=== PATIENT | female | born 1995 | race Caucasian/White ===

== ENCOUNTER 2016-08-15 10:51 | Emergency (ER) | payer MEDICARE, MEDICAID ==
[2016-08-15] MEDS ORDERED: cloNIDine TAB* 0.1 MG PO ONE (12:18)
[2016-08-15 12:49] VITALS: BP 164/100
--- NOTE | 2016-08-15 12:57 | UC ---
UC Dental HPI - HPI Summary HPI Summary: 20 yo female with CRF presents with left TMJ pain and inability or open mouth widely She has bruxism this week went to eat a salad and felt her left TMJ pop today it worsened - History of Current Complaint Chief Complaint: UCGeneralIllness Stated Complaint: JAW PAIN/LIMITED ROM Time Seen by Provider: 08/15/16 12:19 Hx Obtained From: Patient Hx Last Menstrual Period: 2014 - doesn't get d/t dialysis Onset/Duration: Gradual Onset Pain Intensity: 0 - severe if she open mouth Pain Scale Used: 0-10 Numeric Aggravating: Chewing Alleviating: Nothing - keeping mouth closed - Allergies/Home Medications Allergies/Adverse Reactions: Allergies Allergy/AdvReac Type Severity Reaction Status Date / Time Fentanyl Allergy Intermediate GI Upset Verified 08/15/16 11:36 Home Medications: Home Medications Atenolol TAB* [Tenormin TAB* 50 MG] 100 mg PO BID 08/15/16 [History Confirmed ] Ferric Citrate TAB(NF) 210 mg PO TID 08/15/16 [History Confirmed 08/15/16] Metoclopramide TAB* [Reglan TAB*] 10 mg PO TID 08/15/16 [History Confirmed 08/15] Pantoprazole Sodium [Protonix] 20 mg PO TID 08/15/16 [History Confirmed 08/15/16 ] Sodium Bicarbonate (ANTACID)* 650 mg PO QID 08/15/16 [History Confirmed 08/15/16 ] amLODIPine TAB* [Norvasc 5 mg TAB*] 5 mg PO BID 08/15/16 [History Confirmed ] cloNIDine TAB* [Catapres 0.1 MG TAB*] 0.3 mg PO TID 08/15/16 [History Confirmed 08/15/16] PMH/Surg Hx/FS Hx/Imm Hx Previously Healthy: Yes Cardiovascular History Of: Reports: Hypertension GI/ History Of: Reports: Renal Disease - Surgical History Surgical History: Yes Surgery Procedure, Year, and Place: kidney 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/2013, 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, kidney bx x4 - Family History Known Family History: Positive: Hypertension - Social History Alcohol Use: None Substance Use Type: None Smoking Status (MU): Never Smoked Tobacco Review of Systems Constitutional: Negative Skin: Negative Eyes: Negative ENT: Dental Pain - left tmj Respiratory: Negative Cardiovascular: Negative Gastrointestinal: Negative Genitourinary: Negative Motor: Negative Neurovascular: Negative Musculoskeletal: Negative Neurological: Negative Psychological: Negative All Other Systems Reviewed And Are Negative: Yes Physical Exam Triage Information Reviewed: Yes Appearance: Well-Appearing, No Pain Distress, Well-Nourished Vital Signs: Initial Vital Signs Temp 100.1 F 08/15/16 11:42 Pulse 87 08/15/16 11:42 Resp 16 08/15/16 11:42 BP 209/136 08/15/16 11:42 Pulse Ox 100 08/15/16 11:42 Vital Signs Reviewed: Yes Eyes: Positive: Conjunctiva Clear ENT: Positive: Hearing grossly normal. Negative: Nasal congestion, Nasal drainage, Muffled/hoarse voice Dental: Positive: Other: - left tmj tender/able to open up moujt 1cm Neck: Positive: Supple, Nontender, No Lymphadenopathy Respiratory: Positive: Lungs clear, Normal breath sounds, No respiratory distress Cardiovascular: Positive: RRR, No Murmur Abdomen Description: Positive: Nontender Bowel Sounds: Positive: Present Musculoskeletal: Positive: ROM Intact, No Edema Neurological: Positive: Alert Psychological Exam: Normal Skin Exam: Normal Dental Complaint Course/Dx - Differential Dx/Diagnosis Provider Diagnoses: left TMJ dysfunction. HTN. renal failure Discharge - Discharge Plan Condition: Stable Disposition: HOME Patient Education Materials: Temporomandibular Disorder (ED) Referrals: Joel Marie MD [Doctor of Dental Medicine] - As Soon As Possible Additional Instructions: ice soft/non chew diet tylenol I suspect this is due to your teeth grinding Due to your impingement I would like you to see a specialist If you have trouble making an appt let us know Call you renal specialist tomorrow as well as you are at risk for other problems that can cause jaw pain
== END 2016-08-15 13:00 | disposition home or self-care (01) ==
LOC: UCCORT 10:51
DX: M26.602 Left temporomandibular joint disorder, unspecified (principal); I10 Essential (primary) hypertension; N19 Unspecified kidney failure; Z94.0 Kidney transplant status
CPT/HCPCS: 99212; A9270-GY; G0463

== ENCOUNTER 2017-10-11 16:14 | Emergency (ER) | payer MEDICARE, MEDICAID ==
[2017-10-11 16:43] VITALS: BP 177/104
--- NOTE | 2017-10-11 16:57 | UC ---
Ear Complaint HPI - HPI Summary HPI Summary: 21 yo female with right otalgia and decreased hearing x 2 days recent URI symtpoms no f/c has hx CRF had dialysis today - History of Current Complaint Chief Complaint: UCEar Stated Complaint: RT EAR COMPLAINT Time Seen by Provider: 10/11/17 16:42 Hx Obtained From: Patient Hx Last Menstrual Period: 2014 - doesn't get d/t dialysis Onset/Duration: Gradual Onset Severity Initially: Moderate Severity Currently: Moderate Pain Intensity: 6 Pain Scale Used: 0-10 Numeric Associated Signs/Symptoms: Positive: Discharge, URI Symptoms - Allergies/Home Medications Allergies/Adverse Reactions: Allergies Allergy/AdvReac Type Severity Reaction Status Date / Time fentanyl Allergy GI Upset Verified 10/11/17 16:41 lisinopril Allergy Coughing Verified 10/11/17 16:41 nifedipine Allergy Rash Verified 10/11/17 16:41 Home Medications: Home Medications Carvedilol TAB* [Coreg TAB*] 25 mg PO BID 10/11/17 [History Confirmed 10/11/17] Valsartan TAB* [Diovan TAB*] 320 mg PO DAILY 10/11/17 [History Confirmed ] hydrALAZINE TAB* [Apresoline TAB*] 25 mg PO TID 10/11/17 [History Confirmed ] PMH/Surg Hx/FS Hx/Imm Hx Previously Healthy: No Cardiovascular History: Hypertension GI/ History: Renal Disease - Surgical History Surgical History: Yes Surgery Procedure, Year, and Place: kidney 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/2013, 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, kidney bx x4 - Family History Known Family History: Positive: Hypertension - Social History Alcohol Use: None Substance Use Type: None Smoking Status (MU): Never Smoked Tobacco Review of Systems Constitutional: Negative Skin: Negative Eyes: Negative ENT: Ear Ache, Sinus Congestion Respiratory: Negative Cardiovascular: Negative Gastrointestinal: Negative Genitourinary: Negative Motor: Negative Neurovascular: Negative Musculoskeletal: Negative Neurological: Negative Psychological: Negative All Other Systems Reviewed And Are Negative: Yes Physical Exam Triage Information Reviewed: Yes Appearance: Well-Appearing, No Pain Distress, Well-Nourished Vital Signs: Initial Vital Signs Temp 97.8 F 10/11/17 16:35 Pulse 92 10/11/17 16:35 Resp 16 10/11/17 16:35 BP 177/104 10/11/17 16:35 Pulse Ox 98 10/11/17 16:35 Vital Signs Reviewed: Yes Eyes: Positive: Conjunctiva Clear ENT: Positive: Nasal congestion, TM bulging - right. Negative: Hearing grossly normal - decreased hearing right ear, Nasal drainage, TMs normal, TM dull, TM red, Tonsillar swelling, Tonsillar exudate, Muffled voice, Hoarse voice, Sinus tenderness, Uvula midline Neck: Positive: Supple, Nontender, No Lymphadenopathy Respiratory: Positive: Lungs clear, Normal breath sounds, No respiratory distress Cardiovascular: Positive: RRR, No Murmur Neurological: Positive: Alert Psychological Exam: Normal Skin Exam: Normal Ear Complaint Course/Dx - Differential Dx/Diagnosis Provider Diagnoses: right serous otitis media Discharge - Sign-Out/Discharge Documenting (check all that apply): Discharge/Admit/Transfer - Discharge Plan Condition: Stable Disposition: HOME Prescriptions: Fluticasone NASAL SPRAY 50MCG* [Flonase NASAL SPRAY 50MCG*] 2 spray BOTH NARES BID #1 btl Patient Education Materials: Serous Otitis Media (ED) Referrals: Kp Kaur MD [Primary Care Provider] - Additional Instructions: recheck in 2-3 weeks if hearing not back to normal RECHECK SOONER FOR NEW OR WORSENING SYMPTOMS tylenol - Billing Disposition and Condition Condition: STABLE Disposition: Home
== END 2017-10-11 16:58 | disposition home or self-care (01) ==
LOC: UCCORT 16:14
DX: H65.91 Unspecified nonsuppurative otitis media, right ear (principal); Z88.5 Allergy status to narcotic agent; Z88.8 Allergy status to other drugs, medicaments and biological substances; I12.9 Hypertensive chronic kidney disease with stage 1 through stage 4 chronic kidney disease, or unspecified chronic kidney disease; N18.9 Chronic kidney disease, unspecified; Z99.2 Dependence on renal dialysis
CPT/HCPCS: 99212; G0463

== ENCOUNTER 2017-10-25 12:53 | Emergency (ER) | payer MEDICARE, MEDICAID ==
[2017-10-25 13:31] VITALS: BP 211/131
--- NOTE | 2017-10-25 13:32 | UC ---
Ear Complaint HPI - HPI Summary HPI Summary: Patient presents accompanied by her friend. She is complaining of severe headache. She describes it as an 8 out of 10 right-sided throbbing headache since noon yesterday. She attributes this to right ear pain for the past 3 weeks. She states that she was seen here 3 weeks ago for right ear discomfort, told it was not an infection and advised to be re-seen if the ear does not improve in 3 weeks. She states she is using Flonase without relief. She denies any runny nose, cough, sore throat and fever. We noted her blood pressure to be quite elevated at time of triage. She denies any change in her vision, speech, numbness or weakness to arms or legs. She is a dialysis patient and notes that this is her baseline blood pressure. Her last dialysis session was this morning. - History of Current Complaint Chief Complaint: UCEar Stated Complaint: EAR PAIN Time Seen by Provider: 10/25/17 13:20 Hx Obtained From: Patient Hx Last Menstrual Period: 2014 - doesn't get d/t dialysis Onset/Duration: Gradual Onset Aggravating Factors: Nothing Alleviating Factors: Nothing Associated Signs/Symptoms: Negative: Hearing Loss, Foreign Body Sensation, Trauma to Ear - Allergies/Home Medications Allergies/Adverse Reactions: Allergies Allergy/AdvReac Type Severity Reaction Status Date / Time fentanyl Allergy GI Upset Verified 10/25/17 13:16 lisinopril Allergy Coughing Verified 10/25/17 13:16 nifedipine Allergy Rash Verified 10/25/17 13:16 Home Medications: Home Medications Pantoprazole Sodium [Protonix] 20 mg QAM 10/25/17 [History Confirmed 10/25/17] PMH/Surg Hx/FS Hx/Imm Hx - Additional Past Medical History Additional PMH: ESRD, HTN, HSP - Surgical History Surgical History: Yes Surgery Procedure, Year, and Place: kidney 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/2013, 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, kidney bx x4 - Family History Known Family History: Positive: Hypertension - Social History Occupation: Unemployed Alcohol Use: None Substance Use Type: None Smoking Status (MU): Never Smoked Tobacco - Immunization History Vaccination Up to Date: Yes Review of Systems Constitutional: Negative Skin: Negative Eyes: Negative ENT: Ear Ache - R Respiratory: Negative Cardiovascular: Negative Gastrointestinal: Negative Genitourinary: Negative Motor: Negative Neurovascular: Negative Musculoskeletal: Negative Neurological: Headache Psychological: Negative Is Patient Immunocompromised?: Yes All Other Systems Reviewed And Are Negative: Yes Physical Exam Triage Information Reviewed: Yes Appearance: Well-Appearing, Other: - facial features celena in appearance Vital Signs Reviewed: Yes Eyes: Positive: Conjunctiva Clear, Other: - attempted to visualize fundus but unable to appreciate with light relfex ENT: Positive: Pharynx normal, TMs normal - L, R only slightly pink. Negative: Nasal congestion, Nasal drainage Neck: Positive: Supple, Nontender, No Lymphadenopathy, Other: - no bruits Respiratory: Positive: Lungs clear, Normal breath sounds, Other: - Port R upper chest Cardiovascular: Positive: RRR, No Murmur, Pulses Normal Abdomen Description: Positive: Nontender, No Organomegaly, Soft Bowel Sounds: Positive: Present Musculoskeletal: Positive: ROM Intact, No Edema - extremities Neurological: Positive: Other: - Alert and oriented to person place and time. Cranial nerves II through XII are grossly intact. 5 out of 5 strength and 2+ reflexes 4. Rapid alternating moves with ease. Normal steady gait. Psychological: Positive: Age Appropriate Behavior Skin Exam: Normal Ear Complaint Course/Dx - Course Course Of Treatment: triage bp= 211/131. repat manual LUE by myself on exam 212/ 120. bp 10/11/17 177/104. consult placed to Dr Babb, her insurance associate. I advised pt insists BP normal for her; however, given her [place] and current bp, I am concerned this may be a hypertensive emergency. I advise the BP and [place] are out of proportion to ear findings. he notes he has spoken to pt multiple times about her bp and it was higher after her dialysis this am. he suggest tx for pain, repeat BP and send to ER if not improved. Patient advised of her insurance associate recommendation; however, she is not willing to attempt a trial of treatment of her pain here. She states that she is going to go directly to [facility]'s emergency room. She is adamantly refusing EMS transfer despite risk of hypertensive emergency, worsening, disability, and delay of care. Given she is alert and oriented 3 here I must respect her wish to refuse. Her friend at the bedside is agreeable to taking her directly there. Her friend will be the regional truck driver. I Advised friend that if there are any complications, anything at all to pan puller and call 911. Friend degrees. [facility] emergency room called. Report given to Dr. Acosta and I share with her my concern for hypertensive emergency. I also shared by consult with Dr. Babb. - Differential Dx/Diagnosis Provider Diagnoses: hypertension uncontrolled, possible hypertensive emergency. headache. otalgia-R Discharge - Sign-Out/Discharge Documenting (check all that apply): Discharge/Admit/Transfer - Discharge Plan Condition: Stable Disposition: TRANS HIGHER LVL OF CARE FAC Referrals: No Primary Care Phys,NOPCP [Primary Care Provider] - Kp Kaur MD [Medical Doctor] - Additional Instructions: GO DIRECTLY TO THE [facility] UPON LEAVING HERE. YOUR FRIEND IS TO DRIVE. - Billing Disposition and Condition Condition: STABLE Disposition: Trans Higher Lvl of Care Fac
== END 2017-10-25 14:16 | disposition short-term general hospital (02) ==
LOC: UCCORT 12:53
DX: I12.0 Hypertensive chronic kidney disease with stage 5 chronic kidney disease or end stage renal disease (principal); N18.6 End stage renal disease; Z99.2 Dependence on renal dialysis; R51 Headache; H92.01 Otalgia, right ear; Z88.8 Allergy status to other drugs, medicaments and biological substances; Z88.4 Allergy status to anesthetic agent
CPT/HCPCS: 99212; G0463

== ENCOUNTER 2017-11-04 23:04 | Inpatient (IN) | payer MEDICARE, MEDICAID ==
--- NOTE | 2017-11-04 23:25 | ED ---
GI/ HPI - HPI Summary HPI Summary: This patient is a 21 year old F transferred via ambulance to [facility] from [place] with a chief complaint of vomiting that began yesterday night at 0130. The patient rates the pain 0/10. Symptoms aggravated by nothing. Symptoms alleviated by Zofran in [place]. Patient reports nasal drainage down throat, diarrhea (resolved), and fever. Pt reports she has HSP, and has been on dialysis since 2016. Pt states she is due for dialysis tomorrow. Pt denies sick contacts at home. - History of Current Complaint Time Seen by Provider: 11/04/17 23:15 Stated Complaint: TRANSFER/DIALYSIS Hx Obtained From: Patient Hx Last Menstrual Period: 2014 - doesn't get d/t dialysis Onset/Duration: Started Days Ago, Atraumatic, Still Present Timing: Constant Severity: Mild Current Severity: Mild Associated Signs and Symptoms: Positive: Diarrhea, Fever Aggravating Factor(s): Nothing - Allergy/Home Medications Allergies/Adverse Reactions: Allergies Allergy/AdvReac Type Severity Reaction Status Date / Time fentanyl Allergy GI Upset Verified 10/25/17 13:16 lisinopril Allergy Coughing Verified 10/25/17 13:16 nifedipine Allergy Rash Verified 10/25/17 13:16 PMH/Surg Hx/FS Hx/Imm Hx Previously Healthy: No Cardiovascular History: Reports: Hx Hypertension History: Reports: Hx Renal Disease - Surgical History Surgery Procedure, Year, and Place: kidney 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/2013, 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, kidney bx x4 Infectious Disease History: Yes Infectious Disease History: Reports: Hx Shingles - Family History Known Family History: Positive: Hypertension - Social History Occupation: Student Lives: With Family Alcohol Use: None Substance Use Type: Reports: None Smoking Status (MU): Never Smoked Tobacco Review of Systems Positive: Fever ENT: Other - Positive nasal drainage down throat Positive: Vomiting, Diarrhea All Other Systems Reviewed And Are Negative: Yes Physical Exam - Summary Physical Exam Summary: Appearance: Well-appearing, Well-nourished, lying in bed comfortably Skin: Warm, dry, no obvious rash Eyes: sclera anicteric, no conjunctival pallor ENT: mucous membranes moist, pharynx appears normal Neck: Supple, nontender Respiratory: slight bibasilar crackles, no signs of respiratory distress Cardiovascular: Normal S1, S2. No murmurs. Normal distal pulses in tibial and radial bilaterally. Permacath in R chest Abdomen: Soft, nontender, normal active bowel sounds present Musculoskeletal: cushingoid facies, Strength/ROM Intact Neurological: A&Ox3, awake and alert, mentation is normal, speech is fluent and appropriate Psychiatric: affect is normal, does not appear anxious or depressed Triage Information Reviewed: Yes Vital Signs Reviewed: Yes GIGU Course/Dx - Diagnoses Provider Diagnoses: Hypertension, ESRF (end stage renal failure), Nausea and vomiting - Physician Notifications Discussed Care Of Patient With: Spencer Andre Time Discussed With Above Provider: 23:30 Instructed by Provider To: Other - Consult with Dr. Andre (hospitalist) at 2330. He agrees to admit pt for further evaluation. Discharge - Sign-Out/Discharge Documenting (check all that apply): Patient Departure - Discharge Plan Condition: Guarded Disposition: ADMITTED TO [facility] - Billing Disposition and Condition Condition: GUARDED Disposition: Admitted to [facility]
[2017-11-04] MEDS ORDERED: cloNIDine TAB* 0.1 MG PO ONE (23:28)
[2017-11-05] MEDS ORDERED: GuaiFENesin DM sugar free* 5 ML UDC PO ONE (00:59)
[2017-11-05] MEDS ORDERED: Lidocaine 2% PF * 5 ML VIAL INH PRN (03:45)
[2017-11-05] MEDS ORDERED: Esmolol 10 MG/ML IVPREMIX* 2,500 MG/250 ML BAG IVPB SCH (05:00)
--- NOTE | 2017-11-05 05:16 | HP ---
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 The HSP returned causing the transplant to fail by age 18 prompting return to PD until 1 month ago when HD became necessary again. She reports cough starting yesterday producing white frothy sputum which has turned pinkish after arrival to [facility]. She reports palpitations, but no chest pain, SOB, light-headedness, headache, focal W/N/T, or other issues at this time. Mark Kaur has been apprised of the situation and is arranging for emergent dialysis in the ICU. PMedHx HSP ESRD-HD Tue/Shireen/Sat, last done 11/03 HTN GERD Ambulatory Orders Nursing to reconcile. Ferric Citrate TAB(NF) 210 mg PO TID 08/15/16 Metoclopramide TAB* [Reglan TAB*] 10 mg PO TID 08/15/16 Sodium Bicarbonate (ANTACID)* 650 mg PO QID PRN 08/15/16 cloNIDine TAB* [Catapres 0.1 MG TAB*] 0.3 mg PO TID 08/15/16 Carvedilol TAB* [Coreg TAB*] 25 mg PO BID 10/11/17 Fluticasone NASAL SPRAY 50MCG* [Flonase NASAL SPRAY 50MCG*] 2 spray BOTH NARES BID #1 btl 10/11/17 Valsartan TAB* [Diovan TAB*] 320 mg PO DAILY 10/11/17 hydrALAZINE TAB* [Apresoline TAB*] 50 mg PO TID 10/11/17 Pantoprazole Sodium [Protonix] 20 mg QAM 10/25/17 Allergies fentanyl Allergy (Verified 10/25/17 13:16) GI Upset lisinopril Allergy (Verified 10/25/17 13:16) Coughing nifedipine Allergy (Verified 10/25/17 13:16) Rash PSurgHx failed renal transplant R chest tunnelled dialysis catheter placement SocHx: denies tobacco, alcohol, & recreational drugs; single; lives with her mother; full code status FamHx: Mother: alive at 40 w/ IBS; Father: alive at 45, estranged ROS: as above, otherwise reviewed and all were negative vitals: Vital Signs Temp 36.4 C 11/04/17 23:05 Pulse 133 11/05/17 04:14 Resp 12 11/05/17 04:14 BP 210/150 11/05/17 04:13 Pulse Ox 100 11/05/17 04:14 Intake & Output 11/04/17 11/04/17 11/05/17 11:59 23:59 11:59 Weight 70.307 kg Constitutional: NAD, normally developed, well-nourished white female HEENM: atraumatic; sclera/conjunctiva: anicteric/clear; hearing: clinically intact; oropharynx: clear, mucosa moist Neck: soft tissue: ; thyroid: Pulmonary: clear to auscultation bilaterally, good aeration, no accessory muscle use CV: RR/RR, normal S1S2, no carotid bruit, no jugular venous distention, 2+ B DP/ PT, no edema Abdominal: soft, non-distended, non-tender, no rebound/guarding/rigidity, normoactive bowel sounds, no hepatosplenomegaly or masses, no costovertebral angle tenderness Musculoskeletal: general: grossly intact, non-tender Integumental: normal appearance and texture of exposed skin Psychiatric orientation: AA&O to PPS affect: calm mood: cooperative eye contact: fair content: reliable responses: timely insight: fair Testing: ([place]) reviewed ECG ([place]), personally reviewed: sinus tachycardia rate 122, no ischemia Primary Impression & Plan: 21F w/ ESRD-HD 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 Unfortunately she has lost her IV access which has not been able to be re-established preventing use of the planned esmolol GTT. Will place 1" nitropaste for venodilation to help with her pulmonary symptoms & HTN until dialysis can be initiated. Mark Kaur MD nephrology has been apprised and is arranging for emergent dialysis in the ICU. Secondary HSP : no acute issues ESRD-HD Tue/Shireen/Sat, last done 11/03 : Mark Kaur MD nephrology consulted : as above HTN : continue current regimen GERD : continue pantoprazole Admission Rational: inpatient for hypertensive emergency and volume overload in setting of ESRD-HD; without this intervention the probability of short-term adverse outcome is unacceptably high; inappropriate for outpatient setting DVTp: TISHA Code Status: full HCP: mother
[2017-11-05] MEDS ORDERED: Sodium Bicarbonate (ANTACID)* 650 MG TAB PO PRN (06:00)
[2017-11-05] MEDS ORDERED: Nitroglycerin 2% OINT* 1 GM PAK TOPICAL ONE (06:03)
[2017-11-05] MEDS: cloNIDine TAB* 0.1 MG PO SCH ×3 (08:14→20:42)
[2017-11-05] MEDS: Metoclopramide TAB* 10 MG PO SCH ×3 (08:15→20:42)
[2017-11-05] MEDS: Carvedilol TAB* 25 MG PO SCH ×2 (08:15→20:42)
[2017-11-05] MEDS: hydrALAZINE TAB* 25 MG PO SCH ×3 (08:15→20:41)
[2017-11-05] MEDS: Valsartan TAB* 160 MG PO SCH (08:15)
[2017-11-05] MEDS ORDERED: Pantoprazole TAB (NF) 20 MG TAB PO SCH (09:00)
[2017-11-05] MEDS ORDERED: FERRIC CITRATE 210 MG PO SCH (09:00)
[2017-11-05] MEDS ORDERED: Acetaminophen TAB* 325 MG PO PRN (10:09)
[2017-11-05] MEDS: Omeprazole CAP* 20 MG PO SCH (12:48)
[2017-11-05] MEDS ORDERED: ASA-APAP-CAFFEINE ES (NF) 1 TAB TAB PO PRN (13:15)
[2017-11-05] MEDS ORDERED: Butalb/Acetamin/Caff TAB* 1 TAB PO PRN (13:31)
[2017-11-05] MEDS ORDERED: amLODIPine TAB* 5 MG PO SCH (15:30)
[2017-11-05] MEDS ORDERED: Labetalol IV* 5 MG/ML 20 ML VIAL IV PUSH PRN (15:39)
[2017-11-05 15:44] LABS: ABS Basophils 0.2 10^3/ul (0-0.2); ABS Eosinophils 0.1 10^3/ul (0-0.6); ABS Lymphocytes 0.8 10^3/ul (1.0-4.8); ABS Monocytes 0.6 10^3/ul (0-0.8); ABS Neutrophils 7.4 10^3/ul (1.5-7.7); ABS Nucleated RBC 0 10^3/ul; Hematocrit 24 % (35-47); Hemoglobin 8.2 g/dl (12.0-16.0); Lymphocyte % 9.1 % (25-47); Mean Corpuscular HGB Conc 34 g/dl (31-36); Mean Corpuscular Hemoglobin 32 pg (27-31); Mean Corpuscular Volume 94 fL (80-97); Mean Platelet Volume 7.8 um3 (7.4-10.4); Nucleated Red Blood Cells % 0; Platelet Count 206 10^3/ul (150-450); Red Blood Count 2.59 10^6/ul (4.00-5.40); Red Cell Distribution Width 16 % (10.5-15)
--- NOTE | 2017-11-05 15:45 | PN ---
Hospitalist Progress Note Date of Service: 11/05/17 Pt seen and examined. 21 yo female ESRD on HD T/R/Sa present with hypertensive urgency. Current complaint of frontal headache 09/01. Resolved nausea/vomiting. Denies flush sensation. Does get occasional palpitations. States her baseline BPs at home are usually 150 systolically and often above 110 diastolically. BPs improved with HD this AM but still elevated. IV access has finally been obtained. Hypercalcemia 12.1 noted from [place]. PTH, CBC, CMP, Mg. Prn labetalol. Amolodipine 10mg added (she has tolerated it before). Continue coreg , valsartan, clonodine, hydralazine. Tylenol and then fiorcet for [place]. Transfer to floor.
[2017-11-05 16:06] LABS: EGFR Non-African American 18.6 (>60)
[2017-11-05] MEDS ORDERED: Nitro Patch/OINT Remove PATCH OFF ONE (21:00)
[2017-11-06] MEDS: cloNIDine TAB* 0.1 MG PO SCH (07:28)
[2017-11-06] MEDS: Omeprazole CAP* 20 MG PO SCH (07:28)
[2017-11-06] MEDS: Metoclopramide TAB* 10 MG PO SCH (07:28)
[2017-11-06] MEDS: hydrALAZINE TAB* 25 MG PO SCH (07:28)
[2017-11-06] MEDS: Carvedilol TAB* 25 MG PO SCH (07:29)
[2017-11-06] MEDS: Valsartan TAB* 160 MG PO SCH (07:29)
[2017-11-06] MEDS ORDERED: Ferrous Sulfate TAB* 325 MG PO SCH (09:00)
[2017-11-06] MEDS ORDERED: amLODIPine TAB* 5 MG PO SCH (09:00)
[2017-11-06 11:33] VITALS: BP 156/93
--- NOTE | 2017-11-07 01:59 | DS ---
DISCHARGE SUMMARY: DATE OF ADMISSION: 11/05/17 DATE OF DISCHARGE: 11/06/17 ADMITTING PROVIDER: Spencer Andre MD ATTENDING PHYSICIAN: Petros House MD PRIMARY PHOTO SPECIALIST: Dr. Kaur PRIMARY CARE PHYSICIAN: None currently, trying to establish with Dr. Wolf. PRINCIPAL DIAGNOSES: 1. Hypertensive emergency; volume overload. 2. End-stage renal disease. 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 She had developed cough with frothy sputum, palpitations. Please see H&P of Spencer Andre for full details. Dr. Kaur helped arrange for emergent dialysis in the ICU. Her max recorded blood pressure were in the 230s/160-170s diastolically while in the ICU. Initially she did not have peripheral IV access and was not able to obtain planned esmolol drip. Instead she got nitro paste 1 inch for venodilation and then emergent hemodialysis the morning of hospital day #1 with some improved pressures but still elevated often to 190s/110s or even greater diastolically. She gradually improved and reported that her home blood pressures were usually 150s/110s if not higher. We have added amlodipine 10 mg daily. Blood pressures on discharge were 150s/90s. She is due for dialysis Tuesday, , Tuesday. Her headaches improved with the control of her blood pressure. Of note, [facility] labs were initially concerning for elevated calcium above 12, but this was not confirmed on repeat here (10.0). Her PTH was checked in the interim and was found to be PTH intact of 6.3 within normal limits. She was anemic to 8.2, normocytic and was already on oral iron supplementation. She is being discharged with close followup with Dr. Kaur which she sees on dialysis days. She has already called Dr. Wolf's office to try to establish care as a new PCP. She was given contact information of the [facility]. If she is not able to arrange followup within the next [address] Wolf, she was encouraged to be seen on either 11/09/17 or 11/11/17, Tuesday or Tuesday respectively next week for blood pressure checks. DISCHARGE MEDICATIONS: Include: 1. Amlodipine 10 mg daily (new). 2. Carvedilol 37.5 mg p.o. b.i.d. 3. Clonidine 0.3 mg p.o. t.i.d. 4. Ferric citrate 210 mg p.o. t.i.d. 5. Flonase 2 sprays both nares b.i.d. 6. Hydralazine 50 mg p.o. t.i.d. 7. Reglan 10 mg p.o. t.i.d. 8. Protonix 20 mg q.a.m. 9. Sodium bicarbonate 650 mg p.o. q.i.d. 10. Valsartan 320 mg p.o. daily. Refills of her valsartan and Coreg were provided to the patient as she had less than a week respectively. Of note, she had previously been following up with surgery attendant, Dr. Mistry in up in [place] and then Geoffrey Silva when Dr. Mistry left, but she is now following with Dr. Kaur. She has undergone some vein mapping for future fistula creation. DISCHARGE DIET: Renal, unchanged. ACTIVITY LEVEL: No restrictions. FOLLOWUP: She has already called Dr. Wolf's office to try to establish care as a new PCP. She was given contact information of the [facility]. If she is able to arrange followup within the next [address] Wolf, she was encouraged to be seen on either 11/09/17 or 11/11/17, Tuesday or Tuesday respectively next week for blood pressure checks. TIME SPENT ON DISCHARGE: 35 minutes. Greater than 50% of the time spent face- to- face with the patient explaining discharge instructions, assessment and plan. [id number]/[facility] #: [id number] [facility] HOSPITALMadan
== END 2017-11-06 12:25 | disposition home or self-care (01) | DRG 304 ==
LOC: ED 23:04 → ICU 11-05 05:29 → MEDTELE 11-05 15:15
PROVIDERS: ADMIT Hospitalist; ATTEND Internal Medicine
PROC: 5A1D70Z Performance of Urinary Filtration, Intermittent, Less than 6 Hours Per Day (ICD-10-PCS; principal; 2017-11-05)
DX: I16.1 Hypertensive emergency (principal); N18.6 End stage renal disease; D69.0 Allergic purpura; T86.12 Kidney transplant failure; E83.52 Hypercalcemia; I12.0 Hypertensive chronic kidney disease with stage 5 chronic kidney disease or end stage renal disease; E87.70 Fluid overload, unspecified; K21.9 Gastro-esophageal reflux disease without esophagitis; Z83.79 Family history of other diseases of the digestive system; Z79.899 Other long term (current) drug therapy; Z88.8 Allergy status to other drugs, medicaments and biological substances; Z99.2 Dependence on renal dialysis
CPT/HCPCS: 36415; 80053; 82330; 83735; 83970; 84100; 85025; 87641; 90935; 99284; A9270-GY; G0257

== ENCOUNTER 2017-11-12 08:04 | Emergency (ER) | payer MEDICARE, MEDICAID ==
[2017-11-12] MEDS ORDERED: Labetalol IV* 5 MG/ML 20 ML VIAL IV PUSH ONE (08:55)
[2017-11-12] MEDS ORDERED: cloNIDine TAB* 0.1 MG PO ONE (09:20)
--- OUTSIDE RECORDS SUMMARY | 2017-11-12 09:29 | XMS REPORT ---
:1995 External Reference #:[id number] Author Organization [facility] Address [address] [place] [address] [place] [address] Phone [phone] Care Team Providers Name Role Phone Patient's Choice Primary Care Physician Unavailable Payers Type Date Identification Numbers Payment Provider Subscriber Medicare Primary Policy Number: [id number] Medicare Zayda Garcia PayID: [id number] [address] [place] [address] [facility] Policy Number: [id number] Medicaid Zayda Garcia Group Name: 1 1 [address] PayID: [id number] [place] [address] Problems Date Description Provider Status Onset: 11/09/2017 Anemia of chronic renal failure Petros House MD Active Onset: 11/09/2017 End-stage renal disease Petros House MD Active Onset: 11/09/2017 Essential hypertension Petros House MD Active Social History Type Date Description Comments Smoking Patient has never smoked Allergies, Adverse Reactions, Alerts Date Description Reaction Status Severity Comments 11/09/2017 Lisinopril active 11/09/2017 Nifedipine active 11/09/2017 Fentanyl sensitivity/overdose due to re active Medications Medication Date Status Form Strength Qnty SIG Indications Ordering Provider Losartan 11/08/ Active Tablets 100mg 30tabs Take 1 tab Petros Potassium 2018 daily. This MD Harsh replaces your valsartan 320mg daily which is currently on recall. Amlodipine / Active Tablets 10mg 1 by mouth Unknown Besylate 0000 every day Coreg 00/ Active Tablets 25mg 1 by mouth Unknown 0000 twice a day Catapres / Active Tablets 0.3mg one three Unknown 0000 times a day Fluticasone / Active Suspension 50mcg/Act 2 sprays Unknown Propionate 0000 each nostril qd. Hydralazine / Active Tablets 50mg take one Unknown HCL 0000 tablet by mouth three times a day Reglan / Active Tablets 10mg 1 tablet Unknown 0000 every 8 hours Protonix / Active Tablets DR 20mg 1 by mouth Unknown 0000 every day Sodium / Active Tablets 650mg one by Unknown Bicarbonate 0000 mouth four times a day Ferric / Active Capsules one by Unknown Citrate 0000 mouth three times a day Vital Signs Date Vital Result Comment 11/09/2017 Height 61 inches 5'1" Weight 139.12 lb Heart Rate 108 /min BP Systolic 238 mmHg rigt arm average adult cuff BP Diastolic 140 mmHg rigt arm average adult cuff BP Systolic Sitting 220 mmHg left arm average adult cuff BP Diastolic Sitting 140 mmHg left arm average adult cuff Body Temperature 99.1 F Pain Level 0 O2 % BldC Oximetry 100 % BMI (Body Mass Index) 26.3 kg/m2 Results Test Date Test Result H/L Range Note Laboratory test finding 11/09/2017 Ferritin <pending> Procedures Description No Information Plan of Care 11/09/2017 - Petros House [id number] Essential (primary) hypertensionComments:Continue coreg 25mg twice a day, hydralazine 50mg three times a day , clonidine 0.3mg three times a day, amlodipine 10mg once a day. Your valsartan 320mg is not currently available given wide spread recalls. You were given prescription for losartan 100mg a day. Please record your blood pressures twicea day in a log book. Please follow-up with Dr. Kaur, Dr. Wolf and your transplant doctors. Please limit fluid intake to more than 2L a dayFollow up:Please follow-up in 2 weeks if you have not gotten in to see Dr. Wolf by then.N18.6 End stage renal diseaseComments:Please follow-up with Dr. Kaur.D63.1 Anemia in chronic kidney diseaseComments:Please get a CBC and iron studies with ferritin done before your next visit in two weeks.
[2017-11-12 09:43] LABS: ABS Basophils 0.1 10^3/ul (0-0.2); ABS Eosinophils 0.4 10^3/ul (0-0.6); ABS Lymphocytes 1.3 10^3/ul (1.0-4.8); ABS Neutrophils 6.4 10^3/ul (1.5-7.7); ABS Nucleated RBC 0 10^3/ul; Eosinophil % 4.7 % (0-6); Hematocrit 27 % (35-47); Hemoglobin 9.3 g/dl (12.0-16.0); Lymphocyte % 14.5 % (25-47); Mean Corpuscular HGB Conc 34 g/dl (31-36); Mean Corpuscular Hemoglobin 32 pg (27-31); Mean Corpuscular Volume 92 fL (80-97); Mean Platelet Volume 7.2 um3 (7.4-10.4); Nucleated Red Blood Cells % 0; Platelet Count 336 10^3/ul (150-450); Red Blood Count 2.94 10^6/ul (4.00-5.40); Red Cell Distribution Width 15 % (10.5-15); White Blood Count 9.3 10^3/ul (3.5-10.8)
[2017-11-12 09:58] LABS: INR 0.91 (0.77-1.02)
[2017-11-12 10:00] LABS: EGFR Non-African American 13.3 (>60)
[2017-11-12] MEDS ORDERED: amLODIPine TAB* 5 MG PO ONE (10:55)
--- NOTE | 2017-11-12 13:10 | ED ---
Seizure - HPI Summary HPI Summary: Patient is a 21-year-old female who has had HSP since the age of 5 subsequently ESRD at age 16. She has been on HD until she was 17 when she was transitioned to PD. It was at this time she received a renal transplant, however this failed at age 18. She has been currently on HD for another 2 months. Today during HD she had a seizure, she states most likely resulting from an increased BP. She states normally her BP is over 300 systolic when she has a seizure. Last seizure was 4 months ago. She states she remains compliant with all of her medications. She is not on seizure medications regularly. She denies any recent illness or other complaints at this time. She is requesting discharge back to her dialysis. She states she completed 1.5 hours of dialysis this morning. Neurologist for her seizures are currently at [facility] and she does not have a neurologist locally. - History Of Current Complaint Chief Complaint: EDSeizure Time Seen by Provider: 11/12/17 08:13 Hx Obtained From: Patient Onset/Duration: Sudden Onset Severity Of Seizure: Self-Limited Aggravating Factor(s): Meds Non-compliant, Other - high BP Alleviating Factor(s): Spontaneous Resolution Associated Signs And Symptoms: Negative Related History: Medication Non-Compliant - Risk Factors SAH Risk Factors: Negative Meningitis Risk Factors: Negative SDH Risk Factor: Negative - Allergies/Home Medications Allergies/Adverse Reactions: Allergies Allergy/AdvReac Type Severity Reaction Status Date / Time bee venom protein (honey bee) Allergy Rash Verified 11/12/17 08:12 fentanyl Allergy GI Upset Verified 11/12/17 08:12 lisinopril Allergy Coughing Verified 11/12/17 08:12 nifedipine Allergy Rash Verified 11/12/17 08:12 Home Medications: Home Medications Famotidine TAB* [Pepcid 20 MG TAB*] 20 mg PO QPM 11/12/17 [History Confirmed ] Lacosamide TAB* [Vimpat TAB*] 100 mg PO BID 11/12/17 [History Confirmed 11/12/17 ] Losartan TAB* [Cozaar TAB*] 25 mg PO DAILY 11/12/17 [History Confirmed 11/12/17] PMH/Surg Hx/FS Hx/Imm Hx Previously Healthy: Yes Endocrine/Hematology History: Reports: Hx Blood Transfusions, Hx Anemia Cardiovascular History: Reports: Hx Hypertension Respiratory History: Reports: Hx Sleep Apnea - Undiagnosed sleep apnea History: Reports: Hx Chronic Renal Failure, Hx Dialysis - Hemodialysis, Hx Renal Disease, Other Problems/Disorders - Kidney transplant 2013, right kidney works at 10% Musculoskeletal History: Reports: Hx Arthritis - RA right knee, Hx Tendonitis - Right knee Sensory History: Reports: Hx Contacts or Glasses - Glasses Denies: Hx Hearing Aid Opthamlomology History: Reports: Hx Contacts or Glasses - Glasses Neurological History: Reports: Hx Headaches, Hx Migraine, Hx Seizures Psychiatric History: Reports: Hx Anxiety, Hx Depression - Surgical History Surgery Procedure, Year, and Place: kidney 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/2013, 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, kidney bx x4 Hx Anesthesia Reactions: No - Immunization History Hx Pertussis Vaccination: No Immunizations Up to Date: Unable to Obtain/Confirm Infectious Disease History: No Infectious Disease History: Reports: Hx Shingles Denies: Traveled Outside the [place] in Last 30 Days - Family History Known Family History: Positive: Hypertension - Social History Occupation: Unemployed Lives: With Family Alcohol Use: None Hx Substance Use: No Substance Use Type: Reports: None Hx Tobacco Use: No Smoking Status (MU): Never Smoked Tobacco Review of Systems Constitutional: Negative Negative: Fever, Chills, Fatigue, Skin Diaphoresis Negative: Epistaxis, Dental Pain Negative: Palpitations, Chest Pain Genitourinary: Negative Positive: no symptoms reported, see HPI Musculoskeletal: Negative Neurological: Negative Psychological: Normal All Other Systems Reviewed And Are Negative: Yes Physical Exam Triage Information Reviewed: Yes Vital Signs On Initial Exam: Initial Vitals Temp Pulse Resp BP Pulse Ox 99.1 F 127 20 211/146 100 11/12/17 08:09 11/12/17 08:09 11/12/17 08:09 11/12/17 08:09 11/12/17 08:09 Vital Signs Reviewed: Yes Appearance: Positive: Well-Appearing, Well-Nourished Skin: Positive: Skin Color Reflects Adequate Perfusion Head/Face: Positive: Normal Head/Face Inspection Neck: Positive: Supple, No Lymphadenopathy Respiratory/Lung Sounds: Positive: Clear to Auscultation Cardiovascular: Positive: RRR, Pulses are Symmetrical in both Upper and Lower Extremities Musculoskeletal: Positive: Strength/ROM Intact Neurological: Positive: Alert, Oriented to Person Place, Time, Speech Normal Psychiatric: Positive: Affect/Mood Appropriate Diagnostics - Vital Signs Vital Signs Temp Pulse Resp BP Pulse Ox 11/12/17 10:39 193/136 11/12/17 10:09 206/139 11/12/17 09:53 217/144 11/12/17 09:00 113 99 11/12/17 08:39 116 201/139 99 11/12/17 08:09 99.1 F 127 20 211/146 99 - Laboratory Lab Results: Lab Results 11/12/17 11/12/17 11/12/17 Range/Units 09:08 09:08 09:08 WBC 9.3 (3.5-10.8) 10^3/ul RBC 2.94 L (4.00-5.40) 10^6/ul Hgb 9.3 L (12.0-16.0) g/dl Hct 27 L (35-47) % MCV 92 (80-97) fL MCH 32 H (27-31) pg MCHC 34 (31-36) g/dl RDW 15 (10.5-15) % Plt Count 336 (150-450) 10^3/ul MPV 7.2 L (7.4-10.4) um3 Neut % (Auto) 68.9 (38-83) % Lymph % (Auto) 14.5 L (25-47) % [place] % (Auto) 10.4 H (0-7) % Eos % (Auto) 4.7 (0-6) % Baso % (Auto) 1.5 (0-2) % Absolute Neuts (auto) 6.4 (1.5-7.7) 10^3/ul Absolute Lymphs (auto) 1.3 (1.0-4.8) 10^3/ul Absolute Monos (auto) 1.0 H (0-0.8) 10^3/ul Absolute Eos (auto) 0.4 (0-0.6) 10^3/ul Absolute Basos (auto) 0.1 (0-0.2) 10^3/ul Absolute Nucleated RBC 0 10^3/ul Nucleated RBC % 0 INR (Anticoag Therapy) 0.91 (0.77-1.02) APTT 27.5 (26.0-36.3) seconds Sodium (135-145) mmol/L Potassium (3.5-5.0) mmol/L Chloride (101-111) mmol/L Carbon Dioxide (22-32) mmol/L Anion Gap (2-11) mmol/L BUN (6-24) mg/dL Creatinine (0.51-0.95) mg/dL Est GFR ( Amer) (>60) Est GFR (Non-Af Amer) (>60) BUN/Creatinine Ratio (8-20) Glucose (70-100) mg/dL Lactic Acid 0.7 (0.5-2.0) mmol/L Calcium (8.6-10.3) mg/dL Magnesium (1.9-2.7) mg/dL Total Bilirubin (0.2-1.0) mg/dL AST (13-39) U/L ALT (7-52) U/L Alkaline Phosphatase (34-104) U/L Total Creatine Kinase (10-223) U/L Troponin I (<0.04) ng/mL Total Protein (6.4-8.9) g/dL Albumin (3.2-5.2) g/dL Globulin (2-4) g/dL Albumin/Globulin Ratio (1-3) TSH (0.34-5.60) mcIU/mL 11/12/17 Range/Units 09:36 WBC (3.5-10.8) 10^3/ul RBC (4.00-5.40) 10^6/ul Hgb (12.0-16.0) g/dl Hct (35-47) % MCV (80-97) fL MCH (27-31) pg MCHC (31-36) g/dl RDW (10.5-15) % Plt Count (150-450) 10^3/ul MPV (7.4-10.4) um3 Neut % (Auto) (38-83) % Lymph % (Auto) (25-47) % [place] % (Auto) (0-7) % Eos % (Auto) (0-6) % Baso % (Auto) (0-2) % Absolute Neuts (auto) (1.5-7.7) 10^3/ul Absolute Lymphs (auto) (1.0-4.8) 10^3/ul Absolute Monos (auto) (0-0.8) 10^3/ul Absolute Eos (auto) (0-0.6) 10^3/ul Absolute Basos (auto) (0-0.2) 10^3/ul Absolute Nucleated RBC 10^3/ul Nucleated RBC % INR (Anticoag Therapy) (0.77-1.02) APTT (26.0-36.3) seconds Sodium 136 (135-145) mmol/L Potassium 3.5 (3.5-5.0) mmol/L Chloride 99 L (101-111) mmol/L Carbon Dioxide 28 (22-32) mmol/L Anion Gap 9 (2-11) mmol/L BUN 8 (6-24) mg/dL Creatinine 4.23 H (0.51-0.95) mg/dL Est GFR ( Amer) 16.0 (>60) Est GFR (Non-Af Amer) 13.3 (>60) BUN/Creatinine Ratio 1.9 L (8-20) Glucose 97 (70-100) mg/dL Lactic Acid (0.5-2.0) mmol/L Calcium 10.9 H (8.6-10.3) mg/dL Magnesium 2.0 (1.9-2.7) mg/dL Total Bilirubin 0.40 (0.2-1.0) mg/dL AST 13 (13-39) U/L ALT 7 (7-52) U/L Alkaline Phosphatase 60 (34-104) U/L Total Creatine Kinase 61 (10-223) U/L Troponin I 0.03 (<0.04) ng/mL Total Protein 6.5 (6.4-8.9) g/dL Albumin 3.8 (3.2-5.2) g/dL Globulin 2.7 (2-4) g/dL Albumin/Globulin Ratio 1.4 (1-3) TSH 0.20 L (0.34-5.60) mcIU/mL Result Diagrams: 11/12/17 09:08 11/12/17 09:36 Lab Statement: Any lab studies that have been ordered have been reviewed, and results considered in the medical decision making process. Course/Dx - Course Course Of Treatment: On evaluation of the patient, BP is noted to be elevated at 211/146. She states this is normal for her. She checks her blood pressure regularly and states on days she does not have dialysis her blood pressure is normal. However she is noted to be elevated during dialysis days. She attends HD every 2 days. Her coronary care unit nurse is Dr. Kaur. Attempted to place IV 3 times with no success. She has been given clonidine 0.2 mg orally. This reduced her blood pressure somewhat but only 201/139. She has been given amlodipine 10 mg. She states she has taken all of her medications this morning. Discussed case with Dr. Kaur. Discussed with dialysis Center who do not have any more availabilities today. Dr. Kaur states it is okay for her to defer her next HD until her scheduled Tuesday appointment. It is suspected that this patient may be medication noncompliant, however she denies this. She is requesting discharge as she is concerned for an admission leading to her name off the kidney donor list. Goal of treatment during her stay in the ED was to reduce her BP. Her labs remained stable within normal potassium and sodium count. MAP reduced 20%. However, she states she is normally this high and I do not want to bottom out her BP. She will resume all medications at home. - Diagnoses Provider Diagnoses: Seizure, Hypertensive urgency Discharge - Sign-Out/Discharge Documenting (check all that apply): Patient Departure - Discharge Plan Condition: Stable Disposition: HOME Referrals: Lucero Wolf MD [Primary Care Provider] - - Billing Disposition and Condition Condition: STABLE Disposition: Home
[2017-11-12 13:13] VITALS: BP 191/121
== END 2017-11-12 13:52 | disposition home or self-care (01) ==
LOC: ED 08:04
DX: R56.9 Unspecified convulsions (principal); I16.0 Hypertensive urgency; I12.0 Hypertensive chronic kidney disease with stage 5 chronic kidney disease or end stage renal disease; Z99.2 Dependence on renal dialysis; N18.6 End stage renal disease; Z94.0 Kidney transplant status; Z88.5 Allergy status to narcotic agent; Z88.8 Allergy status to other drugs, medicaments and biological substances; Z91.030 Bee allergy status; Z82.49 Family history of ischemic heart disease and other diseases of the circulatory system
CPT/HCPCS: 36415; 80053; 82550; 83605; 83735; 84443; 84484; 85025; 85610; 85730; 99283; A9270-GY

== ENCOUNTER 2017-11-13 03:04 | Inpatient (IN) | payer MEDICARE, MEDICAID ==
[2017-11-13] MEDS ORDERED: Metoclopramide IV* 5 MG/ML 2 ML VIAL IV SLOW PU ONE (03:36)
[2017-11-13] MEDS ORDERED: Morphine VIAL* 4 MG/ML VIAL (1 ml vial) IV ONE (03:37)
[2017-11-13] MEDS ORDERED: diPHENhydraMINE IV* 50 MG/ML 1 ml VIAL (BENADRYL) IV ONE (03:37)
[2017-11-13] MEDS ORDERED: Labetalol IV* 5 MG/ML 20 ML VIAL IV PUSH ONE ×3 (03:39→06:04)
[2017-11-13] MEDS ORDERED: Morphine VIAL* 10 MG/ML 1 ML VIAL ONE (04:46)
--- NOTE | 2017-11-13 04:55 | ED ---
Complex/Multi-Sys Presentation - HPI Summary HPI Summary: This is elizabeth Bhakta documenting for attending Dr. Kasey Brand MD. A 21 y/o female ARACELIS presents to ED c/o nausea and vomiting. According to the patient, the symptoms started yesterday evening. It was noted that the patient is currently in renal failure and had her last dialysis yesterday. She noted that this has happened before with the same symptoms and stated that she was admitted and given certain treatment. Pt denies any fever or diarrhea. PMHx of renal failure, currently on dialysis. - History Of Current Complaint Chief Complaint: EDNauseaVomitDiarrh Time Seen by Provider: 11/13/17 03:21 Hx Obtained From: Patient Onset/Duration: Sudden Onset, Lasting Days, Still Present Timing: Constant Severity Currently: None Aggravating Factor(s): NOTHING Alleviating Factor(s): NOTHING Associated Signs And Symptoms: Positive: Nausea, Vomiting. Negative: Diarrhea, Fever - Allergies/Home Medications Allergies/Adverse Reactions: Allergies Allergy/AdvReac Type Severity Reaction Status Date / Time bee venom protein (honey bee) Allergy Rash Verified 11/13/17 05:09 fentanyl Allergy GI Upset Verified 11/13/17 05:09 lisinopril Allergy Coughing Verified 11/13/17 05:09 nifedipine Allergy Rash Verified 11/13/17 05:09 PMH/Surg Hx/FS Hx/Imm Hx Endocrine/Hematology History: Reports: Hx Blood Transfusions, Hx Anemia Cardiovascular History: Reports: Hx Hypertension Respiratory History: Reports: Hx Sleep Apnea - Undiagnosed sleep apnea History: Reports: Hx Chronic Renal Failure, Hx Dialysis - Hemodialysis, Hx Renal Disease, Other Problems/Disorders - Kidney transplant 2013, right kidney works at 10% Musculoskeletal History: Reports: Hx Arthritis - RA right knee, Hx Tendonitis - Right knee Sensory History: Reports: Hx Contacts or Glasses - Glasses Denies: Hx Hearing Aid Opthamlomology History: Reports: Hx Contacts or Glasses - Glasses Neurological History: Reports: Hx Headaches, Hx Migraine, Hx Seizures Psychiatric History: Reports: Hx Anxiety, Hx Depression - Surgical History Surgery Procedure, Year, and Place: kidney 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/2013, 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, kidney bx x4 Hx Anesthesia Reactions: No Infectious Disease History: Unable to Obtain/Confirm Infectious Disease History: Reports: Hx Shingles Denies: Traveled Outside the [place] in Last 30 Days - Family History Known Family History: Positive: Hypertension - Social History Alcohol Use: None Hx Substance Use: No Substance Use Type: Reports: None Hx Tobacco Use: No Smoking Status (MU): Never Smoked Tobacco Review of Systems Negative: Fever Positive: Vomiting, Nausea. Negative: Diarrhea All Other Systems Reviewed And Are Negative: Yes Physical Exam - Summary Physical Exam Summary: VITAL SIGNS: Reviewed. GENERAL: Patient is a well-developed and nourished female who is lying comfortable in the stretcher. Patient is not in any acute respiratory distress. HEAD AND FACE: No signs of trauma. No ecchymosis, hematomas or skull depressions. No sinus tenderness. EYES: PERRLA, EOMI x 2, No injected conjunctiva, no nystagmus. EARS: Hearing grossly intact. Ear canals and tympanic membranes are within normal limits. MOUTH: Oropharynx within normal limits. NECK: Supple, trachea is midline, no adenopathy, no JVD, no carotid bruit, no c- spine tenderness, neck with full ROM. CHEST: Symmetric, no tenderness at palpation LUNGS: Clear to auscultation bilaterally. No wheezing or crackles. CVS: Regular rate and rhythm, S1 and S2 present, no murmurs or gallops appreciated. ABDOMEN: Soft. No signs of distention. No rebound no guarding, and no masses palpated. Bowel sounds are normal. Suprapubic fullness and tenderness. EXTREMITIES: FROM in all major joints, no edema, no cyanosis or clubbing. NEURO: Alert and oriented x 3. No acute neurological deficits. Speech is normal and follows commands. SKIN: Dry and warm Triage Information Reviewed: Yes Vital Signs On Initial Exam: Initial Vitals Temp Pulse Resp BP Pulse Ox 98.0 F 134 22 187/130 100 11/13/17 03:13 11/13/17 03:13 11/13/17 03:13 11/13/17 03:13 11/13/17 03:13 Vital Signs Reviewed: Yes Diagnostics - Vital Signs Vital Signs Temp Pulse Resp BP Pulse Ox 11/13/17 04:00 134 26 100 11/13/17 03:36 127 6 196/131 100 11/13/17 03:20 131 20 100 11/13/17 03:18 132 30 189/127 100 11/13/17 03:13 98.0 F 134 22 187/130 100 - Laboratory Result Diagrams: 11/13/17 04:35 11/13/17 04:35 Lab Statement: Any lab studies that have been ordered have been reviewed, and results considered in the medical decision making process. - CT CT A/P CT Interpretation Completed By: Radiologist - 1. Small right pleural effusion. 2. Cardiomegaly with moderate pericardial effusion. 3. Small hiatal hernia. 4. A 2 mm non-obstructing left renal stone. 4. Transplanted kidney in the right hemipelvis with mild hydronephrosis. 6. Mild to moderate ascites. ED physician reviewed this radiology report. Complex Multi-Symp Course/Dx Course Of Treatment: A 21 y/o female ARACELIS presents to ED c/o nausea and vomiting. According to the patient, the symptoms started yesterday evening. It was noted that the patient is currently in renal failure and had her last dialysis yesterday. She noted that this has happened before with the same symptoms and stated that she was admitted and given certain treatment. Pt denies any fever or diarrhea. A CT A/P revealed 1. Small right pleural effusion. 2. Cardiomegaly with moderate pericardial effusion. 3. Small hiatal hernia. 4. A 2 mm non-obstructing left renal stone. 4. Transplanted kidney in the right hemipelvis with mild hydronephrosis. 6. Mild to moderate ascites. In the ED course, the patient recieved Trandate, Morphine and Benadryl. Patient care was discussed with Dr. House who accepts patient for admission. Patient will be admitted with a diagnosis of HTN and nausea and vomiting. Pt is agreeable with this plan. - Diagnoses Provider Diagnoses: HTN (hypertension), Nausea & vomiting - Physician Notifications Discussed Care Of Patient With: Petros House Time Discussed With Above Provider: 06:21 Instructed by Provider To: Other - Accepts patient for admission. Discharge - Sign-Out/Discharge Documenting (check all that apply): Patient Departure - ADMIT - Discharge Plan Condition: Stable Disposition: ADMITTED TO [facility] Referrals: Lucero Wolf MD [Primary Care Provider] -
[2017-11-13 05:06] LABS: ABS Basophils 0.2 10^3/ul (0-0.2); ABS Eosinophils 0.1 10^3/ul (0-0.6); ABS Lymphocytes 0.9 10^3/ul (1.0-4.8); ABS Monocytes 0.8 10^3/ul (0-0.8); ABS Neutrophils 5.8 10^3/ul (1.5-7.7); ABS Nucleated RBC 0 10^3/ul; Eosinophil % 1.1 % (0-6); Hematocrit 26 % (35-47); Hemoglobin 8.8 g/dl (12.0-16.0); Mean Corpuscular HGB Conc 34 g/dl (31-36); Mean Corpuscular Hemoglobin 31 pg (27-31); Mean Corpuscular Volume 93 fL (80-97); Mean Platelet Volume 7.3 um3 (7.4-10.4); Nucleated Red Blood Cells % 0; Platelet Count 336 10^3/ul (150-450); Red Blood Count 2.79 10^6/ul (4.00-5.40); Red Cell Distribution Width 15 % (10.5-15); White Blood Count 7.9 10^3/ul (3.5-10.8)
[2017-11-13 05:22] LABS: EGFR Non-African American 8.5 (>60)
[2017-11-13] MEDS ORDERED: Sodium Bicarbonate (ANTACID)* 650 MG TAB PO PRN (07:08)
[2017-11-13] MEDS ORDERED: Ondansetron INJ* 2 MG/ML VIAL IV PRN (08:32)
[2017-11-13] MEDS ORDERED: Pantoprazole TAB (NF) 20 MG TAB PO SCH (09:00)
--- NOTE | 2017-11-13 09:04 | RAD ---
INDICATION: Nausea, vomiting, abdominal pain. On dialysis. Previous kidney transplant. COMPARISON: No relevant prior exams available on the [facility] PACS for comparison. TECHNIQUE: Multidetector CT images were obtained from the lung bases to the ischial tuberosities. Evaluation of the viscera is limited without IV contrast. Multiplanar reformation. REPORT: Tip of RIGHT side central venous catheter at level of the RIGHT atrium. Cardiomegaly. Moderately large pericardial effusion. Small dependent RIGHT pleural effusion. No CT abnormality of the liver, gallbladder, pancreas, spleen. Negative for CT abnormality of the upper GI or small bowel. While the appendix is not discretely visualized, there is no inflammatory change in the right lower quadrant or region of the tip of the cecum to suggest presence of an acute inflammatory process. Unremarkable colon. Small volume of nonloculated ascites. Negative for free air or hernias. Normal adrenal glands. Markedly atrophic creek kidneys. Negative for hydronephrosis of the creek kidneys. 2 mm nonobstructing LEFT renal stone noted. Mildly atrophic RIGHT iliac fossa renal transplant with mild hydronephrosis. No obstructing ureteral stone or lesion of the transplanted RIGHT kidney evident. Largely decompressed urinary bladder without gross abnormality. Unremarkable anteverted uterus and adnexal regions. Negative for lymphadenopathy. Unremarkable abdominal aorta and iliac arteries. Physiologic distention of the IVC. Negative for fracture or suspicious osseous lesions. Diffuse subcutaneous edema. IMPRESSION: #. Cardiomegaly and moderately large pericardial effusion. #. Small dependent RIGHT pleural effusion. #. Small volume of ascites. #. Diffuse subcutaneous edema. Consider anasarca. #. While the appendix is not discretely visualized, there is no inflammatory change in the right lower quadrant or region of the tip of the cecum to suggest presence of an acute inflammatory process. #. Mildly atrophic RIGHT iliac fossa renal transplant with mild hydronephrosis. No obstructing ureteral stone or lesion of the transplanted RIGHT kidney evident. #. Negative for lymphadenopathy.
[2017-11-13] MEDS: Losartan TAB* 25 MG PO SCH (10:01)
[2017-11-13] MEDS: hydrALAZINE TAB* 25 MG PO SCH ×3 (10:01→20:28)
[2017-11-13] MEDS: Carvedilol TAB* 25 MG PO SCH ×2 (10:29→20:28)
[2017-11-13] MEDS: Lacosamide TAB* 100 MG TAB PO SCH ×2 (10:29→20:31)
--- NOTE | 2017-11-13 13:16 | HP ---
HISTORY AND PHYSICAL: DATE OF ADMISSION: 11/13/17 ADMITTING PROVIDER: Petros House MD PRIMARY CARE PHYSICIAN: Imminently to establish with Dr. Wolf CHIEF COMPLAINT: Nausea, vomiting, dizziness, uncontrolled hypertension. 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 She is status post failed kidney transplant and previously had been on peritoneal dialysis. Over the last month, has been on hemodialysis. She has very poorly controlled hypertension despite maximal therapies on five different medications. There has been some question in the past about noncompliance. 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 She recently was admitted between 11/05/17 and 11/06/17 with hypertensive urgency, volume overload, and was discharged with new medication, amlodipine 10. She was followed by Dr. House in the [facility] after discharge on 11/09/17 where she was also noted to be quite hypertensive, but feeling relatively well and stating that she was compliant with her medications. She had to reschedule original plan with Dr. Wolf that was initially 11/10/17, she says it is now scheduled to 11/14/17. The patient was feeling well on and Tuesday, though she states she felt weak in the morning of Tuesday. She was noted to have twitching of her lower extremities and grunting during about 1-1/2 hours into her dialysis session (Tuesday, , Tuesday hemodialysis) and was transported to ED day prior to this admission given a concern for potential seizures. Her initial blood pressures in the emergency room yesterday were 211/146 and by discharge from the ED was 191/121. Of note, she was first recommended for admission by emergency room physician, Dr. Arrieta. The patient threatened to sign out AMA but other than doing that as she said she feared that admissions would hurt relatively for kidney transplants. She after discharge from the emergency room said she had some nausea, vomiting, and weakness at home. She was able she thinks to keep down her antihypertensive medications up until 9 p.m., however, do not feel like she could tolerate pills after 9 p.m., therefore applied her clonidine patch because she missed her p.m. hydralazine 50 mg t.i.d. and clonidine 0.3 mg t.i.d. dosing. Around 2 a.m., she felt like she should present to the emergency room given her continued nausea, vomiting. Since the admission to the ED, where her initial blood pressures were 187/130 and peaked at 210/149, she has been treated with multiple doses of labetalol after an EJ was placed in the emergency room, also with Reglan, and morphine and Benadryl. She had a CT of her abdomen and pelvis, noncontrast, which showed a small right pleural effusion, cardiomegaly with moderate pericardial effusion, small hiatal hernia, nonobstructing 2 mm left renal stone, mild hydronephrosis of the transplanted kidney in the right hemipelvis and [id number] ascites. She is currently drowsy from the morphine and Benadryl, though feeling better and thinks she can tolerate p.o. medications. She is being admitted for nausea, vomiting, and hypertension control. PAST MEDICAL HISTORY: End-stage renal disease, Henoch-Schonlein purpura at age 5 secondary to bee stings, hypertension resistant, GERD, seizure disorder on Vimpat. MEDICATIONS: Include: 1. Losartan 100 mg daily. 2. Carvedilol 37.5 mg p.o. b.i.d. 3. Amlodipine 10 mg p.o. daily. 4. Reglan 10 mg p.o. t.i.d. 5. Vimpat 100 mg p.o. b.i.d. 6. Ferric citrate 210 mg p.o. t.i.d. 7. Pepcid 20 mg p.o. q.p.m. 8. Hydralazine 50 mg p.o. t.i.d. 9. Clonidine 0.3 mg p.o. t.i.d., but currently with clonidine 0.2 mg patch. 10. Sodium bicarb 650 mg p.o. four times a day, p.r.n. 11. Protonix 20 mg p.o. q.a.m. 12. Flonase 2 sprays both nares b.i.d. She also thinks she was started on diuretic Lasix, does not know the dose, but now also saying that she thinks it starts with an S and is a little yellow pill. ALLERGIES: BEE STINGS, FENTANYL, LISINOPRIL (coughing), NIFEDIPINE (rash). FAMILY HISTORY: Mother alive with age 40 with IBS. Father alive at age 45, estranged. SOCIAL HISTORY: The patient denied alcohol or drug use. When she turned 21, experimented with alcohol and developed pancreatitis. She denies recent alcohol use. She lives with her mother. She is a full code. REVIEW OF SYSTEMS: A complete 14-point review of systems negative except as per HPI. PHYSICAL EXAMINATION GENERAL APPEARANCE: Tired, falling asleep intermittently. VITAL SIGNS: Blood pressure 187/127, satting 96% on room air, respiratory rate 21 to 26, pulse rate 111, temperature between 98.0. HEENT: Normocephalic, atraumatic. Pupils are equal, round, and reactive to light. Extraocular motions intact. No scleral icterus. NECK: Supple. Moist mucous membranes. PULMONARY: Clear to auscultation bilaterally with no wheezing, rales, or rhonchi. CARDIOVASCULAR: Tachycardic, regular. No murmurs, rubs, or gallops. ABDOMEN: Soft, nontender, nondistended. EXTREMITIES: Warm, well perfused. No peripheral edema. NEURO: Cranial nerves II through XII intact, sleepy and falling asleep easily during the interview. Moving all extremities. DIAGNOSTIC STUDIES/LAB DATA: White count 7.9, hemoglobin 8.8, hematocrit 26, platelets 336. Sodium 135, potassium 3.5, chloride 95, carbon dioxide 26, anion gap 14, creatinine 6.21, glucose 117, calcium 11.8, AST 11. CRP 10.5. BNP 2448. Lipase 10, beta hCG 1.02. TSH from yesterday noted to be 0.20. IMAGING: CT abdomen, pelvis without contrast demonstrated small right pleural effusion, cardiomegaly with moderate pericardial effusion, small hiatal hernia, 2- mm nonobstructive left renal stone, transplanted kidney in the right hemipelvis with mild hydronephrosis and [id number] ascites. ASSESSMENT AND PLAN: Zayda Garcia is a 21-year-old female with past medical history end-stage renal disease secondary to HSP and resistant hypertension on five maximal antihypertensive medications presenting with nausea , vomiting, recent episode of bilateral arm twitching. There was concern for pontifical seizure though she states she was aware of everything that was happening and was able to talk during the episode and is now presenting with elevated calcium levels and low TSH. She has a EJ, she has required IV labetalol, currently with IV Reglan and Joryan hope to reinitiate her p.o. medications including hydralazine 50 mg t.i.d., Coreg 37.5 mg b.i.d., losartan 100 mg daily, and amlodipine 10 mg daily. We will continue clonidine patch or if she is able to tolerate p.o. because her switching her back to clonidine 0.3 mg t.i.d. I am going to continue Vimpat (lacosamide level). Given her moderate pericardial effusion on CT, I will get a transthoracic echocardiogram. I am adding repeat TSH, free T4, and a T3. Some of her tachycardia may be related to hyperthyroid and is twitching episodes may also be related hypercalcemia. She will likely need hemodialysis on Tuesday, a day ahead of her schedule give her last dose was cut short by one-half hours. She makes no urine whatsoever, Dr. Kaur will be consulted with, we will give her IV medications through the EJ if not able to tolerate p.o. She is a full code. Medical surrogate is her mother, Lyn Garcia. [id number]/[facility] #: [id number] MTDMadan
[2017-11-13] MEDS: Omeprazole CAP* 20 MG PO SCH (14:57)
[2017-11-13] MEDS: Metoclopramide TAB* 10 MG PO SCH ×3 (14:57→20:32)
[2017-11-13] MEDS: Fluticasone NASAL SPRAY 50MCG* 16 gm SPRAY BTL BOTH NARES SCH ×2 (14:57→20:34)
[2017-11-13] MEDS: Famotidine TAB* 20 MG PO SCH (17:11)
[2017-11-13] MEDS: cloNIDine TAB* 0.1 MG PO SCH (20:37)
[2017-11-14] MEDS: Metoclopramide TAB* 10 MG PO SCH ×3 (07:39→20:46)
[2017-11-14] MEDS: hydrALAZINE TAB* 25 MG PO SCH ×3 (07:39→20:45)
[2017-11-14] MEDS: cloNIDine TAB* 0.1 MG PO SCH ×3 (07:39→20:44)
[2017-11-14] MEDS: amLODIPine TAB* 5 MG PO SCH (07:39)
[2017-11-14] MEDS: Losartan TAB* 25 MG PO SCH (07:39)
[2017-11-14] MEDS: Lacosamide TAB* 100 MG TAB PO SCH ×2 (07:40→20:46)
[2017-11-14] MEDS: Carvedilol TAB* 25 MG PO SCH ×2 (07:40→20:45)
[2017-11-14] MEDS: Fluticasone NASAL SPRAY 50MCG* 16 gm SPRAY BTL BOTH NARES SCH ×2 (07:44→20:47)
[2017-11-14] MEDS ORDERED: Heparin DIALYSIS ONLY(*) 1,000 UNITS/ML VIAL DIALYSIS ONE (11:30)
[2017-11-14] MEDS ORDERED: Epoetin Alfa* 10,000 UNITS/ML VIAL IV ONE (11:30)
[2017-11-14] MEDS: Omeprazole CAP* 20 MG PO SCH (13:35)
[2017-11-14 15:16] LABS: EGFR Non-African American 18.2 (>60)
[2017-11-14] MEDS: Famotidine TAB* 20 MG PO SCH (17:13)
--- NOTE | 2017-11-14 18:26 | PN ---
Subjective Date of Service: 11/14/17 Interval History: Greatly improved blood pressures. Resolved Nausea. No dizziness, [place], SOB, chest pain. HD today. ECHO in AM, results now confirm moderate to large pericardial effusion. Pt attests to increased hair loss over the last 2 months. No skin changes. Dr. Kaur consulted (states the other 6th agent she was taking is terazosin and not lasix, she was decreased on her vitamin D last month). Wanted renal duplex US of both [place] and transplant kidney. Touched base with Dr. Burgess for endocrinology consult - will see tomorrow. Thyroid US was ordered but they insisted that they would do it only as an inpatient. Objective Active Medications: Amlodipine Besylate (Norvasc Tab*) 10 mg PO DAILY [facility] Last Admin: 11/14/17 07:39 Dose: 10 mg Carvedilol (Coreg Tab*) 37.5 mg PO BID [facility] Last Admin: 11/14/17 07:40 Dose: 37.5 mg Clonidine HCl (Catapres Tab*) 0.3 mg PO TID [facility] Last Admin: 11/14/17 14:30 Dose: 0.3 mg Famotidine (Pepcid Tab*) 20 mg PO QPM [facility] Last Admin: 11/14/17 17:13 Dose: 20 mg Fluticasone Propionate (Flonase Nasal [place] 50mcg*) 2 spray BOTH NARES BID [facility] Last Admin: 11/14/17 07:44 Dose: Not Given Hydralazine HCl (Apresoline Tab*) 50 mg PO TID [facility] Last Admin: 11/14/17 14:30 Dose: 50 mg Lacosamide (Vimpat Tab*) 100 mg PO BID [facility] Last Admin: 11/14/17 07:40 Dose: 100 mg Losartan Potassium (Cozaar Tab*) 100 mg PO DAILY [facility] Last Admin: 11/14/17 07:39 Dose: 100 mg Metoclopramide HCl (Reglan Tab*) 5 mg PO TID [facility] Last Admin: 11/14/17 14:30 Dose: 5 mg Omeprazole (Prilosec Cap*) 20 mg PO 1100 [facility] Last Admin: 11/14/17 13:35 Dose: Not Given Ondansetron HCl (Zofran Inj*) 4 mg IV Q4H PRN PRN Reason: NAUSEA/VOMITING Sodium Bicarbonate (Sodium Bicarbonate (Antacid)*) 650 mg PO QID PRN PRN Reason: GERD Last Admin: 11/13/17 15:07 Dose: 650 mg Vital Signs - 8 hr 11/14/17 11/14/17 14:24 15:11 Temperature 98.2 F 98.0 F Pulse Rate 104 103 Respiratory 16 Rate Blood Pressure 153/88 149/80 (mmHg) O2 Sat by Pulse 100 100 Oximetry Oxygen Devices in Use Now: None Appearance: NAD, smiling in HD chair. Eyes: No Scleral Icterus, PERRLA Ears/Nose/Mouth/Throat: NL Teeth, Lips, Gums Neck: NL Appearance and Movements; NL JVP, Trachea Midline, No Thyroid Enlargement, Masses Respiratory: Symmetrical Chest Expansion and Respiratory Effort, Clear to Auscultation Cardiovascular: NL Sounds; No Murmurs; No JVD, - - tachycardic, regular. no m/r/ g Abdominal: NL Sounds; No Tenderness; No Distention, No Hepatosplenomegaly Extremities: No Edema Skin: No Rash or Ulcers Neurological: Alert and Oriented x 3, NL Sensation, NL Muscle Strength and Tone , - - no resting tremor. Nutrition: Taking PO's Result Diagrams: 11/13/17 04:35 11/14/17 14:50 Additional Lab and Data: Laboratory Results - last 24 hr 11/13/17 11/14/17 04:35 14:50 Sodium 135 137 Potassium 3.5 3.1 L Chloride 95 L 97 L Carbon Dioxide 26 31 Anion Gap 14 H 9 BUN 14 5 L Creatinine 6.21 H 3.21 H Est GFR ( Amer) 10.3 22.0 Est GFR (Non-Af Amer) 8.5 18.2 BUN/Creatinine Ratio 2.3 L 1.6 L Glucose 117 H 102 H Calcium 11.8 H 9.6 Magnesium 2.3 Total Bilirubin 0.60 AST 11 L ALT 7 Alkaline Phosphatase 50 C-Reactive Protein 10.50 H Total Protein 6.4 Albumin 3.9 Globulin 2.5 Albumin/Globulin Ratio 1.6 Amylase 33 Lipase 10 L 25-OH Vitamin D Total 14.0 L TSH 0.20 L Free T4 1.98 H Free T3 4.10 H Total T3 96 Beta HCG, Quant 1.02 Assess/Plan/Problems-Billing Assessment: - Patient Problems (1) Hyperthyroidism Current Visit: Yes Status: Acute Code(s): E05.90 - THYROTOXICOSIS, UNSP WITHOUT THYROTOXIC CRISIS OR STORM SNOMED Code(s): 58098902 Comment: TSH 0.20, FT4 elevated 1.98, FT3 elevated 4.10, TT3 wnl. Thyrotropin Receptor Ab drawn, pending. likely send out Dr Burgess of endocrinology consulted. Will see tomorrow. Hyperthyroidism may be playing a role in her hypercalcemia and tachycardia. new symptoms of hair loss over last 2 months. Consideration for thyroid radioisotope uptake scan and/or thyroid US. Called Nuclear Medicine and US and both say they are done rather as outpatient. (2) Hypercalcemia Current Visit: Yes Status: Acute Code(s): E83.52 - HYPERCALCEMIA SNOMED Code(s): 87623056 Comment: Ca 11.8 (was 12.0 at [facility] last week before normalized) iPTH was wnl last week. Vitamin D 25 OH is low at. Is on montly supplementation f/u PTHrP, vitamin D 1,25 OH. Also with moderate-large pericardial effusion. Very Low threshold for heme-onc consult but will await above studies. (3) Pericardial effusion Current Visit: Yes Status: Acute Code(s): I31.3 - PERICARDIAL EFFUSION ( NONINFLAMMATORY) SNOMED Code(s): 846851598 Comment: Moderate to Large circumferential effusion, no prior ECHOs here. no tamponade physiology . Given hypercalcima, stronger indication for pericardiocentesis to determine etiology. Cardiology consult placed in system for Dr. Salgado, please call in AM. Low threshold for heme-onc consult. (4) Nausea & vomiting Current Visit: Yes Status: Acute Code(s): R11.2 - NAUSEA WITH VOMITING, UNSPECIFIED SNOMED Code(s): 50319880 Comment: resolved (as with better BPs). ?pericardial effusion playing a role. reglan TID but would avoid chronic use if can aggrevating factors can be better controlled. (5) Seizure disorder Current Visit: Yes Status: Acute Code(s): G40.909 - EPILEPSY, UNSP, NOT INTRACTABLE, WITHOUT STATUS EPILEPTICUS SNOMED Code(s): 884002125 Comment: not clear that activity described on Sunday 11/12 was an actual seizure vs influence of hyperthyroidisma and hypercalcemia along with fluid shifts of HD. f/u vimpat level (likely send out) vimpat BID. (6) ESRD (end stage renal disease) on dialysis Current Visit: No Status: Acute Code(s): N18.6 - END STAGE RENAL DISEASE; Z99.2 - DEPENDENCE ON RENAL DIALYSIS SNOMED Code(s): 257350288 Comment: HD today. outpatient T,Th,Sat Dr. Kaur consulted. (7) Hypertension Current Visit: No Status: Acute Code(s): I10 - ESSENTIAL (PRIMARY) HYPERTENSION SNOMED Code(s): 37535662 Comment: Much improved. continue coreg 37.5mg BID, losartan 100mg daily, hydralazine 50mg TID, clonodine 0.3mg TID, amlodipine 5mg daily. Now seems had been started on terazosin also by Dr. Kaur as outpatient. ( before amlodipine was added). hold for now given already on clonodine. Duplex doppler of both Transplant and [facility] specifically requested by Dr. Kaur to determine if any renal artery stenosis. (8) Hypertensive urgency Current Visit: No Status: Acute Code(s): I16.0 - HYPERTENSIVE URGENCY SNOMED Code(s): 770319493 Comment: resolved. (9) Tachycardia Current Visit: No Status: Acute Code(s): R00.0 - TACHYCARDIA, UNSPECIFIED SNOMED Code(s): 2035315 Comment: hyperthyroid workup as above. BB Status and Disposition: medicine, change to inpatient for futher workup of hyperthyroidism, hypercalcemia and pericardial effusion.
--- NOTE | 2017-11-14 22:28 | ECHO ---
Patient: CRISTINA BAILEY [facility] Rec#: [id number] : 1995 Date: 11/14/2017 Age: 21y Height: 155 cm / 61.0 in Weight: 61 kg / 134.4 lbs Sex: F BSA: 1.6 Room#: 440 Admit Date#: 11/13/2017 Type: Inpatient Referring: Petros House Reading: Bhupinder Salgado MD [employer] Stitch Cleaner: Marie Chao,JONATHANCS,RDMS CC: Lucero Wolf MD Transthoracic Echocardiogram Indication: Pericardial Effusion BP: 181/117 HR: 102 Rhythm: NSR Findings History: RENAL TRANSPLANT, RENAL FAILURE, HTN Technical Comments: The study quality is good. Left Ventricle: The left ventricular chamber size is normal. Mild to moderate concentric left ventricular hypertrophy is observed. Global left ventricular wall motion and contractility are within normal limits. The estimated ejection fraction is 50-55%. The assessment of diastolic function is non-diagnostic. Left Atrium: The left atrium is mild to moderately dilated. Right Ventricle: The right ventricular chamber size and systolic function are within normal limits. Right Atrium: The right atrial cavity size is normal. A catheter is visualized in the right atrium. Aortic Valve: The aortic valve is trileaflet. Systolic excursion of the aortic valve is normal. There is a trace of aortic regurgitation. There is no evidence of aortic stenosis. Mitral Valve: The mitral valve leaflets appear normal. There is trace to mild mitral regurgitation. There is no evidence of mitral stenosis. Tricuspid Valve: The tricuspid valve leaflets are normal. There is trace tricuspid regurgitation. Unable to estimate the right ventricular systolic pressure. Pulmonic Valve: The pulmonic valve appears normal. There is a trace pulmonic regurgitation. Pericardium: There is a circumferential pericardial effusion.Moderate to large in size. More fluid is located posterior to the heart. No evidence of tamponde Aorta: The aortic root appears normal. There is no dilatation of the aortic arch. Pulmonary Artery: The main pulmonary artery appears normal. Venous: The inferior vena cava appears normal in size. There is an approximate 50% respiratory change in the inferior vena cava dimension. Summary: There was not any prior study for comparison. Conclusions Mild to moderate concentric left ventricular hypertrophy is observed. Global left ventricular wall motion and contractility are within normal limits. The estimated ejection fraction is 50-55%. The right ventricular chamber size and systolic function are within normal limits. A catheter is visualized in the right atrium. There is a trace of aortic regurgitation. There is trace to mild mitral regurgitation. There is trace tricuspid regurgitation. Unable to estimate the right ventricular systolic pressure. There is a circumferential pericardial effusion.Moderate to large in size. More fluid is located posterior to the heart. No evidence of tamponde Measurements Name Value Normal Range RVIDd (AP) 2D 2.7 cm (0.9 - 2.6) RVDdMajor (2D) 2.5 cm (2.2 - 4.4) RAd ISD 4CH 3.9 cm (3.4 - 4.9) RA (A4C)W 2.3 cm (2.9 - 4.6) IVSd (2D) 1.2 cm (0.6 - 1) LVPWd (2D) 1.2 cm (0.6 - 1) LVIDd (2D) 5.3 cm (3.6 - 5.4) LVIDs (2D) 3.5 cm - LV FS (2D) 34 % (25 - 45) Aortic Annulus 2 cm (1.4 - 2.6) Ao root diameter (2D) 3 cm (2.1 - 3.5) Ascending Ao 2.6 cm (2.1 - 3.4) Aortic arch 2.5 cm (1.8 - 3.4) LA dimension (AP) 2D 4.3 cm (2.3 - 3.8) LAd ISD 4CH 5.5 cm (2.9 - 5.3) LA ISD 4CH W 4.9 cm (2.5 - 4.5) Name Value Normal Range LA ESV BP (A/L) index 46 ml/m2 - Name Value Normal Range AV Vmax 1.5 m/sec - AV VTI 23 cm - AV peak gradient 9 mmHg - AV mean gradient 5 mmHg - LVOT Vmax 1.3 m/sec - LVOT VTI 21 cm - LVOT peak gradient 7 mmHg - LVOT mean gradient 5 mmHg - EMELIA Vmax 1 m/sec - Name Value Normal Range MV Vmax 1.3 m/sec - MV VTI 24 cm - MV peak gradient 7 mmHg - MV mean gradient 3 mmHg - Name Value Normal Range RAP 8 mmHg - IVC diameter 2 cm - Name Value Normal Range PV Vmax 1 m/sec - PV peak gradient 4 mmHg -
[2017-11-15] MEDS: Fluticasone NASAL SPRAY 50MCG* 16 gm SPRAY BTL BOTH NARES SCH (07:49)
--- NOTE | 2017-11-15 08:33 | PN ---
Subjective - Subjective Reason for Note: Consultation Note History: Endocrinology Consultation: I was asked to review this patient for 2 problems: Abnormal thyroid function tests with possible hyperthyroidism and hypercalcemia. I have reviewed her presentation in Dr. Petros House's detailed admitting H and P - I obtained the following history from the patient. 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 She presented this time with dehydration - she attributes this to her hemodialysis (HD) taking off too much water. She had a tachycardia at presentation and her TSH was suppressed. Her TFTs suggested possible hyperthyroidism: Laboratory Tests 11/13/17 04:35 TSH 0.20 L Free T4 1.98 H Free T3 4.10 H Total T3 96 He also had marked hypercalcemia at presentation alongside abnormalities associated with ESRD/HD: Laboratory Tests 11/13/17 04:35 Sodium 135 Potassium 3.5 Chloride 95 L Carbon Dioxide 26 Anion Gap 14 H BUN 14 Creatinine 6.21 H Glucose 117 H Calcium 11.8 H She has not had prior thyroid disease - upon direct questioning: Thyroid: She has lost some weight Temperature tolerance - always cold Sleep - good Energy - "moderate" Bowels - no problems No change in skin. Some hair loss She has no history of hypercalcemia - I note she was evaluated for renal osteodystrophy recently prior to admission and she had no evidence for this. Laboratory Tests 11/05/17 11/05/17 15:30 15:30 Phosphorus 3.2 PTH Intact 6.3 Calcium (PTH Intact) 10.0 Active Problems: Active Problems Hypercalcemia (Acute) E83.52 Ca 11.8 (was 12.0 at [facility] last week before normalized) iPTH was wnl last week. Vitamin D 25 OH is low at. Is on montly supplementation f/u PTHrP , vitamin D 1,25 OH. Also with moderate-large pericardial effusion. Very Low threshold for heme-onc consult but will await above studies. Hyperthyroidism (Acute) E05.90 TSH 0.20, FT4 elevated 1.98, FT3 elevated 4.10, TT3 wnl. Thyrotropin Receptor Ab drawn, pending. likely send out Dr Burgess of endocrinology consulted. Will see tomorrow. Hyperthyroidism may be playing a role in her hypercalcemia and tachycardia. new symptoms of hair loss over last 2 months. Consideration for thyroid radioisotope uptake scan and/or thyroid US. Called Nuclear Medicine and US and both say they are done rather as outpatient. Nausea & vomiting (Acute) R11.2 resolved (as with better BPs). ?pericardial effusion playing a role. reglan TID but would avoid chronic use if can aggrevating factors can be better controlled. Pericardial effusion (Acute) I31.3 Moderate to Large circumferential effusion, no prior ECHOs here. no tamponade physiology . Given hypercalcima, stronger indication for pericardiocentesis to determine etiology. Cardiology consult placed in system for Dr. Salgado, please call in AM. Low threshold for heme-onc consult. Seizure disorder (Acute) G40.909 not clear that activity described on Sunday 11/12 was an actual seizure vs influence of hyperthyroidisma and hypercalcemia along with fluid shifts of HD. f /u vimpat level (likely send out) vimpat BID. Current Medications: Current Medications Amlodipine Besylate (Norvasc Tab*) 10 mg PO DAILY [facility] Last Admin: 11/14/17 07:39 Dose: 10 mg Carvedilol (Coreg Tab*) 37.5 mg PO BID [facility] Last Admin: 11/14/17 20:45 Dose: 37.5 mg Clonidine HCl (Catapres Tab*) 0.3 mg PO TID [facility] Last Admin: 11/14/17 20:44 Dose: 0.3 mg Famotidine (Pepcid Tab*) 20 mg PO QPM [facility] Last Admin: 11/14/17 17:13 Dose: 20 mg Fluticasone Propionate (Flonase Nasal [place] 50mcg*) 2 spray BOTH NARES BID [facility] Last Admin: 11/15/17 07:49 Dose: Not Given Hydralazine HCl (Apresoline Tab*) 50 mg PO TID [facility] Last Admin: 11/14/17 20:45 Dose: 50 mg Lacosamide (Vimpat Tab*) 100 mg PO BID [facility] Last Admin: 11/14/17 20:46 Dose: 100 mg Losartan Potassium (Cozaar Tab*) 100 mg PO DAILY [facility] Last Admin: 11/14/17 07:39 Dose: 100 mg Metoclopramide HCl (Reglan Tab*) 5 mg PO TID [facility] Last Admin: 11/14/17 20:46 Dose: 5 mg Omeprazole (Prilosec Cap*) 20 mg PO 1100 [facility] Last Admin: 11/14/17 13:35 Dose: Not Given Ondansetron HCl (Zofran Inj*) 4 mg IV Q4H PRN PRN Reason: NAUSEA/VOMITING Sodium Bicarbonate (Sodium Bicarbonate (Antacid)*) 650 mg PO QID PRN PRN Reason: GERD Last Admin: 11/13/17 15:07 Dose: 650 mg Past Medical History: PMH: 5 years bee sting - attributes HSP to this trigger 16 years - bruises and epistaxis. Hgb 4 and Creatinine 22 She had ESRD and was started on HD 2013 - renal transplant 2014 - renal transplant rejected - initially HD and then PD 11/23/2016 - acute pancreatitis (attributes this to drinking too much alchohol on her birthday). Had recurrent episodes She restarted HD 2 months ago Hypertension GERD Seizure disorder Home Medications: Home Medications Medication Instructions Recorded Confirmed Type Ferric Citrate TAB(NF) 210 mg PO TID 08/15/16 11/13/17 History Metoclopramide TAB* [Reglan TAB*] 10 mg PO TID 08/15/16 11/13/17 History Sodium Bicarbonate (ANTACID)* 650 mg PO QID PRN 08/15/16 11/13/17 History cloNIDine TAB* [Catapres 0.1 MG 0.3 mg PO TID 08/15/16 11/13/17 History TAB*] Fluticasone NASAL SPRAY 50MCG* 2 spray BOTH NARES BID #1 btl 10/11/17 11/13/17 Rx [Flonase NASAL SPRAY 50MCG*] hydrALAZINE TAB* [Apresoline TAB*] 50 mg PO TID 10/11/17 11/13/17 History Pantoprazole Sodium [Protonix] 20 mg PO QAM 10/25/17 11/13/17 History Amlodipine Besylate [Norvasc] 10 mg PO DAILY #30 tablet 11/06/17 11/13/17 Rx Famotidine TAB* [Pepcid 20 MG TAB*] 20 mg PO QPM 11/12/17 11/13/17 History Lacosamide TAB* [Vimpat TAB*] 100 mg PO BID 11/12/17 11/13/17 History Losartan TAB* [Cozaar TAB*] 100 mg PO DAILY 11/12/17 11/13/17 History Carvedilol TAB* [Coreg TAB*] 37.5 mg PO BID 11/13/17 11/13/17 History Allergies: Allergies Allergy/AdvReac Type Severity Reaction Status Date / Time bee venom protein (honey bee) Allergy Rash Verified 11/13/17 05:09 fentanyl Allergy GI Upset Verified 11/13/17 05:09 lisinopril Allergy Coughing Verified 11/13/17 05:09 nifedipine Allergy Rash Verified 11/13/17 05:09 - Family History Family History: Maternal grandfather primary hypothyroidism Maternal grandmother pernicious anemia No other autoimmune disease or endocrinopathy Objective - Vital Signs Vital Signs: Vital Signs 11/14/17 11/14/17 11/14/17 14:24 15:11 19:23 Temperature 98.2 F 98.0 F Pulse Rate 104 103 Respiratory 16 16 Rate Blood Pressure 153/88 149/80 (mmHg) O2 Sat by Pulse 100 100 Oximetry 11/14/17 11/15/17 11/15/17 19:44 00:07 03:44 Temperature 98.3 F 98.8 F 98.8 F Pulse Rate 103 89 94 Respiratory 16 12 Rate Blood Pressure 151/93 141/84 161/102 (mmHg) O2 Sat by Pulse 99 98 100 Oximetry - Intake and Output Intake and Output: Intake & Output 11/12/17 11/13/17 11/14/17 11/15/17 11:59 11:59 11:59 11:59 Intake Total 0 0 Output Total 1600 Balance -1600 0 Weight 134 lb 12.8 oz 135 lb 6.4 oz 134 lb 9.6 oz Intake: Oral 0 0 Output: Urine 1600 Other: Estimated Void Large # Bowel Movements 0 # Voids 5 ADLs: Meal Record Start: 11/13/17 13: 38 Freq: DAILY@0900,1400,1800 Status: Active Protocol: Created 11/13/17 13:38 System (Rec: 11/13/17 13:38 System [id number]) Document 11/13/17 20:57 [id number] (Rec: 11/13/17 20:57 [id number] TELE-C03) Document 11/14/17 09:00 [id number] (Rec: 11/14/17 09:37 [id number] TELE-C08) Document 11/14/17 14:00 [id number] (Rec: 11/14/17 14:07 [id number] TELE-C08) Document 11/14/17 20:36 [id number] (Rec: 11/14/17 20:36 [id number] TELE-C13) Intake and Output Start: 11/13/17 03: 19 Freq: Status: Active Protocol: Created 11/13/17 03:19 System (Rec: 11/13/17 03:19 System [id number]) Intake and Output Start: 11/13/17 13: 38 Freq: DAILY@0600,1400,2200 Status: Active Protocol: Created 11/13/17 13:38 System (Rec: 11/13/17 13:38 System TELE-M02) Document 11/13/17 21:54 [id number] (Rec: 11/13/17 21:55 [id number] TELE-C03) Document 11/14/17 06:00 (Rec: 11/14/17 06:20 [id number]) Document 11/14/17 14:00 [id number] (Rec: 11/14/17 14:07 [id number] TELE-C08) Document 11/14/17 21:56 [id number] (Rec: 11/14/17 21:57 [id number] TELE-C13) Document 11/15/17 06:00 [id number] (Rec: 11/15/17 06:38 [id number]) Intake and Output Start: 11/14/17 01: 08 Freq: Status: Active Protocol: Created 11/14/17 01:08 [id number] (Rec: 11/14/17 01:08 [id number] TELE-C13) Document 11/14/17 01:09 [id number] (Rec: 11/14/17 01:10 [id number] TELE-C13) - Physical Exam General Physical Exam Comment: I evaluated her whilst she was having a renal ultrasound. General: No Cyanosis, Yes Anemia, No Jaundice, No Clubbing Skin: Normal: Rash Thyroid Function: Clinically Euthyroid -: No Tremor, No Goiter, No Thyroid Nodule, No Thyroid Bruit, No Thyroid Tenderness, No Cervical adenopathy, No Supraclav. adenopathy, No Proptosis, No Conjunctival Injection, No Lid Lag, No Dysconjugate Eye Movement Endocrine: No Central Obesity, No Hirsuitism, No Virilism, No Acromegaly, No Vitiligo, No Flushing, No Acanthosis nigricans, No Violaceious striae, No Cintia Syndrome, No Buccal pigmenatation, No Lorenzo Crease Pigmentation Results - Results Lab Results: Laboratory Results - last 24 hr 11/13/17 11/14/17 04:35 14:50 Sodium 135 137 Potassium 3.5 3.1 L Chloride 95 L 97 L Carbon Dioxide 26 31 Anion Gap 14 H 9 BUN 14 5 L Creatinine 6.21 H 3.21 H Est GFR ( Amer) 10.3 22.0 Est GFR (Non-Af Amer) 8.5 18.2 BUN/Creatinine Ratio 2.3 L 1.6 L Glucose 117 H 102 H Calcium 11.8 H 9.6 Magnesium 2.3 Total Bilirubin 0.60 AST 11 L ALT 7 Alkaline Phosphatase 50 C-Reactive Protein 10.50 H Total Protein 6.4 Albumin 3.9 Globulin 2.5 Albumin/Globulin Ratio 1.6 Amylase 33 Lipase 10 L 25-OH Vitamin D Total 14.0 L TSH 0.20 L Free T4 1.98 H Free T3 4.10 H Total T3 96 Beta HCG, Quant 1.02 Radiology Results: Patient Name: ZAYDA GARCIA Medical Record#: [id number] Ordering Physician: Kasey Brand MD Acct.#: [id number] : 1995 Age: 21 Sex: F Location: EMERGENCY DEPARTMENT Exam Date: 11/13/17 033 ADM Status: REG ER Order Information: CT ABD/PEL W/O Accession Number: [id number] CPT: 47836 INDICATION: Nausea, vomiting, abdominal pain. On dialysis. Previous kidney transplant. COMPARISON: No relevant prior exams available on the [facility] for comparison. TECHNIQUE: Multidetector CT images were obtained from the lung bases to the ischial tuberosities. Evaluation of the viscera is limited without IV contrast. Multiplanar reformation. REPORT: Tip of RIGHT side central venous catheter at level of the RIGHT atrium. Cardiomegaly. Moderately large pericardial effusion. Small dependent RIGHT pleural effusion. No CT abnormality of the liver, gallbladder, pancreas, spleen. Negative for CT abnormality of the upper GI or small bowel. While the appendix is not discretely visualized, there is no inflammatory change in the right lower quadrant or region of the tip of the cecum to suggest presence of an acute inflammatory process. Unremarkable colon. Small volume of nonloculated ascites. Negative for free air or hernias. Normal adrenal glands. Markedly atrophic [place] kidneys. Negative for hydronephrosis of the [place] kidneys. 2 mm nonobstructing LEFT renal stone noted. Mildly atrophic RIGHT iliac fossa renal transplant with mild hydronephrosis. No obstructing ureteral stone or lesion of the transplanted RIGHT kidney evident. Largely decompressed urinary bladder without gross abnormality. Unremarkable anteverted uterus and adnexal regions. Negative for lymphadenopathy. Unremarkable abdominal aorta and iliac arteries. Physiologic distention of the IVC. Negative for fracture or suspicious osseous lesions. Diffuse subcutaneous edema. IMPRESSION: #. Cardiomegaly and moderately large pericardial effusion. #. Small dependent RIGHT pleural effusion. #. Small volume of ascites. #. Diffuse subcutaneous edema. Consider anasarca. #. While the appendix is not discretely visualized, there is no inflammatory change in the right lower quadrant or region of the tip of the cecum to suggest presence of an acute inflammatory process. #. Mildly atrophic RIGHT iliac fossa renal transplant with mild hydronephrosis. No obstructing ureteral stone or lesion of the transplanted RIGHT kidney evident. #. Negative for lymphadenopathy. <Electronically signed by Krish Rodriguez MD in OV> 11/13/17 0900 Dictated By: Krish Rodriguez MD This report is only to be considered final once signed by the Provider(s) as displayed in the "<Electronically Signed by >" field (s). Absence of a signature indicates the report is in a draft status and still needs to be finalized. In the event this document was created by someone other than the signing Provider, the individual initiating the document will be listed in the "Entered by:" or "Dictated by:" okeefe. 1 of 2 Assessment - Problem List Assessment: Patient Problems Hypercalcemia (Acute) Hyperthyroidism (Acute) Nausea & vomiting (Acute) Pericardial effusion (Acute) Seizure disorder (Acute) ESRD (end stage renal disease) on dialysis (Acute) HSP (Henoch-Schonlein purpura) nephritis (Acute) Hypertension (Acute) Hypertensive urgency (Acute) Tachycardia (Acute) Plan: Hyperthyroidism (Acute) He has abnormal TFTs with a low TSH. The FT4 and FT3 are elevated, but the total T3 is normal. I think this is most likely euthyroid sick syndrome. Her tachycardia has resolved. I had a look at a bedside US thyroid (the microbiology quality control technician kindly allowed me to look at this whilst she was performing a renal US). The appearance is completely normal - she has no evidence of heterogeneous echotexture. She has a simple cyst on the right side. There are no other nodules. This makes Tony's disease unlikely. She may have Graves' disease - I will check both her thyroid stimulating immunoglobulins and thyroid peroxidase abs. Clinically she is euthyroid. I do not think she requires antithyroid medication. I will repeat her TFTs as an outpatient. Hypercalcemia (Acute) This has resolved. She has no evidence of secondary hyperparathyroidism. I think the hypercalcemia was likely the result of ESRD related electrolyte imbalance. This has corrected with HDE Nausea & vomiting (Acute) She is feeling improved Seizure disorder (Acute) No further epidoses ESRD (end stage renal disease) on dialysis (Acute) HSP (Henoch-Schonlein purpura) nephritis (Acute) Underlying pathology causing ESRD Hypertension (Acute) Hypertensive urgency (Acute) Her BP is improving Tachycardia (Acute) This has resolved. I spoke to Zayda Garcia and explained that I didn't think this was likely to represent true hyperthyroidism. I will follow up with her in 2 - 4 weeks as an outpatient.
[2017-11-15] MEDS: amLODIPine TAB* 5 MG PO SCH (09:22)
[2017-11-15] MEDS: Losartan TAB* 25 MG PO SCH (09:22)
[2017-11-15] MEDS: Metoclopramide TAB* 10 MG PO SCH (09:22)
[2017-11-15] MEDS: cloNIDine TAB* 0.1 MG PO SCH (09:22)
[2017-11-15] MEDS: Carvedilol TAB* 25 MG PO SCH (09:23)
[2017-11-15] MEDS: hydrALAZINE TAB* 25 MG PO SCH (09:23)
[2017-11-15] MEDS: Lacosamide TAB* 100 MG TAB PO SCH (09:23)
[2017-11-15 11:51] LABS: ABS Basophils 0.1 10^3/ul (0-0.2); ABS Eosinophils 0.5 10^3/ul (0-0.6); ABS Monocytes 0.6 10^3/ul (0-0.8); ABS Neutrophils 2.9 10^3/ul (1.5-7.7); ABS Nucleated RBC 0 10^3/ul; Eosinophil % 10.1 % (0-6); Hematocrit 24 % (35-47); Lymphocyte % 18.7 % (25-47); Mean Corpuscular HGB Conc 34 g/dl (31-36); Mean Corpuscular Hemoglobin 31 pg (27-31); Mean Corpuscular Volume 93 fL (80-97); Mean Platelet Volume 7.2 um3 (7.4-10.4); Nucleated Red Blood Cells % 0; Platelet Count 242 10^3/ul (150-450); Red Blood Count 2.57 10^6/ul (4.00-5.40); Red Cell Distribution Width 16 % (10.5-15); White Blood Count 5.1 10^3/ul (3.5-10.8)
[2017-11-15 12:16] VITALS: BP 132/76
--- NOTE | 2017-11-15 12:16 | CONS ---
CC: Dr. Kaur; Dr. Burgess * CARDIOLOGY CONSULTATION REPORT: DATE OF CONSULT: 11/15/17 ATTENDING PHYSICIAN: Bhupinder Salgado MD. INDICATION FOR CONSULTATION: Pericardial effusion, hemodialysis. HISTORY OF PRESENT ILLNESS: The patient is a 21-year-old with endstage renal disease after an episode of Henoch-Schonlein purpura as a child. Patient did have one kidney transplant that has since failed. She is currently on hemodialysis. The patient has been having worsening edema and less fluid clearance over the last couple of weeks, she was seen in the [facility] about three days ago. Ultimately, she was discharged from there, she was seen in the emergency room a day later and noted to be significantly fluid overloaded and her creatinine had gone up quite a bit. She was admitted for hemodialysis. In speaking with the patient today, she is actually feeling well. She has had a couple of rounds of hemodialysis which has significantly improved her overall fluid status. The patient had an echocardiogram yesterday which showed mild left ventricular hypertrophy, moderate to large sized circumferential pericardial effusion, no evidence of tamponade, valvular status was quite stable. In speaking with the patient today, she is actually feeling quite well. PAST MEDICAL HISTORY: 1. Significant for endstage renal disease. 2. Henoch-Schonlein purpura. 3. Hypertension. 4. Seizure disorder. 5. Gastroesophageal reflux disease. OUTPATIENT MEDICATIONS: 1. Losartan 100 mg a day. 2. Coreg 37.5 mg b.i.d. 3. Amlodipine 10 mg a day. 4. Vimpat 100 mg b.i.d. 5. Reglan 10 mg t.i.d. 6. Hydralazine 50 mg t.i.d. 7. Pepcid 20 mg a day. 8. Clonidine 0.3 mg three times a day. 9. Sodium bicarbonate. 10. Protonix 20 mg a day. 11. Flonase. ALLERGIES: BEE STING, FENTANYL, LISINOPRIL. FAMILY HISTORY: Mother is 40 and has irritable bowel syndrome. Father is alive at 45, no medical history. SOCIAL HISTORY: She denies tobacco or alcohol use. She lives with her mother. PHYSICAL EXAM: Vital Signs: Height 5 feet 1 inch, weight 134 pounds, temperature 98, heart rate 103, blood pressure 149/80, respiratory rate is 16, oxygen saturation 100% on room air. HEENT: Sclerae anicteric. Oropharynx is pink without erythema. Neck: Carotids are 2+ without bruits. JVD is normal. Thyroid is normal. Cardiac Exam: S1, S2 without any murmurs, rubs or gallops. PMI is normal. Lungs are clear to auscultation bilaterally. There is no dullness to percussion. Abdomen is soft, nontender, nondistended with normoactive bowel sounds. Extremities show no edema. She has 2+ pulses throughout. Neuro: The patient is awake, alert, and oriented. She moves all four extremities equally. DIAGNOSTIC STUDIES/LAB DATA: CBC: White count 7.1, hemoglobin 8.8, hematocrit 26 which is at her baseline, platelet count 336. Chemistry is within normal limits, BUN 5, creatinine 3.2, her initial creatinine level on admission was 6.1 , TSH 0.4, free T4 of 1.96. BNP 2448, AST and ALT are normal. IMPRESSION: This is a 21-year-old female with endstage renal disease, who was admitted to the hospital with worsening fluid management. She ultimately had to undergo a few treatments of hemodialysis because her peritoneal dialysis was not effective. An echocardiogram showed a moderate to large sized pericardial effusion. There is no evidence of tamponade. PLAN/RECOMMENDATIONS: At this point, I think the pericardial effusion is secondary to her renal insufficiency and poor fluid clearance. At this point, I do not think any medication changes are necessary. Again, patient has undergone a couple rounds of hemodialysis with good fluid clearance. Patient should get a repeat echocardiogram in two to three weeks. [id number] #: [id number] [facility]ITALMadan
[2017-11-15] MEDS: Omeprazole CAP* 20 MG PO SCH (13:47)
--- NOTE | 2017-11-16 01:02 | DS ---
CC: Dr. Wolf; Dr. Burgess; Dr. Kaur * DISCHARGE SUMMARY: DATE OF ADMISSION: 11/11/17 DATE OF DISCHARGE: 11/15/17 PRIMARY CARE PROVIDER: Dr. Wolf. DISCHARGE DIAGNOSES: 1. Uncontrolled hypertension. 2. Questionable seizure versus symptomatic hypercalcemia. 3. Hypercalcemia. 4. Abnormal thyroid function studies likely due to euthyroid sick syndrome. SECONDARY DIAGNOSES: 1. 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 2. Resistant hypertension. 3. Gastroesophageal reflux disease. 4. Seizure disorder, on Vimpat. MEDICATIONS AT DISCHARGE: Include, 1. Coreg 37.5 mg b.i.d. 2. Catapres 0.3 mg 3 times a day. 3. Pepcid 20 mg daily. 4. Ferric citrate 210 mg 3 times a day. 5. Hydralazine 50 mg 3 times a day. 6. Vimpat 100 mg b.i.d. 7. Cozaar 100 mg daily. 8. Reglan 10 mg 3 times a day. 9. Protonix 20 mg daily. 10. Sodium bicarbonate 650 mg 4 times a day. 11. Norvasc 10 mg daily. 12. Flonase nasal spray, 2 sprays both nostrils b.i.d. CONSULTATIONS DURING THE HOSPITAL STAY: Included Dr. Kaur and Dr. Burgess. Dr. Salgado was also consulted from Cardiology. LABORATORY DATA: Include: On 11/15/17, thyroid peroxidase antibody was 1.2. On 11/14/17, sodium of 137, potassium 3.1, chloride 97, carbon dioxide 31, BUN 5 , creatinine 3.21. The patient's ionized calcium was 5.92 on 11/15/17. The patient's calcium on 11/14/17, was 9.6. Hydroxy vitamin D level obtained on 11/14/17 was 14. Brain natriuretic peptide was 2448 that was obtained on 11/11/17. The patient's TSH was 0.2, free T4 was 1.98, free T3 4.1. Total T3 96, beta HCG 1.02. On 11/15/17, white blood cell count 5.1, hemoglobin 8.0, hematocrit 24, and platelets 242. STUDIES PENDING AT THE TIME OF DICTATION: Included renal ultrasound and renal artery Dopplers that were obtained, but they were not read by the radiologist yet. Studies pending included vitamin D1, 25 dihydroxy. As well, vitamin A serum as well as thyrotropin receptor antibody levels as well as reverse T3 and PTH related to peptide and lacosamide level. Abdomen and pelvis CT obtained on 11/11/17, impression "cardiomegaly and moderately enlarged cardiac effusion. Small dependent right pleural effusion. Small volume of left sided. Diffuse subcutaneous edema, consider anasarca. While the appendix is not discretely visualized, there is no inflammatory change in the right lower quadrant or region of the tip of the cecum to suggest presence of an acute or inflammatory process. Mild atrophic right iliac fossa, renal transplant with mild hydronephrosis. No obstructing ureteral stone or lesions of the transplanted right kidney evident. Negative for lymphadenopathy. " Transthoracic echocardiogram obtained on 11/11/17, showed "mild to moderately consistent LVH with EF of 50 to 55% with right ventricular chamber size and structure within normal limits. Catheter was visualized in right atrium. There was trace aortic regurgitation, mild mitral regurgitation, and trace tricuspid regurgitation. There was circumferential pericardial effusion, moderate to large in size, more fluid is located posteriorly to the heart, no evidence of tamponade." HOSPITALIZATION COURSE: Zayda Garcia is a 21-year-old female with history of end-stage renal disease, currently on hemodialysis, status post failed kidney transplant, who presented to the hospital with nausea and vomiting, hypercalcemia and episode of seizure-like activity and systolic pressures in the 200s. She was admitted to the hospital. She was placed back on her medications and eventually her blood pressure was controlled on oral medications without any additions. She was noted to have moderate pericardial effusion and Dr. Salgado saw the patient in consultation. He noted that she is not hemodynamically compromised and asymptomatic in regards to her pericardial effusion. Due to no tamponade physiology, there were no further recommendations for procedures or further treatments. The patient was recommended to continue hemodialysis. The patient's thyroid function studies were abnormal and Dr. Burgess saw patient in consultation and thought that likely it is related to euthyroid sick syndrome. Reverse T3 was obtained and is pending at the time of dictation. Dr. Kaur saw the patient in consultation and recommended renal ultrasound and renal arteries Dopplers, that is still pending at the time of dictation and Dr. Kaur will follow up with the patient as outpatient in regards to that. The patient underwent hemodialysis on 11/14/17 and by the time of discharge, the patient's pressures were in the 130 systolically. She is ready to go home and she is going to come back to our hospital for hemodialysis scheduled on . PHYSICAL EXAM AT THE TIME OF DISCHARGE: Blood pressure 132/76, heart rate of 85 and regular, respiratory rate 16, oxygen saturation 100% on room air, temperature 98.2. General: The patient is a very pleasant 21-year-old female who is in no acute distress, alert, awake and oriented x3. HEENT: Head atraumatic, normocephalic. Eyes: Pupils are equal, round, and reactive to light and accommodation. Oropharynx clear. Mucosa moist. Neck: Supple. No JVD. No bruits bilaterally. Cardiovascular: Regular rate and rhythm. No murmur. Respiratory: Clear to auscultation bilaterally. Abdomen: Soft, nontender. Bowel sounds present in all 4 quadrants. Extremities: There is no edema. Pulses +2 bilaterally. No clubbing or cyanosis. On evaluation of the skin, the patient has right subclavian region dialysis catheter in place with no evidence of skin infection and clear insertion site noted. At discharge, the patient is recommended to follow up with Dr. Wolf, her primary care provider in 4 to 7 days. She is going to follow up with Dr. Kaur with her next dialysis. The patient is also recommended to call Dr. Burgess's office for followup appointment in 1 to 2 weeks. Please note that this is a short summary of the patient's hospitalization. Please refer to further medical records for details. TIME SPENT: Approximately 35 minutes were spent on the patient's discharge. [id number]/CPS #: [id number] MTDD
--- NOTE | 2017-11-16 16:45 | RAD ---
INDICATION: Uncontrolled hypertension on multiple antihypertensive pharmaceuticals. RIGHT iliac fossa renal transplant. COMPARISON: November 13, [address] TECHNIQUE: Multiple longitudinal and transverse sonographic images of the kidneys and renal arteries were obtained including color Doppler and spectral analysis. REPORT: Peak systolic velocity in the aorta measures 126 cm/s. Right kidney measures 7.7 x 2.6 x 3.6 cm. Hyperechoic atrophic cortex consistent with end-stage medical renal disease. No stones, focal lesions, or hydronephrosis noted. No intraparenchymal arterial flow detected precluding assessment of the resistive indices. The peak systolic velocity within the right renal artery measures 90 cm/s at the ostium. The corresponding end diastolic velocity measures 18 cm/s. The renal to aortic ratio is 0.71. Left kidney measures 8.7 x 4.5 x 2.8 cm. Cortical echogenicity is normal. No stones, focal lesions, or hydronephrosis noted. No intraparenchymal arterial flow detected precluding assessment of the resistive indices. The peak systolic velocity within the left renal artery measures 57 cm/s at the ostium. The corresponding end diastolic velocity measures 18 cm/s. The renal to aortic ratio is 0.45. Peak systolic velocity at the RIGHT external iliac artery measures 154 cm/s. RIGHT iliac fossa transplant kidney measures 9.4 x 3.8 x 4.0 cm. Hyperechoic atrophic cortex consistent with end-stage medical renal disease. Negative for calyceal dilatation. Moderately dilated renal pelvis and mild uroepithelial thickening. No conspicuous stones or focal renal lesions. Resistive indices measure up to 0.72. The peak systolic velocity within the left renal artery measures 75 cm/s at the anastomosis with the RIGHT external iliac artery. The corresponding end diastolic velocity measures 8 cm/s. The renal to aortic ratio is 0.48. IMPRESSION: #. No evidence for hemodynamic significant renal artery stenosis at the RIGHT or LEFT atrophic [place] kidneys or RIGHT iliac fossa transplant kidney. #. Nonspecific moderately dilated pelvis of the RIGHT iliac fossa renal transplant with associated urothelial thickening. Negative for calyceal dilatation to indicate hydronephrosis. MTDD
== END 2017-11-15 14:15 | disposition home or self-care (01) | DRG 304 ==
LOC: ED 03:04 → MEDTELE 07:07 → OBSVTOIN 11-14 23:47
PROVIDERS: ADMIT Internal Medicine; ATTEND Internal Medicine
PROC: 5A1D70Z Performance of Urinary Filtration, Intermittent, Less than 6 Hours Per Day (ICD-10-PCS; principal; 2017-11-14)
DX: I16.0 Hypertensive urgency (principal); N18.6 End stage renal disease; D69.0 Allergic purpura; T86.12 Kidney transplant failure; I31.3 Pericardial effusion (noninflammatory); R18.8 Other ascites; N13.39 Other hydronephrosis; I12.0 Hypertensive chronic kidney disease with stage 5 chronic kidney disease or end stage renal disease; E83.52 Hypercalcemia; E05.90 Thyrotoxicosis, unspecified without thyrotoxic crisis or storm; E07.81 Sick-euthyroid syndrome; K21.9 Gastro-esophageal reflux disease without esophagitis; E86.0 Dehydration; K44.9 Diaphragmatic hernia without obstruction or gangrene; G40.909 Epilepsy, unspecified, not intractable, without status epilepticus; Z99.2 Dependence on renal dialysis; Z79.899 Other long term (current) drug therapy; Z88.8 Allergy status to other drugs, medicaments and biological substances; Z91.030 Bee allergy status; Z83.79 Family history of other diseases of the digestive system
CPT/HCPCS: 36415; 74176; 76776; 80048; 80053; 80299; 82150; 82306; 82330; 82397; 82550; 82652; 83520; 83605; 83690; 83735; 83880; 84439; 84443; 84445; 84479; 84481; 84482; 84484; 84590; 84702; 85025; 85610; 85730; 86140; 86376; 93306; 93975; 99285; A9270-GY; J0885; J1200; J1644; J2270; J2765

== ENCOUNTER 2017-11-19 15:35 | Inpatient (IN) | payer MEDICARE, MEDICAID ==
[2017-11-19] MEDS ORDERED: cloNIDine TAB* 0.1 MG ONE (17:36)
[2017-11-19] MEDS ORDERED: hydrALAZINE TAB* 25 MG ONE (17:36)
[2017-11-19] MEDS ORDERED: cloNIDine TAB* 0.1 MG PO ONE (17:37)
[2017-11-19] MEDS ORDERED: hydrALAZINE TAB* 25 MG PO ONE (17:37)
[2017-11-19] MEDS ORDERED: NS 0.9% 1000 ML* 1,000 ML IV ONE (17:46)
[2017-11-19] MEDS ORDERED: Ondansetron INJ* 2 MG/ML VIAL IV ONE (17:46)
[2017-11-19] MEDS ORDERED: Morphine VIAL* 4 MG/ML VIAL (1 ml vial) IV ONE (17:48)
--- NOTE | 2017-11-19 17:56 | ED ---
Abdominal Pain/Female - HPI Summary HPI Summary: This is elizabeth Mcelroy documenting for attending Dr. Lukas Lorenzo This patient is a 21 year old F presenting to [facility] accompanied by her mother with a chief complaint of abd pain, worse upon inspiration, since 1300. She describes the pain as bone deep pain in right sided and central abd, rib cage, and back. She endorses dyspnea, pain with coughing, bilateral pedal edema, a BM yesterday, and a hard lump in the umbilical region. Pt denies fever and emesis. Pt underwent full dialysis at 0600 today, and has a perma-cath on her right anterior chest. Pt denies SHx cholecystectomy. PMHx pancreatitis. - History of Current Complaint Chief Complaint: EDGeneral Stated Complaint: UPPER BODY PAIN Time Seen by Provider: 11/19/17 17:30 Hx Obtained From: Patient Hx Last Menstrual Period: 2014 - doesn't get d/t dialysis Onset/Duration: Sudden Onset, Lasting Hours, Still Present Timing: Constant Severity Initially: Moderate Severity Currently: Moderate Pain Intensity: 5 Pain Scale Used: 0-10 Numeric Location: Discrete At: RUQ, Epigastric, Umbilical Radiates to: Back, Chest Aggravating Factor(s): Other: - palpation Alleviating Factor(s): Nothing Associated Signs and Symptoms: Positive: Chest Pain, Back Pain, Other: - bilateral pedal edema. Negative: Fever, Constipation, Vomiting Allergies/Adverse Reactions: Allergies Allergy/AdvReac Type Severity Reaction Status Date / Time bee venom protein (honey bee) Allergy Rash Verified 11/19/17 17:26 fentanyl Allergy GI Upset Verified 11/19/17 17:26 lisinopril Allergy Coughing Verified 11/19/17 17:26 nifedipine Allergy Rash Verified 11/19/17 17:26 PMH/Surg Hx/FS Hx/Imm Hx Endocrine/Hematology History: Reports: Hx Blood Transfusions, Hx Anemia Cardiovascular History: Reports: Hx Hypertension, Other Cardiovascular Problems/ Disorders - Tachycardia Respiratory History: Reports: Hx Sleep Apnea - Undiagnosed sleep apnea GI History: Denies: Hx Jaundice History: Reports: Hx Chronic Renal Failure, Hx Dialysis - Hemodialysis, Hx Renal Disease, Other Problems/Disorders - Kidney transplant 2013, right kidney works at 10% Musculoskeletal History: Reports: Hx Arthritis - RA right knee, Hx Tendonitis - Right knee Sensory History: Denies: Hx Contacts or Glasses, Hx Hearing Aid Opthamlomology History: Denies: Hx Contacts or Glasses Neurological History: Reports: Hx Headaches, Hx Migraine, Hx Seizures Psychiatric History: Reports: Hx Anxiety, Hx Depression - Surgical History Surgery Procedure, Year, and Place: kidney 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/2013, 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, kidney bx x4 Hx Anesthesia Reactions: No Infectious Disease History: No Infectious Disease History: Reports: Hx Shingles Denies: Traveled Outside the [place] in Last 30 Days - Family History Known Family History: Positive: Hypertension - Social History Occupation: Student Lives: With Family Alcohol Use: None Hx Substance Use: No Substance Use Type: Reports: None Hx Tobacco Use: No Smoking Status (MU): Never Smoked Tobacco Review of Systems Negative: Fever Positive: Chest Pain Positive: Other - dyspnea Positive: Abdominal Pain. Negative: Vomiting Positive: Arthralgia, Myalgia - back, Edema All Other Systems Reviewed And Are Negative: Yes Physical Exam - Summary Physical Exam Summary: Appearance: Well appearing, no pain distress, permacath right chest Skin: warm, dry, reflects adequate perfusion Head/face: normal Eyes: EOMI, YESENIA ENT: normal Neck: supple, non-tender Respiratory: CTA, breath sounds present Cardiovascular: RRR, pulses symmetrical Abdomen: RUQ, epigastric tenderness, soft Bowel: present Musculoskeletal: normal, strength/ROM intact Neuro: normal, sensory motor intact, A&Ox3 Triage Information Reviewed: Yes Vital Signs On Initial Exam: Initial Vitals Temp Pulse Resp BP Pulse Ox 98.7 F 100 14 200/110 100 11/19/17 15:37 11/19/17 15:37 11/19/17 15:37 11/19/17 15:37 11/19/17 15:37 Vital Signs Reviewed: Yes Diagnostics - Vital Signs Vital Signs Temp Pulse Resp BP Pulse Ox 11/19/17 17:20 97 209/150 100 11/19/17 17:19 108 94 11/19/17 15:37 98.7 F 100 14 200/110 100 - Laboratory Result Diagrams: 11/20/17 06:59 11/20/17 06:59 Lab Statement: Any lab studies that have been ordered have been reviewed, and results considered in the medical decision making process. - CT A/P CT Interpretation: Positive (See Comments) CT Interpretation Completed By: Radiologist - 1. Cardiomegaly with large pericardial effusion, unchanged. 2. Slight interval increase in size in the right-sided pleural effusion with intervaldevelopment of small infiltrate in the right lung base. 3. Increased ascites 4. Anasarca. 5. Atrophic [place] kidneys. Right renal transplant unchanged in appearance. Dr. Gaytan has reviewed this report. - EKG 2928 Cardiac Rate: NL - 87 EKG Rhythm: Sinus Rhythm ST Segment: Non-Specific Ectopy: None EKG Interpretation: Non-specific T changes Abdominal Pain Fem Course/Dx - Course Course Of Treatment: A 21-year-old F presents to the ED with a CC of RUQ and periumbilical abd pain since this AM. (+) radiation to chest and back, bilateral pedal edema, dyspnea upon inspiration/coughing, and umbilical hernia. (-) fever, emesis. Full dialysis 0600 today, PMHx pancreatitis, no cholecystectomy. A CT A/P reveals 1. Cardiomegaly with large pericardial effusion, unchanged. 2. Slight interval increase in size in the right-sided pleural effusion with intervaldevelopment of small infiltrate in the right lung base. 3. Increased ascites 4. Anasarca. 5. Atrophic [place] kidneys. Right renal transplant unchanged in appearance. An US GB reveals . An EKG reveals nl sinus rythym at 87 BPM and non-specific T changes. In the ED course, pt was given morphine, zofran, catapres, apresoline, and nl saline. - Diagnoses Provider Diagnoses: End stage renal disease, Chest pain, Abdominal pain, Hypertensive urgency - Critical Care Time Critical Care Time: 30-74 min Discharge - Sign-Out/Discharge Documenting (check all that apply): Sign-Out Patient Signing out patient TO: Danny Raymundo - [place] - Discharge Plan Condition: Stable Disposition: ADMITTED TO [facility] - Billing Disposition and Condition Condition: STABLE Disposition: Admitted to [facility]
[2017-11-19 18:26] LABS: ABS Basophils 0.3 10^3/ul (0-0.2); ABS Eosinophils 0.4 10^3/ul (0-0.6); ABS Lymphocytes 1.3 10^3/ul (1.0-4.8); ABS Monocytes 0.7 10^3/ul (0-0.8); ABS Neutrophils 4.5 10^3/ul (1.5-7.7); ABS Nucleated RBC 0 10^3/ul; Eosinophil % 6.1 % (0-6); Hematocrit 25 % (35-47); Hemoglobin 8.5 g/dl (12.0-16.0); Lymphocyte % 17.6 % (25-47); Mean Corpuscular HGB Conc 34 g/dl (31-36); Mean Corpuscular Hemoglobin 31 pg (27-31); Mean Corpuscular Volume 91 fL (80-97); Mean Platelet Volume 7.2 um3 (7.4-10.4); Nucleated Red Blood Cells % 0; Platelet Count 206 10^3/ul (150-450); Red Blood Count 2.73 10^6/ul (4.00-5.40); Red Cell Distribution Width 16 % (10.5-15); White Blood Count 7.1 10^3/ul (3.5-10.8)
[2017-11-19] MEDS ORDERED: Morphine INJ* 2 MG/ML 1 ML SYRINGE (TWO MG - NEW SYRINGE VERSION) ONE (18:34)
[2017-11-19] MEDS ORDERED: Morphine INJ* 2 MG/ML 1 ML SYRINGE (TWO MG - NEW SYRINGE VERSION) IV ONE (18:36)
--- NOTE | 2017-11-19 18:40 | RAD ---
INDICATION: Pancreatitis. Epigastric pain. End-stage renal disease. Renal transplant. COMPARISON: November 11, 2017 TECHNIQUE: Noncontrast axial source images were acquired from the level hemidiaphragms to the symphysis pubis. There are inherent limitations as oral contrast was not administered and intravenous contrast was not given likely related to the renal transplant Lung bases: There is a right-sided pleural effusion which appears slightly larger. There is a new infiltrate in the right lung base. There is cardiomegaly. There is a large pericardial effusion, unchanged Liver: The liver is normal in size. Noncontrast imaging shows no evidence of a hepatic mass or ductal dilatation. Gallbladder: There are no calcified gallstones. There is no evidence of wall thickening or pericholecystic fluid.. Spleen: The spleen is normal in size. The noncontrast CT appearance is remarkable for several tiny granulomas. Pancreas: Mildly Limited evaluation without oral intravenous contrast. No focal abnormalities. Given the lack of contrast in the presence of ascites this examination is relatively insensitive in evaluation for acute pancreatitis. Adrenal glands: No masses are identified. Kidneys/Bladder: The [place] kidneys are atrophic. There are several tiny calcifications in the left kidney. There is a transplant kidney in the right renal fossa. The appearance is unchanged. There is mild hydronephrosis. Adenopathy: No gross adenopathy. Fluid collections: There is moderate ascites. This is increased. There is subcutaneous edema suggestive of anasarca Vessels: The aorta and iliac vessels are normal in caliber. There are no significant atherosclerotic changes. The IVC appears normal Pelvic organs: Limited evaluation of the uterus and adnexa are normal GI tract: Limited noncontrast imaging demonstrates no definitive abnormalities of the GI tract. The lower GI tract contains moderate stool. The appendix is not visualized. There is no acute inflammatory or localized inflammatory change in the right lower quadrant. Soft tissues: There is a tiny periumbilical hernia. Osseous structures: There are no acute osseous findings. IMPRESSION: 1. Cardiomegaly with large pericardial effusion, unchanged. 2. Slight interval increase in size in the right-sided pleural effusion with interval development of small infiltrate in the right lung base. 3. Increased ascites 4. Anasarca. 5. Atrophic [place] kidneys. Right renal transplant unchanged in appearance.
[2017-11-19 18:41] LABS: EGFR Non-African American 16.3 (>60)
[2017-11-19 18:43] LABS: INR 1.02 (0.77-1.02)
[2017-11-19] MEDS ORDERED: cefTRIAXone(*) 1 GM in NS 0.9% 50 ML* 50 ML IVPB ONE (18:54)
[2017-11-19] MEDS ORDERED: Azithromycin IV(*) 500 MG in NS 0.9% 250 ML* 250 ML IVPB ONE (18:54)
--- NOTE | 2017-11-19 19:19 | ED ---
Progress - Progress Note Progress Note: This is scribe Migdalia Rogers documenting for attending Dr. Danny Raymundo MD. This patient was signed out from Dr. Gaytan, pending disposition, awaiting US Gallbladder and CXR. US Gallbladder reveals atrophic right kidney and moderate ascistes. CXR reveals enlarged cardiac silhouette. The patients diagnosis is end stage renal disease, abd pain, CP, and hypertensive urgency. I consulted with Dr. Andre, hospitalist, at 19:50 concerning the patient's symptoms, lab, and imaging results. He accepts the pt for admittance to [facility]. Patient is agreeable with this plan. - Results/Orders Results/Orders: CXR: Enlarged cardiac silhouette. ED physician has reviewed this report. US Gallbladder: 1. Normal gallbladder. 2. Atrophic right kidney. 3. Moderate ascites. ED physician has reviewed this report. - EKG/XRAY/CT CT: Course/Dx - Course Course Of Treatment: A 21-year-old F presents to the ED with a CC of RUQ and periumbilical abd pain since this AM. (+) radiation to chest and back, bilateral pedal edema, dyspnea upon inspiration/coughing, and umbilical hernia. (-) fever, emesis. Full dialysis 0600 today, PMHx pancreatitis, no cholecystectomy. A CT A/P reveals 1. Cardiomegaly with large pericardial effusion, unchanged. 2. Slight interval increase in size in the right-sided pleural effusion with intervaldevelopment of small infiltrate in the right lung base. 3. Increased ascites 4. Anasarca. 5. Atrophic [place] kidneys. Right renal transplant unchanged in appearance. An US GB reveals . An EKG reveals nl sinus rythym at 87 BPM and non-specific T changes. In the ED course, pt was given morphine, zofran, catapres, apresoline, and nl saline. - Diagnoses Provider Diagnoses: End stage renal disease, Chest pain, Abdominal pain, Hypertensive urgency - Provider Notifications Discussed Care Of Patient With: Spencer Andre Time Discussed With Above Provider: 19:50 Discharge - Sign-Out/Discharge Documenting (check all that apply): Patient Departure - Pt will be admitted to [facility]., Receiving Sign-Out Receiving patient FROM: Robert Gaytan - Patient was a signout pending disposition, awaiting US Gallbladder and CXR. - Discharge Plan Condition: Stable Disposition: ADMITTED TO [facility] - Billing Disposition and Condition Condition: STABLE Disposition: Admitted to [facility]
--- NOTE | 2017-11-19 19:20 | RAD ---
INDICATION: Right upper quadrant pain COMPARISON: CT same date done patients TECHNIQUE: Longitudinal and transverse scans of the right upper quadrant were obtained. Doppler interrogation of the hepatic and portal venous system was performed. FINDINGS: Liver: The liver is normal in size and echogenicity. There are no focal masses. The liver measures 16.8 cm in cephalocaudal dimension. Vessels: There is normal hepatic and portal venous flow. Bile ducts: There is no evidence of intrahepatic or extrahepatic ductal dilatation. The common duct measures 0.4 cm. Gallbladder: The sonographic appearance of the gallbladder is normal. There is no evidence of cholelithiasis, thickening of the gallbladder wall, or pericholecystic fluid. Pancreas: The visualized pancreas appears normal Right kidney: The right kidney is echogenic and atrophic measuring 6.5 x 4.3 x 3.4 cm IVC and aorta: The aorta and superior vena cava appear normal. Fluid: There is moderate ascites. Other: None. IMPRESSION: 1. Normal gallbladder. 2. Atrophic right kidney. 3. Moderate ascites
--- NOTE | 2017-11-19 19:23 | RAD ---
INDICATION: Chest pain COMPARISON: November 04, 2017 TECHNIQUE: PA and lateral dual-energy views were obtained. FINDINGS: Bones/Soft Tissues: There are no acute bony findings. There is a dual lumen right subclavian catheter. Cardiomediastinal: The cardiac silhouette is enlarged. Earlier CT is shown a large pericardial effusion. Lungs: There are no infiltrates. Pleura: There is a right-sided effusion better appreciated on the CT. Other: None IMPRESSION: ENLARGED CARDIAC SILHOUETTE.
[2017-11-19] MEDS ORDERED: Ondansetron INJ* 2 MG/ML VIAL IV PRN (21:10)
[2017-11-19] MEDS ORDERED: Benzonatate CAP* 100 MG PO PRN (21:10)
[2017-11-19] MEDS: Carvedilol TAB* 25 MG PO SCH (22:56)
[2017-11-19] MEDS: cloNIDine TAB* 0.1 MG PO SCH (22:57)
[2017-11-19] MEDS: hydrALAZINE TAB* 25 MG PO SCH (22:58)
--- NOTE | 2017-11-20 02:02 | HP ---
CC: Dr. Wolf; Dr. Kaur * ADMISSION HISTORY AND PHYSICAL: DATE OF ADMISSION: 11/19/17 PRIMARY CARE PROVIDER: Dr. Wolf. OUTPATIENT SHIPPING ASSOCIATE: Kp Kaur MD MY ATTENDING WHILE IN THE HOSPITAL: Spencer Andre MD * (DICTATED BY JAS KRUEGER) CHIEF COMPLAINT: Aching all over for 5 hours with right-sided pleuritic chest pain. HISTORY OF PRESENT ILLNESS: Ms. Garcia is a 21-year-old female with past medical history significant for end-stage renal disease, on hemodialysis from Henoch-Schonlein purpura at the age of 5, hypertension, seizure disorder, recurrent pancreatitis with failed renal transplant, who has been admitted to this institution twice within the last 2 weeks for uncontrolled hypertension as well as nausea, vomiting and was found to have pericardial effusion as well as pleural effusion. The patient has had numerous admissions previously from [facility] for pancreatitis as well as peritonitis attributed to bacterial infection from the patient's dialysis catheter at that time. The patient follows with Dr. Kaur for Nephrology. The patient states that she went to dialysis as usual this morning and was in her normal state of health and then took a nap to woke up around 1 p.m. with aching all over which she describes as a bone pain which improved greatly, but coalesced into a pain in her right chest wall which was worse with breathing and coughing as well as pain in her bilateral upper quadrants of her abdomen. The patient came into the emergency department and was found to be very hypertensive with blood pressure at 200/110. The patient also had pulse rate of 100. The patient had laboratory data, which was consistent with baseline with a slight anemia, creatinine of 3.53, low total protein of 5.9. Negative lipase, abnormal LFTs. The patient had gallbladder ultrasound, which was unremarkable. CT of her abdomen and pelvis which showed cardiomegaly with the pericardial effusion which has not changed from previous admission and increase in the right side pleural effusion and a small infiltrate at the right lung base, ascites, anasarca and no changes in the size of her kidneys. The patient had a chest x- ray, which was unremarkable except for finding consistent as described. The patient was given her home medications of clonidine, hydralazine and her blood pressure decreased down to the 170s/100s. The patient states that she has not had a cough, had some subjective fevers, but no chills and no documented fevers. No elevated temperatures in the emergency department. The patient does not make urine. The patient has not had any diarrhea or CVA tenderness. The patient has not been having any cough. The patient has previously had pulmonary edema related to fluid overload causing a cough but this does not feel like that did. The patient also states it does not feel like pancreatitis or peritonitis. The patient has no white count. The patient was given azithromycin and ceftriaxone in the emergency department as well as morphine. The patient was significantly sedated when interviewed and had much of her interview was obtained from her mother. The patient denied nausea or vomiting. The patient states that she has been having new onset of red dots on her arms , but did not have any at the time of questioning. Denied any dots on her legs or any new rashes. The patient noticed that she had a small mass around her umbilicus which was able to be reduced with compression which assumed was a hernia. The patient on her abdomen and pelvis CT had a small infiltrate and was given azithromycin and ceftriaxone in the emergency department. Due to concern pneumonia, hypertensive urgency, and chest pain, we were asked to evaluate for admission. The patient's troponin was 0.01. PAST MEDICAL HISTORY: ESRD from [facility] at age of 5, failed kidney transplant; hypertension; seizure disorder; GERD; pericardial effusion; peritoneal infection ; recurrent pancreatitis; pleural effusion. PAST SURGICAL HISTORY: 1. Renal transplant, multiple kidney biopsies. 2. Peritoneal dialysis ports. 3. Right-sided tunneled dialysis catheters. MEDICATIONS: 1. Coreg 37.5 mg p.o. b.i.d. 2. Catapres 0.3 mg p.o. t.i.d. 3. Pepcid 20 mg daily. 4. Ferric citrate 220 mg p.o. t.i.d. 5. Vimpat 100 mg p.o. b.i.d. 6. Losartan 100 mg p.o. daily. 7. Reglan 10 mg p.o. t.i.d. with meals. 8. Protonix 20 mg p.o. q.a.m. 9. Pepcid 20 mg p.o. q.p.m. 10. Norvasc 10 mg p.o. daily. The patient was discharged on sodium bicarbonate which she is no longer taking as well as Flonase, which she is no longer taking. FAMILY HISTORY: The patient's mother is alive and well at 40 with IBS and GERD. The patient's father is 45 and estranged. The patient's maternal grandmother had pernicious anemia. The patient's maternal grandfather primary hypothyroidism, has had strokes and heart valve issues. No other known family history. SOCIAL HISTORY: The patient denies tobacco, alcohol, or drug abuse. The patient is disabled. The patient is not and has no children. The patient has never been sexually active. The patient's healthcare proxy is her mother, Pancho Garcia. In discussion with Dr. Kaur, it has been reported that the patient had previously abused alcohol, though she denied at this time. REVIEW OF SYSTEMS: A 14-point review of systems was reviewed and is negative except as above. PHYSICAL EXAMINATION GENERAL: The patient is a 21-year-old female, who appears her stated age and sitting comfortably in bed, in no acute distress. VITAL SIGNS: At the time of evaluation, temperature 98.7, pulse rate 82, respiratory rate 20, oxygen saturation 97% on room air, blood pressure 165/83. HEENT: Head normocephalic, atraumatic. Sclerae anicteric. No conjunctival injection. Nasal mucosa moist. Oral mucosa moist. No pharyngeal erythema, discharge, or exudate. NECK: Supple, tenderness to palpation over the right submandibular area with enlarged lymph node. No JVD. No carotid bruit auscultated. RESPIRATORY: Diminished breath sounds in the bilateral lower lobes. Positive egophony in the bilateral lower lobes and right side of the middle lobe. No other adventitious lung sounds. CARDIAC: Regular rate and rhythm. No clicks, murmurs, gallops, or rubs. Non- muffled heart sounds. Pulses 2+ in the bilateral dorsalis pedis, posterior tibialis, and radial areas. 1+ pitting edema in bilateral lower extremities. No bilateral calf tenderness. ABDOMEN: Soft, nondistended, tender to palpation of bilateral upper quadrants. No rebound or guarding. No hepatosplenomegaly. No abdominal bruits auscultated. No hepatojugular reflux. Small reducible umbilical hernia below the umbilicus. GENITOURINARY: No suprapubic or CVA tenderness. NEUROLOGIC: Cranial nerves II through XII intact. No focal deficits. Alert and oriented x3, drowsy. PSYCHIATRIC: Pleasant and cooperative. SKIN: Clear, dry, and intact. No rash. LABORATORY DATA: White blood cell count 7.1, hemoglobin 8.5, hematocrit 25, RDW is 16, platelet count 206. INR 1.02, APTT 31.4. Sodium 136, potassium 3.6 , chloride 99, carbon dioxide 29, anion gap of 8, BUN 5, creatinine 3.53, glucose 97, lactic acid 0.5, calcium 10.2. Bilirubin 0.5, AST 12, ALT 6, alkaline phosphatase 54. Troponin I 0.01. Total protein 5.9, albumin 3.5, globulin 2.4. Lipase 19. Beta hCG 0.91. STUDIES: Echocardiogram shows normal sinus rhythm. No T wave flattening in V5 and V6. QTc of 426, rate of 87. Normal axis. No blocks, hypertrophy or other abnormalities. No electrocardiogram to compare. Abdomen and pelvis CT read as cardiomegaly with large pericardial effusion unchanged slight interval increase in the size of right-sided pleural effusion with interval dullness. No infiltrate in the right lung base, increased size anasarca, atrophic grindstone kidneys. Right renal transplant with unchanged appearance. Gallbladder ultrasound from 11/19/17 read as normal gallbladder, atrophic right kidney and moderate ascites. Chest x-ray read as enlarged cardiac cellulite, right- sided pleural effusion that is appreciated on the CT. ASSESSMENT AND PLAN/IMPRESSION: Ms. Garcia is a 21-year-old female with past medical history significant for end-stage renal disease secondary to Henoch - Schonlein purpura, hypertension, seizure disorder, pericardial effusion, recurrent pancreatitis, and pleural effusion who presents with right-sided pleuritic chest pain as well as hypertension, who is found to have stable pericardial effusion, enlarged pleural effusion and new right-sided lung infiltrate. The patient will be admitted to the hospital for hypertensive urgency, fluid overload, and possible pneumonia. 1. Right-sided pleuritic chest pain, pleural effusion, infiltrate. The patient seems to be fluid overloaded with worsening pleural effusion, pericardial effusion, ascites and elevated blood pressure despite being dialyzed this morning. The patient's chest pain is likely due to pleural effusion which has been worsening and may also be due to pneumonia; however, the patient has no other signs of pneumonia including cough, sputum production, shortness of breath, fevers, white count. It is possible the patient's infiltrate is due to compression and atelectasis from her large pleural effusion. The patient will be monitored. The patient will be continued on hemodialysis. The patient received antibiotics while in the emergency department. Due to the patient's end-stage renal disease and and lack of propelling evidence for infection, the patient will not have continuing antibiotics at this time, but they should be restarted if the patient develops more overt signs of pneumonia such as white count, cough, sputum production, hypoxia or shortness of breath. The patient will have inflammatory markers including ESR or CRP and procalcitonin drawn to further clarify the picture of the patient's need for antibiotics. The sputum culture will be sent as well as urine antigen if the patient is able to make urine. The patient does not generally make urine. Considerations for drainage of the patient's pleural effusion for both diagnostic and therapeutic reasons should be made given this has been discussed with the patient's nanotechnology engineering technologist, Dr. Kaur. He does not believe that hydrostatic pressures within the chest will allow for dialysis to drain these pleural effusions even after they had been accumulated. 2. Hypertensive urgency. The patient's blood pressure was 200/100 when she initially presented. The patient was then restarted on her home medications and her blood pressure has been decreased and the patient will be continued and her home medications will be adjusted as needed. However, given it is unclear why the patient's lipase and blood pressure has been going up every time she comes into the emergency department, compliance with her medications is not clear. The patient's blood pressure will be initially monitored on her home medications. The patient has no signs of end-organ damage and does not need titratable antihypertensive medications. Fluids will be avoided and the patient may need additional dialysis. 3. End-stage renal disease and Henoch-Schonlein purpura. The patient is status post failed renal transplant. The patient is on hemodialysis, follow up with Dr. Kaur. This case has been discussed with Dr. Kaur. He will see her in the morning. There is no need for emergent dialysis. The patient is not in any respiratory distress from her pleural effusion. However, the patient does appear to be fluid overloaded and might benefit from additional dialysis with increased negative fluid balance. The patient will continue with dialysis, Tuesday, , Tuesday with increased frequency given fluid overload at the discretion of Dr. Kaur. Dr. Kaur believes that the patient' s pleural effusion and pericardial effusion as well as ascites may be due to prolonged uncontrolled hypertension and believes that long-term control of her hypertension would be the most appropriate intervention for decrease in the size of these effusions. 4. Pericardial effusion. See above. The patient shows no signs of tamponade physiology at this time. No indication for repeat echocardiogram unless she develops other signs of tamponade physiology. However, pericardiocentesis may be diagnostic if other etiology of pericardial effusion is suspected besides fluid overload. 5. Pleural effusion. Symptomatic relief as well as diagnostic surety of the etiology of the patient's pleural effusion may be obtained by thoracentesis; however, though, benefits and risk of this procedure need to be weighed carefully before it is undertaken. 6. Recurrent pancreatitis. The patient's lipase is normal. Repeat in the morning. The patient has no known cause for pancreatitis, although alcohol abuse may have contributed. This has not been corroborated. 7. Seizure disorder. Continue Vimpat. 8. Gastroesophageal reflux disease. Continue pantoprazole and famotidine. 9. FEN. The patient will not have fluids. The patient received 1 L of fluids in the emergency department. The patient will have renal diet. The patient be maintained on daily weights and strict I's and O's. 10. DVT prophylaxis. The patient is low risk. The patient will have SCDs. 11. Code status. The patient will be full code. The patient's surrogate decision maker is her mother, Pancho Garcia, as above. TIME SPENT: Approximately 75 minutes were spent on the admission, 45 of which was spent [id number] with the patient obtaining history and physical and discussing treatment plan. This plan has been discussed with my attending, Dr. Spencer Andre, and he is in agreement. JAS KRUEGER [id number]/CPS #: [id number]
[2017-11-20 07:26] LABS: ABS Basophils 0.2 10^3/ul (0-0.2); ABS Eosinophils 0.5 10^3/ul (0-0.6); ABS Lymphocytes 1.2 10^3/ul (1.0-4.8); ABS Monocytes 0.6 10^3/ul (0-0.8); ABS Nucleated RBC 0 10^3/ul; Eosinophil % 8.4 % (0-6); Hematocrit 24 % (35-47); Hemoglobin 8.1 g/dl (12.0-16.0); Lymphocyte % 22.7 % (25-47); Mean Corpuscular HGB Conc 34 g/dl (31-36); Mean Corpuscular Hemoglobin 31 pg (27-31); Mean Corpuscular Volume 91 fL (80-97); Mean Platelet Volume 7.1 um3 (7.4-10.4); Nucleated Red Blood Cells % 0.1; Platelet Count 185 10^3/ul (150-450); Red Blood Count 2.62 10^6/ul (4.00-5.40); Red Cell Distribution Width 16 % (10.5-15); White Blood Count 5.4 10^3/ul (3.5-10.8)
[2017-11-20 07:35] LABS: EGFR Non-African American 12.1 (>60)
[2017-11-20] MEDS: Carvedilol TAB* 25 MG PO SCH ×2 (07:50→20:52)
[2017-11-20] MEDS: Losartan TAB* 25 MG PO SCH (07:50)
[2017-11-20] MEDS: amLODIPine TAB* 5 MG PO SCH (07:50)
[2017-11-20] MEDS: cloNIDine TAB* 0.1 MG PO SCH ×3 (07:51→20:52)
[2017-11-20] MEDS: Metoclopramide TAB* 10 MG PO SCH ×3 (07:52→20:55)
[2017-11-20] MEDS: hydrALAZINE TAB* 25 MG PO SCH ×3 (07:52→20:51)
[2017-11-20] MEDS: Lacosamide TAB* 100 MG TAB PO SCH ×2 (07:52→20:51)
[2017-11-20] MEDS: Pantoprazole TAB (NF) 20 MG TAB PO SCH (07:53)
[2017-11-20] MEDS: Acetaminophen TAB* 325 MG PO PRN ×2 (07:56→17:41)
[2017-11-20] MEDS: FERRIC CITRATE 210 MG PO SCH ×3 (07:58→20:56)
--- NOTE | 2017-11-20 08:44 | RAD ---
INDICATION: Pleural effusions and infiltrate COMPARISON: November 11, 2017 TECHNIQUE: PA and lateral dual-energy views were obtained. FINDINGS: Bones/Soft Tissues: There are no acute bony findings. Cardiomediastinal: The cardiomediastinal silhouette is normal. Lungs: There are no infiltrates. Pleura: There are small bilateral infiltrates. There is minimal right basilar airspace disease. Other: None IMPRESSION: SMALL BILATERAL INFILTRATES WITH SLIGHTLY INCREASED PLEURAL FLUID ON THE RIGHT. MILD RIGHT BASILAR AIRSPACE DISEASE.
[2017-11-20] MEDS: Enoxaparin(*) 30 MG/0.3 ML SYR SUBCUT SCH (10:14)
--- NOTE | 2017-11-20 13:06 | PN ---
Subjective Date of Service: 11/20/17 Interval History: Pt seen and examined. Meds and labs reviewed ROS: Denied [place]/dizziness, F/C, N/V, CP, SOB, increased cough, sputum production , abd pain, diarrhea, constipation, dysuria, myalgias, arthralgias, throat pain , and new skin lesions. The rest of the 14 point ROS are unremarkable. PHYSICAL EXAM: GEN APPEARANCE: Awake, not in acute distress HEENT: NC/AT, PERRLA, moist oral mucosa, (-) throat erythema NECK: Soft, supple, (-) cervical LAD, (-)JVD HEART: S1S2 WNL, RRR, No MRG CHEST: CTA, BL, GAE, No W/R/R ABD: Soft, ND/NT, NABS 4x Q EXT: No C/C/E SKIN: Warm to touch PSYCH: No active psychosis, hallucinations, depression, SI/HI Objective Active Medications: Acetaminophen (Tylenol Tab*) 650 mg PO Q6H PRN PRN Reason: FEVER/PAIN Last Admin: 11/20/17 07:56 Dose: 650 mg Amlodipine Besylate (Norvasc Tab*) 10 mg PO DAILY [facility] Last Admin: 11/20/17 07:50 Dose: 10 mg Benzonatate (Tessalon Cap*) 100 mg PO BID PRN PRN Reason: COUGH Carvedilol (Coreg Tab*) 37.5 mg PO BID [facility] Last Admin: 11/20/17 07:50 Dose: 37.5 mg Clonidine HCl (Catapres Tab*) 0.3 mg PO TID [facility] Last Admin: 11/20/17 07:51 Dose: 0.3 mg Enoxaparin Sodium (Lovenox(*)) 30 mg SUBCUT Q24H [facility] Last Admin: 11/20/17 10:14 Dose: Not Given Famotidine (Pepcid Tab*) 20 mg PO QPM [facility] Ferric Citrate (Ferric Citrate Tab(Nf)) 210 mg PO TID [facility] Last Admin: 11/20/17 07:58 Dose: Not Given Hydralazine HCl (Apresoline Tab*) 50 mg PO TID [facility] Last Admin: 11/20/17 07:52 Dose: 50 mg Lacosamide (Vimpat Tab*) 100 mg PO BID [facility] Last Admin: 11/20/17 07:52 Dose: 100 mg Losartan Potassium (Cozaar Tab*) 100 mg PO DAILY [facility] Last Admin: 11/20/17 07:50 Dose: 100 mg Metoclopramide HCl (Reglan Tab*) 10 mg PO TID [facility] Last Admin: 11/20/17 07:52 Dose: 10 mg Ondansetron HCl (Zofran Inj*) 4 mg IV Q6H PRN PRN Reason: NAUSEA Pantoprazole Sodium (Protonix Tab (Nf)) 20 mg PO QAM [facility] Last Admin: 11/20/17 07:53 Dose: Not Given Vital Signs - 8 hr 11/20/17 11/20/17 07:13 11:04 Temperature 98.6 F 98.6 F Pulse Rate 87 80 Respiratory 15 16 Rate Blood Pressure 158/101 125/65 (mmHg) O2 Sat by Pulse 96 96 Oximetry Oxygen Devices in Use Now: None Result Diagrams: 11/20/17 06:59 11/20/17 06:59 Assess/Plan/Problems-Billing Assessment: - Patient Problems (1) Fluid overload Current Visit: Yes Status: Acute Code(s): E87.70 - FLUID OVERLOAD, UNSPECIFIED SNOMED Code(s): 57238236 Comment: -H&P along not convincing for PNA and agree with current plan given benign clinical picture, absence of leukocytosis, productive cough, and fevers with current regimen -Pts usual schedule for dialysis is TRS, however, will touch base with Dr. Kaur tomorrow if with any plans to diurese her tomorrow -Likely cause of right-sided pleuritic CP -Likely cause of pericardial effusion -Will order echo in AM given HTN urgency with mild anasarca (2) Hypertensive urgency Current Visit: No Status: Acute Code(s): I16.0 - HYPERTENSIVE URGENCY SNOMED Code(s): 732706238 Comment: -Continue Amlodipine, Carvedilol, Losartan, Clonidine, and Hydralazine -Will continue to follow mild hypertension (3) ESRD (end stage renal disease) on dialysis Current Visit: No Status: Acute Code(s): N18.6 - END STAGE RENAL DISEASE; Z99.2 - DEPENDENCE ON RENAL DIALYSIS SNOMED Code(s): 612933981 Comment: -T,,Sat schedule of dialysis as outpatient -Defer with Dr. Kaur for any further recommendations (4) DVT prophylaxis Current Visit: Yes Status: Acute Code(s): SBJ6881 - SNOMED Code(s): 034226313 Comment: -Will place on renally dosed SQ Lovenox Status and Disposition: -As above
[2017-11-20] MEDS ORDERED: Famotidine TAB* 20 MG PO SCH (18:00)
[2017-11-21 07:26] LABS: Hematocrit 26 % (35-47); Hemoglobin 8.9 g/dl (12.0-16.0); Mean Corpuscular HGB Conc 35 g/dl (31-36); Mean Corpuscular Hemoglobin 32 pg (27-31); Mean Corpuscular Volume 91 fL (80-97); Mean Platelet Volume 7.4 um3 (7.4-10.4); Platelet Count 209 10^3/ul (150-450); Red Blood Count 2.81 10^6/ul (4.00-5.40); Red Cell Distribution Width 16 % (10.5-15); White Blood Count 5.1 10^3/ul (3.5-10.8)
[2017-11-21 07:40] LABS: EGFR Non-African American 8.2 (>60)
[2017-11-21] MEDS: cloNIDine TAB* 0.1 MG PO SCH ×2 (07:58→14:36)
[2017-11-21] MEDS: amLODIPine TAB* 5 MG PO SCH (07:59)
[2017-11-21] MEDS: Losartan TAB* 25 MG PO SCH (07:59)
[2017-11-21] MEDS: hydrALAZINE TAB* 25 MG PO SCH ×2 (08:01→14:36)
[2017-11-21] MEDS: Carvedilol TAB* 25 MG PO SCH (08:01)
[2017-11-21] MEDS: Lacosamide TAB* 100 MG TAB PO SCH (08:02)
[2017-11-21] MEDS: FERRIC CITRATE 210 MG PO SCH ×2 (08:02→13:21)
[2017-11-21] MEDS: Metoclopramide TAB* 10 MG PO SCH ×2 (08:02→14:37)
[2017-11-21] MEDS: Enoxaparin(*) 30 MG/0.3 ML SYR SUBCUT SCH (08:02)
[2017-11-21] MEDS: Pantoprazole TAB (NF) 20 MG TAB PO SCH (08:03)
[2017-11-21] MEDS ORDERED: Carvedilol TAB* 25 MG PO SCH ×4 (09:00→21:00)
[2017-11-21] MEDS ORDERED: Doxazosin TAB* 2 MG PO SCH (10:00)
[2017-11-21] MEDS ORDERED: NS 0.9% 100 ML* 100 ML IVPB PRN (13:11)
[2017-11-21] MEDS ORDERED: Epoetin Alfa* 10,000 UNITS/ML VIAL IV ONE (14:00)
[2017-11-21] MEDS ORDERED: Heparin DIALYSIS ONLY(*) 1,000 UNITS/ML VIAL DIALYSIS ONE (14:00)
[2017-11-21 14:47] VITALS: BP 164/101
--- NOTE | 2017-11-22 01:32 | DS ---
CC: Dr. Andre; Dr. Danny Raymundo MD; Lucero Wolf MD * DISCHARGE SUMMARY: DATE OF ADMISSION: 11/20/17 DATE OF DISCHARGE: 11/21/17, against medical advice. DISCHARGE DIAGNOSES: As follows: 1. Anasarca/fluid overload. 2. Hypertensive urgency, resolved, however, still with possibly uncontrolled and/or labile BP. 3. End-stage renal disease status post acute dialysis today on 11/21/17. 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 Currently, no longer on any immunosuppressants. She was admitted on 11/19/17 given her chief complaint of myalgias for at least 5 hours and right-sided pleuritic chest pain. Her right-sided subsequent evaluation revealed that she has fluid overload/anasarca and the chest x-ray done on her presentation showed small bilateral infiltrates with slightly increased pleural fluid on the right with mild right basilar air space disease and given she does not have any complaints and/or documentations that she has any fevers or chills with normal white count, it was thought that this air space disease is likely due to atelectasis given her pleural effusions and anasarca and hence was not given any antibiotics. She has been in the hospital for 3 days with normal white count and has been afebrile since. She was dialyzed and ultrafiltrated with 2 L being removed during dialysis and her blood pressure remained uncontrolled despite the fact that her hypertensive urgency has been appropriately treated and is currently maximized on many of her antihypertensives. She was advised post dialysis to stay overnight so that we can further observe where her blood pressure lies when she is euvolemic. She had been advised that after an additional dialysis for many people, they become nauseated and/or drop their blood pressure and given she was still mildly hypertensive post dialysis, we will need to observe her overnight to see whether this remains consistent. I specifically clarified to the patient that she will need to follow up and call her primary care physician immediately after leaving the hospital to set up an immediate followup appointment due to her uncontrolled blood pressure. Before she left, her nurse informed me that her blood pressure was 164/101. She understood the above risks and benefits including risk of heart disease, stroke and/or if her blood pressure remains uncontrolled, especially for a long period of time, especially when she presented with hypertensive urgency. She further mentions that when she is euvolemic otherwise, her blood pressure is in the 130s and hence because she is a poor historian, I have informed her that I feel uncomfortable prescribing her another anti hypertensive if she claims that her blood pressure is well controlled when she is euvolemic. She understands above and mentions that she will follow up with her primary care physician immediately and signed an against medical advice form. She was reminded of the following to follow up with her PCP and/or call PCP immediately after leaving the hospital, will set up an appointment for immediate followup. She had been advised to stay another night given her shortness of breath and edema and had been dialyzed just a few minutes ago. It was mentioned to her that any rapid shifts in fluids and/or electrolyte levels can cause some patients to get dizzy and/or nauseated and thus precluding prescription of a new antihypertensive especially when she claims that she is well controlled when she is euvolemic. However, subsequent repeat vital signs immediately post hemodialysis, they did not suggest this to be the case. Given she is a poor historian, I have elected not to place her on any new antihypertensives other than her home medications and to follow up immediately with her PCP. She was advised to call [facility] if her PCP cannot see her any sooner, however, she must contact her PCP first to make sure that he or she agrees that seeing her as an outpatient is appropriate instead of going to the ER for a life threatening condition. She was advised to call my office regarding any questions, concerns, or further clarifications regarding her discharge plans and/or prescriptions and to follow up with Dr. Kaur for reevaluation in 3 to 7 days post DC if she does not see Dr. Kaur in her regular dialysis schedule. She was advised to take her medications as prescribed. 2 L of ultrafiltrates has been removed during dialysis the same day that she signed out against medical advice. DISCHARGE MEDICATIONS: Are as follows: 1. Tylenol 650 p.o. q. 6 p.r.n. 2. Amlodipine 10 mg p.o. daily. 3. Carvedilol 37.5 mg p.o. b.i.d. 4. Clonidine 0.3 mg p.o. t.i.d. 5. Famotidine 20 mg p.o. q. p.m. 6. Ferric citrate 210 mg p.o. t.i.d. 7. Hydralazine 50 mg p.o. t.i.d. 8. Lacosamide 100 mg p.o. b.i.d. 9. Losartan 100 mg p.o. daily. 10. Reglan 10 mg p.o. t.i.d. 11. Pantoprazole 20 mg p.o. q. a.m. PHYSICAL EXAMINATION: Shows the most recent vital signs of record with blood pressure of 164/101, respiratory rate of 18 per minute, 96 per minute heart rate , 98.2 degrees Fahrenheit. General appearance: The patient is awake, alert, and oriented x3, not in any acute distress. HEENT: Normocephalic, atraumatic. PERRLA. Extraocular muscles intact. Negative for icterus. Moist oral mucosa. Negative throat erythema. Neck is soft, supple with no cervical lymphadenopathy. No JVD. Heart: S1, S2 within normal limits. Regular rate and rhythm. No murmurs, rubs, or gallops. Chest: Clear to auscultation bilaterally. Good air entry. No wheezes, rales, or rhonchi. Abdomen is soft, nondistended, nontender. Normoactive bowel sounds x4 quadrants. Extremities: No cyanosis, clubbing, with 1+ bilateral lower extremity edema. Psychiatric: No active psychosis or depression. No suicidal or homicidal ideation. Skin is warm to touch. TIME SPENT: The total time spent evaluating the patient, reviewing the pertinent data, and appropriate documentation is greater than 30 minutes. [id number] #: [id number] MTDD
== END 2017-11-21 15:40 | disposition left against medical advice (07) | DRG 682 ==
LOC: ED 15:35 → MED 21:10 → OBSVTOIN 11-20 14:36
PROVIDERS: ADMIT Hospitalist; ATTEND Student in an Organized Health Care Education/Training Program
PROC: 5A1D70Z Performance of Urinary Filtration, Intermittent, Less than 6 Hours Per Day (ICD-10-PCS; principal; 2017-11-21)
DX: I12.0 Hypertensive chronic kidney disease with stage 5 chronic kidney disease or end stage renal disease (principal); N18.6 End stage renal disease; T86.12 Kidney transplant failure; I31.3 Pericardial effusion (noninflammatory); J90 Pleural effusion, not elsewhere classified; E87.70 Fluid overload, unspecified; I16.0 Hypertensive urgency; Z99.2 Dependence on renal dialysis; R60.1 Generalized edema; G40.909 Epilepsy, unspecified, not intractable, without status epilepticus; K21.9 Gastro-esophageal reflux disease without esophagitis; Z79.899 Other long term (current) drug therapy; Z83.79 Family history of other diseases of the digestive system; Z83.49 Family history of other endocrine, nutritional and metabolic diseases; Z82.3 Family history of stroke; Z82.49 Family history of ischemic heart disease and other diseases of the circulatory system
CPT/HCPCS: 36415; 71046; 74176; 76705; 80048; 80053; 83605; 83690; 83735; 84100; 84145; 84484; 84702; 85025; 85027; 85610; 85652; 85730; 86140; 87040; 93005; 99284; A9270-GY; J0456; J0696; J0885; J1644; J1650; J2270; J2405

== ENCOUNTER 2017-12-27 23:37 | Observation (INO) | payer MEDICARE, MEDICAID ==
[2017-12-27] MEDS ORDERED: Labetalol IV* 5 MG/ML 20 ML VIAL IV PUSH ONE (23:56)
[2017-12-27] MEDS ORDERED: diPHENhydraMINE IV* 50 MG/ML 1 ml VIAL (BENADRYL) IV ONE (23:56)
[2017-12-27] MEDS ORDERED: Morphine INJ* 2 MG/ML 1 ML SYRINGE (TWO MG - NEW SYRINGE VERSION) IV ONE (23:56)
[2017-12-27] MEDS ORDERED: Metoclopramide IV* 5 MG/ML 2 ML VIAL IV SLOW PU ONE (23:56)
--- NOTE | 2017-12-27 23:56 | ED ---
Hypertension - HPI Summary HPI Summary: This patient is a 22 year old F presenting to [facility] as a transfer from [facility] with a chief complaint of HTN since 12:00. She originally presented to [facility] with a complaint of N/V/D when the elevated blood pressure was discovered. She was started on a Labetalol drip there. The [facility] ED Physician spoke with Kp Kaur MD from Nephrology who agreed to accept the patient. At the [facility], the patient rates the pain 4/10 in severity. Patient reports mild headache, improved nausea, and mild diarrhea. She is a dialysis patient and has a PMHx of HTN. - History of Current Complaint Chief Complaint: EDHypertension Stated Complaint: GENERAL ILLNESS Time Seen by Provider: 12/27/17 23:44 Hx Obtained From: Patient Hx Last Menstrual Period: 2014 - doesn't get d/t dialysis Onset/Duration: Started Hours Ago - 12:00 today, Still Present Timing: Constant Associated Signs & Symptoms: Other: - N/V/D - Allergies/Home Medications Allergies/Adverse Reactions: Allergies Allergy/AdvReac Type Severity Reaction Status Date / Time bee venom protein (honey bee) Allergy Rash Verified 11/19/17 17:26 fentanyl Allergy GI Upset Verified 11/19/17 17:26 lisinopril Allergy Coughing Verified 11/19/17 17:26 nifedipine Allergy Rash Verified 11/19/17 17:26 PMH/Surg Hx/FS Hx/Imm Hx Endocrine/Hematology History: Reports: Hx Blood Transfusions, Hx Thyroid Disease - Hyperthyroid, Hx Anemia, Other Endocrine/Hematological Disorders - Henoch Schonlein Purpura (autoimmune) Cardiovascular History: Reports: Hx Cardiomegaly, Hx Hypertension, Other Cardiovascular Problems/Disorders - Tachycardia Respiratory History: Reports: Hx Pneumonia - 11/20/2017, Hx Sleep Apnea - Undiagnosed sleep apnea GI History: Reports: Other GI Disorders - Ascites, Pancreatitis Denies: Hx Jaundice History: Reports: Hx Acute Renal Failure, Hx Chronic Renal Failure, Hx Dialysis - Hemodialysis, Hx Renal Disease, Other Problems/Disorders - Kidney transplant 2013, right kidney works at 10% Musculoskeletal History: Reports: Hx Arthritis - RA right knee, Hx Tendonitis - Right knee Sensory History: Denies: Hx Contacts or Glasses, Hx Deafness, Hx Hearing Aid Opthamlomology History: Denies: Hx Contacts or Glasses Neurological History: Reports: Hx Headaches, Hx Migraine, Hx Seizures Psychiatric History: Reports: Hx Anxiety, Hx Depression - Surgical History Surgery Procedure, Year, and Place: kidney 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/2013, 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, kidney bx x4 Hx Anesthesia Reactions: No Infectious Disease History: No Infectious Disease History: Reports: Hx Shingles Denies: Traveled Outside the [place] in Last 30 Days - Family History Known Family History: Positive: Hypertension - Social History Occupation: Unemployed Lives: With Family Alcohol Use: None Hx Substance Use: No Substance Use Type: Reports: None Hx Tobacco Use: No Smoking Status (MU): Never Smoked Tobacco Review of Systems Positive: Other - HTN Positive: Diarrhea - mild, Nausea - improved All Other Systems Reviewed And Are Negative: Yes Physical Exam - Summary Physical Exam Summary: VITAL SIGNS: Reviewed. GENERAL: Patient is a well-developed and nourished FEMALE who is lying comfortable in the stretcher. Patient is not in any acute respiratory distress. HEAD AND FACE: No signs of trauma. No ecchymosis, hematomas or skull depressions. No sinus tenderness. EYES: PERRLA, EOMI x 2, No injected conjunctiva, no nystagmus. EARS: Hearing grossly intact. Ear canals and tympanic membranes are within normal limits. MOUTH: Oropharynx within normal limits. NECK: Supple, trachea is midline, no adenopathy, no JVD, no carotid bruit, no c- spine tenderness, neck with full ROM. CHEST: Symmetric, no tenderness at palpation. Has dialysis catheter R chest wall. Has external jugular IV access to left EJ. LUNGS: Clear to auscultation bilaterally. No wheezing or crackles. CVS: Regular rate and rhythm, S1 and S2 present, no murmurs or gallops appreciated. ABDOMEN: Soft, non-tender. No signs of distention. No rebound no guarding, and no masses palpated. Bowel sounds are normal. EXTREMITIES: FROM in all major joints, no edema, no cyanosis or clubbing. NEURO: Alert and oriented x 3. No acute neurological deficits. Speech is normal and follows commands. SKIN: Dry and warm Triage Information Reviewed: Yes Vital Signs On Initial Exam: Initial Vitals Temp Pulse Resp BP Pulse Ox 97.5 F 90 16 204/136 98 12/27/17 23:48 12/27/17 23:48 12/27/17 23:48 12/27/17 23:48 12/27/17 23:48 Vital Signs Reviewed: Yes Diagnostics - Vital Signs Vital Signs Temp Pulse Resp BP Pulse Ox 12/27/17 23:48 97.5 F 90 16 204/136 98 - Laboratory Lab Statement: Any lab studies that have been ordered have been reviewed, and results considered in the medical decision making process. Hypertension Course/Dx - Course Assessment/Plan: This patient is a 22 year old F presenting to [facility] as a transfer from [facility] with a chief complaint of HTN since 12:00. She originally presented to [facility] with a complaint of N/V/D when the elevated blood pressure was discovered. She was started on a Labetalol drip there. The [facility] ED Physician spoke with Kp Kaur MD from Nephrology who agreed to accept the patient. At the [facility], the patient rates the pain 4/10 in severity. Patient reports mild headache, improved nausea, and mild diarrhea. She is a dialysis patient and has a PMHx of HTN. [facility] Physician Dr. Brand spoke with Dr. Andre, hospitalist, who admits the patient. - Diagnoses Provider Diagnoses: Hypertension, End stage renal disease - Physician Notifications Discussed Care Of Patient With: Spencer Andre - Hospitalist Time Discussed With Above Provider: 00:19 Instructed by Provider To: Admit As Inpatient Discharge - Sign-Out/Discharge Documenting (check all that apply): Patient Departure - Discharge Plan Condition: Stable Disposition: ADMITTED TO [facility] Referrals: Lucero Wolf MD [Primary Care Provider] - - Attestation Statements Document Initiated by Scribe: Yes Documenting Scribe: Jose Manuel Dobbs Provider For Whom Scribe is Documenting (Include Credential): Kathleen Brand MD Scribe Attestation: Jose Manuel Cody scribed for Kathleen Brand MD on 12/28/17 at 0021.
--- NOTE | 2017-12-27 23:56 | ED ---
GI/ HPI - History of Current Complaint Time Seen by Provider: 12/27/17 23:44 Stated Complaint: GENERAL ILLNESS Hx Last Menstrual Period: 2014 - doesn't get d/t dialysis Pain Intensity: 4 - Additional Pertinent History Primary Care Physician: [id number] - Allergy/Home Medications Allergies/Adverse Reactions: Allergies Allergy/AdvReac Type Severity Reaction Status Date / Time bee venom protein (honey bee) Allergy Rash Verified 11/19/17 17:26 fentanyl Allergy GI Upset Verified 11/19/17 17:26 lisinopril Allergy Coughing Verified 11/19/17 17:26 nifedipine Allergy Rash Verified 11/19/17 17:26 PMH/Surg Hx/FS Hx/Imm Hx Endocrine/Hematology History: Reports: Hx Blood Transfusions, Hx Thyroid Disease - Hyperthyroid, Hx Anemia, Other Endocrine/Hematological Disorders - Henoch Schonlein Purpura (autoimmune) Cardiovascular History: Reports: Hx Cardiomegaly, Hx Hypertension, Other Cardiovascular Problems/Disorders - Tachycardia Respiratory History: Reports: Hx Pneumonia - 11/20/2017, Hx Sleep Apnea - Undiagnosed sleep apnea GI History: Reports: Other GI Disorders - Ascites, Pancreatitis Denies: Hx Jaundice History: Reports: Hx Acute Renal Failure, Hx Chronic Renal Failure, Hx Dialysis - Hemodialysis, Hx Renal Disease, Other Problems/Disorders - Kidney transplant 2013, right kidney works at 10% Musculoskeletal History: Reports: Hx Arthritis - RA right knee, Hx Tendonitis - Right knee Sensory History: Denies: Hx Contacts or Glasses, Hx Deafness, Hx Hearing Aid Opthamlomology History: Denies: Hx Contacts or Glasses Neurological History: Reports: Hx Headaches, Hx Migraine, Hx Seizures Psychiatric History: Reports: Hx Anxiety, Hx Depression - Surgical History Surgery Procedure, Year, and Place: kidney 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/2013, 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, kidney bx x4 Hx Anesthesia Reactions: No Infectious Disease History: No Infectious Disease History: Reports: Hx Shingles Denies: Traveled Outside the [place] in Last 30 Days - Family History Known Family History: Positive: Hypertension - Social History Alcohol Use: None Hx Substance Use: No Substance Use Type: Reports: None Hx Tobacco Use: No Smoking Status (MU): Never Smoked Tobacco Physical Exam Vital Signs On Initial Exam: Initial Vitals Temp Pulse Resp BP Pulse Ox 97.5 F 90 16 204/136 98 12/27/17 23:48 12/27/17 23:48 12/27/17 23:48 12/27/17 23:48 12/27/17 23:48 Diagnostics - Vital Signs Vital Signs Temp Pulse Resp BP Pulse Ox 12/27/17 23:48 97.5 F 90 16 204/136 98 - Laboratory Lab Statement: Any lab studies that have been ordered have been reviewed, and results considered in the medical decision making process. Discharge - Discharge Plan Referrals: Lucero Wolf MD [Primary Care Provider] - - Attestation Statements Document Initiated by Scribe: Yes
--- OUTSIDE RECORDS SUMMARY | 2017-12-28 00:09 | XMS REPORT | Continuity of Care Document ---
:1995 External Reference #:[id number] Author Name Lucero Wolf M.D. Address [address] [facility] [address] [place] [address] Care Team Providers Name Role Phone Lucero Wolf MD Primary Care Physician Unavailable Payers Type Date Identification Numbers Payment Provider Subscriber Policy Number: [id number] Medicare Zayda Garcia PayID: [id number] [address] [place] [address] Policy Number: [id number] Medicaid After Medicare Zayda Garcia Group Name: 2 1 40 [facility] PayID: [id number] [place] [address] Advance Directives Description No Information Available Problems Date Description Provider Status Onset: 12/08/2017 Essential hypertension Lucero Wolf M.D. Active Family History Date Family Member(s) Problem(s) Comments General Diabetes General Hypertension General Heart Disease General Thyroid Disease Father 43 Father No Current Problems Mother GI Issues Mother 40 Children None Siblings 2 First Brother 16 First Brother No Current Problems Second Brother 13 Second Brother No Current Problems Social History Type Date Description Comments Sex Unknown Lives With Mother Work Status Unemployed ETOH Use Denies alcohol use Tobacco Use Start: Unknown Patient has never smoked Recreational Drug Use Denies Drug Use Allergies, Adverse Reactions, Alerts Date Description Reaction Status Severity Comments 12/08/2017 Fentanyl Active 12/08/2017 Nifedipine Active 12/08/2017 Lisinopril Active Medications Medication Date Status Form Strength Qnty SIG Indications Ordering Provider Clonidine HCL Active Patches 0.3mg/24HR 1 every I10 Alex Wolf Weekly week Lucero Yoo M.D. Minoxidil 09/04/2 Active Tablets 2.5mg 60tabs 1 tab by I10 Luciano, 018 mouth Ahmad M., twice a M.D. day Amlodipine Active Tablets 10mg take 1 I10 Unknown Besylate 000 tablet by mouth daily Carvedilol Active Tablets 25mg 180tab 1 tab by I10 Unknown 000 s mouth twice a day Ondansetron Active Tablets 4mg dissolve 1 K31.84 Unknown 000 Dispers tablet On Tongue every 8 hours if needed for nausea R11.0 Hydralazine HCL Active Tablets 100mg tab by mouth I10 Unknown three times a day Famotidine Active Tablets 20mg 180tabs 1 tab by mouth K21.0 Unknown twice a day K30 Vimpat Active Tablets 100mg 1 tab by mouth G40.909 Unknown every day Calcium Antacid Active Chewtabs 500mg 1 tab by mouth K30 Unknown twice a day as needed K21.0 K31.84 Renvela Active Tablets 800mg 1 tab by mouth every N18.6 Unknown other day Senna-Lax Active Tablets 8.6mg 100tabs 1 tab by mouth every K31.84 Unknown evening K59.00 Vitamin D Active Capsules 42100Atct take 1 N18.6 Unknown (Ergocalciferol) capsule by mouth Every 7 Days Pantoprazole Sodium Active Tablets DR 40mg take 1 K21.0 Unknown tablet by mouth twice a day before meals K30 K31.84 Magnesium Oxide Active Tablets 400mg take 1 tablet by N18.6 Unknown mouth daily E83.42 Terazosin HCL Active Capsules 1mg 1 tab by I10 Unknown mouth every evening Clonidine HCL - Hx Tablets 0.2mg take 1 E78.2 Unknown 12/27/2017 tablet by mouth three times a day Labetalol HCL - Hx Tablets 300mg take 1 Unknown 12/25/2017 tablet by mouth every 8 hours Potassium Chloride - Hx Tablets ER 20Meq 90ta 2 tab by Unknown Yue ER 12/25/2017 bs mouth every morning Doxazosin Mesylate - Hx Tablets 8mg take 1 Unknown 12/25/2017 tablet by mouth once daily Bisacodyl Ec - Hx Tablets DR 5mg Unknown 12/25/2017 Folic Acid - Hx Tablets 1mg take 1 Unknown 12/25/2017 tablet by mouth once daily Metoclopramide HCL - Hx Tablets 5mg take 1 Unknown 12/25/2017 tablet by mouth three times a day before meals Please Take 20 Minutes Prior To Meals Immunizations CPT Code Status Date Vaccine Lot # U-HPV Given 08/18/2009 HPV,Unspecified U-HPV Given 04/21/2009 HPV,Unspecified U-Flu Given 04/21/2009 Influenza,Unspecified U-Menin Given 02/18/2009 Meningococcal,Unspecified U-HPV Given 02/18/2009 HPV,Unspecified U-Flu Given 02/18/2009 Influenza,Unspecified 15504 Given 02/15/2008 Td 7 Years And Older 41860 Given 05/20/2000 MMR U-DTaP Given 05/20/2000 DTaP,Unspecified U-Polio Given 05/20/2000 Polio,Unspecified 39752 Given 12/18/1996 MMR U-Polio Given 05/24/1996 Polio,Unspecified U-HepB Given 05/24/1996 Hepatitis B,Unspecified U-DTaP Given 05/24/1996 DTaP,Unspecified U-Polio Given 03/23/1996 Polio,Unspecified U-Polio Given 01/17/1996 Polio,Unspecified U-HepB Given 01/17/1996 Hepatitis B,Unspecified U-DTaP Given 01/17/1996 DTaP,Unspecified U-HepB Given 1995 Hepatitis B,Unspecified Vital Signs Date Vital Result Comment 12/27/2017 3:38pm BP Systolic 190 mmHg BP Diastolic 120 mmHg Height 61 inches 5'1" Weight 126.00 lb BMI (Body Mass Index) 23.8 kg/m2 Heart Rate 110 /min Respiratory Rate 16 /min 12/08/2017 10:58am BP Systolic 192 mmHg BP Diastolic 110 mmHg Height 61 inches 5'1" Weight 134.00 lb BMI (Body Mass Index) 25.3 kg/m2 Heart Rate 93 /min Respiratory Rate 16 /min Results Test Date Facility Test Result H/L Range Note Lactic Acid 12/25/2017 [facility] Lactic Acid 0.5 mmol/L 0.4-1.9 1 Lab Reflex >2.0 for Sepsis? Y CBS W/Automated Diff 12/25/2017 [facility] White Blood Count 7.5 K/uL 3.1- 10.7 Red Blood Count 2.65 M/uL Low 3.90-5.40 Hemoglobin 8.0 gm/dL Low 11.6-15.8 Hematocrit 24.4 % Low 36.0-46.1 Mean Cell Volume 92.1 fl 80.9-99.0 Mean Corpuscular HGB 30.2 pg 25.9-32.7 Mean Corpuscular HGB Conc 32.8 g/dL 30.8-34.3 Platelet Count 232 K/uL 155-360 Red Cell Distri Width SD 45.2 fl 3-47 Red Cell Distri Width %CV 14.8 % High 11.7-14.4 Mean Platelet Volume 10.4 fL 8.9-12.4 Neut% 69.2 % 40.4-72.8 Lymph % 15.4 % Low 20.0-42.0 Winn % 8.2 % 4.3-13.2 Eo% 4.8 % 0.0-6.6 Bas% 2.4 % High 0.0-1.1 Neut# 5.17 K/uL 1.8-7.0 Lymph # 1.15 K/uL 1.0-4.0 Winn # 0.61 K/uL 0.3-0.9 Eos # 0.36 K/uL 0.0-0.5 Baso # 0.18 K/uL High 0.0-0.1 Laboratory test 12/23/2017 [facility] TSH (Thyroid 1.03 mcIU/mL 0.34 -5.60 finding Stim Horm) Free T4 (Free Thyroxine) 1.13 ng/dL High 0.61-1.12 T3 Free 3.20 pg/mL 2.5-3.9 T3 Total 95 ng/dL 87-178 Thyroperoxidase AB 1.55 IU/mL <9 CBS W/Automated Diff 12/13/2017 [facility] White Blood Count 5.4 K/uL 3.1- 10.7 2 Red Blood Count 2.83 M/uL Low 3.90-5.40 Hemoglobin 8.4 gm/dL Low 11.6-15.8 Hematocrit 26.2 % Low 36.0-46.1 Mean Cell Volume 92.6 fl 80.9-99.0 Mean Corpuscular HGB 29.7 pg 25.9-32.7 Mean Corpuscular HGB Conc 32.1 g/dL 30.8-34.3 Platelet Count 222 K/uL 155-360 Red Cell Distri Width SD 47.6 fl High 3-47 Red Cell Distri Width %CV 14.7 % High 11.7-14.4 Mean Platelet Volume 10.0 fL 8.9-12.4 Neut% 63.5 % 40.4-72.8 Lymph % 14.9 % Low 20.0-42.0 Winn % 7.6 % 4.3-13.2 Eo% 12.1 % High 0.0-6.6 Bas% 1.9 % High 0.0-1.1 Neut# 3.41 K/uL 1.8-7.0 Lymph # 0.80 K/uL Low 1.0-4.0 Winn # 0.41 K/uL 0.3-0.9 Eos # 0.65 K/uL High 0.0-0.5 Baso # 0.10 K/uL 0.0-0.1 Comprehensive Metabolic Panel 12/13/2017 [facility] Glucose 83 mg/dL 74- 106 BUN 6 mg/dL Low 7-18 Creatinine 4.1 mg/dL High 0.6-1.3 Glom Filtration Rate, Estimate 14 mL/min >60 If 17 mL/min >60 3 BUN/Creat 1.4 ratio Sodium 136 mmol/L 136-145 Potassium 3.5 mmol/L 3.5-5.1 Chloride 101 mmol/L 98-107 Carbon Dioxide 24 mmol/L 21-32 Anion Gap 11 mEq/L 8-16 Calcium 10.9 mg/dL High 8.5-10.1 Total Protein 7.5 g/dL 6.4-8.2 Albumin 3.8 g/dL 3.4-5.0 Globulin 3.7 g/dL 1.9-4.3 Alb/Glob 1.0 ratio Bilirubin,Total 0.5 mg/dL 0.2-1.0 Sgot/Ast 26 U/L 15-37 SGPT/Alt 13 U/L 12-78 Alkaline Phosphatase 90 U/L 45-117 Laboratory test finding 12/13/2017 [facility] Lipase 4283 U/L High 56-289 4 HCG,Serum (Qualitative) NEGATIVE (Negative) 5 Comprehensive Metabolic Panel 12/11/2017 [facility] Glucose 96 mg/dL 74- 106 6 BUN 8 mg/dL 7-18 Creatinine 5.3 mg/dL High 0.6-1.3 Glom Filtration Rate, Estimate 11 mL/min >60 If 13 mL/min >60 7 BUN/Creat 1.5 ratio Sodium 142 mmol/L 136-145 Potassium 3.6 mmol/L 3.5-5.1 8 Chloride 107 mmol/L 98-107 Carbon Dioxide 22 mmol/L 21-32 Anion Gap 13 mEq/L 8-16 Calcium 11.3 mg/dL High 8.5-10.1 Total Protein 7.1 g/dL 6.4-8.2 Albumin 3.8 g/dL 3.4-5.0 Globulin 3.3 g/dL 1.9-4.3 Alb/Glob 1.2 ratio Bilirubin,Total 0.6 mg/dL 0.2-1.0 Sgot/Ast 30 U/L 15-37 SGPT/Alt 13 U/L 12-78 Alkaline Phosphatase 75 U/L 45-117 Laboratory test finding 12/11/2017 [facility] CK 155 U/L 26-192 Troponin-I 0.026 ng/mL 9 HCG,Serum (Qualitative) NEGATIVE (Negative) 10 CBS W/Automated Diff 12/11/2017 [facility] White Blood Count 8.5 K/uL 3.1- 10.7 Red Blood Count 2.91 M/uL Low 3.90-5.40 Hemoglobin 9.0 gm/dL Low 11.6-15.8 Hematocrit 26.8 % Low 36.0-46.1 Mean Cell Volume 92.1 fl 80.9-99.0 Mean Corpuscular HGB 30.9 pg 25.9-32.7 Mean Corpuscular HGB Conc 33.6 g/dL 30.8-34.3 Platelet Count 258 K/uL 155-360 Red Cell Distri Width SD 47.2 fl High 3-47 Red Cell Distri Width %CV 14.9 % High 11.7-14.4 Mean Platelet Volume 10.7 fL 8.9-12.4 Neut% 69.0 % 40.4-72.8 Lymph % 13.7 % Low 20.0-42.0 Winn % 9.3 % 4.3-13.2 Eo% 6.0 % 0.0-6.6 Bas% 2.0 % High 0.0-1.1 Neut# 5.83 K/uL 1.8-7.0 Lymph # 1.16 K/uL 1.0-4.0 Winn # 0.79 K/uL 0.3-0.9 Eos # 0.51 K/uL High 0.0-0.5 Baso # 0.17 K/uL High 0.0-0.1 Laboratory test 12/11/2017 [facility] Slide Review . 11 finding Laboratory test 12/08/2017 [facility] CK 118 U/L 26-192 12 finding Laboratory test 12/08/2017 [facility] Lacosamide None Detected 5.0-10.0 13 finding ug/mL Laboratory test 12/08/2017 [facility] Act Partial 29.9 seconds 23.4-35. 14 finding Thrombo Time 0 Protime 12/08/2017 [facility] Protime 14.0 seconds 12.0-14. 4 Inr 1.1 0.9-1.1 15 Comprehensive Metabolic Panel 12/08/2017 [facility] Glucose 99 mg/dL 74- 106 BUN 6 mg/dL Low 7-18 Creatinine 5.1 mg/dL High 0.6-1.3 Glom Filtration Rate, Estimate 11 mL/min >60 If 14 mL/min >60 16 BUN/Creat 1.1 ratio Sodium 140 mmol/L 136-145 Potassium 4.0 mmol/L 3.5-5.1 Chloride 102 mmol/L 98-107 Carbon Dioxide 26 mmol/L 21-32 Anion Gap 12 mEq/L 8-16 Calcium 12.2 mg/dL High 8.5-10.1 Total Protein 7.2 g/dL 6.4-8.2 Albumin 3.8 g/dL 3.4-5.0 Globulin 3.4 g/dL 1.9-4.3 Alb/Glob 1.1 ratio Bilirubin,Total 0.7 mg/dL 0.2-1.0 Sgot/Ast 24 U/L 15-37 SGPT/Alt 13 U/L 12-78 Alkaline Phosphatase 76 U/L 45-117 Laboratory test finding 12/08/2017 [facility] Magnesium 2.2 mg/dL 1.8-2.4 Troponin-I 0.030 ng/mL 17 Thyroid Stim Hormone 0.61 uIU/mL 0.30-4.20 HCG,Serum (Qualitative) NEGATIVE (Negative) 18 Free T4 2.02 ng/dL High 0.76-1.46 Differential-WBC Confirm 12/08/2017 [facility] Total Cells Counted 100 # CELLS Band% 2 % 0-8 Neutrophils% 64 % 33-73 Lymph% 16 % Low 20-42 Monocyte% 8 % 0-10 Eosinophil% 8 % High 0-5 Basophil% 2 % 0-2 Platelet Estimate NORMAL Polychromasia 0-1+ Hypochromia 1+ Anisocytosis 2+ Differential Comment lrg plts seen CBS W/Automated Diff 12/08/2017 [facility] White Blood Count 8.2 K/uL 3.1- 10.7 Red Blood Count 2.90 M/uL Low 3.90-5.40 Hemoglobin 8.9 gm/dL Low 11.6-15.8 Hematocrit 26.7 % Low 36.0-46.1 Mean Cell Volume 92.1 fl 80.9-99.0 Mean Corpuscular HGB 30.7 pg 25.9-32.7 Mean Corpuscular HGB Conc 33.3 g/dL 30.8-34.3 Platelet Count 389 K/uL High 155-360 Red Cell Distri Width SD 44.6 fl 3-47 Red Cell Distri Width %CV 14.5 % High 11.7-14.4 Mean Platelet Volume 9.4 fL 8.9-12.4 Neut% 68.2 % 40.4-72.8 Lymph % 14.1 % Low 20.0-42.0 Winn % 8.4 % 4.3-13.2 Eo% 6.1 % 0.0-6.6 Bas% 3.2 % High 0.0-1.1 Neut# 5.61 K/uL 1.8-7.0 Lymph # 1.16 K/uL 1.0-4.0 Winn # 0.69 K/uL 0.3-0.9 Eos # 0.50 K/uL 0.0-0.5 Baso # 0.26 K/uL High 0.0-0.1 Laboratory test finding 12/08/2017 [facility] Slide Review DIFF ORDERED 19 Laboratory test finding 11/25/2017 [facility] Lipase 156 U/L 56-289 20 HCG,Serum (Qualitative) NEGATIVE (Negative) Comprehensive Metabolic Panel 11/25/2017 [facility] Glucose 91 mg/dL 74- 106 BUN 5 mg/dL Low 7-18 Creatinine 4.5 mg/dL High 0.6-1.3 Glom Filtration Rate, Estimate 13 mL/min >60 If 16 mL/min >60 21 BUN/Creat 1.1 ratio Sodium 139 mmol/L 136-145 Potassium 3.8 mmol/L 3.5-5.1 Chloride 102 mmol/L 98-107 Carbon Dioxide 29 mmol/L 21-32 Anion Gap 8 mEq/L 8-16 Calcium 12.5 mg/dL High 8.5-10.1 Total Protein 7.2 g/dL 6.4-8.2 Albumin 3.6 g/dL 3.4-5.0 Globulin 3.6 g/dL 1.9-4.3 Alb/Glob 1.0 ratio Bilirubin,Total 0.4 mg/dL 0.2-1.0 Sgot/Ast 18 U/L 15-37 SGPT/Alt 16 U/L 12-78 Alkaline Phosphatase 76 U/L 45-117 CBS W/Automated Diff 11/25/2017 [facility] White Blood Count 6.2 K/uL 3.1- 10.7 Red Blood Count 3.37 M/uL Low 3.90-5.40 Hemoglobin 10.3 gm/dL Low 11.6-15.8 Hematocrit 31.8 % Low 36.0-46.1 Mean Cell Volume 94.4 fl 80.9-99.0 Mean Corpuscular HGB 30.6 pg 25.9-32.7 Mean Corpuscular HGB Conc 32.4 g/dL 30.8-34.3 Platelet Count 300 K/uL 155-360 Red Cell Distri Width SD 51.0 fl High 3-47 Red Cell Distri Width %CV 15.7 % High 11.7-14.4 Mean Platelet Volume 8.7 fL Low 8.9-12.4 Neut% 56.5 % 40.4-72.8 Lymph % 23.7 % 20.0-42.0 Winn % 9.5 % 4.3-13.2 Eo% 7.4 % High 0.0-6.6 Bas% 2.9 % High 0.0-1.1 Neut# 3.51 K/uL 1.8-7.0 Lymph # 1.47 K/uL 1.0-4.0 Winn # 0.59 K/uL 0.3-0.9 Eos # 0.46 K/uL 0.0-0.5 Baso # 0.18 K/uL High 0.0-0.1 Laboratory test 11/19/2017 [facility] Lactic Acid 0.5 mmol/L 0.5- 2.0 22 finding CBC Auto Diff 11/19/2017 [facility] White Blood 7.1 10^3/uL 3.5- 10.8 Count Red Blood Count 2.73 10^6/uL Low 4.00-5.40 Hemoglobin 8.5 g/dL Low 12.0-16.0 Hematocrit 25 % Low 35-47 Mean Corpuscular Volume 91 fL 80-97 Mean Corpuscular Hemoglobin 31 pg 27-31 Mean Corpuscular HGB Conc 34 g/dL 31-36 Red Cell Distribution Width 16 % High 10.5-15 Platelet Count 206 10^3/uL 150-450 Mean Platelet Volume 7.2 um3 Low 7.4-10.4 Abs Neutrophils 4.5 10^3/uL 1.5-7.7 Abs Lymphocytes 1.3 10^3/uL 1.0-4.8 Abs Monocytes 0.7 10^3/uL 0-0.8 Abs Eosinophils 0.4 10^3/uL 0-0.6 Abs Basophils 0.3 10^3/uL High 0-0.2 Abs Nucleated RBC 0 10^3/uL Granulocyte % 62.9 % 38-83 Lymphocyte % 17.6 % Low 25-47 Monocyte % 9.6 % High 0-7 Eosinophil % 6.1 % High 0-6 Basophil % 3.8 % High 0-2 Nucleated Red Blood Cells % 0 Inr/Protime 11/19/2017 [facility] Inr 1.02 0.77-1.02 Laboratory test 11/19/2017 [facility] Partial 31.4 seconds 26.0- 36.3 finding Thrombo Time PTT Comp Metabolic 11/19/2017 [facility] Sodium 136 mmol/L 135-145 Panel Potassium 3.6 mmol/L 3.5-5.0 Chloride 99 mmol/L Low 101-111 Co2 Carbon Dioxide 29 mmol/L 22-32 Anion Gap 8 mmol/L 2-11 Glucose 97 mg/dL 70-100 Blood Urea Nitrogen 5 mg/dL Low 6-24 Creatinine 3.53 mg/dL High 0.51-0.95 BUN/Creatinine Ratio 1.4 Low 8-20 Calcium 10.2 mg/dL 8.6-10.3 Total Protein 5.9 g/dL Low 6.4-8.9 Albumin 3.5 g/dL 3.2-5.2 Globulin 2.4 g/dL 2-4 Albumin/Globulin Ratio 1.5 1-3 Total Bilirubin 0.50 mg/dL 0.2-1.0 Alkaline Phosphatase 54 U/L 34-104 Alt 6 U/L Low 7-52 Ast 12 U/L Low 13-39 Egfr Non- 16.3 >60 Egfr 19.8 >60 23 Laboratory test finding 11/19/2017 [facility] Lipase 19 U/L 11.0- 82.0 Troponin-I (TnI) 0.01 ng/mL <0.04 HCG 0.91 mIU/mL 24 C Reactive Protein 7.99 mg/L <8.01 Procalcitonin 0.7 ng/mL High <0.6 25 Erythrocyte Sed Rate 20 mm/Hr High 0-14 Blood Culture SEE RESULT BELOW 26 Laboratory test finding 11/16/2017 [facility] Ethyl Alcohol < 3.0 mg/dL 27 Comprehensive Metabolic 11/16/2017 [facility] Glucose 101 mg/dL 74-106 Panel BUN 15 mg/dL 7-18 Creatinine 7.8 mg/dL High 0.6-1.3 Glom Filtration Rate, Estimate 7 mL/min >60 If 8 mL/min >60 28 BUN/Creat 1.9 ratio Sodium 140 mmol/L 136-145 Potassium 3.9 mmol/L 3.5-5.1 Chloride 101 mmol/L 98-107 Carbon Dioxide 29 mmol/L 21-32 Anion Gap 10 mEq/L 8-16 Calcium 11.6 mg/dL High 8.5-10.1 Total Protein 7.1 g/dL 6.4-8.2 Albumin 3.7 g/dL 3.4-5.0 Globulin 3.4 g/dL 1.9-4.3 Alb/Glob 1.1 ratio Bilirubin,Total 0.5 mg/dL 0.2-1.0 Sgot/Ast 24 U/L 15-37 SGPT/Alt 16 U/L 12-78 Alkaline Phosphatase 62 U/L 45-117 Laboratory test 11/16/2017 [facility] Lipase 557 U/L High 56-289 29 finding CBS W/Automated Diff 11/16/2017 [facility] White Blood Count 6.1 K/uL 3.1- 10.7 Red Blood Count 2.96 M/uL Low 3.90-5.40 Hemoglobin 9.2 gm/dL Low 11.6-15.8 Hematocrit 28.0 % Low 36.0-46.1 Mean Cell Volume 94.6 fl 80.9-99.0 Mean Corpuscular HGB 31.1 pg 25.9-32.7 Mean Corpuscular HGB Conc 32.9 g/dL 30.8-34.3 Platelet Count 258 K/uL 155-360 Red Cell Distri Width SD 46.9 fl 3-47 Red Cell Distri Width %CV 14.4 % 11.7-14.4 Mean Platelet Volume 9.2 fL 8.9-12.4 Neut% 55.7 % 40.4-72.8 Lymph % 20.9 % 20.0-42.0 Winn % 12.1 % 4.3-13.2 Eo% 9.3 % High 0.0-6.6 Bas% 2.0 % High 0.0-1.1 Neut# 3.40 K/uL 1.8-7.0 Lymph # 1.28 K/uL 1.0-4.0 Winn # 0.74 K/uL 0.3-0.9 Eos # 0.57 K/uL High 0.0-0.5 Baso # 0.12 K/uL High 0.0-0.1 Laboratory test 11/16/2017 [facility] Slide Review . 30 finding CBC Auto Diff 11/13/2017 [facility] White Blood 7.9 3.5-10.8 Count 10^3/uL Red Blood Count 2.79 10^6/uL Low 4.00-5.40 Hemoglobin 8.8 g/dL Low 12.0-16.0 Hematocrit 26 % Low 35-47 Mean Corpuscular Volume 93 fL 80-97 Mean Corpuscular Hemoglobin 31 pg 27-31 Mean Corpuscular HGB Conc 34 g/dL 31-36 Red Cell Distribution Width 15 % 10.5-15 Platelet Count 336 10^3/uL 150-450 Mean Platelet Volume 7.3 um3 Low 7.4-10.4 Abs Neutrophils 5.8 10^3/uL 1.5-7.7 Abs Lymphocytes 0.9 10^3/uL Low 1.0-4.8 Abs Monocytes 0.8 10^3/uL 0-0.8 Abs Eosinophils 0.1 10^3/uL 0-0.6 Abs Basophils 0.2 10^3/uL 0-0.2 Abs Nucleated RBC 0 10^3/uL Granulocyte % 74.3 % 38-83 Lymphocyte % 12.0 % Low 25-47 Monocyte % 9.7 % High 0-7 Eosinophil % 1.1 % 0-6 Basophil % 2.9 % High 0-2 Nucleated Red Blood Cells % 0 Comp Metabolic Panel 11/13/2017 [facility] Sodium 135 mmol/L 135- 145 Potassium 3.5 mmol/L 3.5-5.0 Chloride 95 mmol/L Low 101-111 Co2 Carbon Dioxide 26 mmol/L 22-32 Anion Gap 14 mmol/L High 2-11 Glucose 117 mg/dL High 70-100 Blood Urea Nitrogen 14 mg/dL 6-24 Creatinine 6.21 mg/dL High 0.51-0.95 BUN/Creatinine Ratio 2.3 Low 8-20 Calcium 11.8 mg/dL High 8.6-10.3 Total Protein 6.4 g/dL 6.4-8.9 Albumin 3.9 g/dL 3.2-5.2 Globulin 2.5 g/dL 2-4 Albumin/Globulin Ratio 1.6 1-3 Total Bilirubin 0.60 mg/dL 0.2-1.0 Alkaline Phosphatase 50 U/L 34-104 Alt 7 U/L 7-52 Ast 11 U/L Low 13-39 Egfr Non- 8.5 >60 Egfr 10.3 >60 31 Laboratory test finding 11/13/2017 [facility] Magnesium 2.3 mg/dL 1.9-2.7 Amylase 33 U/L 29-103 Lipase 10 U/L Low 11.0-82.0 C Reactive Protein 10.50 mg/L High <8.01 HCG 1.02 mIU/mL 32 B-Type Natriuretic Peptide BNP 2448 pg/mL High 33 TSH (Thyroid Stim Horm) 0.20 mcIU/mL Low 0.34-5.60 Free T4 (Free Thyroxine) 1.98 ng/dL High 0.61-1.12 T3 Total 96 ng/dL 87-178 T3 Free 4.10 pg/mL High 2.5-3.9 Lacosamide <0.5 g/mL 1.0 - 10.0 34 1 BODY HURTS ALL OVER 2 PANCREATITIS? 3 Note: Persistent reduction for 3 months or more in an eGFR <60 mL/min/1.73 m2 defines CKD. Patients with eGFR values >/=60 mL/min/1.73 m2 may also have CKD if evidence of persistent proteinuria is present. The original MDRD equation for estimated GFR is not valid for patients less than 18 years of age. Additional information may be found at www.[email or web address]. 4 CALLED LIP TO CRISTY N. AT 1056 12/13/17 by JUNIOR 5 Method: [employer] One-Step Immunoassay 6 MID BACK PAIN 7 Note: Persistent reduction for 3 months or more in an eGFR <60 mL/min/1.73 m2 defines CKD. Patients with eGFR values >/=60 mL/min/1.73 m2 may also have CKD if evidence of persistent proteinuria is present. The original MDRD equation for estimated GFR is not valid for patients less than 18 years of age. Additional information may be found at [email or web address]. 8 Specimen slightly Hemolyzed, interpret with caution 9 0.0 - 0.045 ng/mL: Normal 0.046 - 0.5 ng/mL: Suggestive 0.6 - 1.5 ng/mL: Consistent 10 Method: [employer]idel Quick[employer]ue One-Step Immunoassay 11 Instrument flagged sample for slide review. Less than 10% Bands seen, no other immature WBC's seen. RBC morphology essentially normal. Platelet [id number]=452 CHECKED,PLT EST. AGREES WITH INSTRUMENT VALUE. 12 SEIZURE 13 Limit of Detection 0.5 Mean plasma concentrations following maintenance dose 200 mg/day 4.99 +/- 2.51 ug/mL 400 mg/day 9.35 +/- 4.22 ug/mL 600 mg/day 12.46 +/- 5.60 ug/mL This test was developed and its performance characteristics determined by [employer]. It has not been cleared or approved by the Food and Drug Administration. Performed at: - [facility] [id number] [place] Analyst: Efrem Garcia MD, Phone: [phone] 14 Is patient on anticoagulants? Coumadin 15 THERAPEUTIC INR RANGE: 2.0 - 3.0 DVT, Pulmonary embolus, prophylaxis against venous thrombosis or systemic embolization in high risk patients. 2.5 - 3.5 Mechanical heart valves 16 Note: Persistent reduction for 3 months or more in an eGFR <60 mL/min/1.73 m2 defines CKD. Patients with eGFR values >/=60 mL/min/1.73 m2 may also have CKD if evidence of persistent proteinuria is present. The original MDRD equation for estimated GFR is not valid for patients less than 18 years of age. Additional information may be found at www.[email or web address]. 17 0.0 - 0.045 ng/mL: Normal 0.046 - 0.5 ng/mL: Suggestive 0.6 - 1.5 ng/mL: Consistent 18 Method: [employer] One-Step Immunoassay 19 Is patient on anticoagulants? Coumadin 20 ABD PAIN, VOMITING,DIARRHEA 21 Note: Persistent reduction for 3 months or more in an eGFR <60 mL/min/1.73 m2 defines CKD. Patients with eGFR values >/=60 mL/min/1.73 m2 may also have CKD if evidence of persistent proteinuria is present. The original MDRD equation for estimated GFR is not valid for patients less than 18 years of age. Additional information may be found at www.[email or web address]. 22 [facility] Severe Sepsis and Septic Shock Management Bundle Measure requires all lactic acids initially measuring >2.0 mmol/L be repeated. 23 Because ethnic data is not always readily available, this report includes an eGFR for both -Americans and non- Americans. The National Kidney Disease Education Program (NKDEP) does not endorse the use of the MDRD equation for patients that are not between the ages of 18 and 70, are , have extremes of body size, muscle mass, or nutritional status, or are non- or non-. According to the National Kidney Foundation, irrespective of diagnosis, the stage of the disease is based on the level of kidney function: Stage Description GFR(mL/min/1.73 m(2)) 1 Kidney damage with normal or decreased GFR 90 2 Kidney damage with mild decrease in GFR 60-89 3 Moderate decrease in GFR 30-59 4 Severe decrease in GFR 15-29 5 Kidney failure <15 (or dialysis) 24 <5.0 Negative 5.0 - 25.0 Indeterminate (Repeat testing recommended after 72 hours) >25.0 Positive Perimenopausal women can display HCG levels of up to 20 mIU/mL 25 Interpretive information available on [employer] Lab Test Catalog at [email or web address] 26 SEE RESULT BELOW Name: ZAYDA GARCIA : [address]: Deepak Lewis MD Acct: [id number] Unit: [id number] AGE: 22 Location: [place] [address] Re11/20/17 Dis: 11/21/17 SEX: F Status: DIS IN SPEC: [id number] VIOLA: 11/20/17 [facility] DR: Robert Gaytan MD REQ: [id number] RECD: 11/20/17 STATUS: DAIJA WATSON DR: Lucero Wolf MD _ SOURCE: BLOOD,VENO SPDESC: ORDERED: Blood Cult Procedure Result Reported Site Aerobic Culture Bottle Final 11/25/17- 35 ML No Growth Day 5 Anaerobic Culture Bottle Final 11/25/17- 35 ML No Growth Day 5 * ML - Main Lab . END OF REPORT DEPARTMENT OF PATHOLOGY, [address] [place] [address] Boris Yoon M.D. Director [facility] # [id number] 27 POSSIBLE PANCREATITIS, HAS PERMACATH 28 Note: Persistent reduction for 3 months or more in an eGFR <60 mL/min/1.73 m2 defines CKD. Patients with eGFR values >/=60 mL/min/1.73 m2 may also have CKD if evidence of persistent proteinuria is present. The original MDRD equation for estimated GFR is not valid for patients less than 18 years of age. Additional information may be found at [email or web address]. 29 CALLED CRE TO LIAM Victor AT 1046 11/16/17 by RICHARD 30 Instrument flagged sample for slide review. Less than 10% Bands seen, no other immature WBC's seen. RBC morphology essentially normal. Platelet estimate=NORMAL 31 Because ethnic data is not always readily available, this report includes an eGFR for both -Americans and non- Americans. The National Kidney Disease Education Program (NKDEP) does not endorse the use of the MDRD equation for patients that are not between the ages of 18 and 70, are , have extremes of body size, muscle mass, or nutritional status, or are non- or non-. According to the National Kid[employer] Foundation, irrespective of diagnosis, the stage of the disease is based on the level of kidney function: Stage Description GFR(mL/min/1.73 m(2)) 1 Kidney damage with normal or decreased GFR 90 2 Kidney damage with mild decrease in GFR 60-89 3 Moderate decrease in GFR 30-59 4 Severe decrease in GFR 15-29 5 Kidney failure <15 (or dialysis) 32 <5.0 Negative 5.0 - 25.0 Indeterminate (Repeat testing recommended after 72 hours) >25.0 Positive Perimenopausal women can display HCG levels of up to 20 mIU/mL 33 >100 to <200 pg/mL: likely compensated congestive heart failure (CHF) 200 to 400 pg/mL: likely moderate CHF >400 pg/mL: likely moderate to severe CHF 34 ADDITIONAL INFORMATION This test was developed and its performance characteristics determined by [facility] in a manner consistent with CLIA requirements. This test has not been cleared or approved by the U.S. Food and Drug Administration. Test Performed by: [facility] [address] [place] [address] Procedures Date Code Description Status 12/08/2017 40717 Visual Screening Test Completed 12/08/2017 49702 Audiometry, Bekesy, Screening Completed Encounters Type Date Location Provider Dx Diagnosis Office Visit 12/27/2017 [facility] Lucero Wolf, I10 Essential ( primary) 3:45p M.D. 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 G40.909 Epilepsy, unsp, not intractable, without status epilepticus G43.009 Migraine w/o aura, not intractable, w/o status migrainosus K21.0 Gastro-esophageal reflux disease with esophagitis K30 Functional dyspepsia K31.84 Gastroparesis K59.00 Constipation, unspecified K64.9 Unspecified hemorrhoids R34 Anuria and oliguria K86.1 Other chronic pancreatitis Z99.2 Dependence on renal dialysis N91.1 Secondary amenorrhea L20.9 Atopic dermatitis, unspecified J30.9 Allergic rhinitis, unspecified M79.643 Pain in unspecified hand M25.569 Pain in unspecified knee M79.606 Pain in leg, unspecified F41.9 Anxiety disorder, unspecified F33.9 Major depressive disorder, recurrent, unspecified H53.30 Unspecified disorder of binocular vision Office Visit 12/08/2017 11:00a [place] [facility] Lucero Wolf I10 Essential ( primary) Bj Yoo 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 site G40.909 Epilepsy, unsp, not intractable, without status epilepticus G43.009 Migraine w/o aura, not intractable, w/o status migrainosus K21.0 Gastro-esophageal reflux disease with esophagitis K30 Functional dyspepsia K31.84 Gastroparesis K59.00 Constipation, unspecified K64.9 Unspecified hemorrhoids R34 Anuria and oliguria K86.1 Other chronic pancreatitis Z99.2 Dependence on renal dialysis N91.1 Secondary amenorrhea L20.9 Atopic dermatitis, unspecified J30.9 Allergic rhinitis, unspecified M79.643 Pain in unspecified hand M25.569 Pain in unspecified knee M79.606 Pain in leg, unspecified F41.9 Anxiety disorder, unspecified F33.9 Major depressive disorder, recurrent, unspecified H53.30 Unspecified disorder of binocular vision Z00.01 Encounter for general adult medical exam w abnormal findings Z68.25 Body mass index (BMI) 25.0-25.9, adult Plan of Treatment Future Appointment(s):03/09/2018 1:00 pm - Lucero Wolf M.D. at [place] Iblcep3112/27/2017 - Lucero Wolf M.D.I10 Essential (primary) hypertensionNew Medication:Clonidine HCL 0.3 mg/24HR - 1 every weekMinoxidil 2.5 mg - 1 tab by mouth twice a dayComments:CHECK BP TIW ( PRN)DIET AND FLUID COUNSELING LOW SODIUM DIETWT LOSSF/U LABE78.2 Mixed hyperlipidemiaComments:DIET REVIEWED CONTINUE DIETWT LOSSF/U LAB FBWN18.6 End stage renal diseaseComments:F/U WITH NEPHROLOGYHEMODIALYSISF/U WITH TRANSPLANT TEAMR60.0 Localized edemaComments: ELEVATE LE PRNELASTIC STOCKING / EDUARDO WRAP PRNF/U LAB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pecifiedComments:EXERCISE/HEAT/MESSAGE F/U WITH REMATOLOGY COUNCELLING AND NNLZWELLBKLM69.909 Epilepsy, unspecified, not intractable, without status epileComments:F/U WITH NEUROLOGY PRNOBSERVE SAFETY YTMYMOG58.009 Migraine without aura, not intractable, without status migraComments:TYLENOL OR MOTRIN PRNRELAXATION/AVOID AGHKGCFNRG15.0 Gastro- esophageal reflux disease with esophagitisComments:AVOID CAFFEINE, ETOH AND SPICY FOODSTUMS OR MYLANTA PRN CALL WITH PROBLEMS OR [id number] Functional dyspepsiaComments:AVOID CAFFEINE, ETOH AND SPICY FOODSTUMS OR MYLANTA PRN CALL WITH PROBLEMS OR DPMUKZSVF22.84 GastroparesisComments:CONTINUE MEDICATIONS F/U WITH SBWKHKODXDSOSZZLEQH47.00 Constipation, unspecifiedComments:MOM OR MIRALAX PRNHIGH FIBER DIETINCREASE PO DPKJWB37.9 Unspecified hemorrhoidsComments:AVOID CONSTIPATOIN INCREASE FIBER IN DIETLAXATIVE PRNLUBRICATE ANAL AREA WITH LOTION PRN FOR [id number] Anuria and oliguriaComments:OBSERVEHEMODIALYSIS PER BEVNZIZNKGK44.1 Other chronic pancreatitisComments:AVOID ETOH ABUSE F/U WITH GI PRNZ99.2 Dependence on renal dialysisComments:F/U WITH QPIBPLHFMIR36.1 Secondary amenorrheaComments:OBSERVEF/U WITH OB/GYNL20.9 Atopic dermatitis, unspecifiedComments:SKIN CARE INSTRUCTIONS LOTION OR BABY OIL 2-3 APPLICATION PER DAYUSE MOISTURIZING SOAPAVOID PROLONGED WATER EXPOSUREAVOID USING HOT WATER IN ZBKXIJD08.9 Allergic rhinitis, unspecifiedComments:INCREASE PO FLUID USE ANTIHISTAMINE PRN SECOND HAND SMOKING NPLQVJMWYV38.643 Pain in unspecified handComments:EXERCISE/HEAT/MESSAGETYLENOL OR MOTRIN PRNAVOID HEAVY LIFTINGWT LOSS DUR HZXPGRWE33.569 Pain in unspecified kneeComments:EXERCISE/HEAT / MESSAGEAVOID HEAVY LIFTING WT LOSSTYLENOL OR MOTRIN PRN DUR GUHMXTXH16.606 Pain in leg, unspecifiedComments:TYLENOL OR MOTRIN PRN EXERCISE/HEAT/MESSAGE DUR FQNDHEXW46.9 Anxiety disorder, unspecifiedComments:COUNCELLING AND REASSURANCE RELAXATION TECHNIQUES DISCUSSEDCOUNSELED RE: STRESSORS IN LIFE AVOID ALLENERGY/ HIGH CAFFEINE ZDSAESG13.9 Major depressive disorder, recurrent, unspecifiedComments:COUNCELLING AND REASSURANCE RELAXATION TECHNIQUES DISCUSSED COUNSELED RE: STRESSORS IN LIFEH53.30 Unspecified disorder of binocular visionComments:USE GLASSES/CONTACTSF/U WITH OPHTHALMOLOGY
--- OUTSIDE RECORDS SUMMARY | 2017-12-28 00:10 | XMS REPORT ---
:1995 External Reference #:[id number] Author Organization [facility] Address [address] [place] [address]/[address] [place] [address] Phone [phone] Care Team Providers Name Role Phone Lucero Wolf MD Primary Care Physician Unavailable Payers Type Date Identification Numbers Payment Provider Subscriber Medicare Primary Policy Number: [id number] Medicare Zayda Garcia PayID: [id number] [address] [place] [address] Medigap Part B Policy Number: [id number] Medicaid After Medicare Zayda Garcia Group Name: 2 1 40 [facility] PayID: [id number] [place] [address] Problems Date Description Provider Status Onset: 12/08/2017 [...] Problems Social History Type Date Description Comments Lives With Mother Work Status Unemployed ETOH Use Denies alcohol use Smoking Patient has never smoked Recreational Drug Use Denies Drug Use Daily Caffeine Consumes on average 8oz of soda per day Allergies, Adverse Reactions, Alerts Date Description Reaction Status Severity Comments 12/08/2017 Fentanyl active 12/08/2017 Nifedipine active 12/08/2017 Lisinopril active Medications Medication Date Status Form Strength Qnty SIG Indications Ordering Provider Amlodipine 00// Active Tablets 10mg take 1 Unknown Besylate 0000 tablet by mouth daily Carvedilol / Active Tablets 25mg 180tab 1 tab by Unknown 0000 s mouth twice a day Clonidine HCL / Active Tablets 0.2mg take 1 Unknown 0000 tablet by mouth three times a day Labetalol HCL / Active Tablets 300mg take 1 Unknown 0000 tablet by mouth every 8 hours Ondansetron / Active Tablets 4mg dissolve Unknown 0000 Dispers 1 tablet On Tongue every 8 hours if needed for nausea Hydralazine HCL / Active Tablets 100mg tab by Unknown 0000 mouth three times a day Potassium / Active Tablets ER 20Meq 90tabs 2 tab by Unknown Chloride Yue ER 0000 mouth every morning Famotidine / Active Tablets 20mg 180tab 1 tab by Unknown 0000 s mouth twice a day Vimpat / Active Tablets 100mg 1 tab by G40.909 Unknown 0000 mouth every day Doxazosin / Active Tablets 8mg take 1 Unknown Mesylate 0000 tablet by mouth once daily Calcium Antacid / Active Chewtabs 500mg 1 tab by Unknown 0000 mouth twice a day as needed Bisacodyl Ec / Active Tablets DR 5mg Unknown 0000 Renvela / Active Tablets 800mg 1 tab by Unknown 0000 mouth every other day Senna-Lax / Active Tablets 8.6mg 100tab 1 tab by Unknown 0000 s mouth every evening Vitamin D / Active Capsules 31827Vxcn take 1 Unknown (Ergocalciferol) 0000 capsule by mouth Every 7 Days Pantoprazole / Active Tablets DR 40mg take 1 Unknown Sodium 0000 tablet by mouth twice a day before meals Magnesium Oxide / Active Tablets 400mg take 1 Unknown 0000 tablet by mouth daily Folic Acid / Active Tablets 1mg take 1 Unknown 0000 tablet by mouth once daily Metoclopramide / Active Tablets 5mg take 1 Unknown HCL 0000 tablet by mouth three times a day before meals Please Take 20 Minutes Prior To Meals Terazosin HCL / Active Capsules 1mg 1 tab by Unknown 0000 mouth every evening Immunizations CPT Code Status Date Vaccine Lot # U-HPV Given 08/18/2009 HPV,Unspecified U-HPV Given 04/21/2009 HPV,Unspecified U-Flu Given 04/21/2009 Influenza,Unspecified U-Menin Given 02/18/2009 Meningococcal,Unspecified U-HPV Given 02/18/2009 HPV,Unspecified U-Flu Given 02/18/2009 Influenza,Unspecified 20409 Given 02/15/2008 Td 7 Years And Older 68774 Given 05/20/2000 MMR U-DTaP Given 05/20/2000 DTaP,Unspecified U-Polio Given 05/20/2000 Polio,Unspecified 13135 Given 12/18/1996 MMR U-Polio Given 05/24/1996 Polio,Unspecified U-HepB Given 05/24/1996 Hepatitis B,Unspecified U-DTaP Given 05/24/1996 DTaP,Unspecified U-Polio Given 03/23/1996 Polio,Unspecified U-Polio Given 01/17/1996 Polio,Unspecified U-HepB Given 01/17/1996 Hepatitis B,Unspecified U-DTaP Given 01/17/1996 DTaP,Unspecified U-HepB Given 1995 Hepatitis B,Unspecified Vital Signs Date Vital Result Comment 12/08/2017 BP Systolic 192 mmHg BP Diastolic 110 mmHg Height 61 inches 5'1" Weight 134.00 lb BMI (Body Mass Index) 25.3 kg/m2 Heart Rate 93 /min Respiratory Rate 16 /min Results Test Date Test Result H/L Range Note Laboratory test finding 11/25/2017 Lipase 156 U/L 56-289 1 HCG,Serum (Qualitative) NEGATIVE (Negative) 1 Comprehensive Metabolic Panel 11/25/2017 Glucose 91 mg/dL 74-106 1 BUN 5 mg/dL Low 7-18 1 Creatinine 4.5 mg/dL High 0.6-1.3 1 Glom Filtration Rate, Estimate 13 mL/min >60 1 If 16 mL/min >60 1, 2 BUN/Creat 1.1 ratio 1 Sodium 139 mmol/L 136-145 1 Potassium 3.8 mmol/L 3.5-5.1 1 Chloride 102 mmol/L 98-107 1 Carbon Dioxide 29 mmol/L 21-32 1 Anion Gap 8 mEq/L 8-16 1 Calcium 12.5 mg/dL High 8.5-10.1 1 Total Protein 7.2 g/dL 6.4-8.2 1 Albumin 3.6 g/dL 3.4-5.0 1 Globulin 3.6 g/dL 1.9-4.3 1 Alb/Glob 1.0 ratio 1 Bilirubin,Total 0.4 mg/dL 0.2-1.0 1 Sgot/Ast 18 U/L 15-37 1 SGPT/Alt 16 U/L 12-78 1 Alkaline Phosphatase 76 U/L 45-117 1 CBS W/Automated Diff 11/25/2017 White Blood Count 6.2 K/uL 3.1-10.7 1 Red Blood Count 3.37 M/uL Low 3.90-5.40 1 Hemoglobin 10.3 gm/dL Low 11.6-15.8 1 Hematocrit 31.8 % Low 36.0-46.1 1 Mean Cell Volume 94.4 fl 80.9-99.0 1 Mean Corpuscular HGB 30.6 pg 25.9-32.7 1 Mean Corpuscular HGB Conc 32.4 g/dL 30.8-34.3 1 Platelet Count 300 K/uL 155-360 1 Red Cell Distri Width SD 51.0 fl High 3-47 1 Red Cell Distri Width %CV 15.7 % High 11.7-14.4 1 Mean Platelet Volume 8.7 fL Low 8.9-12.4 1 Neut% 56.5 % 40.4-72.8 1 Lymph % 23.7 % 20.0-42.0 1 Price % 9.5 % 4.3-13.2 1 Eo% 7.4 % High 0.0-6.6 1 Bas% 2.9 % High 0.0-1.1 1 Neut# 3.51 K/uL 1.8-7.0 1 Lymph # 1.47 K/uL 1.0-4.0 1 Price # 0.59 K/uL 0.3-0.9 1 Eos # 0.46 K/uL 0.0-0.5 1 Baso # 0.18 K/uL High 0.0-0.1 1 Laboratory test finding 11/19/2017 Lactic Acid 0.5 mmol/L 0.5-2.0 3 CBC Auto Diff 11/19/2017 White Blood Count 7.1 10^3/uL 3.5-10.8 Red Blood Count 2.73 10^6/uL Low 4.00-5.40 [...] Red Blood Cells % 0 Inr/Protime 11/19/2017 Inr 1.02 0.77-1.02 Laboratory test finding 11/19/2017 Partial Thrombo Time 31.4 seconds 26.0 -36.3 PTT Comp Metabolic Panel 11/19/2017 Sodium 136 mmol/L 135-145 Potassium 3.6 mmol/L 3.5-5.0 Chloride 99 mmol/L [...] Egfr Non- 16.3 >60 Egfr 19.8 >60 4 Laboratory test finding 11/19/2017 Lipase 19 U/L 11.0-82.0 Troponin-I (TnI) 0.01 ng/mL <0.04 HCG 0.91 mIU/mL 5 C Reactive Protein 7.99 mg/L <8.01 Procalcitonin 0.7 ng/mL High <0.6 6 Erythrocyte Sed Rate 20 mm/Hr High 0-14 Blood Culture SEE RESULT BELOW 7 Laboratory test finding 11/16/2017 Ethyl Alcohol < 3.0 mg/dL 8 Comprehensive Metabolic Panel 11/16/2017 Glucose 101 mg/dL 74-106 8 BUN 15 mg/dL 7-18 8 Creatinine 7.8 mg/dL High 0.6-1.3 8 Glom Filtration Rate, Estimate 7 mL/min >60 8 If 8 mL/min >60 8, 9 BUN/Creat 1.9 ratio 8 Sodium 140 mmol/L 136-145 8 Potassium 3.9 mmol/L 3.5-5.1 8 Chloride 101 mmol/L 98-107 8 Carbon Dioxide 29 mmol/L 21-32 8 Anion Gap 10 mEq/L 8-16 8 Calcium 11.6 mg/dL High 8.5-10.1 8 Total Protein 7.1 g/dL 6.4-8.2 8 Albumin 3.7 g/dL 3.4-5.0 8 Globulin 3.4 g/dL 1.9-4.3 8 Alb/Glob 1.1 ratio 8 Bilirubin,Total 0.5 mg/dL 0.2-1.0 8 Sgot/Ast 24 U/L 15-37 8 SGPT/Alt 16 U/L 12-78 8 Alkaline Phosphatase 62 U/L 45-117 8 Laboratory test finding 11/16/2017 Lipase 557 U/L High 56-289 8, 10 CBS W/Automated Diff 11/16/2017 White Blood Count 6.1 K/uL 3.1-10.7 8 Red Blood Count 2.96 M/uL Low 3.90-5.40 8 Hemoglobin 9.2 gm/dL Low 11.6-15.8 8 Hematocrit 28.0 % Low 36.0-46.1 8 Mean Cell Volume 94.6 fl 80.9-99.0 8 Mean Corpuscular HGB 31.1 pg 25.9-32.7 8 Mean Corpuscular HGB Conc 32.9 g/dL 30.8-34.3 8 Platelet Count 258 K/uL 155-360 8 Red Cell Distri Width SD 46.9 fl 3-47 8 Red Cell Distri Width %CV 14.4 % 11.7-14.4 8 Mean Platelet Volume 9.2 fL 8.9-12.4 8 Neut% 55.7 % 40.4-72.8 8 Lymph % 20.9 % 20.0-42.0 8 Price % 12.1 % 4.3-13.2 8 Eo% 9.3 % High 0.0-6.6 8 Bas% 2.0 % High 0.0-1.1 8 Neut# 3.40 K/uL 1.8-7.0 8 Lymph # 1.28 K/uL 1.0-4.0 8 Price # 0.74 K/uL 0.3-0.9 8 Eos # 0.57 K/uL High 0.0-0.5 8 Baso # 0.12 K/uL High 0.0-0.1 8 Laboratory test finding 11/16/2017 Slide Review . 8, 11 CBC Auto Diff 11/13/2017 White Blood Count 7.9 10^3/uL 3.5-10.8 Red Blood Count 2.79 10^6/uL Low 4.00-5.40 [...] Cells % 0 Comp Metabolic Panel 11/13/2017 Sodium 135 mmol/L 135-145 Potassium 3.5 mmol/L 3.5-5.0 Chloride 95 mmol/L [...] Egfr Non- 8.5 >60 Egfr 10.3 >60 12 Laboratory test finding 11/13/2017 Magnesium 2.3 mg/dL 1.9-2.7 Amylase 33 U/L 29-103 Lipase 10 U/L Low 11.0-82.0 C Reactive Protein 10.50 mg/L High <8.01 HCG 1.02 mIU/mL 13 B-Type Natriuretic Peptide BNP 2448 pg/mL High 14 TSH (Thyroid Stim Horm) 0.20 mcIU/mL Low 0.34-5.60 Free T4 (Free Thyroxine) 1.98 ng/dL High 0.61-1.12 T3 Total 96 ng/dL 87-178 T3 Free 4.10 pg/mL High 2.5-3.9 Lacosamide <0.5 g/mL 1.0 - 10.0 15 1 ABD PAIN, VOMITING,DIARRHEA 2 Note: Persistent reduction for 3 months or more in an eGFR <60 mL/min/1.73 m2 defines CKD. Patients with eGFR values >/=60 mL/min/1.73 m2 may also have CKD if evidence of persistent proteinuria is present. The original MDRD equation for estimated GFR is not valid for patients less than 18 years of age. Additional information may be found at www.kdoqi.org. 3 [facility] Severe Sepsis and Septic Shock Management Bundle Measure requires all lactic acids initially measuring >2.0 mmol/L be repeated. 4 Because ethnic data is not always readily [...] 15-29 5 Kidney failure <15 (or dialysis) 5 <5.0 Negative 5.0 - 25.0 Indeterminate (Repeat testing recommended after 72 hours) >25.0 Positive Perimenopausal women can display HCG levels of up to 20 mIU/mL 6 Interpretive information available on [facility] Test Catalog at [email or web address] 7 SEE RESULT BELOW Name: ZAYDA GARCIA : [address]: Deepak Lewis MD Acct: [id number] Unit: [id number] AGE: 22 Location: [place] [address] Re11/20/17 Dis: 11/21/17 SEX: F Status: DIS IN SPEC: [id number] VIOLA: 11/20/17 [facility] DR: Robert Gaytan MD REQ: [id number] RECD: 11/20/17 STATUS: COMP [facility] DR: Lucero Wolf MD _ SOURCE: BLOOD,[facility] ORDERED: Blood Cult Procedure Result Reported Site Aerobic Culture Bottle Final 11/25/17934 ML No Growth Day 5 Anaerobic Culture Bottle Final 11/25/17934 ML No Growth Day 5 * ML - Main Lab . END OF REPORT DEPARTMENT OF PATHOLOGY, [address] [place] [address] Boris Yoon M.D. Director [facility] # [id number] 8 POSSIBLE PANCREATITIS, HAS PERMACATH 9 Note: Persistent reduction for 3 months or more in an eGFR <60 mL/min/1.73 m2 defines CKD. Patients with eGFR values >/=60 mL/min/1.73 m2 may also have CKD if evidence of persistent proteinuria is present. The original MDRD equation for estimated GFR is not valid for patients less than 18 years of age. Additional information may be found at www.[email or web address]. 10 CALLED CRE TO LIAM Victor AT 1046 11/16/17 by [email or web address] 11 Instrument flagged sample for slide review. Less than 10% Bands seen, no other immature WBC's seen. RBC morphology essentially normal. Platelet estimate=NORMAL 12 Because ethnic data is not always readily [...] 15-29 5 Kidney failure <15 (or dialysis) 13 <5.0 Negative 5.0 - 25.0 Indeterminate (Repeat testing recommended after 72 hours) >25.0 Positive Perimenopausal women can display HCG levels of up to 20 mIU/mL 14 >100 to <200 pg/mL: likely compensated congestive heart failure (CHF) 200 to 400 pg/mL: likely moderate CHF >400 pg/mL: likely moderate to severe CHF 15 ADDITIONAL INFORMATION This test was developed and its performance characteristics determined by [facility] in a manner consistent with CLIA requirements. This test has not been cleared or approved by the U.S. Food and Drug Administration. Test Performed by: [facility] [address] [place] [address] Procedures Date CPT Code Description Status 12/08/2017 37840 Visual Screening Test Completed 12/08/2017 70683 Audiometry, Bekesy, Screening Completed Encounters Type Date Location Provider CPT E/M Office Visit 12/08/2017 11:00a [place] [facility] Lucero Wolf M.D. [id number]
--- NOTE | 2017-12-28 01:53 | HP ---
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 The HSP returned causing the transplant to fail by age 18 prompting return to PD until 3 month ago when HD became necessary again. She presented to [place] ED reporting onset of headache w/ N/V/D the afternoon of 12/27. There has been no black or bloody content to her emesis or diarrhea. She attended a family picnic 12/26, but reports no one else has become ill. She reports subjective fever without chills or sweats, but has not had a recorded fever. She has a cough producing clear phlegm, but no chest pain, abdominal pain, open wounds, rashes, or other issues. The headache is typical for her and not the worst of her life. She reports her dry weight is 57kg and her weight tonight is 57.5kg taken in our ED. She presented to [place] ED where her N/V/D was brought under control. She was also severely hypertensive in the 240/180s. Her case was reviewed with Mark Kaur MD nephrology who recommended transfer [place] [facility] [place]. She was started on a labetalol GTT and her pressure now off this is 143/100. PMedHx HSP ESRD-HD Tue/Tue/Tue, last 12/26 pancreatitis seizures HTN GERD Ambulatory Orders cloNIDine TAB* [Catapres 0.1 MG TAB*] 0.3 mg PO TID 08/15/16 hydrALAZINE TAB* [Apresoline TAB*] 50 mg PO TID 10/11/17 Amlodipine Besylate [Norvasc] 10 mg PO DAILY #30 tablet 11/06/17 Famotidine TAB* [Pepcid 20 MG TAB*] 20 mg PO QPM 11/12/17 Lacosamide TAB* [Vimpat TAB*] 100 mg PO BID 11/12/17 Losartan TAB* [Cozaar TAB*] 100 mg PO DAILY 11/12/17 Bisacodyl EC TAB* [Dulcolax EC TAB*] 5 mg PO DAILY PRN 12/28/17 Doxazosin TAB* [Cardura TAB*] 8 mg PO DAILY 12/28/17 Ergocalciferol (Vitamin D2) [Vitamin D2] 2,000 unit PO DAILY 12/28/17 Folic Acid TAB* [Folvite TAB*] 1 mg PO DAILY 12/28/17 Labetalol TAB* [Trandate TAB*] 400 mg PO TID 12/28/17 cloNIDine 0.2 MG PATCH* [Lbsskyou-Nue-3 0.2 mg Patch*] 0.2 mg TRANSDERM WEEKLY 12/28/17 Allergies bee venom protein (honey bee) Allergy (Verified 11/19/17 17:26) Rash fentanyl Allergy (Verified 11/19/17 17:26) GI Upset lisinopril Allergy (Verified 11/19/17 17:26) Coughing nifedipine Allergy (Verified 11/19/17 17:26) Rash PSurgHx failed renal transplant R chest tunnelled dialysis catheter placement B tympanostomy tubes SocHx: denies tobacco, alcohol, & recreational drugs; single; lives with her mother; full code status FamHx: Mother: alive at 40 w/ IBS; Father: alive at 45, estranged ROS: as above, otherwise reviewed and all were negative vitals: Vital Signs Temp 36.4 C 12/27/17 23:48 Pulse 82 12/28/17 01:00 Resp 13 12/28/17 01:00 BP 193/129 12/28/17 00:49 Pulse Ox 97 12/28/17 01:00 Constitutional: NAD, normally developed, well-nourished white female HEENM: atraumatic; face puffy, sclera/conjunctiva: anicteric/clear; hearing: clinically intact; oropharynx: clear, mucosa moist Neck: soft tissue: no nuchal rigidity, L EJ in place; thyroid: non-tender Pulmonary: clear to auscultation bilaterally, good aeration, no accessory muscle use CV: RR/RR, normal S1S2, no carotid bruit, no jugular venous distention, 2+ B DP/ PT, no edema Abdominal: soft, non-distended, non-tender, no rebound/guarding/rigidity, normoactive bowel sounds, no hepatosplenomegaly or masses, no costovertebral angle tenderness Musculoskeletal: general: grossly intact, non-tender Integumental: normal appearance and texture of exposed skin Psychiatric orientation: AA&O to PPS affect: calm mood: cooperative eye contact: fair content: reliable responses: timely insight: fair Testing: ([place]): WBC 7.1, H/H 8.3/25.8, platelet 217k; Na 143, K 3.7, Cl 104 , BUN/cre 7/5.0, glucose 86; Ca 10.6. 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 : labetalol IV 20mg Q2H PRN systolic >180 or diastolic >110 : Mark Kaur MD consulted, aware of patient : supportive care N/V/D uncertain etiology : anti-emetics PRN Secondary HSP : no acute issues ESRD-HD M/W/F, last W 12/26 : Mark Kaur MD nephrology consulted seizures : continue lacosamide HTN : continue losartan, amlodipine, clonidine, hydralazine, & doxazosin : hold PO labetalol for IV as above GERD : continue famotidine Admission Rational: observation for hypertensive emergency DVTp: TISHA Code Status: full HCP: mother
[2017-12-28] MEDS ORDERED: Melatonin 3 MG TAB PO PRN (02:14)
[2017-12-28] MEDS ORDERED: Acetaminophen TAB* 325 MG PO PRN (02:14)
[2017-12-28] MEDS ORDERED: Bisacodyl EC TAB* 5 MG PO PRN (02:15)
[2017-12-28] MEDS ORDERED: Labetalol IV* 5 MG/ML 20 ML VIAL IV PUSH PRN (02:19)
[2017-12-28] MEDS ORDERED: Ondansetron ODT TAB* 4 MG PO PRN (02:20)
[2017-12-28 05:48] LABS: Hematocrit 24 % (35-47); Mean Corpuscular HGB Conc 34 g/dl (31-36); Mean Corpuscular Hemoglobin 31 pg (27-31); Mean Corpuscular Volume 90 fL (80-97); Mean Platelet Volume 8.7 um3 (7.4-10.4); Platelet Count 187 10^3/ul (150-450); Red Cell Distribution Width 16 % (10.5-15); White Blood Count 4.5 10^3/ul (3.5-10.8)
[2017-12-28] MEDS ORDERED: cloNIDine TAB* 0.1 MG PO SCH (06:00)
[2017-12-28] MEDS ORDERED: Losartan TAB* 25 MG PO SCH (06:00)
[2017-12-28] MEDS ORDERED: hydrALAZINE TAB* 25 MG PO SCH (06:00)
[2017-12-28 06:05] LABS: EGFR Non-African American 9.6 (>60)
[2017-12-28] MEDS ORDERED: cloNIDine 0.2 MG PATCH* 0.2 MG/24 HR 7 DAY PATCH TRANSDERM SCH (09:00)
[2017-12-28] MEDS ORDERED: cloNIDine 0.3 MG PATCH* 0.3 MG/24 HR 7 DAY PATCH TRANSDERM SCH (10:00)
[2017-12-28] MEDS: Folic Acid TAB* 1 MG PO SCH (10:12)
[2017-12-28] MEDS: Lacosamide TAB* 100 MG TAB PO SCH ×2 (10:13→22:11)
[2017-12-28] MEDS: Valsartan TAB* 80 MG PO SCH (10:13)
[2017-12-28] MEDS: Docusate CAP* 100 MG PO SCH ×2 (10:15→22:13)
[2017-12-28] MEDS: MinoXIDil TAB* 2.5 MG TAB PO SCH (10:22)
[2017-12-28] MEDS ORDERED: amLODIPine TAB* 5 MG PO SCH ×2 (14:00→21:00)
[2017-12-28] MEDS: hydrALAZINE TAB* 25 MG PO SCH ×2 (14:07→22:10)
[2017-12-28] MEDS ORDERED: Epoetin Alfa* 10,000 UNITS/ML VIAL IV ONE (15:00)
[2017-12-28] MEDS ORDERED: Heparin DIALYSIS ONLY(*) 1,000 UNITS/ML VIAL DIALYSIS ONE (15:00)
--- NOTE | 2017-12-28 17:30 | PN ---
Subjective Date of Service: 12/28/17 Interval History: Patient seen and examined in dialysis, states she has a mild headache, denies n/ v, no chest pain, no SOB. Tolerating dialysis without issue. Objective Active Medications: Acetaminophen (Tylenol Tab*) 650 mg PO Q6H PRN PRN Reason: FEVER/PAIN Amlodipine Besylate (Norvasc Tab*) 10 mg PO BEDTIME [facility] Bisacodyl (Dulcolax Ec Tab*) 5 mg PO DAILY PRN PRN Reason: CONSTIPATION Clonidine HCl (Qjouyhuw-Duq-6 0.3 Mg Patch*) 0.3 mg TRANSDERM Q7D [facility] Last Admin: 12/28/17 10:23 Dose: 0.3 mg Docusate Sodium (Colace Cap*) 200 mg PO BID [facility] Last Admin: 12/28/17 10:15 Dose: Not Given Doxazosin Mesylate (Cardura Tab*) 8 mg PO DAILY@2200 [facility] Famotidine (Pepcid Tab*) 20 mg PO QPM [facility] Last Admin: 12/28/17 17:20 Dose: 20 mg Folic Acid (Folvite Tab*) 1 mg PO DAILY [facility] Last Admin: 12/28/17 10:12 Dose: 1 mg Hydralazine HCl (Apresoline Tab*) 100 mg PO TID@0600,1400,2200 [facility] Last Admin: 12/28/17 14:07 Dose: 100 mg Lacosamide (Vimpat Tab*) 100 mg PO BID [facility] Last Admin: 12/28/17 10:13 Dose: 100 mg Melatonin (Melatonin) 3 mg PO BEDTIME PRN; Protocol PRN Reason: Sleep Minoxidil (Loniten Tab*) 2.5 mg PO DAILY [facility] Last Admin: 12/28/17 10:22 Dose: 2.5 mg Ondansetron HCl (Zofran Odt Tab*) 4 mg PO Q6H PRN PRN Reason: n/v Valsartan (Diovan Tab*) 80 mg PO DAILY [facility]; Protocol Last Admin: 12/28/17 10:13 Dose: 80 mg Vital Signs - 8 hr 12/28/17 11:12 Temperature 98.6 F Pulse Rate 96 Respiratory 20 Rate Blood Pressure 169/107 (mmHg) O2 Sat by Pulse 97 Oximetry Oxygen Devices in Use Now: None Appearance: Alert, NAD Eyes: No Scleral Icterus, PERRLA Ears/Nose/Mouth/Throat: NL Teeth, Lips, Gums, Clear Oropharnyx, Mucous Membranes Moist Neck: NL Appearance and Movements; NL JVP, Trachea Midline Respiratory: Symmetrical Chest Expansion and Respiratory Effort, Clear to Auscultation Cardiovascular: NL Sounds; No Murmurs; No JVD, RRR Abdominal: NL Sounds; No Tenderness; No Distention Extremities: No Edema, No Clubbing, Cyanosis Skin: No Rash or Ulcers Neurological: Alert and Oriented x 3, NL Muscle Strength and Tone Nutrition: Taking PO's Result Diagrams: 12/28/17 05:11 12/28/17 05:11 Assess/Plan/Problems-Billing Assessment: This is a 22 year old female with hx of HSP, ESRD, pancreatitis, seizures and HTN that presented as a transfer from [facility]. - Patient Problems (1) ESRD (end stage renal disease) on dialysis Code(s): N18.6 - END STAGE RENAL DISEASE; Z99.2 - DEPENDENCE ON RENAL DIALYSIS SNOMED Code(s): 671546917 Comment: - In HD today - Tolerating well (MWF schedule) (2) HSP (Henoch-Schonlein purpura) nephritis Code(s): N05.8 - UNSP NEPHRITIC SYNDROME WITH OTHER MORPHOLOGIC CHANGES SNOMED Code(s): 389528480 Comment: - At baseline (3) Hypertensive urgency Code(s): I16.0 - HYPERTENSIVE URGENCY SNOMED Code(s): 414665572 Comment: - Medications adjusted per Dr Kaur today, please see med rec above - BP improving, recheck after HD today, still with diastolic HTN but improving. (4) Nausea & vomiting Code(s): R11.2 - NAUSEA WITH VOMITING, UNSPECIFIED SNOMED Code(s): 56877837 Comment: - Resolved with IVF and enti-emetics (5) Seizure disorder Code(s): G40.909 - EPILEPSY, UNSP, NOT INTRACTABLE, WITHOUT STATUS EPILEPTICUS SNOMED Code(s): 990656847 Comment: - Stable on vimpat Status and Disposition: dispo per Dr. Kaur.
[2017-12-28] MEDS ORDERED: Famotidine TAB* 20 MG PO SCH (18:00)
[2017-12-28] MEDS ORDERED: Doxazosin TAB* 2 MG PO SCH (22:00)
[2017-12-29] MEDS: hydrALAZINE TAB* 25 MG PO SCH ×2 (07:12→14:14)
[2017-12-29] MEDS: Lacosamide TAB* 100 MG TAB PO SCH (08:54)
[2017-12-29] MEDS: Folic Acid TAB* 1 MG PO SCH (08:54)
[2017-12-29] MEDS: Valsartan TAB* 80 MG PO SCH (08:54)
[2017-12-29] MEDS: Docusate CAP* 100 MG PO SCH (08:55)
[2017-12-29] MEDS: MinoXIDil TAB* 2.5 MG TAB PO SCH (08:55)
[2017-12-29 15:45] VITALS: BP 153/83
--- NOTE | 2017-12-30 02:03 | DS ---
CC: Dr. Kaur; Dr. Kasey Brand; Dr. Spencer Andre * DISCHARGE SUMMARY: DATE OF ADMISSION: DATE OF DISCHARGE: 12/29/17 DISCHARGE DIAGNOSES: 1. Hypertensive urgency/emergency, resolved. 2. Hypertension, improved. 3. End-stage renal disease, on hemodialysis on Tuesday, Tuesday, and Tuesday. 4. History of Henoch-Schonlein purpura nephritis. 5. Seizure disorder. DISCHARGE MEDICATIONS: As follows: 1. Amlodipine 10 mg p.o. daily. 2. Bisacodyl 5 mg p.o. daily. 3. Clonidine patch 0.3 mg patch q.7 days. 4. Colace 200 mg p.o. daily. 5. Doxazosin 8 mg p.o. daily. 6. Famotidine 100 mg p.o. q.p.m. 7. Folate 1 mg p.o. daily. 8. Hydralazine 50 mg p.o. t.i.d. 9. Lacosamide 100 mg p.o. b.i.d. 10. Melatonin 3 mg p.o. q.h.s. 11. Minoxidil 2.5 mg p.o. daily. 12. Ergocalciferol 2000 units p.o. daily. 13. Labetalol 400 mg p.o. t.i.d. 14. Losartan 100 mg p.o. daily. HISTORY OF PRESENT ILLNESS/HOSPITAL COURSE: The patient is a 22-year-old lady with history of ESRD, on hemodialysis on Tuesday, Tuesday, and Tuesday, HSP and hypertension, who presented to [place] [facility] reporting an onset of headache with nausea, vomiting, and diarrhea the afternoon of 12/27/17. There has been no melena, no hematochezia to her emesis or diarrhea. She mentioned that she attended the critical access hospital in 12/26/17, but reported that no one else has become ill. When she presented she was found in [place] ED to have 240s/180s. Her case was reviewed with Dr. Kaur, who recommended that she be transferred to [facility] for further evaluation where she was started on labetalol drip and her pressures has improved since. She was then transitioned to p.o. medications as discussed above with medication changes. She has done well and I have touch base with Dr. Kaur prior to her discharge who mentioned that she can be discharged home to follow her routine hemodialysis schedule and hence we will defer. The patient had been advised to follow up and/or call her PCP within 3 days post discharge and she was advised that if she is having any problems and/or if her symptoms worsen to call her PCP first to see if her concerns can be addressed in a timely manner and if she has been advised to go to the ER due to scheduling issues alone and it is not an emergent issue, I discussed with her PCP to call [facility] for followup. She was advised to call my office regarding any questions, concerns, or further clarifications regarding her discharge plans and/or prescriptions and to take her medications as prescribed. PHYSICAL EXAMINATION: Reveals the most recent vital signs of records with blood pressure of 153/83, 98.1 degrees Fahrenheit, 113 per minute heart rate from previous of 99 and 88, 100% saturation on room air, blood pressure of 153/ 83. General Appearance: The patient is awake, alert, and oriented x3, not in acute distress. HEENT: Normocephalic, atraumatic. PERRLA. Extraocular muscles intact. Negative for icterus. Moist oral mucosa. Negative throat erythema. Neck is soft, supple with no cervical lymphadenopathy. No JVD. Heart: S1, S2, within normal limits. Regular rate and rhythm. No murmurs, rubs, and gallops. Chest: Clear to auscultation bilaterally. Good air entry. No wheezes, rales, or rhonchi. Abdomen is soft, nondistended, nontender. Normoactive bowel sounds x4 quadrants. Extremities: No cyanosis, clubbing or edema. Psychiatric: No active psychosis, depression, suicidal or homicidal ideation. Skin is warm to touch. TIME SPENT: The total time spent evaluating the patient, reviewing pertinent data and appropriate documentation is 40 minutes. [id number]/[facility] #: [id number] MTDD
== END 2017-12-29 18:45 | disposition home or self-care (01) ==
LOC: ED 23:37 → MEDTELE 12-28 02:50
PROVIDERS: ADMIT Hospitalist; ATTEND Student in an Organized Health Care Education/Training Program
DX: I16.1 Hypertensive emergency (principal); I12.0 Hypertensive chronic kidney disease with stage 5 chronic kidney disease or end stage renal disease; N18.6 End stage renal disease; Z99.2 Dependence on renal dialysis; D69.0 Allergic purpura; G40.909 Epilepsy, unspecified, not intractable, without status epilepticus; Z79.899 Other long term (current) drug therapy; Z88.8 Allergy status to other drugs, medicaments and biological substances; K85.90 Acute pancreatitis without necrosis or infection, unspecified
CPT/HCPCS: 36415; 80048; 83735; 84100; 85027; 96374; 96375; 96376; 99284; A9270-GY; G0378; J0885; J1200; J1644; J2270; J2765

== ENCOUNTER 2018-03-06 11:08 | Emergency (ER) | payer MEDICARE, MEDICAID ==
[2018-03-06] MEDS ORDERED: NS 0.9% 250 ML* 250 ML IV ONE (11:36)
--- NOTE | 2018-03-06 11:45 | ED ---
HPI Chest Pain - HPI Summary HPI Summary: Pt is a 22 y/o female who presents to the ED c/o CP. She states the pain began 1 hour ago, immediately after finishing dialysis. 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 The pain is described as constant, cramping, 5/10 in severity, and in the middle of her chest. She denies any ripping/tearing sensation. Pt states this has happened before, and IV fluids made her feel better. She is currently hypertensive, but hasnt taken her medications this morning yet. Pt reports it hurts to breathe, she has a headache , occasional cough, and is getting hot flashes with diaphoresis. She denies any numbness/tingling of extremities, visual changes, N/V, fever, chills, or difficulty swallowing. Pt also notes LE edema that is not resolving. - History of Current Complaint Chief Complaint: EDChestPainROMI Time Seen by Provider: 03/06/18 11:33 Hx Obtained From: Patient Hx Last Menstrual Period: 2014 - doesn't get d/t dialysis Onset/Duration: Started Hours Ago - 1, Still Present Timing: Constant Current Severity: Moderate Pain Intensity: 5 Pain Scale Used: 0-10 Numeric Chest Pain Location: Diffuse Character: Other: - cramping Aggravating Factor(s): Other: - stopping dialysis Associated Signs and Symptoms: Positive: Chest Pain, Headaches, Diaphoresis, Cough, Calf Pain/Swelling. Negative: Vision Changes, Numbness, Tingling, Fever , Chills, Nausea, Vomiting Related History: Similar Episode/Dx as: - this happened once before, IV fluids helped - Additional Pertinent History Primary Care Physician: [id number] - Allergy/Home Medications Allergies/Adverse Reactions: Allergies Allergy/AdvReac Type Severity Reaction Status Date / Time bee venom protein (honey bee) Allergy Rash Verified 03/06/18 11:37 fentanyl Allergy GI Upset Verified 03/06/18 11:37 lisinopril Allergy Coughing Verified 03/06/18 11:37 nifedipine Allergy Rash Verified 03/06/18 11:37 povidone-iodine Allergy Hives Verified 03/06/18 11:37 [From Betadine] soap [From Betadine] Allergy Hives Verified 03/06/18 11:37 Home Medications: Home Medications Acetaminophen [Pain Reliever] 650 mg PO QID PRN 11/12/18 [History Confirmed 04/11] Benzonatate CAP* [Tessalon 100 MG CAP*] 100 mg PO TID PRN 03/06/18 [History Confirmed 03/06/18] Bisacodyl SUPP* [Dulcolax Supp*] 1 dose FL DAILY PRN 03/06/18 [History Confirmed 03/06/18] Carvedilol [Coreg] 25 mg PO BID 03/06/18 [History Confirmed 03/06/18] Cholecalciferol (Vitamin D3) [Vitamin D3] 1 tab PO WEEKLY 03/06/18 [History Confirmed 03/06/18] Cyclobenzaprine HCl 2.5 mg PO QPM PRN 03/06/18 [History Confirmed 03/06/18] Darbepoetin William* [Aranesp Albumin Free*] 0.4 ml INJ WEEKLY 03/06/18 [History Confirmed 03/06/18] Docusate CAP* [Colace Cap*] 100 mg PO BID 03/06/18 [History Confirmed 03/06/18] Pantoprazole TAB (NF) [Protonix TAB (NF)] 40 mg PO DAILY 03/06/18 [History Confirmed 03/06/18] cloNIDine 0.2 MG PATCH* [Gneylxrk-Dbp-3 0.2 mg Patch*] 1 dose TOPICAL WEEKLY [History Confirmed 03/06/18] PMH/Surg Hx/FS Hx/Imm Hx Endocrine/Hematology History: Reports: Hx Blood Transfusions, Hx Thyroid Disease - Hyperthyroid, Hx Anemia, Other Endocrine/Hematological Disorders - Henoch Schonlein Purpura (autoimmune) Cardiovascular History: Reports: Hx Cardiomegaly, Hx Hypertension, Other Cardiovascular Problems/Disorders - Tachycardia Respiratory History: Reports: Hx Pneumonia - 11/20/2017, Hx Sleep Apnea - Undiagnosed sleep apnea GI History: Reports: Other GI Disorders - Ascites, Pancreatitis Denies: Hx Jaundice History: Reports: Hx Acute Renal Failure, Hx Chronic Renal Failure, Hx Dialysis - Hemodialysis, Hx Renal Disease, Other Problems/Disorders - Kidney transplant 2013, right kidney works at 10% Musculoskeletal History: Reports: Hx Arthritis - RA right knee, Hx Tendonitis - Right knee Sensory History: Reports: Hx Contacts or Glasses Denies: Hx Deafness, Hx Hearing Aid Opthamlomology History: Reports: Hx Contacts or Glasses Neurological History: Reports: Hx Headaches, Hx Migraine, Hx Seizures Psychiatric History: Reports: Hx Anxiety, Hx Depression - Surgical History Surgery Procedure, Year, and Place: kidney 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/2013, 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 Negative: Fever, Chills Eyes: Negative Negative: Other - difficulty swallowing Positive: Chest Pain Positive: Cough, Other - pain with breathing Negative: Vomiting, Nausea Positive: Edema - LE Positive: Headache. Negative: Paresthesia, Numbness All Other Systems Reviewed And Are Negative: Yes Physical Exam - Summary Physical Exam Summary: Appearance: Well appearing, no pain distress, comfortable Skin: warm, dry, reflects adequate perfusion Head/face: normal Eyes: EOMI, YESENIA ENT: mucous membranes moist Neck: supple, non-tender Respiratory: CTA, breath sounds present Cardiovascular: RRR, pulses symmetrical, pitting edema in feet Abdomen: soft, reproduction of discomfort with palpation of chest, dialysis catheter in left chest Bowel Sounds: present Musculoskeletal: normal, strength/ROM intact Neuro: normal, sensory motor intact, A&Ox3 Triage Information Reviewed: Yes Vital Signs On Initial Exam: Initial Vitals Temp Pulse Resp BP Pulse Ox 98.6 F 92 20 202/130 98 03/06/18 11:26 03/06/18 11:26 03/06/18 11:26 03/06/18 11:26 03/06/18 11:26 Vital Signs Reviewed: Yes Diagnostics - Vital Signs Vital Signs Temp Pulse Resp BP Pulse Ox 03/06/18 11:26 98.6 F 92 20 202/130 98 - Laboratory Lab Statement: Any lab studies that have been ordered have been reviewed, and results considered in the medical decision making process. - Radiology CXR Radiology Interpretation Completed By: Radiologist - While assessment is limited due to suboptimal inspiration there is suggestion of mild pulmonary vascular congestion. ED physician reviewed radiology report. - EKG 11:52 Cardiac Rate: NL - 94 bpm EKG Rhythm: Sinus Rhythm ST Segment: Non-Specific Summary of EKG Findings: LVH criteria, nl axis Re-Evaluation - Re-Evaluation First Eval Re-Evaluation Time: 12:45 Change: Improved Comment: Pt's CP feels slightly better. She still has a [place], and thinks it's because she hasn't had her BP medications yet. Second Eval Re-Evaluation Time: 12:55 Change: Unchanged Comment: Bedside echocardiogram reveals trace pericardial fluid. Chest Pain Course/Dx - Course Course Of Treatment: Patient with end-stage renal disease on dialysis secondary to IgA nephropathy presents with headache and some chest discomfort. Her blood pressure is uncontrolled and she has not been compliant with her medications this morning. She was treated for blood pressure, her headache was treated and she had relief of both symptoms. A limited echocardiogram was performed at the bedside by me which showed no presence of pericardial fluid. 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 - Chest Pain Differential Diagnosis/HQI/PQRI: Chest Wall, GI Disease, Lower Respiratory Infection, Other: - Uncontrolled blood pressure - Diagnoses Provider Diagnoses: End stage renal disease on dialysis, Uncontrolled hypertension, Headache, Atypical chest pain Discharge - Sign-Out/Discharge Documenting (check all that apply): Patient Departure - Discharge - Discharge Plan Condition: Improved Disposition: HOME Prescriptions: Promethazine TAB* [Phenergan Tab*] 25 mg PO Q6H PRN #20 tab PRN Reason: headache/nausea Patient Education Materials: Dialysis Diet (DC), Acute Headache (ED) Referrals: Kp Kaur MD [Medical Doctor] - Additional Instructions: Make sure you take your blood pressure medications as ordered. Return with worsened or persistent headache, difficulty breathing, return of chest pain, worse, new symptoms or other concerns. Have your doctor recheck your blood pressure in the next 2 days. - Billing Disposition and Condition Condition: IMPROVED Disposition: Home - Attestation Statements Document Initiated by Scribe: Yes Documenting Scribe: Glenis Inman Provider For Whom Scribe is Documenting (Include Credential): Bijan Nichole MD Scribe Attestation: Glenis Cody, scribed for Bijan Nichole MD on 03/06/18 at 1537. Scribe Documentation Reviewed: Yes Provider Attestation: The documentation as recorded by the Glenis johnson accurately reflects the service I personally performed and the decisions made by me, Bijan Nichole MD
[2018-03-06] MEDS ORDERED: hydrALAZINE TAB* 25 MG PO ONE (11:49)
[2018-03-06] MEDS ORDERED: diPHENhydraMINE PO* 25 MG PO ONE (11:49)
[2018-03-06] MEDS ORDERED: HYDROcodone/ACETAMIN 5-325 MG* 1 TAB PO ONE (11:49)
[2018-03-06] MEDS ORDERED: Labetalol TAB* 200 MG PO ONE (11:49)
--- OUTSIDE RECORDS SUMMARY | 2018-03-06 12:09 | XMS REPORT | Continuity of Care Document ---
:1995 External Reference #:[id number] Author Name Lucero Wolf M.D. Address [address] [facility] [address] [place] [address] Care Team Providers Name Role Phone Lucero Wolf MD Primary Care Physician Unavailable Payers Type Date Identification Numbers Payment Provider Subscriber Policy Number: [id number] Medicare Zayda Garcia PayID: [id number] [address] [place] [address] Policy Number: [id number] Medicaid After Medicare Zayda Garcia Group Name: 2 1 [id number] [facility] PayID: [id number] [place] [address] Advance Directives Description No Information Available Problems [...] Form Strength Qnty SIG Indications Ordering Provider Vimpat Active Tablets 50mg 8tabs 1 04/26 tab Luciano 018 by mouth Lucero Yoo, every day Bj Clonidine HCL Active Patches 0.3mg/24HR 1 every I10 Luciano, 018 Weekly week Lucero Yoo M.D. Minoxidil Active Tablets 2.5mg 60tabs 2 tab by I10 Luciano, 018 mouth Lucero Yoo, twice a M.D. day-Nephro logy Amlodipine Active Tablets 10mg take 1 I10 [...] mouth K21.0 Unknown twice a day K30 Calcium Antacid Active Chewtabs 500mg 1 tab by mouth twice a K30 Unknown day as needed K21.0 K31.84 Renvela Active Tablets 800mg 1 tab by mouth every N18.6 Unknown other day Senna-Lax Active Tablets 8.6mg 100tabs 1 tab by mouth every K31.84 Unknown evening K59.00 Vitamin D Active Capsules 05502Uish take 1 N18.6 Unknown (Ergocalciferol) capsule by [...] Yue ER 12/25/2017 bs mouth every morning Vimpat - Hx Tablets 100mg 1 tab by G40.90 Unknown 02/23/2018 mouth every 9 day Doxazosin Mesylate - Hx Tablets 8mg take [...] Given 02/18/2009 HPV,Unspecified U-Flu Given 02/18/2009 Influenza,Unspecified 00451 Given 02/15/2008 Td 7 Years And Older 92262 Given 05/20/2000 MMR U-DTaP Given 05/20/2000 DTaP,Unspecified U-Polio Given 05/20/2000 Polio,Unspecified 90130 Given 12/18/1996 MMR U-Polio Given 05/24/1996 Polio,Unspecified U-HepB Given 05/24/1996 Hepatitis B,Unspecified U-DTaP Given 05/24/1996 DTaP,Unspecified U-Polio Given 03/23/1996 Polio,Unspecified U-Polio Given 01/17/1996 Polio,Unspecified U-HepB Given 01/17/1996 Hepatitis B,Unspecified U-DTaP Given 01/17/1996 DTaP,Unspecified U-HepB Given 1995 Hepatitis B,Unspecified Vital Signs Date Vital Result Comment 03/02/2018 2:03pm BP Systolic 180 mmHg BP Diastolic 110 mmHg Height 61 inches 5'1" Weight 133.00 lb BMI (Body Mass Index) 25.1 kg/m2 Heart Rate 106 /min Respiratory Rate 16 /min 01/03/2018 1:26pm BP Systolic 172 mmHg BP Diastolic 102 mmHg Height 61 inches 5'1" Weight 131.00 lb BMI (Body Mass Index) 24.7 kg/m2 Heart Rate 102 /min Respiratory Rate 16 /min 12/27/2017 3:38pm BP Systolic 190 mmHg BP [...] Date Facility Test Result H/L Range Note Arterial Blood Gas 01/11/2018 [facility] Arterial Blood Gas 7.40 7.35- 7.45 1 pH Arterial Blood Gas Pco2 36 mmHg 35-45 Arterial Blood Gas Po2 146 mmHg High 80-105 ABG Hco3 22 mEq/L 22-26 ABG Base Excess -2 mEq/L -2-2 ABG O2 Saturation 99 % 90-99 Allens Test Performed? YES Arterial Blood Gas Type VENT Arterial Blood Gas Fio2 40 % 20-101 Arterial Blood Gas Del. VENT ABG Vent Mode A/C ABG Patient Resp Rate 8 /MIN ABG Vent Resp Rate 15 /MIN ABG Tidal Volume 450 mL Arterial Blood Gas Peep 5 cmH2O Arterial Blood Gas Site R.RAD.ART. Laboratory test finding 01/11/2018 [facility] Acetaminophen < 2.0 ug/mL Low 10.0-30.0 2 Ethyl Alcohol < 3.0 mg/dL Laboratory test finding 01/11/2018 [facility] Salicylate < 1.7 mg/dL Low 2.8-20.0 3 Comprehensive Metabolic 01/11/2018 [facility] Glucose 120 mg/dL High 74- 106 Panel BUN 24 mg/dL High 7-18 Creatinine 7.8 mg/dL High 0.6-1.3 Glom Filtration Rate, Estimate 7 mL/min >60 If 8 mL/min >60 4 BUN/Creat 3.0 ratio Sodium 142 mmol/L 136-145 Potassium 6.0 mmol/L High 3.5-5.1 Chloride 104 mmol/L 98-107 Carbon Dioxide 24 mmol/L 21-32 Anion Gap 14 mEq/L 8-16 Calcium 10.0 mg/dL 8.5-10.1 Total Protein 6.8 g/dL 6.4-8.2 Albumin 3.2 g/dL Low 3.4-5.0 Globulin 3.6 g/dL 1.9-4.3 Alb/Glob 0.9 ratio Bilirubin,Total 0.8 mg/dL 0.2-1.0 Sgot/Ast 64 U/L High 15-37 SGPT/Alt 44 U/L 12-78 Alkaline Phosphatase 126 U/L High 45-117 Laboratory test finding 01/11/2018 [facility] Troponin-I 0.281 ng/mL 5 HCG,Serum (Qualitative) NEGATIVE (Negative) 6 CBS W/Automated Diff 01/11/2018 [facility] White Blood Count 23.4 K/uL High 3.1-10.7 Red Blood Count 3.48 M/uL Low 3.90-5.40 Hemoglobin 10.8 gm/dL Low 11.6-15.8 Hematocrit 33.1 % Low 36.0-46.1 Mean Cell Volume 95.1 fl 80.9-99.0 Mean Corpuscular HGB 31.0 pg 25.9-32.7 Mean Corpuscular HGB Conc 32.6 g/dL 30.8-34.3 Platelet Count 85 K/uL Low 155-360 Red Cell Distri Width SD 58.0 fl High 3-47 Red Cell Distri Width %CV 17.4 % High 11.7-14.4 Mean Platelet Volume 11.6 fL 8.9-12.4 Neut% 78.4 % High 40.4-72.8 Lymph % 9.7 % Low 20.0-42.0 [place] % 8.3 % 4.3-13.2 Eo% 1.8 % 0.0-6.6 Bas% 1.8 % High 0.0-1.1 Neut# 18.30 K/uL High 1.8-7.0 Lymph # 2.28 K/uL 1.0-4.0 [place] # 1.95 K/uL High 0.3-0.9 Eos # 0.43 K/uL 0.0-0.5 Baso # 0.43 K/uL High 0.0-0.1 Slide Review 01/11/2018 [facility] Slide Review DIFF ORDERED Differential-WBC Confirm 01/11/2018 [facility] Total Cells Counted 100 # CELLS Myelocyte% 2 % 0% Metamyelocyte% 1 % 0% Band% 4 % 0-8 Neutrophils% 70 % 33-73 Lymph% 14 % Low 20-42 Monocyte% 6 % 0-10 Eosinophil% 1 % 0-5 Basophil% 2 % 0-2 Nucleated Red Blood Cell 9 % High -0 Platelet Estimate MOD DECREASE Polychromasia 0-1+ Hypochromia 0-1+ Anisocytosis 0-1+ Protime 01/11/2018 [facility] Protime 17.6 seconds High 12.0-14.4 Inr 1.5 High 0.9-1.1 7 Laboratory test 01/11/2018 [facility] Path Review: INDICATED,SLIDE <SEE 8 finding NOTE> CBS W/Automated 12/27/2017 [facility] White Blood 7.1 K/uL 3.1-10. 9 Diff Count 7 Red Blood Count 2.74 M/uL Low 3.90-5.40 Hemoglobin 8.3 gm/dL Low 11.6-15.8 Hematocrit 25.8 % Low 36.0-46.1 Mean Cell Volume 94.2 fl 80.9-99.0 Mean Corpuscular HGB 30.3 pg 25.9-32.7 Mean Corpuscular HGB Conc 32.2 g/dL 30.8-34.3 Platelet Count 217 K/uL 155-360 Red Cell Distri Width SD 50.0 fl High 3-47 Red Cell Distri Width %CV 15.8 % High 11.7-14.4 Mean Platelet Volume 10.3 fL 8.9-12.4 Neut% 65.9 % 40.4-72.8 Lymph % 17.4 % Low 20.0-42.0 [place] % 9.6 % 4.3-13.2 Eo% 4.7 % 0.0-6.6 Bas% 2.4 % High 0.0-1.1 Neut# 4.64 K/uL 1.8-7.0 Lymph # 1.23 K/uL 1.0-4.0 [place] # 0.68 K/uL 0.3-0.9 Eos # 0.33 K/uL 0.0-0.5 Baso # 0.17 K/uL High 0.0-0.1 Lactic Acid 12/25/2017 [facility] Lactic Acid 0.5 mmol/L 0.4-1.9 10 Lab Reflex >2.0 for Sepsis? Y CBS W/Automated Diff 12/25/2017 [facility] White Blood Count 7.5 K/uL 3.1- 10.7 [...] 40.4-72.8 Lymph % 15.4 % Low 20.0-42.0 [place] % 8.2 % 4.3-13.2 Eo% 4.8 % 0.0-6.6 Bas% 2.4 % High 0.0-1.1 Neut# 5.17 K/uL 1.8-7.0 Lymph # 1.15 K/uL 1.0-4.0 [place] # 0.61 K/uL 0.3-0.9 Eos # 0.36 K/uL 0.0-0.5 Baso # 0.18 K/uL High 0.0-0.1 Laboratory test 12/23/2017 [facility] TSH (Thyroid 1.03 mcIU/mL 0.34 -5.60 finding Stim Horm) Free T4 (Free Thyroxine) 1.13 ng/dL High 0.61-1.12 T3 Free 3.20 pg/mL 2.5-3.9 T3 Total 95 ng/dL 87-178 Thyroperoxidase AB 1.55 IU/mL <9 Thyrotropin Receptor Antibody <1.00 IU/L 11 CBS W/Automated Diff 12/13/2017 [facility] White Blood Count 5.4 K/uL 3.1- 10.7 12 Red Blood Count 2.83 M/uL Low 3.90-5.40 [...] 40.4-72.8 Lymph % 14.9 % Low 20.0-42.0 [place] % 7.6 % 4.3-13.2 Eo% 12.1 % High 0.0-6.6 Bas% 1.9 % High 0.0-1.1 Neut# 3.41 K/uL 1.8-7.0 Lymph # 0.80 K/uL Low 1.0-4.0 [place] # 0.41 K/uL 0.3-0.9 Eos # 0.65 K/uL High 0.0-0.5 Baso # 0.10 K/uL 0.0-0.1 Comprehensive Metabolic Panel 12/13/2017 [facility] Glucose 83 mg/dL 74- 106 BUN 6 mg/dL Low 7-18 Creatinine 4.1 mg/dL High 0.6-1.3 Glom Filtration Rate, Estimate 14 mL/min >60 If 17 mL/min >60 13 BUN/Creat 1.4 ratio Sodium 136 mmol/L 136-145 [...] 90 U/L 45-117 Laboratory test finding 12/13/2017 [facility] Lipase 4283 U/L High 56-289 14 HCG,Serum (Qualitative) NEGATIVE (Negative) 15 Comprehensive Metabolic Panel 12/11/2017 [facility] Glucose 96 mg/dL 74- 106 16 BUN 8 mg/dL 7-18 Creatinine 5.3 mg/dL High 0.6-1.3 Glom Filtration Rate, Estimate 11 mL/min >60 If 13 mL/min >60 17 BUN/Creat 1.5 ratio Sodium 142 mmol/L 136-145 Potassium 3.6 mmol/L 3.5-5.1 18 Chloride 107 mmol/L 98-107 Carbon Dioxide 22 mmol/L 21-32 Anion Gap 13 mEq/L 8-16 Calcium 11.3 mg/dL High 8.5-10.1 Total Protein 7.1 g/dL 6.4-8.2 Albumin 3.8 g/dL 3.4-5.0 Globulin 3.3 g/dL 1.9-4.3 Alb/Glob 1.2 ratio Bilirubin,Total 0.6 mg/dL 0.2-1.0 Sgot/Ast 30 U/L 15-37 SGPT/Alt 13 U/L 12-78 Alkaline Phosphatase 75 U/L 45-117 Laboratory test finding 12/11/2017 [facility] CK 155 U/L 26-192 Troponin-I 0.026 ng/mL 19 HCG,Serum (Qualitative) NEGATIVE (Negative) 20 CBS W/Automated Diff 12/11/2017 [facility] White Blood Count 8.5 K/uL 3.1- 10.7 [...] 40.4-72.8 Lymph % 13.7 % Low 20.0-42.0 [place] % 9.3 % 4.3-13.2 Eo% 6.0 % 0.0-6.6 Bas% 2.0 % High 0.0-1.1 Neut# 5.83 K/uL 1.8-7.0 Lymph # 1.16 K/uL 1.0-4.0 [place] # 0.79 K/uL 0.3-0.9 Eos # 0.51 K/uL High 0.0-0.5 Baso # 0.17 K/uL High 0.0-0.1 Laboratory test 12/11/2017 [facility] Slide Review . 21 finding Laboratory test 12/08/2017 [facility] CK 118 U/L 26-192 22 finding Laboratory test 12/08/2017 [facility] Lacosamide None Detected 5.0-10.0 23 finding ug/mL Laboratory test 12/08/2017 [facility] Act Partial 29.9 seconds 23.4-35. 24 finding Thrombo Time 0 Protime 12/08/2017 [facility] Protime 14.0 seconds 12.0-14. 4 Inr 1.1 0.9-1.1 25 Comprehensive Metabolic Panel 12/08/2017 [facility] Glucose 99 mg/dL 74- 106 BUN 6 mg/dL Low 7-18 Creatinine 5.1 mg/dL High 0.6-1.3 Glom Filtration Rate, Estimate 11 mL/min >60 If 14 mL/min >60 26 BUN/Creat 1.1 ratio Sodium 140 mmol/L 136-145 [...] 76 U/L 45-117 Laboratory test finding 12/08/2017 [facility] Magnesium 2.2 mg/dL 1.8-2.4 Troponin-I 0.030 ng/mL 27 Thyroid Stim Hormone 0.61 uIU/mL 0.30-4.20 HCG,Serum (Qualitative) NEGATIVE (Negative) 28 Free T4 2.02 ng/dL High 0.76-1.46 Differential-WBC Confirm 12/08/2017 [facility] Total Cells Counted 100 # CELLS Band% 2 % 0-8 Neutrophils% 64 % 33-73 Lymph% 16 % Low 20-42 Monocyte% 8 % 0-10 Eosinophil% 8 % High 0-5 Basophil% 2 % 0-2 Platelet Estimate NORMAL Polychromasia 0-1+ Hypochromia 1+ Anisocytosis 2+ Differential Comment lrg plts seen CBS W/Automated Diff 12/08/2017 [facility] White Blood Count 8.2 K/uL 3.1- 10.7 [...] 40.4-72.8 Lymph % 14.1 % Low 20.0-42.0 [place] % 8.4 % 4.3-13.2 Eo% 6.1 % 0.0-6.6 Bas% 3.2 % High 0.0-1.1 Neut# 5.61 K/uL 1.8-7.0 Lymph # 1.16 K/uL 1.0-4.0 [place] # 0.69 K/uL 0.3-0.9 Eos # 0.50 K/uL 0.0-0.5 Baso # 0.26 K/uL High 0.0-0.1 Laboratory test finding 12/08/2017 [facility] Slide Review DIFF ORDERED 29 Laboratory test finding 11/25/2017 [facility] Lipase 156 U/L 56-289 30 HCG,Serum (Qualitative) NEGATIVE (Negative) Comprehensive Metabolic Panel 11/25/2017 [facility] Glucose 91 mg/dL 74- 106 BUN 5 mg/dL Low 7-18 Creatinine 4.5 mg/dL High 0.6-1.3 Glom Filtration Rate, Estimate 13 mL/min >60 If 16 mL/min >60 31 BUN/Creat 1.1 ratio Sodium 139 mmol/L 136-145 [...] 76 U/L 45-117 CBS W/Automated Diff 11/25/2017 [facility] White Blood Count 6.2 K/uL 3.1- 10.7 [...] % 40.4-72.8 Lymph % 23.7 % 20.0-42.0 [place] % 9.5 % 4.3-13.2 Eo% 7.4 % High 0.0-6.6 Bas% 2.9 % High 0.0-1.1 Neut# 3.51 K/uL 1.8-7.0 Lymph # 1.47 K/uL 1.0-4.0 [place] # 0.59 K/uL 0.3-0.9 Eos # 0.46 K/uL 0.0-0.5 Baso # 0.18 K/uL High 0.0-0.1 Laboratory test 11/19/2017 [facility] Lactic Acid 0.5 mmol/L 0.5- 2.0 32 finding CBC Auto Diff 11/19/2017 [facility] White Blood 7.1 10^3/uL 3.5- 10.8 Count [...] Red Blood Cells % 0 Inr/Protime 11/19/2017 [facility] Inr 1.02 0.77-1.02 Laboratory test 11/19/2017 [facility] Partial 31.4 seconds 26.0- 36.3 finding Thrombo Time PTT Comp Metabolic 11/19/2017 [facility] Sodium 136 mmol/L 135-145 Panel Potassium 3.6 [...] Egfr Non- 16.3 >60 Egfr 19.8 >60 33 Laboratory test finding 11/19/2017 [facility] Lipase 19 U/L 11.0- 82.0 Troponin-I (TnI) 0.01 ng/mL <0.04 HCG 0.91 mIU/mL 34 C Reactive Protein 7.99 mg/L <8.01 Procalcitonin 0.7 ng/mL High <0.6 35 Erythrocyte Sed Rate 20 mm/Hr High 0-14 Blood Culture SEE RESULT BELOW 36 Laboratory test finding 11/16/2017 [facility] Ethyl Alcohol < 3.0 mg/dL 37 Comprehensive Metabolic 11/16/2017 [facility] Glucose 101 mg/dL 74-106 Panel BUN 15 mg/dL 7-18 Creatinine 7.8 mg/dL High 0.6-1.3 Glom Filtration Rate, Estimate 7 mL/min >60 If 8 mL/min >60 38 BUN/Creat 1.9 ratio Sodium 140 mmol/L 136-145 [...] Phosphatase 62 U/L 45-117 Laboratory test 11/16/2017 [facility] Lipase 557 U/L High 56-289 39 finding CBS W/Automated Diff 11/16/2017 [facility] White Blood Count 6.1 K/uL 3.1- 10.7 [...] % 40.4-72.8 Lymph % 20.9 % 20.0-42.0 [place] % 12.1 % 4.3-13.2 Eo% 9.3 % High 0.0-6.6 Bas% 2.0 % High 0.0-1.1 Neut# 3.40 K/uL 1.8-7.0 Lymph # 1.28 K/uL 1.0-4.0 [place] # 0.74 K/uL 0.3-0.9 Eos # 0.57 K/uL High 0.0-0.5 Baso # 0.12 K/uL High 0.0-0.1 Laboratory test 11/16/2017 [facility] Slide Review . 40 finding CBC Auto Diff 11/13/2017 [facility] White Blood 7.9 3.5-10.8 Count 10^3/uL Red [...] Cells % 0 Comp Metabolic Panel 11/13/2017 [facility] Sodium 135 mmol/L 135- 145 Potassium 3.5 [...] Egfr Non- 8.5 >60 Egfr 10.3 >60 41 Laboratory test finding 11/13/2017 [facility] Magnesium 2.3 mg/dL 1.9-2.7 Amylase 33 U/L 29-103 Lipase 10 U/L Low 11.0-82.0 C Reactive Protein 10.50 mg/L High <8.01 HCG 1.02 mIU/mL 42 B-Type Natriuretic Peptide BNP 2448 pg/mL High 43 TSH (Thyroid Stim Horm) 0.20 mcIU/mL Low 0.34-5.60 Free T4 (Free Thyroxine) 1.98 ng/dL High 0.61-1.12 T3 Total 96 ng/dL 87-178 T3 Free 4.10 pg/mL High 2.5-3.9 Lacosamide <0.5 g/mL 1.0 - 10.0 44 1 SEIZURES 2 Acetaminophen concentration >150 ug/mL at four hours after ingestion and 50.0 ug/mL at twelve hours after ingestion are often associated with toxic reactions. 3 THERAPEUTIC RANGE: 15-30 mg/dL POTENTIAL TOXICITY VARIES WITH TIME FROM INGESTION. PLEASE CONSULT APPROPRIATE NOMOGRAM. 4 Note: Persistent reduction for 3 months or more in an eGFR <60 mL/min/1.73 m2 defines CKD. Patients with eGFR values >/=60 mL/min/1.73 m2 may also have CKD if evidence of persistent proteinuria is present. The original MDRD equation for estimated GFR is not valid for patients less than 18 years of age. Additional information may be found at www.kdoqi.org. 5 0.0 - 0.045 ng/mL: Normal 0.046 - 0.5 ng/mL: Suggestive 0.6 - 1.5 ng/mL: Consistent 6 Specimen slightly Hemolyzed, interpret with caution CALLED TOSHA Saha TO LIAM Valente AT 0750 01/11/18 by LAB.[facility] 7 THERAPEUTIC INR RANGE: 2.0 - 3.0 DVT, Pulmonary embolus, prophylaxis against venous thrombosis or systemic embolization in high risk patients. 2.5 - 3.5 Mechanical heart valves 8 INDICATED,SLIDE SENT Hematology Consultation Final Report Case# [id number] Final Diagnosis Peripheral blood smear: - Red blood cells show anisopoikilocytosis with a few nucleated red blood cells. - Platelets are decreased in numbers. - White blood cells show neutrophilia with a left shift of granulocytes with the presence of metamyelocytes and myelocytes. - No blasts are identified. - Workup for bone marrow disorder is suggested. Gross Description Peripheral blood smear [place] 01/12/18 Dejuan Schwartz M.D., Pathologist Reported: 01/12/18 6:08PM Report Signed Electronically Performed at [facility] Pathology Services [id number] [place] [address] 9 DEHYDRATED, EMESIS 10 BODY HURTS ALL OVER 11 REFERENCE VALUE 0.00 - 1.75 ADDITIONAL INFORMATION At a decision limit of 1.75 IU/L, this assay has 97% sensitivity and 99% specificity for detection of Graves' disease. In healthy individuals and in patients with thyroid disease without diagnosis of Graves' disease, the upper limit of anti-TSHR values are 1.22 IU/L and 1.58 IU/L, respectively (97.5th percentiles). Test Performed by: [facility] [address] [place] [address] 12 PANCREATITIS? 13 Note: Persistent reduction for 3 months or more in an eGFR <60 mL/min/1.73 m2 defines CKD. Patients with eGFR values >/=60 mL/min/1.73 m2 may also have CKD if evidence of persistent proteinuria is present. The original MDRD equation for estimated GFR is not valid for patients less than 18 years of age. Additional information may be found at [email or web address]. 14 CALLED LIP TO CRISTY Foster AT 1056 12/13/17 by JUNIOR 15 Method: Quidel QuickVue One-Step Immunoassay 16 MID BACK PAIN 17 Note: Persistent reduction for 3 months or more in an eGFR <60 mL/min/1.73 m2 defines CKD. Patients with eGFR values >/=60 mL/min/1.73 m2 may also have CKD if evidence of persistent proteinuria is present. The original MDRD equation for estimated GFR is not valid for patients less than 18 years of age. Additional information may be found at [email or web address]. 18 Specimen slightly Hemolyzed, interpret with caution 19 0.0 - 0.045 ng/mL: Normal 0.046 - 0.5 ng/mL: Suggestive 0.6 - 1.5 ng/mL: Consistent 20 Method: Quidel QuickVue One-Step Immunoassay 21 Instrument flagged sample for slide review. Less than 10% Bands seen, no other immature WBC's seen. RBC morphology essentially normal. Platelet [id number] CHECKED,PLT EST. AGREES WITH INSTRUMENT VALUE. 22 SEIZURE 23 Limit of Detection 0.5 Mean plasma concentrations following maintenance dose 200 mg/day 4.99 +/- 2.51 ug/mL 400 mg/day 9.35 +/- 4.22 ug/mL 600 mg/day 12.46 +/- 5.60 ug/mL This test was developed and its performance characteristics determined by [facility]. It has not been cleared or approved by the Food and Drug Administration. Performed at: [address] [id number] Mail Processing Clerk: Efrem Garcia MD, Phone: [phone] 24 Is patient on anticoagulants? Coumadin 25 THERAPEUTIC INR RANGE: 2.0 - 3.0 DVT, Pulmonary embolus, prophylaxis against venous thrombosis or systemic embolization in high risk patients. 2.5 - 3.5 Mechanical heart valves 26 Note: Persistent reduction for 3 months or more in an eGFR <60 mL/min/1.73 m2 defines CKD. Patients with eGFR values >/=60 mL/min/1.73 m2 may also have CKD if evidence of persistent proteinuria is present. The original MDRD equation for estimated GFR is not valid for patients less than 18 years of age. Additional information may be found at www.[email or web address]. 27 0.0 - 0.045 ng/mL: Normal 0.046 - 0.5 ng/mL: Suggestive 0.6 - 1.5 ng/mL: Consistent 28 Method: [employer]idel QuickVue One-Step Immunoassay 29 Is patient on anticoagulants? Coumadin 30 ABD PAIN, VOMITING,DIARRHEA 31 Note: Persistent reduction for 3 months or more in an eGFR <60 mL/min/1.73 m2 defines CKD. Patients with eGFR values >/=60 mL/min/1.73 m2 may also have CKD if evidence of persistent proteinuria is present. The original MDRD equation for estimated GFR is not valid for patients less than 18 years of age. Additional information may be found at www.[email or web address]. 32 [facility] Severe Sepsis and Septic Shock Management Bundle Measure requires all lactic acids initially measuring >2.0 mmol/L be repeated. 33 Because ethnic data is not always readily [...] 15-29 5 Kidney failure <15 (or dialysis) 34 <5.0 Negative 5.0 - 25.0 Indeterminate (Repeat testing recommended after 72 hours) >25.0 Positive Perimenopausal women can display HCG levels of up to 20 mIU/mL 35 Interpretive information available on [facility] Lab Test Catalog at [email or web address] 36 SEE RESULT BELOW Name: ZAYDA GARCIA : [address]: Deepak Lewis MD Acct: [id number] Unit: [id number] AGE: 22 Location: [place] [address] Re11/20/17 Dis: 11/21/17 SEX: F Status: DIS IN SPEC: [id number] VIOLA: 11/20/17-[address] [facility] [address]: Robert Gaytan MD REQ: [id number] RECD: 11/20/17 STATUS: DAIJA WATSON DR: Lucero Wolf MD _ SOURCE: BLOOD,[facility]: ORDERED: Blood Cult Procedure Result Reported Site Aerobic Culture Bottle Final 11/25/17934 ML No Growth Day 5 Anaerobic Culture Bottle Final 11/25/17934 ML No Growth Day 5 * ML - Main Lab . END OF REPORT DEPARTMENT OF PATHOLOGY, [address] [place] [address] Boris Yoon M.D. Director [facility] # [id number] 37 POSSIBLE PANCREATITIS, HAS PERMACATH 38 Note: Persistent reduction for 3 months or more in an eGFR <60 mL/min/1.73 m2 defines CKD. Patients with eGFR values >/=60 mL/min/1.73 m2 may also have CKD if evidence of persistent proteinuria is present. The original MDRD equation for estimated GFR is not valid for patients less than 18 years of age. Additional information may be found at [email or web address]. 39 CALLED CRE TO LIAM Victor AT 1046 11/16/17 by MARKIE.YURIY 40 Instrument flagged sample for slide review. Less than 10% Bands seen, no other immature WBC's seen. RBC morphology essentially normal. Platelet estimate=NORMAL 41 Because ethnic data is not always readily [...] 15-29 5 Kidney failure <15 (or dialysis) 42 <5.0 Negative 5.0 - 25.0 Indeterminate (Repeat testing recommended after 72 hours) >25.0 Positive Perimenopausal women can display HCG levels of up to 20 mIU/mL 43 >100 to <200 pg/mL: likely compensated congestive heart failure (CHF) 200 to 400 pg/mL: likely moderate CHF >400 pg/mL: likely moderate to severe CHF 44 ADDITIONAL INFORMATION This test was developed and its performance characteristics determined by [facility] in a manner consistent with CLIA requirements. This test has not been cleared or approved by the U.S. Food and Drug Administration. Test Performed by: [facility] [address] [place] [address] Procedures Date Code Description Status 12/08/2017 43978 Visual Screening Test Completed 12/08/2017 33892 Audiometry, Bekesy, Screening Completed Encounters Type Date Location Provider Dx Diagnosis Office Visit 01/03/2018 [facility] Bhumi Wolfmagbaino ValenteMarjan, I10 Essential ( primary) 1:30p M.D. 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 at [place] [id number]/02/2018 - Lucero Wolf M.D.I10 Essential (primary) hypertensionComments:CHECK BP TIW ( PRN)DIET AND FLUID COUNSELING LOW SODIUM DIETWT LOSSF/U LABE78.2 Mixed hyperlipidemiaComments:DIET REVIEWED CONTINUE DIETWT LOSSF/U LAB FBWN18.6 End stage renal diseaseComments:F/U WITH NEPHROLOGYHEMODIALYSISF/U WITH TRANSPLANT TEAMR60.0 Localized edemaComments: ELEVATE LE PRNELASTIC STOCKING / EDUARDO WRAP PRNF/U LAB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pecifiedComments:EXERCISE/HEAT/MESSAGE F/U WITH REUHMATOLOGY COUNCELLING AND CVGJXTZLTAGQ18.909 Epilepsy, unspecified, not intractable, without status epileComments:F/U WITH NEUROLOGY PRNOBSERVE SAFETY NWKOBJR70.009 Migraine without aura, not intractable, without status migraComments:TYLENOL OR MOTRIN PRNRELAXATION/AVOID RWFRAQAIGE39.0 Gastro- esophageal reflux disease with esophagitisComments:AVOID CAFFEINE, ETOH AND SPICY FOODSTUMS OR MYLANTA PRN CALL WITH PROBLEMS OR [id number] Functional dyspepsiaComments:AVOID CAFFEINE, ETOH AND SPICY FOODSTUMS OR MYLANTA PRN CALL WITH PROBLEMS OR [id number] GastroparesisComments:CONTINUE MEDICATIONS F/U WITH UEUYPSYMOJISVHWEETQ94.00 Constipation, unspecifiedComments:MOM OR MIRALAX PRNHIGH FIBER DIETINCREASE PO VUSORG21.9 Unspecified hemorrhoidsComments:AVOID CONSTIPATOIN INCREASE FIBER IN DIETLAXATIVE PRNLUBRICATE ANAL AREA WITH LOTION PRN FOR [id number] Anuria and oliguriaComments:OBSERVEHEMODIALYSIS PER ATANUARVKXJ14.1 Other chronic pancreatitisComments:AVOID ETOH ABUSE F/U WITH GI PRNZ99.2 Dependence on renal dialysisComments:F/U WITH VFVHJXVZTRQ89.1 Secondary amenorrheaComments:OBSERVEF/U WITH OB/GYNL20.9 Atopic dermatitis, unspecifiedComments:SKIN CARE INSTRUCTIONS LOTION OR BABY OIL 2-3 APPLICATION PER DAYUSE MOISTURIZING SOAPAVOID PROLONGED WATER EXPOSUREAVOID USING HOT WATER IN KAIGFYH39.9 Allergic rhinitis, unspecifiedComments:INCREASE PO FLUID USE ANTIHISTAMINE PRN SECOND HAND SMOKING WSTMYKDBGI57.643 Pain in unspecified handComments:EXERCISE/HEAT/MESSAGETYLENOL OR MOTRIN PRNAVOID HEAVY LIFTINGWT LOSS DUR VHLBTXQZ28.569 Pain in unspecified kneeComments:EXERCISE/HEAT / MESSAGEAVOID HEAVY LIFTING WT LOSSTYLENOL OR MOTRIN PRN DUR TXMSJBWH35.606 Pain in leg, unspecifiedComments:TYLENOL OR MOTRIN PRN EXERCISE/HEAT/MESSAGE DUR EJELVJPI44.9 Anxiety disorder, unspecifiedComments:COUNCELLING AND REASSURANCE RELAXATION TECHNIQUES DISCUSSEDCOUNSELED RE: STRESSORS IN LIFE AVOID ALLENERGY/ HIGH CAFFEINE OYEJJUR40.9 Major depressive disorder, recurrent, unspecifiedComments:COUNCELLING AND REASSURANCE RELAXATION TECHNIQUES DISCUSSED COUNSELED RE: STRESSORS IN LIFEH53.30 Unspecified disorder of binocular visionComments:USE GLASSES/CONTACTSF/U WITH EXMFFWOTOOSICD33.3 Pericardial effusion (noninflammatory)Comments:OBSERVE F/U WITH CARDIOLOGY
[2018-03-06 13:20] VITALS: BP 189/119
== END 2018-03-06 13:49 | disposition home or self-care (01) ==
LOC: ED 11:08
DX: R07.89 Other chest pain (principal); I12.0 Hypertensive chronic kidney disease with stage 5 chronic kidney disease or end stage renal disease; N18.6 End stage renal disease; Z99.2 Dependence on renal dialysis; Z91.030 Bee allergy status; Z88.5 Allergy status to narcotic agent; Z88.8 Allergy status to other drugs, medicaments and biological substances; Z91.048 Other nonmedicinal substance allergy status
CPT/HCPCS: 71046; 93005; 99283; A9270-GY

== ENCOUNTER 2018-03-26 10:53 | Inpatient (IN) | payer MEDICARE, MEDICAID ==
--- OUTSIDE RECORDS SUMMARY | 2018-03-26 11:09 | XMS REPORT | Continuity of Care Document ---
:1995 External Reference #:[id number] Author Name Efrem Villarreal N.P. Address [address] [place] [address] [address] [place] [address] Care Team Providers Name Role Phone Lucero Wolf MD Primary Care Physician Unavailable Payers Type Date Identification Numbers Payment Provider Subscriber Policy Number: [id number] Medicare Zayda Garcia PayID: [id number] [address] [place] [address] Policy Number: [id number] Medicaid After Medicare Zayda Garcia Group Name: [id number] 1 [id number] PayID: [id number] [place] [address] Advance Directives Description No Information Available Problems [...] smoked Recreational Drug Use Denies Drug Use Smoking Status Reviewed: 03/13/18 Patient has never smoked Allergies, Adverse Reactions, Alerts Date Description Reaction Status Severity Comments 12/08/2017 Fentanyl Active 12/08/2017 Nifedipine Active 12/08/2017 Lisinopril Active Medications Medication Date Status Form Strength Qnty SIG Indications Ordering Provider Azithromycin Tablets 250mg 6tabs z anselmo uad R05 Ruperto Wolf - Lucero Yoo, 03/18/ M.D. 2018 Tessalon 11/19/ Active Capsules 100mg 42caps 1 tab by R0Hubre Mijares 2018 mouth four Lucero Yoo, times a M.D. day as needed Guaifenex LA 03/13/ Active Tablets ER 600mg 14tabs 1 tab by R05 Luciano, 2018 12HR mouth Lucero Yoo, twice a M.D. day as directed Claritin 03/13/ Active Tablets 10mg 30tabs 1 by mouth J32.4 Luciano, 2018 every day Lucero Yoo M.D. Vimpat 02/24/ Active Tablets 50mg 8tabs 1 1/2 tab Luciano, 2017 by mouth Lucero Yoo, every day M.DMarjan Clonidine HCL 12/27/ Active Patches 0.3mg/24HR 1 every I10 Luciano, 2018 Weekly week Lucero Yoo M.D. Minoxidil 12/27/ Active Tablets 2.5mg 60tabs 2 tab by I10 Luciano, 2018 mouth Lucero Yoo, twice a M.D. day-Nephro logy Amlodipine / Active Tablets 10mg take 1 I10 Unknown Besylate 0000 tablet by mouth daily Carvedilol / Active Tablets 25mg 180tab 1 tab by I10 Unknown 0000 s mouth twice a day Ondansetron / Active Tablets 4mg dissolve 1 K31.84 Unknown 0000 Dispers tablet On Tongue every 8 hours [...] Unknown evening K59.00 Vitamin D Active Capsules 02373Gnif take 1 N18.6 Unknown (Ergocalciferol) capsule by [...] Given 02/18/2009 HPV,Unspecified U-Flu Given 02/18/2009 Influenza,Unspecified 80133 Given 02/15/2008 Td 7 Years And Older 36006 Given 05/20/2000 MMR U-DTaP Given 05/20/2000 DTaP,Unspecified U-Polio Given 05/20/2000 Polio,Unspecified 29705 Given 12/18/1996 MMR U-Polio Given 05/24/1996 Polio,Unspecified U-HepB Given 05/24/1996 Hepatitis B,Unspecified U-DTaP Given 05/24/1996 DTaP,Unspecified U-Polio Given 03/23/1996 Polio,Unspecified U-Polio Given 01/17/1996 Polio,Unspecified U-HepB Given 01/17/1996 Hepatitis B,Unspecified U-DTaP Given 01/17/1996 DTaP,Unspecified U-HepB Given 1995 Hepatitis B,Unspecified Vital Signs Date Vital Result Comment 03/13/2018 2:14pm BP Systolic 220 mmHg BP Diastolic 130 mmHg Height 61 inches 5'1" Weight 138.00 lb BMI (Body Mass Index) 26.1 kg/m2 Heart Rate 144 /min Body Temperature 101.3 F Respiratory Rate 16 /min 03/02/2018 2:03pm BP Systolic 180 mmHg BP [...] H/L Range Note Arterial Blood Gas 01/11/2018 [facility] Arterial Blood Gas 7.40 7.35- 7.45 1 [...] Gas Site R.RAD.ART. Laboratory test finding 01/11/2018 [facility] Acetaminophen < 2.0 ug/mL Low 10.0-30.0 2 Ethyl Alcohol < 3.0 mg/dL Laboratory test finding 01/11/2018 [facility] Salicylate < 1.7 mg/dL Low 2.8-20.0 3 Comprehensive Metabolic 01/11/2018 [facility] Glucose 120 mg/dL High 74- 106 Panel [...] U/L High 45-117 Laboratory test finding 01/11/2018 [facility] Troponin-I 0.281 ng/mL 5 HCG,Serum (Qualitative) NEGATIVE (Negative) 6 CBS W/Automated Diff 01/11/2018 [facility] White Blood Count 23.4 K/uL High 3.1-10.7 [...] 40.4-72.8 Lymph % 9.7 % Low 20.0-42.0 Glascock % 8.3 % 4.3-13.2 Eo% 1.8 % 0.0-6.6 Bas% 1.8 % High 0.0-1.1 Neut# 18.30 K/uL High 1.8-7.0 Lymph # 2.28 K/uL 1.0-4.0 Glascock # 1.95 K/uL High 0.3-0.9 Eos # 0.43 K/uL 0.0-0.5 Baso # 0.43 K/uL High 0.0-0.1 Slide Review 01/11/2018 [facility] Slide Review DIFF ORDERED Differential-WBC Confirm 01/11/2018 [facility] Total Cells Counted 100 # CELLS Myelocyte% 2 % 0% Metamyelocyte% 1 % 0% Band% 4 % 0-8 Neutrophils% 70 % 33-73 Lymph% 14 % Low 20-42 Monocyte% 6 % 0-10 Eosinophil% 1 % 0-5 Basophil% 2 % 0-2 Nucleated Red Blood Cell 9 % High -0 Platelet Estimate MOD DECREASE Polychromasia 0-1+ Hypochromia 0-1+ Anisocytosis 0-1+ Protime 01/11/2018 [facility] Protime 17.6 seconds High 12.0-14.4 Inr 1.5 High 0.9-1.1 7 Laboratory test 01/11/2018 [facility] Path Review: INDICATED,SLIDE <SEE 8 finding NOTE> CBS W/Automated 12/27/2017 [facility] White Blood 7.1 K/uL 3.1-10. 9 Diff [...] 40.4-72.8 Lymph % 17.4 % Low 20.0-42.0 Glascock % 9.6 % 4.3-13.2 Eo% 4.7 % 0.0-6.6 Bas% 2.4 % High 0.0-1.1 Neut# 4.64 K/uL 1.8-7.0 Lymph # 1.23 K/uL 1.0-4.0 Glascock # 0.68 K/uL 0.3-0.9 Eos # 0.33 K/uL 0.0-0.5 Baso # 0.17 K/uL High 0.0-0.1 Lactic Acid 12/25/2017 [facility] Lactic Acid 0.5 mmol/L 0.4-1.9 10 Lab Reflex >2.0 for Sepsis? Y CBS W/Automated Diff 12/25/2017 [facility] White Blood Count 7.5 K/uL 3.1- 10.7 [...] 40.4-72.8 Lymph % 15.4 % Low 20.0-42.0 Glascock % 8.2 % 4.3-13.2 Eo% 4.8 % 0.0-6.6 Bas% 2.4 % High 0.0-1.1 Neut# 5.17 K/uL 1.8-7.0 Lymph # 1.15 K/uL 1.0-4.0 Glascock # 0.61 K/uL 0.3-0.9 Eos # 0.36 K/uL 0.0-0.5 Baso # 0.18 K/uL High 0.0-0.1 Laboratory test 12/23/2017 [facility] TSH (Thyroid 1.03 mcIU/mL 0.34 -5.60 finding Stim Horm) Free T4 (Free Thyroxine) 1.13 ng/dL High 0.61-1.12 T3 Free 3.20 pg/mL 2.5-3.9 T3 Total 95 ng/dL 87-178 Thyroperoxidase AB 1.55 IU/mL <9 Thyrotropin Receptor Antibody <1.00 IU/L 11 CBS W/Automated Diff 12/13/2017 [facility] White Blood Count 5.4 K/uL 3.1- 10.7 [...] 40.4-72.8 Lymph % 14.9 % Low 20.0-42.0 Glascock % 7.6 % 4.3-13.2 Eo% 12.1 % High 0.0-6.6 Bas% 1.9 % High 0.0-1.1 Neut# 3.41 K/uL 1.8-7.0 Lymph # 0.80 K/uL Low 1.0-4.0 Glascock # 0.41 K/uL 0.3-0.9 Eos # 0.65 K/uL High 0.0-0.5 Baso # 0.10 K/uL 0.0-0.1 Comprehensive Metabolic Panel 12/13/2017 [facility] Glucose 83 mg/dL 74- 106 BUN 6 [...] 90 U/L 45-117 Laboratory test finding 12/13/2017 [facility] Lipase 4283 U/L High 56-289 14 HCG,Serum (Qualitative) NEGATIVE (Negative) 15 Comprehensive Metabolic Panel 12/11/2017 [facility] Glucose 96 mg/dL 74- 106 16 BUN [...] 75 U/L 45-117 Laboratory test finding 12/11/2017 [facility] CK 155 U/L 26-192 Troponin-I 0.026 ng/mL 19 HCG,Serum (Qualitative) NEGATIVE (Negative) 20 CBS W/Automated Diff 12/11/2017 [facility] White Blood Count 8.5 K/uL 3.1- 10.7 [...] 40.4-72.8 Lymph % 13.7 % Low 20.0-42.0 Glascock % 9.3 % 4.3-13.2 Eo% 6.0 % 0.0-6.6 Bas% 2.0 % High 0.0-1.1 Neut# 5.83 K/uL 1.8-7.0 Lymph # 1.16 K/uL 1.0-4.0 Glascock # 0.79 K/uL 0.3-0.9 Eos # 0.51 K/uL High 0.0-0.5 Baso # 0.17 K/uL High 0.0-0.1 Laboratory test 12/11/2017 [facility] Slide Review . 21 finding Laboratory test 12/08/2017 [facility] CK 118 U/L 26-192 22 finding Laboratory test 12/08/2017 [facility] Lacosamide None Detected 5.0-10.0 23 finding ug/mL Laboratory test 12/08/2017 [facility] Act Partial 29.9 seconds 23.4-35. 24 finding Thrombo Time 0 Protime 12/08/2017 [facility] Protime 14.0 seconds 12.0-14. 4 Inr 1.1 0.9-1.1 25 Comprehensive Metabolic Panel 12/08/2017 [facility] Glucose 99 mg/dL 74- 106 BUN 6 [...] 76 U/L 45-117 Laboratory test finding 12/08/2017 [facility] Magnesium 2.2 mg/dL 1.8-2.4 Troponin-I 0.030 ng/mL 27 Thyroid Stim Hormone 0.61 uIU/mL 0.30-4.20 HCG,Serum (Qualitative) NEGATIVE (Negative) 28 Free T4 2.02 ng/dL High 0.76-1.46 Differential-WBC Confirm 12/08/2017 [facility] Total Cells Counted 100 # CELLS Band% 2 % 0-8 Neutrophils% 64 % 33-73 Lymph% 16 % Low 20-42 Monocyte% 8 % 0-10 Eosinophil% 8 % High 0-5 Basophil% 2 % 0-2 Platelet Estimate NORMAL Polychromasia 0-1+ Hypochromia 1+ Anisocytosis 2+ Differential Comment lrg plts seen CBS W/Automated Diff 12/08/2017 [facility] White Blood Count 8.2 K/uL 3.1- 10.7 [...] 40.4-72.8 Lymph % 14.1 % Low 20.0-42.0 Glascock % 8.4 % 4.3-13.2 Eo% 6.1 % 0.0-6.6 Bas% 3.2 % High 0.0-1.1 Neut# 5.61 K/uL 1.8-7.0 Lymph # 1.16 K/uL 1.0-4.0 Glascock # 0.69 K/uL 0.3-0.9 Eos # 0.50 K/uL 0.0-0.5 Baso # 0.26 K/uL High 0.0-0.1 Laboratory test finding 12/08/2017 [facility] Slide Review DIFF ORDERED 29 Laboratory test finding 11/25/2017 [facility] Lipase 156 U/L 56-289 30 HCG,Serum (Qualitative) NEGATIVE (Negative) Comprehensive Metabolic Panel 11/25/2017 [facility] Glucose 91 mg/dL 74- 106 BUN 5 [...] 76 U/L 45-117 CBS W/Automated Diff 11/25/2017 [facility] White Blood Count 6.2 K/uL 3.1- 10.7 [...] % 40.4-72.8 Lymph % 23.7 % 20.0-42.0 Glascock % 9.5 % 4.3-13.2 Eo% 7.4 % High 0.0-6.6 Bas% 2.9 % High 0.0-1.1 Neut# 3.51 K/uL 1.8-7.0 Lymph # 1.47 K/uL 1.0-4.0 Glascock # 0.59 K/uL 0.3-0.9 Eos # 0.46 K/uL 0.0-0.5 Baso # 0.18 K/uL High 0.0-0.1 Laboratory test 11/19/2017 [facility] Lactic Acid 0.5 mmol/L 0.5- 2.0 32 finding CBC Auto Diff 11/19/2017 [facility] White Blood 7.1 10^3/uL 3.5- 10.8 [...] Red Blood Cells % 0 Inr/Protime 11/19/2017 [facility] Inr 1.02 0.77-1.02 Laboratory test 11/19/2017 [facility] Partial 31.4 seconds 26.0- 36.3 finding Thrombo Time PTT Comp Metabolic 11/19/2017 [facility] Sodium 136 mmol/L 135-145 Panel Potassium [...] 19.8 >60 33 Laboratory test finding 11/19/2017 [facility] Lipase 19 U/L 11.0- 82.0 Troponin-I (TnI) 0.01 ng/mL <0.04 HCG 0.91 mIU/mL 34 C Reactive Protein 7.99 mg/L <8.01 Procalcitonin 0.7 ng/mL High <0.6 35 Erythrocyte Sed Rate 20 mm/Hr High 0-14 Blood Culture SEE RESULT BELOW 36 Laboratory test finding 11/16/2017 [facility] Ethyl Alcohol < 3.0 mg/dL 37 Comprehensive Metabolic 11/16/2017 [facility] Glucose 101 mg/dL 74-106 Panel BUN 15 [...] Phosphatase 62 U/L 45-117 Laboratory test 11/16/2017 [facility] Lipase 557 U/L High 56-289 39 finding CBS W/Automated Diff 11/16/2017 [facility] White Blood Count 6.1 K/uL 3.1- 10.7 [...] % 40.4-72.8 Lymph % 20.9 % 20.0-42.0 Glascock % 12.1 % 4.3-13.2 Eo% 9.3 % High 0.0-6.6 Bas% 2.0 % High 0.0-1.1 Neut# 3.40 K/uL 1.8-7.0 Lymph # 1.28 K/uL 1.0-4.0 Glascock # 0.74 K/uL 0.3-0.9 Eos # 0.57 K/uL High 0.0-0.5 Baso # 0.12 K/uL High 0.0-0.1 Laboratory test 11/16/2017 [facility] Slide Review . 40 finding CBC Auto Diff 11/13/2017 [facility] White Blood 7.9 3.5-10.8 Count 10^3/uL [...] Cells % 0 Comp Metabolic Panel 11/13/2017 [facility] Sodium 135 mmol/L 135- 145 Potassium [...] 10.3 >60 41 Laboratory test finding 11/13/2017 [facility] Magnesium 2.3 mg/dL 1.9-2.7 Amylase 33 [...] slightly Hemolyzed, interpret with caution CALLED TOSHA Victor AT 0750 01/11/18 by LAB.YURIY 7 THERAPEUTIC INR RANGE: 2.0 - 3.0 [...] 01/12/18 6:08PM Report Signed Electronically Performed at [facility] Pathology Services [id number] [place] [address] 9 DEHYDRATED, EMESIS 10 BODY HURTS ALL [...] IU/L, respectively (97.5th percentiles). Test Performed by: [facility] - [address] [address] 12 PANCREATITIS? 13 Note: Persistent reduction for [...] at [email or web address]. 14 CALLED LIP TO CRISTY N. AT 1056 12/13/17 by LAB.ELR 15 Method: Quidel QuickVue One-Step Immunoassay 16 [...] WBC's seen. RBC morphology essentially normal. Platelet [id number]=566 CHECKED,PLT EST. AGREES WITH INSTRUMENT VALUE. 22 SEIZURE 23 Limit of Detection 0.5 Mean plasma concentrations following maintenance dose 200 mg/day 4.99 +/- 2.51 ug/mL 400 mg/day 9.35 +/- 4.22 ug/mL 600 mg/day 12.46 +/- 5.60 ug/mL This test was developed and its performance characteristics determined by [employer]. It has not been cleared or approved by the Food and Drug Administration. Performed at: [address] [id number] Gunnery/Ordnance Officer: Efrem Garcia MD, Phone: [phone] Is patient on anticoagulants? Coumadin 25 [...] information may be found at [email or web address]. 32 [facility] Severe Sepsis and Septic Shock [...] 20 mIU/mL 35 Interpretive information available on [employer] Lab Test Catalog at [email or web address] 36 SEE RESULT BELOW Name: ZAYDA GARCIA Valente : [address]: Deepak Lewis MD Acct: [id number] Unit: [id number] AGE: 22 Location: [place] [address] Re11/20/17 Dis: 11/21/17 SEX: F Status: DIS IN SPEC: [id number] VIOLA: 11/20/[address] [facility] [address]: Robert Gaytan MD REQ: [id number] RECD: 11/20/17 STATUS: DAIJA WATSON DR: Lucero Wolf MD _ SOURCE: BLOOD,VENO SPDESC: ORDERED: Blood Cult Procedure Result Reported Site Aerobic Culture Bottle Final 11/25/17- 934 ML No Growth Day 5 Anaerobic Culture Bottle Final 11/25/17934 ML No Growth Day 5 * ML - Main Lab . END OF REPORT DEPARTMENT OF PATHOLOGY, [address] [place] [address] Boris Yoon M.D. Director [facility] # [id number] 37 POSSIBLE PANCREATITIS, HAS PERMACATH 38 Note: [...] developed and its performance characteristics determined by [facility] in a manner consistent with CLIA requirements. This test has not been cleared or approved by the U.S. Food and Drug Administration. Test Performed by: [facility] [address] [place] [address] Procedures Date Code Description Status 03/13/2018 61314 Spirometry Completed 03/13/2018 00815 Tympanometry Completed 12/08/2017 82536 Visual Screening Test Completed 12/08/2017 36261 Audiometry, Bekesy, Screening Completed Encounters Type Date Location Provider Dx Diagnosis Office Visit 03/13/2018 [facility] Efrem Villarreal, I10 Essential ( primary) 2:45p N.P. 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 I31.3 Pericardial effusion (noninflammatory) J21.9 Acute bronchiolitis, unspecified J32.4 Chronic pansinusitis R06.02 Shortness of breath R05 Cough Office Visit 03/02/2018 2:00p [facility] Lucero Wolf I10 Essential ( primary) Bj Yoo 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 I10 Essential ( primary) Armando Yoo. 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 at [facility]03/13/2018 - Cristian EvansP.I10 Essential (primary) hypertensionComments:CHECK BP TIW ( PRN)DIET AND FLUID COUNSELING LOW SODIUM DIETWT LOSSF/U LABE78.2 Mixed hyperlipidemiaComments:DIET REVIEWED CONTINUE DIETWT LOSSF/U LAB FBWN18.6 End stage renal diseaseComments:F/U WITH NEPHROLOGYHEMODIALYSISF/U WITH TRANSPLANT TEAMR60.0 Localized edemaComments: ELEVATE LE PRNELASTIC STOCKING / EDUARDO WRAP PRNF/U LAB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pecifiedComments:EXERCISE/HEAT/MESSAGE F/U WITH REMATOLOGY COUNCELLING AND TDHJEYGWTOIA98.909 Epilepsy, unspecified, not intractable, without status epileComments:F/U WITH NEUROLOGY PRNOBSERVE SAFETY SMPCWHK08.009 Migraine without aura, not intractable, without status migraComments:TYLENOL OR MOTRIN PRNRELAXATION/AVOID WZULFNKLHH40.0 Gastro- esophageal reflux disease with esophagitisComments:AVOID CAFFEINE, ETOH AND SPICY FOODSTUMS OR MYLANTA PRN CALL WITH PROBLEMS OR BNKNEYLMU17 Functional dyspepsiaComments:AVOID CAFFEINE, ETOH AND SPICY FOODSTUMS OR MYLANTA PRN CALL WITH PROBLEMS OR HAFCGRXTQ53.84 GastroparesisComments:CONTINUE MEDICATIONS F/U WITH JWRATTBCLMVEJBJRUXR72.00 Constipation, unspecifiedComments:MOM OR MIRALAX PRNHIGH FIBER DIETINCREASE PO PPSWYY19.9 Unspecified hemorrhoidsComments:AVOID CONSTIPATOIN INCREASE FIBER IN DIETLAXATIVE PRNLUBRICATE ANAL AREA WITH LOTION PRN FOR HNCJQUMT51 Anuria and oliguriaComments:OBSERVEHEMODIALYSIS PER HQVLIKRKGUR50.1 Other chronic pancreatitisComments:AVOID ETOH ABUSE F/U WITH GI PRNZ99.2 Dependence on renal dialysisComments:F/U WITH NOGYKCPXBAC56.1 Secondary amenorrheaComments:OBSERVEF/U WITH OB/GYNL20.9 Atopic dermatitis, unspecifiedComments:SKIN CARE INSTRUCTIONS LOTION OR BABY OIL 2-3 APPLICATION PER DAYUSE MOISTURIZING SOAPAVOID PROLONGED WATER EXPOSUREAVOID USING HOT WATER IN BLWUFXF18.9 Allergic rhinitis, unspecifiedComments:INCREASE PO FLUID USE ANTIHISTAMINE PRN SECOND HAND SMOKING DNTIOSJKMD32.643 Pain in unspecified handComments:EXERCISE/HEAT/MESSAGETYLENOL OR MOTRIN PRNAVOID HEAVY LIFTINGWT LOSS DUR AWWXBKRC90.606 Pain in leg, unspecifiedComments:TYLENOL OR MOTRIN PRN EXERCISE/HEAT/MESSAGE DUR VORLHUOK04.9 Anxiety disorder, unspecifiedComments: COUNCELLING AND REASSURANCE RELAXATION TECHNIQUES DISCUSSEDCOUNSELED RE: STRESSORS IN LIFE AVOID ALLENERGY/HIGH CAFFEINE PUXKQXW07.9 Major depressive disorder, recurrent, unspecifiedComments:COUNCELLING AND REASSURANCE RELAXATION TECHNIQUES DISCUSSED COUNSELED RE: STRESSORS IN LIFEH53.30 Unspecified disorder of binocular visionComments:USE GLASSES/CONTACTSF/U WITH JZMCWPEWTUKAFO52.3 Pericardial effusion (noninflammatory)Comments:OBSERVE F/U WITH CARDIOLOGY OBSERVE F/U WITH BMVOVYLEMPH18.9 Acute bronchiolitis, aoclabeehkjM80.4 Chronic pansinusitisNew Medication:Claritin 10 mg - 1 by mouth every dayR06.02 Shortness of breathComments:INCREASE PO DMJPAHONRP74 CoughNew Medication: Azithromycin 250 mg - z anselmo uadTessalon Perles 100 mg - 1 tab by mouth four times a day as neededGuaifenex LA 600 mg - 1 tab by mouth twice a day as directed
--- NOTE | 2018-03-26 11:52 | ED ---
Shortness of Breath - HPI Summary HPI Summary: A 22 y/o female presents to [facility] with a chief complaint of SOB since the night of 03/25/18. She rates her pain as a constant 6/10. Her pain worsens with movement. The patient was previously diagnosed with PNA on 03/15/18 at [facility]. The patient has been on abx but finished taking them on 03/25/18. She also c/o CP which worsens when inhaling and coughing. She is tachycardic in the ED but claims that this is her baseline. She denies any fevers. - History of Current Complaint Chief Complaint: EDUpperRespComplaint Time Seen by Provider: 03/26/18 11:14 Hx Obtained From: Patient Onset/Duration: Sudden Onset, Lasting Hours, Still Present Current Severity: Moderate Associated Signs & Symptoms: Chest Pain w/Cough - Allergy/Home Medications Allergies/Adverse Reactions: Allergies Allergy/AdvReac Type Severity Reaction Status Date / Time bee venom protein (honey bee) Allergy Rash Verified 03/26/18 11:00 fentanyl Allergy GI Upset Verified 03/26/18 11:00 lisinopril Allergy Coughing Verified 03/26/18 11:00 nifedipine Allergy Rash Verified 03/26/18 11:00 povidone-iodine Allergy Hives Verified 03/26/18 11:00 [From Betadine] soap [From Betadine] Allergy Hives Verified 03/26/18 11:00 PMH/Surg Hx/FS Hx/Imm Hx Endocrine/Hematology History: Reports: Hx Blood Transfusions, Hx Thyroid Disease - Hyperthyroid, Hx Anemia, Other Endocrine/Hematological Disorders - Henoch Schonlein Purpura (autoimmune) Cardiovascular History: Reports: Hx Cardiomegaly, Hx Hypertension, Other Cardiovascular Problems/Disorders - Tachycardia Respiratory History: Reports: Hx Pneumonia - 11/20/2017, Hx Sleep Apnea - Undiagnosed sleep apnea, Other Respiratory Problems/Disorders - PNEUMONIA 2017 GI History: Reports: Other GI Disorders - Ascites, Pancreatitis Denies: Hx Jaundice History: Reports: Hx Acute Renal Failure, Hx Chronic Renal Failure, Hx Dialysis - Hemodialysis, Hx Renal Disease, Other Problems/Disorders - Kidney transplant 2013, right kidney works at 10% Musculoskeletal History: Reports: Hx Arthritis - RA right knee, Hx Tendonitis - Right knee Sensory History: Reports: Hx Contacts or Glasses Denies: Hx Deafness, Hx Hearing Aid Opthamlomology History: Reports: Hx Contacts or Glasses Neurological History: Reports: Hx Headaches, Hx Migraine, Hx Seizures Psychiatric History: Reports: Hx Anxiety, Hx Depression - Surgical History Surgery Procedure, Year, and Place: kidney 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/2013, 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, kidney bx x4 Hx Anesthesia Reactions: No Infectious Disease History: No Infectious Disease History: Reports: Hx Shingles Denies: Traveled Outside the [place] in Last 30 Days - Family History Known Family History: Positive: Hypertension Negative: Renal Disease - Social History Alcohol Use: None Hx Substance Use: No Substance Use Type: Reports: None Hx Tobacco Use: No Smoking Status (MU): Never Smoked Tobacco Review of Systems Negative: Fever Positive: Chest Pain, Other - positive: tachycardic Positive: Shortness Of Breath, Cough All Other Systems Reviewed And Are Negative: Yes Physical Exam - Summary Physical Exam Summary: Appearance: The patient is well-nourished in no acute distress and in no acute pain. Skin: The skin is warm and dry and skin color reflects adequate perfusion. HEENT: The head is normocephalic and atraumatic. The pupils are equal and reactive. The conjunctivae are clear and without drainage. Nares are patent and without drainage. Mouth reveals moist mucous membranes and the throat is without erythema and exudate. The external ears are intact. The ear canals are patent and without drainage. The tympanic membranes are intact. Neck: The neck is supple with full range of motion and non-tender. There are no carotid bruits. There is no neck vein distension. Respiratory: Chest is non-tender. Lungs are clear to auscultation and breath sounds are symmetrical and equal. Cardiovascular: Tachycardic. There is no murmur or rub auscultated. There is no peripheral edema and pulses are symmetrical and equal. Abdomen: The abdomen is soft and non-tender. There are normal bowel sounds heard in all four quadrants and there is no organomegaly palpated. Musculoskeletal: There is no back tenderness noted. Extremities are non-tender with full range of motion. There is good capillary refill. There is no peripheral edema or calf tenderness elicited. Neurological: Patient is alert and oriented to person, place and time. The patient has symmetrical motor strength in all four extremities. Cranial nerves are grossly intact. Deep tendon reflexes are symmetrical and equal in all four extremities. Psychiatric: The patient has an appropriate affect and does not exhibit any anxiety or depression. Triage Information Reviewed: Yes Vital Signs On Initial Exam: Initial Vitals Temp Pulse Resp BP Pulse Ox 99.1 F 118 18 121/92 92 03/26/18 11:00 03/26/18 11:00 03/26/18 11:00 03/26/18 11:00 03/26/18 11:00 Vital Signs Reviewed: Yes Diagnostics - Vital Signs Vital Signs Temp Pulse Resp BP Pulse Ox 03/26/18 11:00 99.1 F 118 18 121/92 92 - Laboratory Result Diagrams: 03/26/18 12:31 03/26/18 12:31 Lab Statement: Any lab studies that have been ordered have been reviewed, and results considered in the medical decision making process. - Radiology CXR Radiology Interpretation Completed By: Radiologist Summary of Radiographic Findings: FINDINGS SUGGESTIVE OF PULMONARY EDEMA WITH POSSIBLE SUPERIMPOSED PNEUMONIA. AT THE RIGHT LUNG BASE. ED physician has reviewed this imaging report. Course/Dx - Course Course Of Treatment: Ms. Garcia presented to the emergency department stating that she had been diagnosed with pneumonia at [place] emergency department previously. Her antibiotics have just finished and she is still feeling short of breath perhaps even more so. She was nontoxic in appearance on arrival and her vital signs were reasonably stable although her pulse ox was low on room air at rest. She states that her symptoms get much worse with activity. Chest x-ray revealed a right lower lobe infiltrate and also pulmonary edema. She did not have a leukocytosis. I think the infiltrate on her chest x-ray is likely residual and her current problem is pulmonary edema and asked the hospitalist to evaluate her for admission. - Diagnoses Provider Diagnoses: PNA (pneumonia), Pulmonary edema, Respiratory insufficiency - Physician Notifications Discussed Care of Patient With: Bonnie Craig Time Discussed With Above Provider: 13:50 Instructed by Provider To: Admit As Inpatient - Critical Care Time Critical Care Time: 30-74 min Discharge - Sign-Out/Discharge Documenting (check all that apply): Patient Departure - Admit - Discharge Plan Condition: Fair Disposition: ADMITTED TO [facility] - Billing Disposition and Condition Condition: FAIR Disposition: Admitted to [facility] - Attestation Statements Document Initiated by Scribe: Yes Documenting Scribe: Guilherme Baum Provider For Whom Scribe is Documenting (Include Credential): MD Marlon Pandya Attestation: I, Guilherme Baum, scribed for Danny Winslow MD on 03/26/18 at 2127. Scribe Documentation Reviewed: Yes Provider Attestation: The documentation as recorded by the scribe, Guilherme Baum accurately reflects the service I personally performed and the decisions made by me, Danny Winslow MD Status of Scribe Document: Viewed
[2018-03-26 13:08] LABS: ABS Basophils 0.2 10^3/ul (0-0.2); ABS Eosinophils 0.4 10^3/ul (0-0.6); ABS Monocytes 0.5 10^3/ul (0-0.8); ABS Neutrophils 10.9 10^3/ul (1.5-7.7); ABS Nucleated RBC 0 10^3/ul; Eosinophil % 3.3 %; Hematocrit 23 % (35-47); Hemoglobin 7.6 g/dl (12.0-16.0); Mean Corpuscular HGB Conc 33 g/dl (31-36); Mean Corpuscular Hemoglobin 29 pg (27-31); Mean Corpuscular Volume 89 fL (80-97); Mean Platelet Volume 7.9 fL (7.4-10.4); Nucleated Red Blood Cells % 0; Platelet Count 524 10^3/ul (150-450); Red Blood Count 2.61 10^6/ul (4.00-5.40); Red Cell Distribution Width 16 % (10.5-15); White Blood Count 13.1 10^3/ul (3.5-10.8)
[2018-03-26 13:28] LABS: EGFR Non-African American 9.3 (>60)
[2018-03-26] MEDS ORDERED: Albuterol 2.5 MG/3 ML NEB.SOL* (0.083%) INH PRN (14:05)
[2018-03-26] MEDS ORDERED: Promethazine TAB* 25 MG PO PRN (14:26)
[2018-03-26] MEDS ORDERED: Bisacodyl SUPP* 10 MG SUPP PR PRN (14:26)
[2018-03-26] MEDS ORDERED: Benzonatate CAP* 100 MG PO PRN (14:26)
[2018-03-26] MEDS ORDERED: Cyclobenzaprine TAB* 10 MG PO PRN (14:26)
[2018-03-26] MEDS ORDERED: Labetalol IV* 5 MG/ML 20 ML VIAL IV PUSH ONE ×2 (14:37→17:15)
[2018-03-26] MEDS ORDERED: MinoXIDil TAB* 10 MG TAB PO ONE (14:41)
[2018-03-26] MEDS ORDERED: cloNIDine 0.2 MG PATCH* 0.2 MG/24 HR 7 DAY PATCH TRANSDERM SCH (15:00)
[2018-03-26] MEDS: Acetaminophen TAB* 325 MG PO PRN (15:50)
[2018-03-26] MEDS: cefTRIAXone(*) 1 GM in NS 0.9% 50 ML* 50 ML IVPB SCH (16:18)
[2018-03-26] MEDS: Famotidine TAB* 20 MG PO SCH (18:17)
[2018-03-26] MEDS: Carvedilol TAB* 25 MG PO SCH (19:40)
--- NOTE | 2018-03-26 20:54 | HP ---
CC: Dr. Kaur.* HISTORY AND PHYSICAL: DATE OF ADMISSION: 03/26/18 TIME OF ADMISSION: 2:30 p.m. CHIEF COMPLAINT: Shortness of breath. HISTORY OF PRESENT ILLNESS: This is a 22-year-old female with history of end- stage renal disease related to Henoch-Schonlein purpura who presents to the ED with 1 day of worsening shortness of breath. She was treated for a pneumonia in [place] ED on 03/15/18. She states she took 2 antibiotics, but does not know which ones they were. One of them was a 5-day course and one was a 9-day course. She finished both antibiotics and was feeling better. Then, last night at about 9 p.m., she got short of breath and had to sleep upright and this morning, the shortness of breath worsened, so she came to the emergency department. She states her blood pressure has been elevated in its usual ranges , but not higher than usual. She does not think she ate any particularly salty meals that could have caused this. She has not missed any dialysis sessions. She does have a cough, but states she is not producing any sputum and she has not had any fevers at home. She has had no chest pain. As a background of her end-stage renal disease, she was diagnosed with HSP at age 5 and required dialysis beginning at age 16 and then received a renal transplant at age 17. Unfortunately, HSP returned and the transplant failed by age 18 when she returned to dialysis. She has been on PD several times; however , she has been HD since last summer. Of note, she had a recent admission to [facility] for hypertensive emergency where she had intraparenchymal hemorrhage and pericardial effusion and a pericardial window was placed, this is all per her and her family's report. I also discussed the case with Dr. Kaur, who provided some more history. He states that her dry weight is 60.5 kg and on Tuesday when she came off of dialysis she was 59.5 kg. PAST MEDICAL HISTORY: 1. HSP, complicated by end-stage renal disease. 2. History of pancreatitis. 3. Intraparenchymal hemorrhages related to hypertensive emergency. 4. Seizures relating to hypertensive emergency. 5. Hypertension. 6. GERD. 7. Pericardial effusion requiring a pericardial window. PAST SURGICAL HISTORY: She has had a PermCath, a failed renal transplant. HOME MEDICATIONS: 1. Coreg 25 mg b.i.d. 2. Clonidine 0.2 transdermally weekly. 3. Losartan 100 mg daily. 4. Amlodipine 10 mg daily. 5. Minoxidil 5 mg b.i.d. SOCIAL HISTORY: She does not smoke. She does not use alcohol. She does not use any illicit drugs. She lives with her mom, who is also her emergency contact. Her name is Pancho. REVIEW OF SYSTEMS: She denies fevers, chills, nausea, vomiting, constipation, diarrhea, chest pain. Review of systems is positive for orthopnea, dyspnea on exertion, and a nonproductive cough. PHYSICAL EXAMINATION GENERAL: Alert, well-appearing, young female, in no distress. She is nontoxic appearing. VITAL SIGNS: Temperature 99.1, heart rate 118, respiratory rate 18, pulse ox 92 % on room air, her presenting blood pressure was 121/92, her current blood pressure is 219/155. HEENT: Pupils are equal, round, and reactive to light. Her oral mucosa is moist. She has no pharyngeal exudates and no mucosal lesions. NECK: JVP to approximately 8 cm; however, she is sitting upright. No adenopathy. LUNGS: Her lungs have crackles at both bases. CHEST: She is tachycardic with no murmurs. ABDOMEN: Soft, nontender, nondistended. She has multiple healed incisions. A PermCath is present over her right chest wall. EXTREMITIES: She has 1+ lower extremity edema bilaterally. NEUROLOGIC: She is oriented x3. Her strength is 5/5 in all extremities. LABORATORY DATA/DIAGNOSTIC STUDIES: White blood cells 13.1, hemoglobin 7.6, platelets 524. Sodium 139, potassium 4.2, chloride 100, BUN 30, creatinine 5.72 , glucose 93. BNP 4989. Chest x-ray, findings suggestive of pulmonary edema with possible superimposed pneumonia at the right lung base. EKG shows sinus tach at 120 with a normal axis, normal intervals, she does have a Q in lead 3, she has no ST or T wave changes, and no chamber hypertrophy. ASSESSMENT AND PLAN: This is a 22-year-old female with history of end-stage renal disease related to Henoch-Schonlein purpura who presents to the emergency department with shortness of breath and was found to have pulmonary edema and pneumonia 2 weeks after being treated for community-acquired pneumonia. 1. Community-acquired pneumonia. She does not meet systemic inflammatory response syndrome criteria. I am giving her ceftriaxone for a typical pneumonia. I do not think atypical coverage is indicated. I am checking a sputum culture if she is able to produce one. I am not giving her fluids because I think she is quite volume overloaded. 2. Hypertensive urgency. She has a longstanding history of poorly controlled hypertension and multiple admissions for hypertensive urgency and emergency. She has no evidence of end-organ dysfunction at this time; however, she has very risk with this elevated blood pressure. I am giving her labetalol 10 mg IV now and I have also discussed the case with Dr. Kaur, who recommends minoxidil 10 mg p.o. now and to increase her minoxidil to 5 mg p.o. t.i.d. I am admitting her to the ICU in case she needs a labetalol drip, as she has in the past. She denies missing any medications or missing any dialysis sessions or any eating any salty meals. 3. Volume overload. She again has not missed any dialysis sessions. Unfortunately, she makes no urine. So, I cannot attempt to diurese her. She will need dialysis first thing in the morning. I do not see a need for emergent VP ANALYSIS, as she is saturating well on 2 L and has no increased work of breathing. Her electrolytes are acceptable. 4. History of pericardial effusion with a pericardial window. We will get an echo tomorrow to be sure that the effusion has not recurred and that the window is functioning properly. 5. Seizure disorder. This is only in the setting of hypertension and she is not on any antiepileptics. We need to get her blood pressure under better control. 6. DVT prophylaxis. Heparin subcutaneously. 7. She is a full code. I am admitting her to the ICU for hypertensive urgency with a nephrology consult. [id number]/[facility] #: [id number] MANAN
[2018-03-26] MEDS: Lacosamide TAB* 100 MG TAB PO SCH (22:32)
[2018-03-26] MEDS: Heparin VIAL(*) 5000 UNITS/ML VIAL (FIVE THOUSAND) SUBCUT SCH (22:33)
[2018-03-26] MEDS: MinoXIDil TAB* 2.5 MG TAB PO SCH (22:36)
[2018-03-26] MEDS: Docusate CAP* 100 MG PO SCH (22:37)
[2018-03-27] MEDS ORDERED: Labetalol IV* 5 MG/ML 20 ML VIAL IV PUSH ONE (00:50)
[2018-03-27] MEDS: Heparin VIAL(*) 5000 UNITS/ML VIAL (FIVE THOUSAND) SUBCUT SCH ×3 (05:25→21:17)
[2018-03-27] MEDS ORDERED: traMADol TAB* 50 MG PO ONE (05:31)
[2018-03-27 06:39] LABS: ABS Basophils 0 10^3/ul (0-0.2); ABS Eosinophils 0.5 10^3/ul (0-0.6); ABS Monocytes 0.4 10^3/ul (0-0.8); ABS Neutrophils 8.4 10^3/ul (1.5-7.7); ABS Nucleated RBC 0 10^3/ul; Eosinophil % 4.3 %; Hematocrit 22 % (35-47); Hemoglobin 7.3 g/dl (12.0-16.0); Mean Corpuscular HGB Conc 34 g/dl (31-36); Mean Corpuscular Hemoglobin 30 pg (27-31); Mean Corpuscular Volume 89 fL (80-97); Mean Platelet Volume 7.8 fL (7.4-10.4); Nucleated Red Blood Cells % 0; Platelet Count 449 10^3/ul (150-450); Red Blood Count 2.44 10^6/ul (4.00-5.40); Red Cell Distribution Width 16 % (10.5-15); White Blood Count 10.4 10^3/ul (3.5-10.8)
[2018-03-27 06:46] LABS: EGFR Non-African American 7.4 (>60)
[2018-03-27] MEDS: Folic Acid TAB* 1 MG PO SCH (09:03)
[2018-03-27] MEDS: amLODIPine TAB* 5 MG PO SCH (09:03)
[2018-03-27] MEDS: Docusate CAP* 100 MG PO SCH ×2 (09:03→21:15)
[2018-03-27] MEDS: Carvedilol TAB* 25 MG PO SCH ×2 (09:03→21:16)
[2018-03-27] MEDS: Lacosamide TAB* 100 MG TAB PO SCH ×2 (09:03→21:16)
[2018-03-27] MEDS: Losartan TAB* 25 MG PO SCH (09:03)
[2018-03-27] MEDS: Omeprazole CAP* 20 MG PO SCH (09:04)
[2018-03-27] MEDS: MinoXIDil TAB* 2.5 MG TAB PO SCH ×3 (09:53→21:16)
[2018-03-27] MEDS ORDERED: Epoetin Alfa* 10,000 UNITS/ML VIAL IV ONE (11:00)
[2018-03-27] MEDS ORDERED: Heparin DIALYSIS ONLY(*) 1,000 UNITS/ML VIAL DIALYSIS ONE (11:00)
[2018-03-27] MEDS: Acetaminophen TAB* 325 MG PO PRN (13:15)
[2018-03-27] MEDS: cefTRIAXone(*) 1 GM in NS 0.9% 50 ML* 50 ML IVPB SCH (14:44)
--- NOTE | 2018-03-27 17:33 | PN ---
Subjective Date of Service: 03/27/18 Interval History: Pt is still coughing, but overall feels much better. concerned about possibility to go home today, due to continuation of cough Objective Active Medications: Acetaminophen (Tylenol Tab*) 650 mg PO Q4H PRN PRN Reason: FEVER/PAIN Last Admin: 03/27/18 13:15 Dose: 650 mg Albuterol (Ventolin 2.5 Mg/3 Ml Neb.Constanza*) 2.5 mg INH [id number] AWAKE PRN PRN Reason: sob/wheezing Last Admin: 03/26/18 23:52 Dose: 2.5 mg Amlodipine Besylate (Norvasc Tab*) 10 mg PO DAILY [facility] Last Admin: 03/27/18 09:03 Dose: 10 mg Benzonatate (Tessalon Cap*) 100 mg PO TID PRN PRN Reason: COUGH Bisacodyl (Dulcolax Supp*) 10 mg TX DAILY PRN PRN Reason: CONSTIPATION Carvedilol (Coreg Tab*) 25 mg PO BID [facility] Last Admin: 03/27/18 09:03 Dose: 25 mg Clonidine HCl (Xxpinswx-Zbe-6 0.2 Mg Patch*) 0.2 mg TRANSDERM Q168H [facility] Last Admin: 03/26/18 15:52 Dose: Not Given Cyclobenzaprine HCl (Flexeril Tab*) 2.5 mg PO QPM PRN PRN Reason: SPASMS - MUSCLE Darbepoetin William (Aranesp Albumin Free*) 40 mcg SUBCUT WEEKLY [facility] Docusate Sodium (Colace Cap*) 100 mg PO BID [facility] Last Admin: 03/27/18 09:03 Dose: Not Given Famotidine (Pepcid Tab*) 20 mg PO QPM [facility] Last Admin: 03/26/18 18:17 Dose: 20 mg Folic Acid (Folvite Tab*) 1 mg PO DAILY [facility] Last Admin: 03/27/18 09:03 Dose: 1 mg Heparin Sodium (Porcine) (Heparin Vial(*)) 5,000 units SUBCUT Q8HR [facility] Last Admin: 03/27/18 14:28 Dose: 5,000 units Ceftriaxone Sodium 1 gm/ (Sodium Chloride) 50 mls @ 200 mls/hr IVPB Q24H [facility] Last Admin: 03/27/18 14:44 Dose: 200 mls/hr Lacosamide (Vimpat Tab*) 100 mg PO BID [facility] Last Admin: 03/27/18 09:03 Dose: 100 mg Losartan Potassium (Cozaar Tab*) 100 mg PO DAILY [facility] Last Admin: 03/27/18 09:03 Dose: 100 mg Minoxidil (Loniten Tab*) 5 mg PO TID [facility] Last Admin: 03/27/18 14:28 Dose: 5 mg Omeprazole (Prilosec Cap*) 20 mg PO DAILY [facility] Last Admin: 03/27/18 09:04 Dose: 20 mg Promethazine HCl (Phenergan Tab*) 25 mg PO Q6H PRN PRN Reason: headache/nausea Vital Signs - 8 hr 03/27/18 03/27/18 14:33 15:30 Temperature 98 F 98.4 F Pulse Rate 99 105 Respiratory 16 16 Rate Blood Pressure 163/101 141/82 (mmHg) O2 Sat by Pulse 99 97 Oximetry Oxygen Devices in Use Now: Nasal Cannula Appearance: 22 yo F in nAD, AAOx3, when taken off 02 during visit, 02 sats were 91 % on RA, when lying in bed Eyes: No Scleral Icterus, PERRLA Ears/Nose/Mouth/Throat: NL Teeth, Lips, Gums, Mucous Membranes Moist Neck: NL Appearance and Movements; NL JVP, Trachea Midline Respiratory: Symmetrical Chest Expansion and Respiratory Effort, - - left LL crackles noted Cardiovascular: NL Sounds; No Murmurs; No JVD Abdominal: NL Sounds; No Tenderness; No Distention, No Hepatosplenomegaly Lymphatic: No Cervical Adenopathy Extremities: No Edema, No Clubbing, Cyanosis Skin: No Rash or Ulcers, No Nodules or Sclerosis, - - r subclavian dialyis cath in place , no skin infection noted at insertion site Neurological: Alert and Oriented x 3, NL Muscle Strength and Tone Result Diagrams: 03/27/18 06:21 03/27/18 06:21 Microbiology and Other Data: Microbiology 03/26/18 12:31 Blood Culture - Preliminary Blood Venous No Growth Day 1 Assess/Plan/Problems-Billing Assessment: This is a 22 year old female with hx of HSP, ESRD, pancreatitis, seizures and HTN that presentedwith SOB and cough. Recent d/c from [facility] for pneumonia 7 days prior. - Patient Problems (1) Pneumonia Comment: CRP 59, procalcitonin indeterminate will cont Ceftriaxone. Pt was placed on Doxy and Cefuroxime cont to monitor for one more day (2) Fluid overload Comment: s/p HD today, repeat CXR still shows fluid overload. cont to monitor (3) Hypertensive urgency Comment: Medications adjusted as per Dr Kaur's recommendations to include minoxidil. current SBP 140. cont to monitor on Norvasc, minoxidil, losartan, Coreg, clonidine patch (4) Anemia Comment: due to ESRD-pt was tx with Epogen today (5) Seizure disorder Comment: - Stable on vimpat (6) DVT prophylaxis Comment: low risk, ambulation Status and Disposition: inpatient
[2018-03-27] MEDS: Famotidine TAB* 20 MG PO SCH (17:36)
--- NOTE | 2018-03-27 17:50 | ECHO ---
Patient: CRISTINA BAILEY [facility] Rec#: [id number] : 1995 Date: 03/27/2018 Age: 22y Height: 155 cm / 61.0 in Weight: 59 kg / 130.0 lbs Sex: F BSA: 1.57 Room#: 453 Admit Date#: 03/26/2018 Type: Inpatient Referring: Bonnie Craig MD Reading: Bhupinder Salgado MD Restoration Technician: Marie Chao,JONATHANCS,RDMS CC: Lucero Wolf MD Transthoracic Echocardiogram Indication: SOB BP: 179/122 HR: 103 Rhythm: Tachycardia Findings History: Pericardial effusion, pericardial window, ESRD, renal transplant, HTN Technical Comments: The study quality is good. Left Ventricle: The left ventricular chamber size is normal. Moderate concentric left ventricular hypertrophy is observed. Global left ventricular wall motion and contractility are within normal limits. There is normal left ventricular systolic function. The estimated ejection fraction is 55-60%. There is septal flattening of the interventricular septum consistent with right ventricular volume or pressure overload. The assessment of diastolic function is non-diagnostic. Left Atrium: The left atrium is mild to moderately dilated. Right Ventricle: The right ventricular chamber size and systolic function are within normal limits. The right ventricle wall thickness is mildly increased. Right Atrium: The right atrium is mild to moderately dilated. Aortic Valve: The aortic valve is trileaflet. Systolic excursion of the aortic valve is normal. There is mild aortic regurgitation. There is no evidence of aortic stenosis. Mitral Valve: The mitral valve leaflets appear normal. There is trace to mild mitral regurgitation. There is no evidence of mitral stenosis. Tricuspid Valve: The tricuspid valve leaflets are normal. There is mild to moderate tricuspid regurgitation. There is evidence of borderline pulmonary hypertension. Pulmonic Valve: The pulmonic valve appears normal. There is a trace pulmonic regurgitation. Pericardium: There is a small pericardial effusion. Aorta: The aortic root appears normal. There is no dilatation of the aortic arch. Pulmonary Artery: The main pulmonary artery appears normal. Venous: The inferior vena cava appears normal in size. There is a greater than 50% respiratory change in the inferior vena cava dimension. Conclusions Moderate concentric left ventricular hypertrophy is observed. Global left ventricular wall motion and contractility are within normal limits. There is normal left ventricular systolic function. The estimated ejection fraction is 55-60%. There is septal flattening of the interventricular septum consistent with right ventricular volume or pressure overload. There is mild aortic regurgitation. There is trace to mild mitral regurgitation. There is mild to moderate tricuspid regurgitation. There is a small pericardial effusion. Compared to study of 11/14/17, the LV function and valve structures are the same. The pericardial effusion is much smaller. (s/p pericardial window since last study) Measurements Name Value Normal Range RVIDd (AP) 2D 3.1 cm (0.9 - 2.6) RVDdMajor (2D) 2.4 cm (2.2 - 4.4) RAd ISD 4CH 6.8 cm (3.4 - 4.9) RA (A4C)W 3.2 cm (2.9 - 4.6) IVSd (2D) 1.2 cm (0.6 - 1) LVPWd (2D) 1.6 cm (0.6 - 1) LVIDd (2D) 4.6 cm (3.6 - 5.4) LVIDs (2D) 3.4 cm - LV FS (2D) 26 % (25 - 45) Aortic Annulus 2 cm (1.4 - 2.6) Ao root diameter (2D) 3.3 cm (2.1 - 3.5) Ascending Ao 2.6 cm (2.1 - 3.4) Aortic arch 2.7 cm (1.8 - 3.4) LA dimension (AP) 2D 4 cm (2.3 - 3.8) LAd ISD 4CH 6.5 cm (2.9 - 5.3) LA ISD 4CH W 5.5 cm (2.5 - 4.5) Name Value Normal Range LA ESV BP (A/L) index 41 ml/m2 - Name Value Normal Range LV lateral e' Vmax 0.04 m/sec - LV average e' Vmax 0.05 m/sec - Name Value Normal Range AV Vmax 1.7 m/sec - AV VTI 24 cm - AV peak gradient 12 mmHg - AV mean gradient 7 mmHg - LVOT Vmax 1.5 m/sec - LVOT VTI 25 cm - LVOT peak gradient 9 mmHg - LVOT mean gradient 6 mmHg - EMELIA Vmax 1 m/sec - Name Value Normal Range MV Vmax 1.3 m/sec - MV VTI 22 cm - MV peak gradient 7 mmHg - MV mean gradient 3 mmHg - Name Value Normal Range TR Vmax 2.5 m/sec - TR peak gradient 25 mmHg - RAP 8 mmHg - RVSP 33 mmHg - IVC diameter 1.3 cm - Name Value Normal Range PV Vmax 1.2 m/sec - PV peak gradient 6 mmHg -
[2018-03-28] MEDS: Heparin VIAL(*) 5000 UNITS/ML VIAL (FIVE THOUSAND) SUBCUT SCH ×2 (05:20→14:14)
[2018-03-28 07:16] LABS: Hematocrit 22 % (35-47); Hemoglobin 7.6 g/dl (12.0-16.0); Mean Corpuscular HGB Conc 34 g/dl (31-36); Mean Corpuscular Hemoglobin 30 pg (27-31); Mean Corpuscular Volume 89 fL (80-97); Mean Platelet Volume 7.7 fL (7.4-10.4); Platelet Count 424 10^3/ul (150-450); Red Cell Distribution Width 16 % (10.5-15); White Blood Count 7.1 10^3/ul (3.5-10.8)
[2018-03-28 07:27] LABS: EGFR Non-African American 11.4 (>60)
[2018-03-28] MEDS: Docusate CAP* 100 MG PO SCH (07:43)
[2018-03-28] MEDS: MinoXIDil TAB* 2.5 MG TAB PO SCH ×2 (08:13→14:14)
[2018-03-28] MEDS: amLODIPine TAB* 5 MG PO SCH (08:13)
[2018-03-28] MEDS: Folic Acid TAB* 1 MG PO SCH (08:13)
[2018-03-28] MEDS: Carvedilol TAB* 25 MG PO SCH (08:14)
[2018-03-28] MEDS: Omeprazole CAP* 20 MG PO SCH (08:14)
[2018-03-28] MEDS: Losartan TAB* 25 MG PO SCH (08:14)
[2018-03-28] MEDS: Lacosamide TAB* 100 MG TAB PO SCH (08:14)
[2018-03-28] MEDS ORDERED: Carvedilol TAB* 6.25 MG PO SCH (10:00)
[2018-03-28 11:29] VITALS: BP 139/87
--- NOTE | 2018-03-29 08:56 | DS ---
CC: Dr. Lucero Wolf; Dr. Kaur; Dr. Burgess * DISCHARGE SUMMARY: DATE OF ADMISSION: 03/26/18 DATE OF DISCHARGE: 03/28/18 PRIMARY CARE PROVIDER: Dr. Lucero Wolf. DISCHARGE DIAGNOSES: 1. Pneumonia. 2. Fluid overload in a patient on hemodialysis. SECONDARY DIAGNOSES: 1. The patient has end-stage renal disease, currently on hemodialysis on Mondays, Wednesdays, and Fridays. 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 2. History of pancreatitis, recurrent when the patient was on peritoneal dialysis. 3. History of intraparenchymal hemorrhage as related to hypertensive emergency. 4. History of seizure secondary to hypertensive emergency. 5. Hypertension. 6. Gastroesophageal reflux disease. 7. History of pericardial effusion requiring pericardial window in the past. 8. Status post PermCath placed in the right subclavian area. 9. 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 MEDICATIONS AT DISCHARGE: Include: 1. Acetaminophen on a p.r.n. basis. 2. Tessalon Perles on a p.r.n. basis. 3. Dulcolax 10 mg suppository on a p.r.n. basis. 4. Coreg was increased to a total of 37.5 mg b.i.d. 5. Vitamin D3 of 5000 units weekly. 6. Clonidine patch 0.2 mg weekly. 7. Flexeril 2.5 mg q.p.m. 8. Aranesp on an as needed basis as per the patient's sample patternmaker, recommendation with dialysis. 9. Colace 100 mg b.i.d. 10. Pepcid 20 mg q.p.m. 11. Folic acid 1 mg daily. 12. Vimpat 100 mg b.i.d. 13. Losartan 100 mg daily. 14. Protonix 40 mg daily. 15. Norvasc 10 mg daily. 16. Levofloxacin 250 mg every 4 to 8 hours for a total of 3 days, then stop. 17. Minoxidil 5 mg 3 times a day. 18. Phenergan 25 mg every 6 hours p.r.n. LABORATORY DATA AND STUDIES PERFORMED DURING THE HOSPITAL STAY: Included: On 03/28/18: Sodium of 141, potassium 4.8, chloride 103, carbon dioxide 27, BUN 21 , creatinine 4.78. The patient's procalcitonin level was 0.3, beta-HCG 1.5. Brain natriuretic peptide was above 4989 obtained on 03/26/18. C-reactive protein was 58.8 on 03/27/18. CBC on 03/28/18: White blood cell count of 7.1, hemoglobin of 7.6, hematocrit of 22, and platelets 424,000. Blood cultures were negative growth and sputum cultures are pending at the time of dictation. Most recent portable chest x-ray obtained on 03/27/18 showed persistent right lower lobe pneumonia. Transthoracic echocardiogram obtained on 03/26/18 showed EF of 55% to 60% with septal flattening of the interventricular septum consistent with right ventricular volume or pressure overload. There was normal left ventricular systolic function. Mild to moderate tricuspid regurgitation and mild mitral regurgitation and a small pericardial effusion. HOSPITALIZATION COURSE: Zayda Garcia is a 22-year-old female with history of end-stage renal disease on hemodialysis who was at [facility] [place] 2 weeks ago, discharged a week prior to current presentation. She stated that she was on antibiotics posthospitalization at [facility] for pneumonia and that was cefuroxime and doxycycline. She finished the antibiotics on Tuesday and she came into the hospital on Tuesday with shortness of breath and cough. Her chest x-ray showed persistent right lower lobe infiltrate. She had leukocytosis at admission. She was readmitted for community acquired pneumonia. She was treated with ceftriaxone and azithromycin and her leukocytosis resolved and her symptoms resolved. She also had fluid overload which improved greatly after her dialysis on 03/27/18. She continued to be mildly tachycardic and she stayed overnight until her echocardiogram result on 03/28/18 showed no significant pericardial effusion which was a consideration as the patient was fluid overloaded at admission. Due to that she was treated with doxycycline and cefuroxime as outpatient, the patient is going to be placed on Levaquin at discharge. Please also note that Dr. Kaur, our sample patternmaker was consulted on the patient at admission and recommended treating the patient with minoxidil. The patient used to be on minoxidil for her uncontrolled hypertension until January 2018 when it was stopped after she was hospitalized at [facility] at that point also. Please also note that the patient had uncontrolled hypertension during the hospital stay which was much improved after minoxidil treatment and increasing the patient's Coreg by the time of discharge. At discharge, the patient is going to be on minoxidil 5 mg 3 times a day and Coreg is going to be increased from 25 mg b.i.d. to 37.5 mg b.i.d. Apart from Levaquin for the next 3 does, other medications are unchanged. The patient is recommended to follow up with Dr. Wolf, the patient's primary care provider as well as the patient's sample patternmaker. I believe the patient is switching between Dr. Kaur and a sample patternmaker in [place]. PHYSICAL EXAMINATION: At the time of discharge, blood pressure of 139/87, heart rate 106 and regular, respiratory rate 18, oxygen saturation is 86% on room air, temperature of 99.3. General: The patient is a very pleasant 22-year -old female who is in no acute distress. Alert, awake, and oriented x3. HEENT : Head atraumatic and normocephalic. Eyes: Pupils are equal and reactive to light and accommodation. Oropharynx clear. Mucosa moist. Neck: Supple. No JVD. No bruits bilaterally. Cardiovascular: Regular rate and rhythm. No murmur. Respiratory: Crackles at the right lower base, otherwise clear. Abdomen: Soft and nontender. Bowel sounds present in all 4 quadrants. Extremities: There is no edema. Pulses are +2 bilaterally. No clubbing or cyanosis. On evaluation of the skin, the patient has PermCath in the right subclavian area with no evidence of skin infection. Neurological Evaluation: Cranial nerves II through XII grossly intact. Motor strength is 5/5 bilaterally. Please note that this is a short summary of the patient's hospital stay. Please refer to further medical records for details. TIME SPENT: Approximately 40 minutes were spent on the patient's discharge. [id number]/[facility] #: [id number] [facility]
[2018-03-31] MEDS ORDERED: DARBEPOETIN ALFA SUBCUT SCH (15:00)
== END 2018-03-28 14:38 | disposition home or self-care (01) | DRG 193 ==
LOC: ED 10:53 → MEDTELE 14:05
PROVIDERS: ADMIT Internal Medicine; ATTEND Internal Medicine
PROC: 5A1D70Z Performance of Urinary Filtration, Intermittent, Less than 6 Hours Per Day (ICD-10-PCS; principal; 2018-03-27)
DX: J18.9 Pneumonia, unspecified organism (principal); N18.6 End stage renal disease; I13.11 Hypertensive heart and chronic kidney disease without heart failure, with stage 5 chronic kidney disease, or end stage renal disease; T86.12 Kidney transplant failure; J90 Pleural effusion, not elsewhere classified; D69.0 Allergic purpura; I12.0 Hypertensive chronic kidney disease with stage 5 chronic kidney disease or end stage renal disease; E87.70 Fluid overload, unspecified; Z99.2 Dependence on renal dialysis; K21.9 Gastro-esophageal reflux disease without esophagitis; I08.1 Rheumatic disorders of both mitral and tricuspid valves; Z79.899 Other long term (current) drug therapy; I16.0 Hypertensive urgency; D63.1 Anemia in chronic kidney disease; G40.909 Epilepsy, unspecified, not intractable, without status epilepticus
CPT/HCPCS: 36415; 71045; 71046; 80048; 80053; 83605; 83880; 84145; 84702; 85025; 85027; 86140; 87040; 87070; 87205; 93005; 93306; 94640; 99284; A9270-GY; J0696; J0885; J1644

== ENCOUNTER 2018-04-02 13:39 | Observation (INO) | payer MEDICARE, MEDICAID ==
--- OUTSIDE RECORDS SUMMARY | 2018-04-02 14:04 | XMS REPORT | Continuity of Care Document ---
:1995 External Reference #:[id number] Author Name Efrem Villarreal N.P. Address [address] [place] [address] [address] [place] [address] Care Team Providers Name Role Phone Lucero Wolf MD Primary Care Physician Unavailable Payers Type Date Identification Numbers Payment Provider Subscriber Policy Number: [id number] Medicare Zayda Garcia PayID: [id number] [address] [place] [address] Policy Number: [id number] Medicaid After Medicare Zayda Garcia Group Name: 2 1 40 [facility] PayID: [id number] [place] [address] Advance Directives Description No Information Available Problems Date Description Provider Status Onset: 12/08/2017 Essential hypertension Lucero Wlof M.D. Active Family History Date Family Member(s) [...] Form Strength Qnty SIG Indications Ordering Provider Claritin 03/13/ Active Tablets 10mg 30tabs 1 by mouth J32.4 Ruperto Wolf every day Lucero Yoo M.D. Ampicillin 03/13/ Active Capsules 500mg 4caps 4 Caps By [id number] Luciano2017 Mouth Prior Lucero Yoo, To Dental M.Dariana Procedure Vimpat 02/24/ Active Tablets 50mg 8tabs 1 1/2 tab Luciano2017 by mouth Lucero Yoo, every day M.DMarjan Clonidine HCL 12/27/ Active Patches 0.3mg/24HR 1 every I10 [facility]2017 Weekly week Lucero Yoo M.D. Minoxidil 12/27/ Active Tablets 2.5mg 60tabs 2 tab by I10 Luciano2017 mouth twice Lucero Yoo a Bj day-Nephrol ogy Amlodipine / Active Tablets 10mg take 1 I10 Unknown Besylate 0000 tablet by mouth daily Carvedilol / Active Tablets 25mg 180tab 1 tab by I10 Unknown 0000 s mouth twice a day Ondansetron / Active Tablets 4mg dissolve 1 K31.84 Unknown 0000 Dispers tablet On Tongue every 8 hours if needed for nausea R11.0 Famotidine Active Tablets 20mg 180tabs 1 tab by mouth twice K21.0 Unknown a day K30 Calcium Antacid Active Chewtabs 500mg 1 tab by mouth twice a K30 Unknown day as needed K21.0 K31.84 Renvela Active Tablets 800mg 1 tab by N18.6 Unknown mouth every other day Vitamin D Active Capsules [id number] take 1 N18.6 Unknown (Ergocalciferol) capsule by mouth Every [address] 40mg take 1 K21.0 Unknown Sodium tablet by mouth twice a day before meals K30 K31.84 Levofloxacin Active Tablets 250mg take 1 Unknown tablet by mouth Every 48 Hours Clonidine Active Patches Weekly 0.2mg/24 Unknown HR Losartan Active Tablets 100mg Unknown Potassium Promethazine HCL Active Tablets 25mg take 1 Unknown tablet by mouth every 6 hours if needed for headache or nausea Laxative Active Suppository 10mg Unknown Mapap Active Tablets 325mg take 2 Unknown tablets by mouth every 6 hours if needed for Up To 10 days Losartan Active Tablets 50mg take 2 Unknown Potassium tablets by mouth daily Valsartan Active Tablets 320mg Unknown Doxazosin Active Tablets 8mg take 1 Unknown Mesylate tablet by mouth once daily Omeprazole-Sodium Active Capsules 40-1100m take 1 Unknown Bicarbonate g capsule by mouth twice a day Bisacodyl Ec Active Tablets DR 5mg Unknown Senna-Lax Active Tablets 8.6mg Unknown Vitamin D3 Active Tablets 1000Unit Unknown Magnesium Oxide Active Tablets 400mg take 1 Unknown tablet by mouth daily Folic Acid Active Tablets 1mg take 1 Unknown tablet by mouth once daily Neomycin/Polymyxi Active Suspension 3.5-1000 instill 1 Unknown n/Dexamethasone 0-0.1 drop into right eye three times a day Prednisone Active Tablets 20mg take 1 Unknown tablet by mouth once daily Metoprolol Active Tablets 50mg take 1 Unknown Tartrate tablet by mouth twice a day Metoclopramide Active Tablets 5mg take 1 Unknown HCL tablet by mouth three times a day before meals Please Take 20 Minutes Prior To Meals Azithromycin 03/13/2018 - Hx Tablets 250mg 6ta z anselmo uad [facility] Luciano, 03/18/2018 bs Lucero Yoo M.D. Tessalon Perles 03/13/2018 - Hx Capsules 100mg 42c 1 tab by [facility] Luciano, 03/30/2018 aps mouth four Ahmad M., times a day M.D. as needed Guaifenex LA 03/13/2018 - Hx Tablets ER 600mg 14t 1 tab by Allie Wolf, 03/30/2018 12HR abs mouth twice Ahmad M., a day as M.D. directed Clonidine HCL - Hx Tablets 0.2mg take 1 E78 Unknown 12/27/2017 tablet by .2 mouth three times a day Labetalol HCL - Hx Tablets 300mg take 1 Unknown 12/25/2017 tablet by mouth every 8 hours Hydralazine HCL - Hx Tablets 100mg tab by I10 Unknown 03/30/2018 mouth three times a day Potassium - Hx Tablets ER 20Meq 90t 2 tab by Unknown Chloride Yue ER 12/25/2017 abs mouth every morning Vimpat - Hx Tablets 100mg 1 tab by G40 Unknown 02/23/2018 mouth every .90 day 9 Doxazosin - Hx Tablets 8mg take 1 Unknown Mesylate 12/25/2017 tablet by mouth once daily Bisacodyl Ec - Hx Tablets DR 5mg Unknown 12/25/2017 Senna-Lax - Hx Tablets 8.6mg 100 1 tab by K31 Unknown 03/30/2018 tab mouth every .84 s evening K59.00 Magnesium Oxide - Hx Tablets 400mg take 1 tablet by N18.6 Unknown 03/30/2018 mouth daily E83.42 Folic Acid - Hx Tablets 1mg take 1 Unknown 12/25/2017 tablet by mouth once daily Metoclopramide HCL - Hx Tablets 5mg take 1 Unknown 12/25/2017 tablet by mouth three times a day before meals Please Take 20 Minutes Prior To Meals Terazosin HCL - Hx Capsules 1mg 1 tab by I10 Unknown 03/30/2018 mouth every evening Hydralazine HCL - Hx Tablets 100mg Unknown 03/30/2018 Doxycycline Hyclate - Hx Tablets 100mg take 1 Unknown 03/30/2018 tablet by mouth twice a day for 9 Doses Cefuroxime Axetil - Hx Tablets 250mg take 1 Unknown 03/30/2018 tablet by mouth daily for 5 days Azithromycin - Hx Tablets 250mg take 2 Unknown 03/30/2018 tablets by mouth today then take 1 tablet Daily For 4 Days Benzonatate - Hx Capsules 100mg take 1 Unknown 03/30/2018 capsule by mouth four times a day if needed Dok - Hx Capsules 100mg take 1 Unknown 03/30/2018 capsule by mouth twice a day for 10 days Cyclobenzaprine HCL - Hx Tablets 5mg take 1/2 Unknown 03/30/2018 tablet by mouth Nightly if needed for Muscle Spasms For Up To 10 days Labetalol HCL - Hx Tablets 300mg Take 1 And Unknown 03/30/2018 1/2 Tablets Every 8 Hours Fluticasone - Hx Suspension 50mcg/Ac spray 2 Unknown Propionate 03/30/2018 t sprays into each nostril twice a day . May Use For Up To 3 Weeks Potassium Chloride - Hx Tablets ER 20Meq take 2 Unknown Yue ER 03/30/2018 tablets For One Dose Immunizations CPT Code Status Date Vaccine Lot # U-HPV Given 08/18/2009 HPV,Unspecified U-HPV Given 04/21/2009 HPV,Unspecified U-Flu Given 04/21/2009 Influenza,Unspecified U-Menin Given 02/18/2009 Meningococcal,Unspecified U-HPV Given 02/18/2009 HPV,Unspecified U-Flu Given 02/18/2009 Influenza,Unspecified [id number] Given 02/15/2008 Td 7 Years And Older 28049 Given 05/20/2000 MMR U-DTaP Given 05/20/2000 DTaP,Unspecified U-Polio Given 05/20/2000 Polio,Unspecified 24593 Given 12/18/1996 MMR U-Polio Given 05/24/1996 Polio,Unspecified U-HepB Given 05/24/1996 Hepatitis B,Unspecified U-DTaP Given 05/24/1996 DTaP,Unspecified U-Polio Given 03/23/1996 Polio,Unspecified U-Polio Given 01/17/1996 Polio,Unspecified U-HepB Given 01/17/1996 Hepatitis B,Unspecified U-DTaP Given 01/17/1996 DTaP,Unspecified U-HepB Given 1995 Hepatitis B,Unspecified Vital Signs Date Vital Result Comment 03/31/2018 3:17pm BP Systolic 180 mmHg BP Diastolic 110 mmHg Height 61 inches 5'1" Weight 133.00 lb BMI (Body Mass Index) 25.1 kg/m2 Heart Rate 103 /min Respiratory Rate 16 /min 03/13/2018 2:14pm BP Systolic 220 mmHg BP [...] Date Facility Test Result H/L Range Note CBC Auto Diff 03/26/2018 [facility] White Blood 13.1 10^3/uL High 3.5 -10.8 Count Red Blood Count 2.61 10^6/uL Low 4.00-5.40 Hemoglobin 7.6 g/dL Low 12.0-16.0 Hematocrit 23 % Low 35-47 Mean Corpuscular Volume 89 fL N 80-97 Mean Corpuscular Hemoglobin 29 pg N 27-31 Mean Corpuscular HGB Conc 33 g/dL N 31-36 Red Cell Distribution Width 16 % High 10.5-15 Platelet Count 524 10^3/uL High 150-450 Mean Platelet Volume 7.9 fL N 7.4-10.4 Abs Neutrophils 10.9 10^3/uL High 1.5-7.7 Abs Lymphocytes 1.0 10^3/uL N 1.0-4.8 Abs Monocytes 0.5 10^3/uL N 0-0.8 Abs Eosinophils 0.4 10^3/uL N 0-0.6 Abs Basophils 0.2 10^3/uL N 0-0.2 Abs Nucleated RBC 0 10^3/uL Granulocyte % 83.2 % Lymphocyte % 8.0 % Monocyte % 4.0 % Eosinophil % 3.3 % Basophil % 1.5 % Nucleated Red Blood Cells % 0 Comp Metabolic Panel 03/26/2018 [facility] Sodium 139 mmol/L N 135- 145 Potassium 4.2 mmol/L N 3.5-5.0 Chloride 100 mmol/L Low 101-111 Co2 Carbon Dioxide 28 mmol/L N 22-32 Anion Gap 11 mmol/L N 2-11 Glucose 93 mg/dL N 70-100 Blood Urea Nitrogen 30 mg/dL High 6-24 Creatinine 5.72 mg/dL High 0.51-0.95 BUN/Creatinine Ratio 5.2 Low 8-20 Calcium 9.8 mg/dL N 8.6-10.3 Total Protein 6.3 g/dL Low 6.4-8.9 Albumin 3.3 g/dL N 3.2-5.2 Globulin 3.0 g/dL N 2-4 Albumin/Globulin Ratio 1.1 N 1-3 Total Bilirubin 0.40 mg/dL N 0.2-1.0 Alkaline Phosphatase 89 U/L N 34-104 Alt 6 U/L Low 7-52 Ast 12 U/L Low 13-39 Egfr Non- 9.3 >60 Egfr 11.2 >60 1 Laboratory test 03/26/2018 [facility] C Reactive 21.97 mg/L High < 8.01 finding Protein Laboratory test 03/26/2018 [facility] Lactic Acid 0.8 mmol/L N 0.5- 2.0 2 finding B-Type Natriuretic Peptide BNP > 4989 pg/mL High <=100 Pediatric Blood Culture SEE RESULT BELOW 3 Blood Culture 03/15/2018 [place] Blood Culture Aerobic NO GROWTH: FINAL < SEE 4, 5 NOTE> Blood Culture Anaerobic NO GROWTH: FINAL <SEE NOTE> 6 Respiratory Culture W/Gram 03/15/2018 [place] Gram Stain >10 SQUAMOUS EPI <SEE 7 St NOTE> Gram Stain >25 WBC/LPF Gram Stain MANY GRAM POSITI <SEE NOTE> 8 Gram Stain MODERATE GRAM PO <SEE NOTE> 9 Gram Stain FEW GRAM NEGATIV <SEE NOTE> 10 Gram Stain FEW YEAST LIKE O <SEE NOTE> 11 Gram Stain INDICITIVE OF OR <SEE NOTE> 12 Respiratory Culture RESPIRATORY JEFF <SEE NOTE> 13 Laboratory test 03/15/2018 [place] D-Dimer, Quantitative 5.40 ug/mL High 14 finding Differential-WBC 03/15/2018 [place] Total Cells Counted 100 #CELLS Confirm Band% 16 % High 0-8 Neutrophils% 72 % N 33-73 Lymph% 7 % Low 20-42 Monocyte% 3 % N 0-10 Eosinophil% 1 % N 0-5 Basophil% 1 % N 0-2 Platelet Estimate NORMAL Polychromasia 1+ Anisocytosis 0-1+ Target Cells 1+ Tear Drop Cells 1+ Ovalocytes 1+ Toxic Granulation 1+ Slide Review 03/15/2018 [place] Slide Review DIFF ORDERED CBS W/Automated 03/15/2018 [place] White Blood Count 15.4 K/uL High 3.1- 10.7 Diff Red Blood Count 2.58 M/uL Low 3.90-5.40 Hemoglobin 7.6 gm/dL Low 11.6-15.8 Hematocrit 24.1 % Low 36.0-46.1 Mean Cell Volume 93.4 fl N 80.9-99.0 Mean Corpuscular HGB 29.5 pg N 25.9-32.7 Mean Corpuscular HGB Conc 31.5 g/dL N 30.8-34.3 Platelet Count 441 K/uL High 155-360 Red Cell Distri Width SD 50.5 fl High 3-47 Red Cell Distri Width %CV 15.4 % High 11.7-14.4 Mean Platelet Volume 9.1 fL N 8.9-12.4 Neut% 86.9 % High 40.4-72.8 Lymph % 6.2 % Low 20.0-42.0 [place] % 4.2 % Low 4.3-13.2 Eo% 1.7 % N 0.0-6.6 Bas% 1.0 % N 0.0-1.1 Neut# 13.42 K/uL High 1.8-7.0 Lymph # 0.95 K/uL Low 1.0-4.0 [place] # 0.64 K/uL N 0.3-0.9 Eos # 0.26 K/uL N 0.0-0.5 Baso # 0.15 K/uL High 0.0-0.1 Laboratory test finding 03/15/2018 [place] Lipase 65 U/L N 56-289 Troponin-I 0.124 ng/mL 15 HCG,Serum (Qualitative) NEGATIVE (Negative) 16 Comprehensive Metabolic Panel 03/15/2018 [place] Glucose 89 mg/dL N 74- 106 BUN 28 mg/dL High 7-18 Creatinine 5.9 mg/dL High 0.6-1.3 Glom Filtration Rate, Estimate 10 mL/min >60 If 11 mL/min >60 17 BUN/Creat 4.7 ratio Sodium 136 mmol/L N 136-145 Potassium 3.5 mmol/L N 3.5-5.1 Chloride 95 mmol/L Low 98-107 Carbon Dioxide 25 mmol/L N 21-32 Anion Gap 16 mEq/L N 8-16 Calcium 9.2 mg/dL N 8.5-10.1 Total Protein 7.5 g/dL N 6.4-8.2 Albumin 2.8 g/dL Low 3.4-5.0 Globulin 4.7 g/dL High 1.9-4.3 Alb/Glob 0.6 ratio Bilirubin,Total 0.7 mg/dL N 0.2-1.0 Sgot/Ast 13 U/L Low 15-37 18 SGPT/Alt 10 U/L Low 12-78 19 Alkaline Phosphatase 106 U/L N 45-117 Lactic Acid 03/15/2018 [place] Lactic Acid 1.3 mmol/L N 0.4-1.9 Lab Reflex >2.0 for Sepsis? Y Laboratory test 01/11/2018 [place] Path Review: INDICATED,SLIDE 20, 21 finding <SEE NOTE> Protime 01/11/2018 [place] Protime 17.6 seconds High 12.0- 14.4 Inr 1.5 High 0.9-1.1 22 Differential-WBC Confirm 01/11/2018 [place] Total Cells Counted 100 # CELLS Myelocyte% 2 % 0% Metamyelocyte% 1 % 0% Band% 4 % N 0-8 Neutrophils% 70 % N 33-73 Lymph% 14 % Low 20-42 Monocyte% 6 % N 0-10 Eosinophil% 1 % N 0-5 Basophil% 2 % N 0-2 Nucleated Red Blood Cell 9 % High -0 Platelet Estimate MOD DECREASE Polychromasia 0-1+ Hypochromia 0-1+ Anisocytosis 0-1+ Slide Review 01/11/2018 [place] Slide Review DIFF ORDERED CBS W/Automated 01/11/2018 [place] White Blood Count 23.4 K/uL High 3.1- 10.7 Diff Red Blood Count 3.48 M/uL Low 3.90-5.40 Hemoglobin 10.8 gm/dL Low 11.6-15.8 Hematocrit 33.1 % Low 36.0-46.1 Mean Cell Volume 95.1 fl N 80.9-99.0 Mean Corpuscular HGB 31.0 pg N 25.9-32.7 Mean Corpuscular HGB Conc 32.6 g/dL N 30.8-34.3 Platelet Count 85 K/uL Low 155-360 Red Cell Distri Width SD 58.0 fl High 3-47 Red Cell Distri Width %CV 17.4 % High 11.7-14.4 Mean Platelet Volume 11.6 fL N 8.9-12.4 Neut% 78.4 % High 40.4-72.8 Lymph % 9.7 % Low 20.0-42.0 [place] % 8.3 % N 4.3-13.2 Eo% 1.8 % N 0.0-6.6 Bas% 1.8 % High 0.0-1.1 Neut# 18.30 K/uL High 1.8-7.0 Lymph # 2.28 K/uL N 1.0-4.0 [place] # 1.95 K/uL High 0.3-0.9 Eos # 0.43 K/uL N 0.0-0.5 Baso # 0.43 K/uL High 0.0-0.1 Laboratory test finding 01/11/2018 [place] Troponin-I 0.281 ng/mL 23 HCG,Serum (Qualitative) NEGATIVE (Negative) 24 Comprehensive Metabolic Panel 01/11/2018 [place] Glucose 120 mg/dL High 74-106 BUN 24 mg/dL High 7-18 Creatinine 7.8 mg/dL High 0.6-1.3 Glom Filtration Rate, Estimate 7 mL/min >60 If 8 mL/min >60 25 BUN/Creat 3.0 ratio Sodium 142 mmol/L N 136-145 Potassium 6.0 mmol/L High 3.5-5.1 Chloride 104 mmol/L N 98-107 Carbon Dioxide 24 mmol/L N 21-32 Anion Gap 14 mEq/L N 8-16 Calcium 10.0 mg/dL N 8.5-10.1 Total Protein 6.8 g/dL N 6.4-8.2 Albumin 3.2 g/dL Low 3.4-5.0 Globulin 3.6 g/dL N 1.9-4.3 Alb/Glob 0.9 ratio Bilirubin,Total 0.8 mg/dL N 0.2-1.0 Sgot/Ast 64 U/L High 15-37 SGPT/Alt 44 U/L N 12-78 Alkaline Phosphatase 126 U/L High 45-117 Laboratory test 01/11/2018 [place] Salicylate < 1.7 mg/dL Low 2.8-20.0 26 finding Laboratory test 01/11/2018 [place] Acetaminophen < 2.0 ug/mL Low 10.0- 30.0 27 finding Ethyl Alcohol < 3.0 mg/dL Arterial Blood Gas 01/11/2018 [place] Arterial Blood Gas pH 7.40 N 7.35- 7.45 Arterial Blood Gas Pco2 36 mmHg N 35-45 Arterial Blood Gas Po2 146 mmHg High 80-105 ABG Hco3 22 mEq/L N 22-26 ABG Base Excess -2 mEq/L N -2-2 ABG O2 Saturation 99 % N 90-99 Allens Test Performed? YES Arterial Blood Gas Type VENT Arterial Blood Gas Fio2 40 % N 20-101 Arterial Blood Gas Del. VENT ABG Vent Mode A/C ABG Patient Resp Rate 8 /MIN ABG Vent Resp Rate 15 /MIN ABG Tidal Volume 450 mL Arterial Blood Gas Peep 5 cmH2O Arterial Blood Gas Site R.RAD.ART. CBS W/Automated Diff 12/27/2017 [place] White Blood Count 7.1 K/uL N 3.1 -10.7 28 Red Blood Count 2.74 M/uL Low 3.90-5.40 Hemoglobin 8.3 gm/dL Low 11.6-15.8 Hematocrit 25.8 % Low 36.0-46.1 Mean Cell Volume 94.2 fl N 80.9-99.0 Mean Corpuscular HGB 30.3 pg N 25.9-32.7 Mean Corpuscular HGB Conc 32.2 g/dL N 30.8-34.3 Platelet Count 217 K/uL N 155-360 Red Cell Distri Width SD 50.0 fl High 3-47 Red Cell Distri Width %CV 15.8 % High 11.7-14.4 Mean Platelet Volume 10.3 fL N 8.9-12.4 Neut% 65.9 % N 40.4-72.8 Lymph % 17.4 % Low 20.0-42.0 [place] % 9.6 % N 4.3-13.2 Eo% 4.7 % N 0.0-6.6 Bas% 2.4 % High 0.0-1.1 Neut# 4.64 K/uL N 1.8-7.0 Lymph # 1.23 K/uL N 1.0-4.0 [place] # 0.68 K/uL N 0.3-0.9 Eos # 0.33 K/uL N 0.0-0.5 Baso # 0.17 K/uL High 0.0-0.1 Lactic Acid 12/25/2017 [place] Lactic Acid 0.5 mmol/L N 0.4-1.9 29 Lab Reflex >2.0 for Sepsis? Y CBS W/Automated Diff 12/25/2017 [place] White Blood Count 7.5 K/uL N 3.1 -10.7 Red Blood Count 2.65 M/uL Low 3.90-5.40 Hemoglobin 8.0 gm/dL Low 11.6-15.8 Hematocrit 24.4 % Low 36.0-46.1 Mean Cell Volume 92.1 fl N 80.9-99.0 Mean Corpuscular HGB 30.2 pg N 25.9-32.7 Mean Corpuscular HGB Conc 32.8 g/dL N 30.8-34.3 Platelet Count 232 K/uL N 155-360 Red Cell Distri Width SD 45.2 fl N 3-47 Red Cell Distri Width %CV 14.8 % High 11.7-14.4 Mean Platelet Volume 10.4 fL N 8.9-12.4 Neut% 69.2 % N 40.4-72.8 Lymph % 15.4 % Low 20.0-42.0 [place] % 8.2 % N 4.3-13.2 Eo% 4.8 % N 0.0-6.6 Bas% 2.4 % High 0.0-1.1 Neut# 5.17 K/uL N 1.8-7.0 Lymph # 1.15 K/uL N 1.0-4.0 [place] # 0.61 K/uL N 0.3-0.9 Eos # 0.36 K/uL N 0.0-0.5 Baso # 0.18 K/uL High 0.0-0.1 Laboratory test 12/23/2017 [facility] TSH (Thyroid 1.03 mcIU/mL N 0.34-5.60 finding Stim Horm) Free T4 (Free Thyroxine) 1.13 ng/dL High 0.61-1.12 T3 Free 3.20 pg/mL N 2.5-3.9 T3 Total 95 ng/dL N 87-178 Thyroperoxidase AB 1.55 IU/mL N <9 Thyrotropin Receptor Antibody <1.00 IU/L 30 CBS W/Automated Diff 12/13/2017 [place] White Blood Count 5.4 K/uL N 3.1 -10.7 31 Red Blood Count 2.83 M/uL Low 3.90-5.40 Hemoglobin 8.4 gm/dL Low 11.6-15.8 Hematocrit 26.2 % Low 36.0-46.1 Mean Cell Volume 92.6 fl N 80.9-99.0 Mean Corpuscular HGB 29.7 pg N 25.9-32.7 Mean Corpuscular HGB Conc 32.1 g/dL N 30.8-34.3 Platelet Count 222 K/uL N 155-360 Red Cell Distri Width SD 47.6 fl High 3-47 Red Cell Distri Width %CV 14.7 % High 11.7-14.4 Mean Platelet Volume 10.0 fL N 8.9-12.4 Neut% 63.5 % N 40.4-72.8 Lymph % 14.9 % Low 20.0-42.0 [place] % 7.6 % N 4.3-13.2 Eo% 12.1 % High 0.0-6.6 Bas% 1.9 % High 0.0-1.1 Neut# 3.41 K/uL N 1.8-7.0 Lymph # 0.80 K/uL Low 1.0-4.0 [place] # 0.41 K/uL N 0.3-0.9 Eos # 0.65 K/uL High 0.0-0.5 Baso # 0.10 K/uL N 0.0-0.1 Comprehensive Metabolic Panel 12/13/2017 [place] Glucose 83 mg/dL N 74- 106 BUN 6 mg/dL Low 7-18 Creatinine 4.1 mg/dL High 0.6-1.3 Glom Filtration Rate, Estimate 14 mL/min >60 If 17 mL/min >60 32 BUN/Creat 1.4 ratio Sodium 136 mmol/L N 136-145 Potassium 3.5 mmol/L N 3.5-5.1 Chloride 101 mmol/L N 98-107 Carbon Dioxide 24 mmol/L N 21-32 Anion Gap 11 mEq/L N 8-16 Calcium 10.9 mg/dL High 8.5-10.1 Total Protein 7.5 g/dL N 6.4-8.2 Albumin 3.8 g/dL N 3.4-5.0 Globulin 3.7 g/dL N 1.9-4.3 Alb/Glob 1.0 ratio Bilirubin,Total 0.5 mg/dL N 0.2-1.0 Sgot/Ast 26 U/L N 15-37 SGPT/Alt 13 U/L N 12-78 Alkaline Phosphatase 90 U/L N 45-117 Laboratory test finding 12/13/2017 [place] Lipase 4283 U/L High 56-289 33 HCG,Serum (Qualitative) NEGATIVE (Negative) 34 Laboratory test 12/11/2017 [place] Slide Review . 35, 36 finding CBS W/Automated Diff 12/11/2017 [place] White Blood Count 8.5 K/uL N 3.1 -10.7 Red Blood Count 2.91 M/uL Low 3.90-5.40 Hemoglobin 9.0 gm/dL Low 11.6-15.8 Hematocrit 26.8 % Low 36.0-46.1 Mean Cell Volume 92.1 fl N 80.9-99.0 Mean Corpuscular HGB 30.9 pg N 25.9-32.7 Mean Corpuscular HGB Conc 33.6 g/dL N 30.8-34.3 Platelet Count 258 K/uL N 155-360 Red Cell Distri Width SD 47.2 fl High 3-47 Red Cell Distri Width %CV 14.9 % High 11.7-14.4 Mean Platelet Volume 10.7 fL N 8.9-12.4 Neut% 69.0 % N 40.4-72.8 Lymph % 13.7 % Low 20.0-42.0 [place] % 9.3 % N 4.3-13.2 Eo% 6.0 % N 0.0-6.6 Bas% 2.0 % High 0.0-1.1 Neut# 5.83 K/uL N 1.8-7.0 Lymph # 1.16 K/uL N 1.0-4.0 [place] # 0.79 K/uL N 0.3-0.9 Eos # 0.51 K/uL High 0.0-0.5 Baso # 0.17 K/uL High 0.0-0.1 Laboratory test finding 12/11/2017 [place] CK 155 U/L N 26-192 Troponin-I 0.026 ng/mL 37 HCG,Serum (Qualitative) NEGATIVE (Negative) 38 Comprehensive Metabolic Panel 12/11/2017 [place] Glucose 96 mg/dL N 74- 106 BUN 8 mg/dL N 7-18 Creatinine 5.3 mg/dL High 0.6-1.3 Glom Filtration Rate, Estimate 11 mL/min >60 If 13 mL/min >60 39 BUN/Creat 1.5 ratio Sodium 142 mmol/L N 136-145 Potassium 3.6 mmol/L N 3.5-5.1 40 Chloride 107 mmol/L N 98-107 Carbon Dioxide 22 mmol/L N 21-32 Anion Gap 13 mEq/L N 8-16 Calcium 11.3 mg/dL High 8.5-10.1 Total Protein 7.1 g/dL N 6.4-8.2 Albumin 3.8 g/dL N 3.4-5.0 Globulin 3.3 g/dL N 1.9-4.3 Alb/Glob 1.2 ratio Bilirubin,Total 0.6 mg/dL N 0.2-1.0 Sgot/Ast 30 U/L N 15-37 SGPT/Alt 13 U/L N 12-78 Alkaline Phosphatase 75 U/L N 45-117 Laboratory test 12/08/2017 [place] CK 118 U/L N 26-192 41 finding Laboratory test 12/08/2017 [place] Lacosamide None Detected 5.0-10.0 42 finding ug/mL Laboratory test 12/08/2017 [place] Act Partial 29.9 seconds N 23.4-35.0 43 finding Thrombo Time Protime 12/08/2017 [place] Protime 14.0 seconds N 12.0-14.4 Inr 1.1 N 0.9-1.1 44 Comprehensive Metabolic Panel 12/08/2017 [place] Glucose 99 mg/dL N 74- 106 BUN 6 mg/dL Low 7-18 Creatinine 5.1 mg/dL High 0.6-1.3 Glom Filtration Rate, Estimate 11 mL/min >60 If 14 mL/min >60 45 BUN/Creat 1.1 ratio Sodium 140 mmol/L N 136-145 Potassium 4.0 mmol/L N 3.5-5.1 Chloride 102 mmol/L N 98-107 Carbon Dioxide 26 mmol/L N 21-32 Anion Gap 12 mEq/L N 8-16 Calcium 12.2 mg/dL High 8.5-10.1 Total Protein 7.2 g/dL N 6.4-8.2 Albumin 3.8 g/dL N 3.4-5.0 Globulin 3.4 g/dL N 1.9-4.3 Alb/Glob 1.1 ratio Bilirubin,Total 0.7 mg/dL N 0.2-1.0 Sgot/Ast 24 U/L N 15-37 SGPT/Alt 13 U/L N 12-78 Alkaline Phosphatase 76 U/L N 45-117 Laboratory test finding 12/08/2017 [place] Magnesium 2.2 mg/dL N 1.8- 2.4 Troponin-I 0.030 ng/mL 46 Thyroid Stim Hormone 0.61 uIU/mL N 0.30-4.20 HCG,Serum (Qualitative) NEGATIVE (Negative) 47 Free T4 2.02 ng/dL High 0.76-1.46 Differential-WBC Confirm 12/08/2017 [place] Total Cells Counted 100 # CELLS Band% 2 % N 0-8 Neutrophils% 64 % N 33-73 Lymph% 16 % Low 20-42 Monocyte% 8 % N 0-10 Eosinophil% 8 % High 0-5 Basophil% 2 % N 0-2 Platelet Estimate NORMAL Polychromasia 0-1+ Hypochromia 1+ Anisocytosis 2+ Differential Comment lrg plts seen CBS W/Automated Diff 12/08/2017 [place] White Blood Count 8.2 K/uL N 3.1 -10.7 Red Blood Count 2.90 M/uL Low 3.90-5.40 Hemoglobin 8.9 gm/dL Low 11.6-15.8 Hematocrit 26.7 % Low 36.0-46.1 Mean Cell Volume 92.1 fl N 80.9-99.0 Mean Corpuscular HGB 30.7 pg N 25.9-32.7 Mean Corpuscular HGB Conc 33.3 g/dL N 30.8-34.3 Platelet Count 389 K/uL High 155-360 Red Cell Distri Width SD 44.6 fl N 3-47 Red Cell Distri Width %CV 14.5 % High 11.7-14.4 Mean Platelet Volume 9.4 fL N 8.9-12.4 Neut% 68.2 % N 40.4-72.8 Lymph % 14.1 % Low 20.0-42.0 [place] % 8.4 % N 4.3-13.2 Eo% 6.1 % N 0.0-6.6 Bas% 3.2 % High 0.0-1.1 Neut# 5.61 K/uL N 1.8-7.0 Lymph # 1.16 K/uL N 1.0-4.0 [place] # 0.69 K/uL N 0.3-0.9 Eos # 0.50 K/uL N 0.0-0.5 Baso # 0.26 K/uL High 0.0-0.1 Laboratory test finding 12/08/2017 [place] [facility] DIFF ORDERED 48 Laboratory test finding 11/25/2017 [place] Lipase 156 U/L N 56-289 49 HCG,Serum (Qualitative) NEGATIVE (Negative) Comprehensive Metabolic Panel 11/25/2017 [place] Glucose 91 mg/dL N 74- 106 BUN 5 mg/dL Low 7-18 Creatinine 4.5 mg/dL High 0.6-1.3 Glom Filtration Rate, Estimate 13 mL/min >60 If 16 mL/min >60 50 BUN/Creat 1.1 ratio Sodium 139 mmol/L N 136-145 Potassium 3.8 mmol/L N 3.5-5.1 Chloride 102 mmol/L N 98-107 Carbon Dioxide 29 mmol/L N 21-32 Anion Gap 8 mEq/L N 8-16 Calcium 12.5 mg/dL High 8.5-10.1 Total Protein 7.2 g/dL N 6.4-8.2 Albumin 3.6 g/dL N 3.4-5.0 Globulin 3.6 g/dL N 1.9-4.3 Alb/Glob 1.0 ratio Bilirubin,Total 0.4 mg/dL N 0.2-1.0 Sgot/Ast 18 U/L N 15-37 SGPT/Alt 16 U/L N 12-78 Alkaline Phosphatase 76 U/L N 45-117 CBS W/Automated Diff 11/25/2017 [place] White Blood Count 6.2 K/uL N 3.1 -10.7 Red Blood Count 3.37 M/uL Low 3.90-5.40 Hemoglobin 10.3 gm/dL Low 11.6-15.8 Hematocrit 31.8 % Low 36.0-46.1 Mean Cell Volume 94.4 fl N 80.9-99.0 Mean Corpuscular HGB 30.6 pg N 25.9-32.7 Mean Corpuscular HGB Conc 32.4 g/dL N 30.8-34.3 Platelet Count 300 K/uL N 155-360 Red Cell Distri Width SD 51.0 fl High 3-47 Red Cell Distri Width %CV 15.7 % High 11.7-14.4 Mean Platelet Volume 8.7 fL Low 8.9-12.4 Neut% 56.5 % N 40.4-72.8 Lymph % 23.7 % N 20.0-42.0 [place] % 9.5 % N 4.3-13.2 Eo% 7.4 % High 0.0-6.6 Bas% 2.9 % High 0.0-1.1 Neut# 3.51 K/uL N 1.8-7.0 Lymph # 1.47 K/uL N 1.0-4.0 [place] # 0.59 K/uL N 0.3-0.9 Eos # 0.46 K/uL N 0.0-0.5 Baso # 0.18 K/uL High 0.0-0.1 Laboratory test 11/19/2017 [facility] Lactic Acid 0.5 mmol/L N 0.5- 2.0 51 finding CBC Auto Diff 11/19/2017 [facility] White Blood 7.1 10^3/uL N 3.5- 10.8 Count Red Blood Count 2.73 10^6/uL Low 4.00-5.40 Hemoglobin 8.5 g/dL Low 12.0-16.0 Hematocrit 25 % Low 35-47 Mean Corpuscular Volume 91 fL N 80-97 Mean Corpuscular Hemoglobin 31 pg N 27-31 Mean Corpuscular HGB Conc 34 g/dL N 31-36 Red Cell Distribution Width 16 % High 10.5-15 Platelet Count 206 10^3/uL N 150-450 Mean Platelet Volume 7.2 um3 Low 7.4-10.4 Abs Neutrophils 4.5 10^3/uL N 1.5-7.7 Abs Lymphocytes 1.3 10^3/uL N 1.0-4.8 Abs Monocytes 0.7 10^3/uL N 0-0.8 Abs Eosinophils 0.4 10^3/uL N 0-0.6 Abs Basophils 0.3 10^3/uL High 0-0.2 Abs Nucleated RBC 0 10^3/uL Granulocyte % 62.9 % N 38-83 Lymphocyte % 17.6 % Low 25-47 Monocyte % 9.6 % High 0-7 Eosinophil % 6.1 % High 0-6 Basophil % 3.8 % High 0-2 Nucleated Red Blood Cells % 0 Inr/Protime 11/19/2017 [facility] Inr 1.02 N 0.77-1.02 Laboratory test 11/19/2017 [facility] Partial 31.4 seconds N 26.0- 36.3 finding Thrombo Time PTT Comp Metabolic 11/19/2017 [facility] Sodium 136 mmol/L N 135-145 Panel Potassium 3.6 mmol/L N 3.5-5.0 Chloride 99 mmol/L Low 101-111 Co2 Carbon Dioxide 29 mmol/L N 22-32 Anion Gap 8 mmol/L N 2-11 Glucose 97 mg/dL N 70-100 Blood Urea Nitrogen 5 mg/dL Low 6-24 Creatinine 3.53 mg/dL High 0.51-0.95 BUN/Creatinine Ratio 1.4 Low 8-20 Calcium 10.2 mg/dL N 8.6-10.3 Total Protein 5.9 g/dL Low 6.4-8.9 Albumin 3.5 g/dL N 3.2-5.2 Globulin 2.4 g/dL N 2-4 Albumin/Globulin Ratio 1.5 N 1-3 Total Bilirubin 0.50 mg/dL N 0.2-1.0 Alkaline Phosphatase 54 U/L N 34-104 Alt 6 U/L Low 7-52 Ast 12 U/L Low 13-39 Egfr Non- 16.3 >60 Egfr 19.8 >60 52 Laboratory test finding 11/19/2017 [facility] Lipase 19 U/L N 11.0- 82.0 Troponin-I (TnI) 0.01 ng/mL <0.04 HCG 0.91 mIU/mL 53 C Reactive Protein 7.99 mg/L N <8.01 Procalcitonin 0.7 ng/mL High <0.6 54 Erythrocyte Sed Rate 20 mm/Hr High 0-14 Blood Culture SEE RESULT BELOW 55 Laboratory test finding 11/16/2017 [place] Ethyl Alcohol < 3.0 mg/dL 56 Comprehensive Metabolic 11/16/2017 [place] Glucose 101 mg/dL N 74-106 Panel BUN 15 mg/dL N 7-18 Creatinine 7.8 mg/dL High 0.6-1.3 Glom Filtration Rate, Estimate 7 mL/min >60 If 8 mL/min >60 57 BUN/Creat 1.9 ratio Sodium 140 mmol/L N 136-145 Potassium 3.9 mmol/L N 3.5-5.1 Chloride 101 mmol/L N 98-107 Carbon Dioxide 29 mmol/L N 21-32 Anion Gap 10 mEq/L N 8-16 Calcium 11.6 mg/dL High 8.5-10.1 Total Protein 7.1 g/dL N 6.4-8.2 Albumin 3.7 g/dL N 3.4-5.0 Globulin 3.4 g/dL N 1.9-4.3 Alb/Glob 1.1 ratio Bilirubin,Total 0.5 mg/dL N 0.2-1.0 Sgot/Ast 24 U/L N 15-37 SGPT/Alt 16 U/L N 12-78 Alkaline Phosphatase 62 U/L N 45-117 Laboratory test 11/16/2017 [place] Lipase 557 U/L High 56-289 58 finding CBS W/Automated Diff 11/16/2017 [place] White Blood Count 6.1 K/uL N 3.1 -10.7 Red Blood Count 2.96 M/uL Low 3.90-5.40 Hemoglobin 9.2 gm/dL Low 11.6-15.8 Hematocrit 28.0 % Low 36.0-46.1 Mean Cell Volume 94.6 fl N 80.9-99.0 Mean Corpuscular HGB 31.1 pg N 25.9-32.7 Mean Corpuscular HGB Conc 32.9 g/dL N 30.8-34.3 Platelet Count 258 K/uL N 155-360 Red Cell Distri Width SD 46.9 fl N 3-47 Red Cell Distri Width %CV 14.4 % N 11.7-14.4 Mean Platelet Volume 9.2 fL N 8.9-12.4 Neut% 55.7 % N 40.4-72.8 Lymph % 20.9 % N 20.0-42.0 [place] % 12.1 % N 4.3-13.2 Eo% 9.3 % High 0.0-6.6 Bas% 2.0 % High 0.0-1.1 Neut# 3.40 K/uL N 1.8-7.0 Lymph # 1.28 K/uL N 1.0-4.0 [place] # 0.74 K/uL N 0.3-0.9 Eos # 0.57 K/uL High 0.0-0.5 Baso # 0.12 K/uL High 0.0-0.1 Laboratory test 11/16/2017 [place] Slide Review . 59 finding CBC Auto Diff 11/13/2017 [facility] White Blood 7.9 N 3.5-10.8 Count 10^3/uL Red Blood Count 2.79 10^6/uL Low 4.00-5.40 Hemoglobin 8.8 g/dL Low 12.0-16.0 Hematocrit 26 % Low 35-47 Mean Corpuscular Volume 93 fL N 80-97 Mean Corpuscular Hemoglobin 31 pg N 27-31 Mean Corpuscular HGB Conc 34 g/dL N 31-36 Red Cell Distribution Width 15 % N 10.5-15 Platelet Count 336 10^3/uL N 150-450 Mean Platelet Volume 7.3 um3 Low 7.4-10.4 Abs Neutrophils 5.8 10^3/uL N 1.5-7.7 Abs Lymphocytes 0.9 10^3/uL Low 1.0-4.8 Abs Monocytes 0.8 10^3/uL N 0-0.8 Abs Eosinophils 0.1 10^3/uL N 0-0.6 Abs Basophils 0.2 10^3/uL N 0-0.2 Abs Nucleated RBC 0 10^3/uL Granulocyte % 74.3 % N 38-83 Lymphocyte % 12.0 % Low 25-47 Monocyte % 9.7 % High 0-7 Eosinophil % 1.1 % N 0-6 Basophil % 2.9 % High 0-2 Nucleated Red Blood Cells % 0 Comp Metabolic Panel 11/13/2017 [facility] Sodium 135 mmol/L N 135- 145 Potassium 3.5 mmol/L N 3.5-5.0 Chloride 95 mmol/L Low 101-111 Co2 Carbon Dioxide 26 mmol/L N 22-32 Anion Gap 14 mmol/L High 2-11 Glucose 117 mg/dL High 70-100 Blood Urea Nitrogen 14 mg/dL N 6-24 Creatinine 6.21 mg/dL High 0.51-0.95 BUN/Creatinine Ratio 2.3 Low 8-20 Calcium 11.8 mg/dL High 8.6-10.3 Total Protein 6.4 g/dL N 6.4-8.9 Albumin 3.9 g/dL N 3.2-5.2 Globulin 2.5 g/dL N 2-4 Albumin/Globulin Ratio 1.6 N 1-3 Total Bilirubin 0.60 mg/dL N 0.2-1.0 Alkaline Phosphatase 50 U/L N 34-104 Alt 7 U/L N 7-52 Ast 11 U/L Low 13-39 Egfr Non- 8.5 >60 Egfr 10.3 >60 60 Laboratory test finding 11/13/2017 [facility] Magnesium 2.3 mg/dL N 1.9-2.7 Amylase 33 U/L N 29-103 Lipase 10 U/L Low 11.0-82.0 C Reactive Protein 10.50 mg/L High <8.01 HCG 1.02 mIU/mL 61 B-Type Natriuretic Peptide BNP 2448 pg/mL High 62 TSH (Thyroid Stim Horm) 0.20 mcIU/mL Low 0.34-5.60 Free T4 (Free Thyroxine) 1.98 ng/dL High 0.61-1.12 T3 Total 96 ng/dL N 87-178 T3 Free 4.10 pg/mL High 2.5-3.9 Lacosamide <0.5 g/mL Abnormal 1.0 - 10.0 63 1 Because ethnic data is not always readily [...] 15-29 5 Kidney failure <15 (or dialysis) 2 [place] Severe Sepsis and Septic Shock Management Bundle Measure requires all lactic acids initially measuring >2.0 mmol/L be repeated. 3 SEE RESULT BELOW Name: ZAYDA GARCIA : [address]: Bonnie Foster MD Acct: [id number] Unit: [id number] AGE: 22 Location: [place] [address] Re03/26/18 Dis: 03/28/18 SEX: F Status: DIS IN SPEC: [id number] VIOLA: 03/26/18-[address] [facility] [address]: Danny Winslow MD REQ: [id number] RECD: 03/26/18-1300 STATUS: DAIJA WATSON DR: Lucero Wolf MD _ SOURCE: BLOOD,VENO SPDESC: ORDERED: Blood Cult, Pediatric Bottl Procedure Result Reported Site Pediatric Blood Culture Final 03/31/18- 1301 ML No Growth Day 5 * ML - Main Lab . END OF REPORT DEPARTMENT OF PATHOLOGY, [address] [place] [address] Boris Yoon M.D. Director [facility] # [id number] 4 SOB 5 NO GROWTH: FINAL REPORT 6 NO GROWTH: FINAL REPORT 7 >10 SQUAMOUS EPITHELIAL CELLS/LPF 8 MANY GRAM POSITIVE COCCI 9 MODERATE GRAM POS BACILLI SUGGESTIVE OF CORYNEBACTERIA 10 FEW GRAM NEGATIVE BACILLI 11 FEW YEAST LIKE ORGANISMS 12 INDICITIVE OF ORAL CONTAMINATION, SUGGEST REPEAT 13 RESPIRATORY SCOOBY 14 <=0.49 ug/mL - Low likelihood of DIC, DVT or Pulmonary Embolism >0.49 ug/mL - Additional testing should be done to rule out DIC, DVT, or Pulmonary embolism as clinically indicated. ([facility] has established a 97.89% negative predictive value for thrombotic disease when a cutoff value of 0.5 ug/mL is used.) 15 0.0 - 0.045 ng/mL: Normal 0.046 - 0.5 ng/mL: Suggestive 0.6 - 1.5 ng/mL: Consistent 16 Method: Quidel QuickVue One-Step Immunoassay 17 Note: Persistent reduction for 3 months or more in an eGFR <60 mL/min/1.73 m2 defines CKD. Patients with eGFR values >/=60 mL/min/1.73 m2 may also have CKD if evidence of persistent proteinuria is present. The original MDRD equation for estimated GFR is not valid for patients less than 18 years of age. Additional information may be found at www.[email or web address]. 18 Values below the stated reference ranges of AST and ALT can be seen in normal populations. Clinical correlation is suggested. 19 Values below the stated reference ranges of AST and ALT can be seen in normal populations. Clinical correlation is suggested. 20 SEIZURES 21 INDICATED,SLIDE SENT Hematology Consultation Final Report Case# [...] 01/12/18 6:08PM Report Signed Electronically Performed at [facility] Pathology Services [id number] [place] [address] 22 THERAPEUTIC INR RANGE: 2.0 - 3.0 DVT, Pulmonary embolus, prophylaxis against venous thrombosis or systemic embolization in high risk patients. 2.5 - 3.5 Mechanical heart valves 23 0.0 - 0.045 ng/mL: Normal 0.046 - 0.5 ng/mL: Suggestive 0.6 - 1.5 ng/mL: Consistent 24 Specimen slightly Hemolyzed, interpret with caution CALLED TOSHA Victor AT 0750 01/11/18 by LAB.[facility] 25 Note: Persistent reduction for 3 months or more in an eGFR <60 mL/min/1.73 m2 defines CKD. Patients with eGFR values >/=60 mL/min/1.73 m2 may also have CKD if evidence of persistent proteinuria is present. The original MDRD equation for estimated GFR is not valid for patients less than 18 years of age. Additional information may be found at www.[email or web address]. 26 THERAPEUTIC RANGE: 15-30 mg/dL POTENTIAL TOXICITY VARIES WITH TIME FROM INGESTION. PLEASE CONSULT APPROPRIATE NOMOGRAM. 27 Acetaminophen concentration >150 ug/mL at four hours after ingestion and 50.0 ug/mL at twelve hours after ingestion are often associated with toxic reactions. 28 DEHYDRATED, EMESIS 29 BODY HURTS ALL OVER 30 REFERENCE VALUE 0.00 - 1.75 ADDITIONAL INFORMATION At a decision limit of 1.75 IU/L, this assay has 97% sensitivity and 99% specificity for detection of Graves' disease. In healthy individuals and in patients with thyroid disease without diagnosis of Graves' disease, the upper limit of anti-TSHR values are 1.22 IU/L and 1.58 IU/L, respectively (97.5th percentiles). Test Performed by: [facility] [address] [id number] 31 PANCREATITIS? 32 Note: Persistent reduction for 3 months or more in an eGFR <60 mL/min/1.73 m2 defines CKD. Patients with eGFR values >/=60 mL/min/1.73 m2 may also have CKD if evidence of persistent proteinuria is present. The original MDRD equation for estimated GFR is not valid for patients less than 18 years of age. Additional information may be found at [email or web address]. 33 CALLED LIP TO CRISTY Foster AT 1056 12/13/17 by LAB.[facility] 34 Method: Quidel QuickVue One-Step Immunoassay 35 MID BACK PAIN 36 Instrument flagged sample for slide review. Less than 10% Bands seen, no other immature WBC's seen. RBC morphology essentially normal. Platelet [id number]=[id number] CHECKED,PLT EST. AGREES WITH INSTRUMENT VALUE. 37 0.0 - 0.045 ng/mL: Normal 0.046 - 0.5 ng/mL: Suggestive 0.6 - 1.5 ng/mL: Consistent 38 Method: Quidel QuickVue One-Step Immunoassay 39 Note: Persistent reduction for 3 months or more in an eGFR <60 mL/min/1.73 m2 defines CKD. Patients with eGFR values >/=60 mL/min/1.73 m2 may also have CKD if evidence of persistent proteinuria is present. The original MDRD equation for estimated GFR is not valid for patients less than 18 years of age. Additional information may be found at [email or web address]. 40 Specimen slightly Hemolyzed, interpret with caution 41 SEIZURE 42 Limit of Detection 0.5 Mean plasma concentrations following maintenance dose 200 mg/day 4.99 +/- 2.51 ug/mL 400 mg/day 9.35 +/- 4.22 ug/mL 600 mg/day 12.46 +/- 5.60 ug/mL This test was developed and its performance characteristics determined by [employer]. It has not been cleared or approved by the Food and Drug Administration. Performed at: [facility] [id number] Electronic Equipment Set Up Operator: Efrem Garcia MD, Phone: [phone] 43 Is patient on anticoagulants? Coumadin 44 THERAPEUTIC INR RANGE: 2.0 - 3.0 DVT, Pulmonary embolus, prophylaxis against venous thrombosis or systemic embolization in high risk patients. 2.5 - 3.5 Mechanical heart valves 45 Note: Persistent reduction for 3 months or more in an eGFR <60 mL/min/1.73 m2 defines CKD. Patients with eGFR values >/=60 mL/min/1.73 m2 may also have CKD if evidence of persistent proteinuria is present. The original MDRD equation for estimated GFR is not valid for patients less than 18 years of age. Additional information may be found at www.kdoqi.org. 46 0.0 - 0.045 ng/mL: Normal 0.046 - 0.5 ng/mL: Suggestive 0.6 - 1.5 ng/mL: Consistent 47 Method: [employer]ad [employer] One-Step Immunoassay 48 Is patient on anticoagulants? Coumadin 49 ABD PAIN, VOMITING,DIARRHEA 50 Note: Persistent reduction for 3 months or more in an eGFR <60 mL/min/1.73 m2 defines CKD. Patients with eGFR values >/=60 mL/min/1.73 m2 may also have CKD if evidence of persistent proteinuria is present. The original MDRD equation for estimated GFR is not valid for patients less than 18 years of age. Additional information may be found at www.[email or web address]. 51 [facility] Severe Sepsis and Septic Shock Management Bundle Measure requires all lactic acids initially measuring >2.0 mmol/L be repeated. 52 Because ethnic data is not always readily [...] 15-29 5 Kidney failure <15 (or dialysis) 53 <5.0 Negative 5.0 - 25.0 Indeterminate (Repeat testing recommended after 72 hours) >25.0 Positive Perimenopausal women can display HCG levels of up to 20 mIU/mL 54 Interpretive information available on [employer] [facility] Test Catalog at [email or web address] 55 SEE RESULT BELOW Name: ZYADA GARCIA : [address]: Deepak Lewis MD Acct: [id number] Unit: [id number] AGE: 22 Location: [place] [address] Re11/20/17 Dis: 11/21/17 SEX: F Status: DIS IN SPEC: [id number] VIOLA: 11/20/[address] [facility] [address]: Robert Gaytan MD REQ: [id number] RECD: 11/20/17 STATUS: DAIJA WATSON DR: Lucero Wolf MD _ SOURCE: BLOOD,VENO [facility]: ORDERED: Blood Cult Procedure Result Reported Site Aerobic Culture Bottle Final 11/25/17934 ML No Growth Day 5 Anaerobic Culture Bottle Final 11/25/17934 ML No Growth Day 5 * ML - Main Lab . END OF REPORT DEPARTMENT OF PATHOLOGY, [address] [place] [address] Boris Yoon M.D. Director [facility] # [id number] 56 POSSIBLE PANCREATITIS, HAS PERMACATH 57 Note: Persistent reduction for 3 months or more in an eGFR <60 mL/min/1.73 m2 defines CKD. Patients with eGFR values >/=60 mL/min/1.73 m2 may also have CKD if evidence of persistent proteinuria is present. The original MDRD equation for estimated GFR is not valid for patients less than 18 years of age. Additional information may be found at [email or web address]. 58 CALLED CRE TO LIAM Victor AT 1046 11/16/17 by RICHARD 59 Instrument flagged sample for slide review. Less than 10% Bands seen, no other immature WBC's seen. RBC morphology essentially normal. Platelet estimate=NORMAL 60 Because ethnic data is not always readily [...] 15-29 5 Kidney failure <15 (or dialysis) 61 <5.0 Negative 5.0 - 25.0 Indeterminate (Repeat testing recommended after 72 hours) >25.0 Positive Perimenopausal women can display HCG levels of up to 20 mIU/mL 62 >100 to <200 pg/mL: likely compensated congestive heart failure (CHF) 200 to 400 pg/mL: likely moderate CHF >400 pg/mL: likely moderate to severe CHF 63 ADDITIONAL INFORMATION This test was developed and its performance characteristics determined by [facility] in a manner consistent with CLIA requirements. This test has not been cleared or approved by the U.S. Food and Drug Administration. Test Performed by: [facility] [address] [facility], [place] [address] Procedures Date Code Description Status 03/13/2018 01598 Spirometry Completed 03/13/2018 49709 Tympanometry Completed 12/08/2017 74183 Visual Screening Test Completed 12/08/2017 10486 Audiometry, Bekesy, Screening Completed Encounters Type Date Location Provider Dx Diagnosis Office Visit 03/31/2018 [facility] Efrem Villarreal, I10 Essential ( primary) 3:30p N.P. 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 G40.909 Epilepsy, unsp, not intractable, without [...] pansinusitis R06.02 Shortness of breath R05 Cough Z98.818 Other dental procedure status Office Visit 03/02/2018 2:00p [facility] LucianoLucero blanchard I10 Jessica ( primary) Bj Yoo 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 G40.909 Epilepsy, unsp, not intractable, without [...] Pericardial effusion (noninflammatory) Office Visit 01/03/2018 1:30p [facility] Lucero Wolf I10 Essential ( primary) Bj Yoo 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 G40.909 Epilepsy, unsp, not intractable, without [...] of binocular vision Office Visit 12/27/2017 3:45p [facility] Lucero Wolf Essential ( primary) Bj Yoo 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 G40.909 Epilepsy, unsp, not intractable, without [...] of binocular vision Office Visit 12/08/2017 11:00a [facility] Lucero Wolf I10 Essential ( primary) Bj Yoo 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 G40.909 Epilepsy, unsp, not intractable, without [...] (BMI) 25.0-25.9, adult Plan of Treatment Future Appointment(s):04/07/2018 4:00 pm - Efrem Villarreal, N.P. at [facility]03/31/2018 - Efrem Villarreal N.P.I10 Essential (primary) hypertensionComments:CHECK BP TIW ( PRN)DIET AND FLUID COUNSELING LOW SODIUM DIETWT LOSSF/U LABE78.2 Mixed hyperlipidemiaComments:DIET REVIEWED CONTINUE DIETWT LOSSF/U LAB FBWN18.6 End stage renal diseaseComments:F/U WITH NEPHROLOGYHEMODIALYSISF/U WITH TRANSPLANT TEAMR60.0 Localized edemaComments: ELEVATE LE PRNELASTIC STOCKING / EDUARDO WRAP PRNF/U LABR09.81 Nasal congestionComments:INCREASE PO FLUIDTYLENOL OR MOTRIN PRNREST USE ANTIHISTAMINE PRN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pecifiedComments: EXERCISE/HEAT/MESSAGE F/U WITH REMATOLOGY COUNCELLING AND PJULLSXGPZXA64.909 Epilepsy, unspecified, not intractable, without status epileComments:F/U WITH NEUROLOGY PRNOBSERVE SAFETY BBLHHHU34.009 Migraine without aura, not intractable , without status migraComments:TYLENOL OR MOTRIN PRNRELAXATION/AVOID PMAITBIFYO26.0 Gastro-esophageal reflux disease with esophagitisComments:AVOID CAFFEINE, ETOH AND SPICY FOODSTUMS OR MYLANTA PRN CALL WITH PROBLEMS OR [id number] Functional dyspepsiaComments:AVOID CAFFEINE, ETOH AND SPICY FOODSTUMS OR MYLANTA PRN CALL WITH PROBLEMS OR UAPIKVESJ63.84 GastroparesisComments:CONTINUE MEDICATIONS F/U WITH MXRSRXAYUYZUJUPYNCY95.00 Constipation, unspecifiedComments:MOM OR MIRALAX PRNHIGH FIBER DIETINCREASE PO RDXHET25.9 Unspecified hemorrhoidsComments:AVOID CONSTIPATOIN INCREASE FIBER IN DIETLAXATIVE PRNLUBRICATE ANAL AREA WITH LOTION PRN FOR [id number] Anuria and oliguriaComments:OBSERVEHEMODIALYSIS PER YUSWKUPIFKJ63.1 Other chronic pancreatitisComments:AVOID ETOH ABUSE F/U WITH GI PRNZ99.2 Dependence on renal dialysisComments:F/U WITH VMJFLBLTBTJ20.1 Secondary amenorrheaComments:OBSERVEF/ U WITH OB/GYNL20.9 Atopic dermatitis, unspecifiedComments:SKIN CARE INSTRUCTIONS LOTION OR BABY OIL 2-3 APPLICATION PER DAYUSE MOISTURIZING SOAPAVOID PROLONGED WATER EXPOSUREAVOID USING HOT WATER IN ZPQHAZV38.9 Allergic rhinitis, unspecifiedComments:INCREASE PO FLUID USE ANTIHISTAMINE PRN SECOND HAND SMOKING KHOUZHOUBW25.643 Pain in unspecified handComments:EXERCISE/HEAT/ MESSAGETYLENOL OR MOTRIN PRNAVOID HEAVY LIFTINGWT LOSS DUR IDBUDNWI74.606 Pain in leg, unspecifiedComments:TYLENOL OR MOTRIN PRN EXERCISE/HEAT/MESSAGE DUR ILCNSCNJ27.9 Anxiety disorder, unspecifiedComments:COUNCELLING AND REASSURANCE RELAXATION TECHNIQUES DISCUSSEDCOUNSELED RE: STRESSORS IN LIFE AVOID ALLENERGY/ HIGH CAFFEINE KNDAJHO30.9 Major depressive disorder, recurrent, unspecifiedComments:COUNCELLING AND REASSURANCE RELAXATION TECHNIQUES DISCUSSED COUNSELED RE: STRESSORS IN LIFEH53.30 Unspecified disorder of binocular visionComments:USE GLASSES/CONTACTSF/U WITH HSHFLZMNXWSXAJ82.3 Pericardial effusion (noninflammatory)Comments:OBSERVE F/U WITH CARDIOLOGY OBSERVE F/U WITH EOGHNFQWCFN64.9 Acute bronchiolitis, unspecifiedComments:RRBBMHYXJ43.4 Chronic xjgpnpmthczlW10.02 Shortness of breathComments:INCREASE PO [id number] CoughComments:INCREASE CLEAR LIQUIDSSTEAMGARGLE WARM SALT H2O TID ROBITUSSIN DM PRNZ98.818 Other dental procedure status
--- OUTSIDE RECORDS SUMMARY | 2018-04-02 14:05 | XMS REPORT | Continuity of Care Document ---
:1995 External Reference #:[id number] Author Name Efrem Villarreal N.P. Address [address] [place] [address] [address] [place] [address] Care Team Providers Name Role Phone Lucero Wolf MD Primary Care Physician Unavailable Payers Type Date Identification Numbers Payment Provider Subscriber Policy Number: [id number] Medicare Zayda Garcia PayID: [id number] [address] [place] [address] Policy Number: [id number] Medicaid After Medicare Zayda Garcia Group Name: 2 1 [id number] [facility] PayID: [id number] [place] [address] Advance Directives Description No Information Available Problems [...] 12/27/ Active Patches 0.3mg/24HR 1 every I10 [facility]2017 Weekly week Lucero Yoo M.D. Minoxidil 12/27/ [...] every other day Vitamin D Active Capsules [id number] take 1 N18.6 Unknown (Ergocalciferol) capsule by [...] Hx Tablets 250mg 6ta z anselmo uad Rust Luciano, 03/18/2018 bs Lucero Yoo M.D. Tessalon Perles 03/13/2018 - Hx Capsules 100mg 42c 1 tab by Rust Luciano, 03/30/2018 aps mouth four Ahmad M., [...] Given 02/18/2009 HPV,Unspecified U-Flu Given 02/18/2009 Influenza,Unspecified 10863 Given 02/15/2008 Td 7 Years And Older 64366 Given 05/20/2000 MMR U-DTaP Given 05/20/2000 DTaP,Unspecified U-Polio Given 05/20/2000 Polio,Unspecified 75954 Given 12/18/1996 MMR U-Polio Given 05/24/1996 Polio,Unspecified [...] H/L Range Note CBC Auto Diff 03/26/2018 [facility] White Blood 13.1 10^3/uL High 3.5 -10.8 [...] Cells % 0 Comp Metabolic Panel 03/26/2018 [facility] Sodium 139 mmol/L N 135- 145 Potassium [...] Egfr 11.2 >60 1 Laboratory test 03/26/2018 [facility] C Reactive 21.97 mg/L High < 8.01 finding Protein Laboratory test 03/26/2018 [facility] Lactic Acid 0.8 mmol/L N 0.5- 2.0 2 finding B-Type Natriuretic Peptide BNP > 4989 pg/mL High <=100 Pediatric Blood Culture SEE RESULT BELOW 3 Blood Culture 03/15/2018 [place] Blood Culture Aerobic NO GROWTH: FINAL < SEE 4, 5 NOTE> Blood Culture Anaerobic NO GROWTH: FINAL <SEE NOTE> 6 Respiratory Culture W/Gram 03/15/2018 [place] Gram Stain >10 SQUAMOUS EPI <SEE 7 [...] JEFF <SEE NOTE> 13 Laboratory test 03/15/2018 [place] D-Dimer, Quantitative 5.40 ug/mL High 14 finding Differential-WBC 03/15/2018 [place] Total Cells Counted 100 #CELLS Confirm Band% 16 % High 0-8 Neutrophils% 72 % N 33-73 Lymph% 7 % Low 20-42 Monocyte% 3 % N 0-10 Eosinophil% 1 % N 0-5 Basophil% 1 % N 0-2 Platelet Estimate NORMAL Polychromasia 1+ Anisocytosis 0-1+ Target Cells 1+ Tear Drop Cells 1+ Ovalocytes 1+ Toxic Granulation 1+ Slide Review 03/15/2018 [place] Slide Review DIFF ORDERED CBS W/Automated 03/15/2018 [place] White Blood Count 15.4 K/uL High 3.1- [...] 40.4-72.8 Lymph % 6.2 % Low 20.0-42.0 [place] % 4.2 % Low 4.3-13.2 Eo% 1.7 % N 0.0-6.6 Bas% 1.0 % N 0.0-1.1 Neut# 13.42 K/uL High 1.8-7.0 Lymph # 0.95 K/uL Low 1.0-4.0 [place] # 0.64 K/uL N 0.3-0.9 Eos # 0.26 K/uL N 0.0-0.5 Baso # 0.15 K/uL High 0.0-0.1 Laboratory test finding 03/15/2018 [place] Lipase 65 U/L N 56-289 Troponin-I 0.124 ng/mL 15 HCG,Serum (Qualitative) NEGATIVE (Negative) 16 Comprehensive Metabolic Panel 03/15/2018 [place] Glucose 89 mg/dL N 74- 106 BUN [...] 106 U/L N 45-117 Lactic Acid 03/15/2018 [place] Lactic Acid 1.3 mmol/L N 0.4-1.9 Lab Reflex >2.0 for Sepsis? Y Laboratory test 01/11/2018 [place] Path Review: INDICATED,SLIDE 20, 21 finding <SEE NOTE> Protime 01/11/2018 [place] Protime 17.6 seconds High 12.0- 14.4 Inr 1.5 High 0.9-1.1 22 Differential-WBC Confirm 01/11/2018 [place] Total Cells Counted 100 # CELLS Myelocyte% [...] Hypochromia 0-1+ Anisocytosis 0-1+ Slide Review 01/11/2018 [place] Slide Review DIFF ORDERED CBS W/Automated 01/11/2018 [place] White Blood Count 23.4 K/uL High 3.1- [...] 40.4-72.8 Lymph % 9.7 % Low 20.0-42.0 [place] % 8.3 % N 4.3-13.2 Eo% 1.8 % N 0.0-6.6 Bas% 1.8 % High 0.0-1.1 Neut# 18.30 K/uL High 1.8-7.0 Lymph # 2.28 K/uL N 1.0-4.0 [place] # 1.95 K/uL High 0.3-0.9 Eos # 0.43 K/uL N 0.0-0.5 Baso # 0.43 K/uL High 0.0-0.1 Laboratory test finding 01/11/2018 [place] Troponin-I 0.281 ng/mL 23 HCG,Serum (Qualitative) NEGATIVE (Negative) 24 Comprehensive Metabolic Panel 01/11/2018 [place] Glucose 120 mg/dL High 74-106 BUN 24 [...] 126 U/L High 45-117 Laboratory test 01/11/2018 [place] Salicylate < 1.7 mg/dL Low 2.8-20.0 26 finding Laboratory test 01/11/2018 [place] Acetaminophen < 2.0 ug/mL Low 10.0- 30.0 27 finding Ethyl Alcohol < 3.0 mg/dL Arterial Blood Gas 01/11/2018 [place] Arterial Blood Gas pH 7.40 N 7.35- [...] Gas Site R.RAD.ART. CBS W/Automated Diff 12/27/2017 [place] White Blood Count 7.1 K/uL N 3.1 [...] 40.4-72.8 Lymph % 17.4 % Low 20.0-42.0 [place] % 9.6 % N 4.3-13.2 Eo% 4.7 % N 0.0-6.6 Bas% 2.4 % High 0.0-1.1 Neut# 4.64 K/uL N 1.8-7.0 Lymph # 1.23 K/uL N 1.0-4.0 [place] # 0.68 K/uL N 0.3-0.9 Eos # 0.33 K/uL N 0.0-0.5 Baso # 0.17 K/uL High 0.0-0.1 Lactic Acid 12/25/2017 [place] Lactic Acid 0.5 mmol/L N 0.4-1.9 29 Lab Reflex >2.0 for Sepsis? Y CBS W/Automated Diff 12/25/2017 [place] White Blood Count 7.5 K/uL N 3.1 [...] 40.4-72.8 Lymph % 15.4 % Low 20.0-42.0 [place] % 8.2 % N 4.3-13.2 Eo% 4.8 % N 0.0-6.6 Bas% 2.4 % High 0.0-1.1 Neut# 5.17 K/uL N 1.8-7.0 Lymph # 1.15 K/uL N 1.0-4.0 [place] # 0.61 K/uL N 0.3-0.9 Eos # 0.36 K/uL N 0.0-0.5 Baso # 0.18 K/uL High 0.0-0.1 Laboratory test 12/23/2017 [facility] TSH (Thyroid 1.03 mcIU/mL N 0.34-5.60 finding Stim Horm) Free T4 (Free Thyroxine) 1.13 ng/dL High 0.61-1.12 T3 Free 3.20 pg/mL N 2.5-3.9 T3 Total 95 ng/dL N 87-178 Thyroperoxidase AB 1.55 IU/mL N <9 Thyrotropin Receptor Antibody <1.00 IU/L 30 CBS W/Automated Diff 12/13/2017 [place] White Blood Count 5.4 K/uL N 3.1 [...] 40.4-72.8 Lymph % 14.9 % Low 20.0-42.0 [place] % 7.6 % N 4.3-13.2 Eo% 12.1 % High 0.0-6.6 Bas% 1.9 % High 0.0-1.1 Neut# 3.41 K/uL N 1.8-7.0 Lymph # 0.80 K/uL Low 1.0-4.0 [place] # 0.41 K/uL N 0.3-0.9 Eos # 0.65 K/uL High 0.0-0.5 Baso # 0.10 K/uL N 0.0-0.1 Comprehensive Metabolic Panel 12/13/2017 [place] Glucose 83 mg/dL N 74- 106 BUN [...] U/L N 45-117 Laboratory test finding 12/13/2017 [place] Lipase 4283 U/L High 56-289 33 HCG,Serum (Qualitative) NEGATIVE (Negative) 34 Laboratory test 12/11/2017 [place] Slide Review . 35, 36 finding CBS W/Automated Diff 12/11/2017 [place] White Blood Count 8.5 K/uL N 3.1 [...] 40.4-72.8 Lymph % 13.7 % Low 20.0-42.0 [place] % 9.3 % N 4.3-13.2 Eo% 6.0 % N 0.0-6.6 Bas% 2.0 % High 0.0-1.1 Neut# 5.83 K/uL N 1.8-7.0 Lymph # 1.16 K/uL N 1.0-4.0 [place] # 0.79 K/uL N 0.3-0.9 Eos # 0.51 K/uL High 0.0-0.5 Baso # 0.17 K/uL High 0.0-0.1 Laboratory test finding 12/11/2017 [place] CK 155 U/L N 26-192 Troponin-I 0.026 ng/mL 37 HCG,Serum (Qualitative) NEGATIVE (Negative) 38 Comprehensive Metabolic Panel 12/11/2017 [place] Glucose 96 mg/dL N 74- 106 BUN [...] 75 U/L N 45-117 Laboratory test 12/08/2017 [place] CK 118 U/L N 26-192 41 finding Laboratory test 12/08/2017 [place] Lacosamide None Detected 5.0-10.0 42 finding ug/mL Laboratory test 12/08/2017 [place] Act Partial 29.9 seconds N 23.4-35.0 43 finding Thrombo Time Protime 12/08/2017 [place] Protime 14.0 seconds N 12.0-14.4 Inr 1.1 N 0.9-1.1 44 Comprehensive Metabolic Panel 12/08/2017 [place] Glucose 99 mg/dL N 74- 106 BUN [...] U/L N 45-117 Laboratory test finding 12/08/2017 [place] Magnesium 2.2 mg/dL N 1.8- 2.4 Troponin-I 0.030 ng/mL 46 Thyroid Stim Hormone 0.61 uIU/mL N 0.30-4.20 HCG,Serum (Qualitative) NEGATIVE (Negative) 47 Free T4 2.02 ng/dL High 0.76-1.46 Differential-WBC Confirm 12/08/2017 [place] Total Cells Counted 100 # CELLS Band% 2 % N 0-8 Neutrophils% 64 % N 33-73 Lymph% 16 % Low 20-42 Monocyte% 8 % N 0-10 Eosinophil% 8 % High 0-5 Basophil% 2 % N 0-2 Platelet Estimate NORMAL Polychromasia 0-1+ Hypochromia 1+ Anisocytosis 2+ Differential Comment lrg plts seen CBS W/Automated Diff 12/08/2017 [place] White Blood Count 8.2 K/uL N 3.1 [...] 40.4-72.8 Lymph % 14.1 % Low 20.0-42.0 [place] % 8.4 % N 4.3-13.2 Eo% 6.1 % N 0.0-6.6 Bas% 3.2 % High 0.0-1.1 Neut# 5.61 K/uL N 1.8-7.0 Lymph # 1.16 K/uL N 1.0-4.0 [place] # 0.69 K/uL N 0.3-0.9 Eos # 0.50 K/uL N 0.0-0.5 Baso # 0.26 K/uL High 0.0-0.1 Laboratory test finding 12/08/2017 [place] Slide Review DIFF ORDERED 48 Laboratory test finding 11/25/2017 [place] Lipase 156 U/L N 56-289 49 HCG,Serum (Qualitative) NEGATIVE (Negative) Comprehensive Metabolic Panel 11/25/2017 [place] Glucose 91 mg/dL N 74- 106 BUN [...] U/L N 45-117 CBS W/Automated Diff 11/25/2017 [place] White Blood Count 6.2 K/uL N 3.1 [...] 40.4-72.8 Lymph % 23.7 % N 20.0-42.0 [place] % 9.5 % N 4.3-13.2 Eo% 7.4 % High 0.0-6.6 Bas% 2.9 % High 0.0-1.1 Neut# 3.51 K/uL N 1.8-7.0 Lymph # 1.47 K/uL N 1.0-4.0 [place] # 0.59 K/uL N 0.3-0.9 Eos # 0.46 K/uL N 0.0-0.5 Baso # 0.18 K/uL High 0.0-0.1 Laboratory test 11/19/2017 [facility] Lactic Acid 0.5 mmol/L N 0.5- 2.0 51 finding CBC Auto Diff 11/19/2017 [facility] White Blood 7.1 10^3/uL N 3.5- 10.8 [...] Red Blood Cells % 0 Inr/Protime 11/19/2017 [facility] Inr 1.02 N 0.77-1.02 Laboratory test 11/19/2017 [facility] Partial 31.4 seconds N 26.0- 36.3 finding Thrombo Time PTT Comp Metabolic 11/19/2017 [facility] Sodium 136 mmol/L N 135-145 Panel Potassium [...] 19.8 >60 52 Laboratory test finding 11/19/2017 [facility] Lipase 19 U/L N 11.0- 82.0 Troponin-I (TnI) 0.01 ng/mL <0.04 HCG 0.91 mIU/mL 53 C Reactive Protein 7.99 mg/L N <8.01 Procalcitonin 0.7 ng/mL High <0.6 54 Erythrocyte Sed Rate 20 mm/Hr High 0-14 Blood Culture SEE RESULT BELOW 55 Laboratory test finding 11/16/2017 [place] Ethyl Alcohol < 3.0 mg/dL 56 Comprehensive Metabolic 11/16/2017 [place] Glucose 101 mg/dL N 74-106 Panel BUN [...] 62 U/L N 45-117 Laboratory test 11/16/2017 [place] Lipase 557 U/L High 56-289 58 finding CBS W/Automated Diff 11/16/2017 [place] White Blood Count 6.1 K/uL N 3.1 [...] 40.4-72.8 Lymph % 20.9 % N 20.0-42.0 [place] % 12.1 % N 4.3-13.2 Eo% 9.3 % High 0.0-6.6 Bas% 2.0 % High 0.0-1.1 Neut# 3.40 K/uL N 1.8-7.0 Lymph # 1.28 K/uL N 1.0-4.0 [place] # 0.74 K/uL N 0.3-0.9 Eos # 0.57 K/uL High 0.0-0.5 Baso # 0.12 K/uL High 0.0-0.1 Laboratory test 11/16/2017 [place] Slide Review . 59 finding CBC Auto Diff 11/13/2017 [facility] White Blood 7.9 N 3.5-10.8 Count 10^3/uL [...] Cells % 0 Comp Metabolic Panel 11/13/2017 [facility] Sodium 135 mmol/L N 135- 145 Potassium [...] 10.3 >60 60 Laboratory test finding 11/13/2017 [facility] Magnesium 2.3 mg/dL N 1.9-2.7 Amylase 33 [...] [address]: Bonnie Foster MD Acct: [id number] Unit: [id number] AGE: 22 Location: [place] [address] Re03/26/18 Dis: 03/28/18 SEX: F Status: DIS IN SPEC: [id number] [place]OL[place]: 03/26/18-1231 [facility] DR: Danny Winslow MD REQ: [id number] RECD: 03/26/18-1300 STATUS: DAIJA AWTSON DR: Lucero Wolf MD _ SOURCE: BLOOD,VENO SPDESC: ORDERED: Blood Cult, Pediatric Bottl Procedure Result Reported Site Pediatric Blood Culture Final 03/31/18- 1301 ML No Growth Day 5 * ML - Main Lab . END OF REPORT DEPARTMENT OF PATHOLOGY, [address] [place] [address] Boris Yoon M.D. Director [facility] # [id number] SOB 5 NO GROWTH: FINAL REPORT [...] DVT, or Pulmonary embolism as clinically indicated. ([facility] has established a 97.89% negative predictive value [...] 01/12/18 6:08PM Report Signed Electronically Performed at [facility] Pathology Services [id number] [place] [address] 22 THERAPEUTIC INR RANGE: 2.0 - 3.0 DVT, Pulmonary embolus, prophylaxis against venous thrombosis or systemic embolization in high risk patients. 2.5 - 3.5 Mechanical heart valves 23 0.0 - 0.045 ng/mL: Normal 0.046 - 0.5 ng/mL: Suggestive 0.6 - 1.5 ng/mL: Consistent 24 Specimen slightly Hemolyzed, interpret with caution CALLED TOSHA Victor AT 0750 01/11/18 by LAB.[facility] 25 Note: Persistent reduction for 3 [...] IU/L, respectively (97.5th percentiles). Test Performed by: [facility] [address] [id number] PANCREATITIS? 32 Note: Persistent reduction for [...] WBC's seen. RBC morphology essentially normal. Platelet [id number] CHECKED,PLT EST. AGREES WITH INSTRUMENT VALUE. 37 [...] developed and its performance characteristics determined by [employer]. It has not been cleared or approved by the Food and Drug Administration. Performed at: [facility] [address] [id number] Cable Worker Helper: Efrem Garcia MD, Phone: [phone] 43 Is patient on anticoagulants? Coumadin 44 [...] 0.6 - 1.5 ng/mL: Consistent 47 Method: [employer] One-Step Immunoassay 48 Is patient on anticoagulants? [...] information may be found at [email or web address]. 51 [facility] Severe Sepsis and Septic Shock Management [...] 20 mIU/mL 54 Interpretive information available on [employer] Test Catalog at [email or web address] 55 SEE RESULT BELOW Name: ZAYDA GARCIA : [address]: Deepak Lewis MD Acct: [id number] Unit: [id number] AGE: 22 Location: [place] [address] Re11/20/17 Dis: 11/21/17 SEX: F Status: DIS IN SPEC: [id number] [place]: 11/20/17 [facility] DR: Robert Gaytan MD REQ: [id number] RECD: 11/20/17 STATUS: DAIJA WATSON DR: Lucero Wolf MD _ SOURCE: BLOOD,VENO [facility]: ORDERED: Blood Cult Procedure Result Reported Site Aerobic Culture Bottle Final 11/25/17934 ML No Growth Day 5 Anaerobic Culture Bottle Final 11/25/17934 ML No Growth Day 5 * ML - Main Lab . END OF REPORT DEPARTMENT OF PATHOLOGY, [address] [place] [address] Boris Yoon M.D. Director [facility] # [id number] 56 POSSIBLE PANCREATITIS, HAS PERMACATH 57 Note: [...] its performance characteristics determined by [facility] in a manner consistent with CLIA requirements. This test has not been cleared or approved by the U.S. Food and Drug Administration. Test Performed by: [facility] [address] [facility], [place] [address] Procedures Date Code Description Status 03/13/2018 48767 Spirometry Completed 03/13/2018 39720 Tympanometry Completed 12/08/2017 45879 Visual Screening Test Completed 12/08/2017 43985 Audiometry, Bekesy, Screening Completed Encounters Type Date Location Provider Dx Diagnosis Office Visit 03/13/2018 [facility] Efrem Villarreal, I10 Essential ( primary) 2:45p N.P. 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[facility] G40.909 Epilepsy, unsp, not intractable, [...] Pericardial effusion (noninflammatory) Office Visit 01/03/2018 1:30p [facility] Lucero Wolf I10 Essential ( primary) Bj Yoo 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[facility] G40.909 Epilepsy, unsp, not intractable, [...] of binocular vision Office Visit 12/27/2017 3:45p [facility] Lucero Wolf I10 Essential ( primary) [...] of binocular vision Office Visit 12/08/2017 11:00a [facility] Lucero Wolf I10 Jessica ( primary) Bj Yoo 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 at [facility]
--- NOTE | 2018-04-02 14:49 | ED ---
Influenza-Like Illness - HPI Summary HPI Summary: This patient is a 22 year old F presenting to [facility] accompanied by a female with a chief complaint of worsening PNA since several weeks ago. The patient rates the pain 5/10 in severity. Patient reports cough, vomiting and SOB. Patient denies fever or chills. Her last dialysis was Tuesday, gets it on Tuesday , , Saturdays now. She is unable to take HTN meds due to vomiting, which happened on the way to the ED. The patient has been admitted twice for this PNA, in the hospital for three days. She finished her doxycycline two days ago for the PNA, but the symptoms are getting worse again. The patient doesnt think that her symptoms are necessarily from PNA, and they might be due to the fluid in her lungs. The cardiothoracic team at [facility] treated her brain bleeds. Her symptoms began after receiving diffuse bee stings. PMHX kidney failure, IGA, excess fluid in the heart, fluid in the lungs, bilateral pitting pedal edema, seizures, brain bleeds, pancreatitis, shingles, IBS, and DVT. Vital signs while in room: HR 123 bpm, BP 215/148. - History of Current Complaint Chief Complaint: EDShortnessOfBreath Time Seen by Provider: 04/02/18 14:20 Hx Obtained From: Patient, Family/Behavioral Science Chair - woman Onset/Duration: Gradual Onset, Lasting Weeks, Still Present Associated Signs & Symptoms: Cough, Vomiting - Allergy/Home Medications Allergies/Adverse Reactions: Allergies Allergy/AdvReac Type Severity Reaction Status Date / Time bee venom protein (honey bee) Allergy Rash Verified 04/02/18 13:52 fentanyl Allergy GI Upset Verified 04/02/18 13:52 lisinopril Allergy Coughing Verified 04/02/18 13:52 nifedipine Allergy Rash Verified 04/02/18 13:52 povidone-iodine Allergy Hives Verified 04/02/18 13:52 [From Betadine] soap [From Betadine] Allergy Hives Verified 04/02/18 13:52 PMH/Surg Hx/FS Hx/Imm Hx Endocrine/Hematology History: Reports: Hx Blood Transfusions, Hx Thyroid Disease - Hyperthyroid, Hx Anemia, Other Endocrine/Hematological Disorders - Henoch Schonlein Purpura (autoimmune) Cardiovascular History: Reports: Hx Cardiomegaly, Hx Hypertension, Other Cardiovascular Problems/Disorders - Tachycardia Respiratory History: Reports: Hx Pneumonia - 11/20/2017, Hx Sleep Apnea - Undiagnosed sleep apnea, Other Respiratory Problems/Disorders - PNEUMONIA 2017 Denies: Hx Asthma, Hx Chronic Obstructive Pulmonary Disease (COPD) GI History: Reports: Other GI Disorders - Ascites, Pancreatitis Denies: Hx Jaundice History: Reports: Hx Acute Renal Failure, Hx Chronic Renal Failure, Hx Dialysis - Hemodialysis, Hx Renal Disease, Other Problems/Disorders - Kidney transplant 2013, right kidney works at 10% Musculoskeletal History: Reports: Hx Arthritis - RA right knee, Hx Tendonitis - Right knee Sensory History: Reports: Hx Contacts or Glasses Denies: Hx Deafness, Hx Hearing Aid Opthamlomology History: Reports: Hx Contacts or Glasses Neurological History: Reports: Hx Headaches, Hx Migraine, Hx Seizures Psychiatric History: Reports: Hx Anxiety, Hx Depression - Surgical History Surgery Procedure, Year, and Place: kidney 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/2013, 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, kidney bx x4 Hx Anesthesia Reactions: No - Immunization History Immunizations Up to Date: Yes Infectious Disease History: No Infectious Disease History: Reports: Hx Shingles Denies: Traveled Outside the [place] in Last 30 Days - Family History Known Family History: Positive: Hypertension Negative: Renal Disease - Social History Alcohol Use: None Hx Substance Use: No Substance Use Type: Reports: None Hx Tobacco Use: No Smoking Status (MU): Never Smoked Tobacco Review of Systems Negative: Fever, Chills Positive: Shortness Of Breath, Cough Positive: Vomiting All Other Systems Reviewed And Are Negative: Yes Physical Exam - Summary Physical Exam Summary: GENERAL: Patient is a well-developed and nourished female who is lying comfortable in the stretcher. Patient is not in any acute respiratory distress. HEAD AND FACE: Normocephalic EYES: PERRLA, EOMI x 2. EARS: Hearing grossly intact. MOUTH: Oropharynx within normal limits. NECK: Supple, trachea is midline, no adenopathy, no JVD, no carotid bruit. CHEST: Symmetric, no tenderness at palpation LUNGS: Clear to auscultation bilaterally. No wheezing or crackles. Tachycardic. CVS: Regular rate and rhythm, S1 and S2 present, no murmurs or gallops appreciated. ABDOMEN: Soft, non-tender. Bowel sounds are normal. No abdominal abnormal pulsations. EXTREMITIES: Full ROM in all major joints, no cyanosis or clubbing. Edema in the lower extrematies. NEURO: Alert and oriented x 3. No acute neurological deficits. Speech is normal and follows commands. SKIN: Dry and warm Triage Information Reviewed: Yes Vital Signs On Initial Exam: Initial Vitals Temp Pulse Resp BP Pulse Ox 98.8 F 117 16 216/147 100 04/02/18 13:48 04/02/18 13:48 04/02/18 13:48 04/02/18 13:48 04/02/18 13:48 Vital Signs Reviewed: Yes Diagnostics - Vital Signs Vital Signs Temp Pulse Resp BP Pulse Ox 04/02/18 13:48 98.8 F 117 16 216/147 100 - Laboratory Result Diagrams: 04/02/18 15:11 04/02/18 15:11 Lab Statement: Any lab studies that have been ordered have been reviewed, and results considered in the medical decision making process. - Radiology CXR Radiology Interpretation Completed By: Radiologist Summary of Radiographic Findings: Consider asymmetric pulmonary edema to account for the RIGHT perihilar alveolar consolidation however inflammatory infiltrate is not excluded. Accounting for differences in lung volumes compared with the March 27, 2018 exam there is no significant change. Small RIGHT pleural effusion without significant change. ED physician has reviewed this report - EKG 15:38 Cardiac Rate: Tachycardia - 126 bpm EKG Rhythm: Sinus Tachycardia EKG Comparison: No Significant Change Summary of EKG Findings: Q wave in the anterior leads, nonspecific t wave changes, similar to previous Flu Symptom Course/Dx - Course Course Of Treatment: This patient is a 22 year old F presenting to [facility] accompanied by a female with a chief complaint of worsening PNA since several weeks ago. The patient rates the pain 5/10 in severity. Patient reports cough, vomiting and SOB. Patient denies fever or chills. An EKG reveals sinus tachycardia 126 bpm, Q wave in the anterior leads, nonspecific t wave changes, similar to previous. CXR reveals, per radiologist, Consider asymmetric pulmonary edema to account for the RIGHT perihilar alveolar consolidation however inflammatory infiltrate is not excluded. Accounting for differences in lung volumes compared with the March 27, 2018 exam there is no significant change. Small RIGHT pleural effusion without significant change. ED physician has reviewed this radiology report. Test results with no significant abnormalities except for .04 troponin. In the ED course the patient was given IV fluids, Ondansetron, and Labetalol. We discussed patient care with Dr. Morales and they recommended admission. The patient is agreeable with this plan. - Diagnoses Differential Diagnosis/HQI/PQRI: Positive: Pneumonia Provider Diagnoses: Pneumonia - Physician Notifications Discussed Care Of Patient With: Sherri Morales Time Discussed With Above Provider: 16:30 Instructed by Provider To: Admit As Inpatient Discharge - Sign-Out/Discharge Documenting (check all that apply): Patient Departure - admission - Discharge Plan Condition: Fair Disposition: ADMITTED TO [facility] - Billing Disposition and Condition Condition: FAIR Disposition: Admitted to [facility] - Attestation Statements Document Initiated by Scribe: Yes Documenting Scribe: Terry Lainez Provider For Whom Scribe is Documenting (Include Credential): John Arrieta MD Scribe Attestation: Terry Cody scribed for John Arrieta MD on 04/02/18 at 1802. Scribe Documentation Reviewed: Yes Provider Attestation: The documentation as recorded by the Terry johnson accurately reflects the service I personally performed and the decisions made by John gonzalez MD Status of Scribe Document: Viewed
[2018-04-02] MEDS ORDERED: NS 0.9% 250 ML* 250 ML IV ONE (15:01)
[2018-04-02] MEDS ORDERED: Ondansetron INJ* 2 MG/ML VIAL IV ONE (15:01)
[2018-04-02 15:23] LABS: ABS Basophils 0.2 10^3/ul (0-0.2); ABS Eosinophils 0.5 10^3/ul (0-0.6); ABS Lymphocytes 1.1 10^3/ul (1.0-4.8); ABS Monocytes 0.7 10^3/ul (0-0.8); ABS Nucleated RBC 0 10^3/ul; Hematocrit 28 % (35-47); Hemoglobin 9.4 g/dl (12.0-16.0); Lymphocyte % 8.4 %; Mean Corpuscular HGB Conc 33 g/dl (31-36); Mean Corpuscular Hemoglobin 30 pg (27-31); Mean Corpuscular Volume 90 fL (80-97); Mean Platelet Volume 7.3 fL (7.4-10.4); Nucleated Red Blood Cells % 0; Platelet Count 384 10^3/ul (150-450); Red Blood Count 3.14 10^6/ul (4.00-5.40); Red Cell Distribution Width 18 % (10.5-15); White Blood Count 13.5 10^3/ul (3.5-10.8)
[2018-04-02 15:41] LABS: EGFR Non-African American 8.6 (>60)
[2018-04-02 15:49] LABS: INR 1.08 (0.77-1.02)
[2018-04-02] MEDS ORDERED: Labetalol IV* 5 MG/ML 20 ML VIAL IV PUSH ONE ×2 (16:08→17:28)
[2018-04-02] MEDS ORDERED: Promethazine TAB* 25 MG PO PRN (17:26)
[2018-04-02] MEDS ORDERED: Cyclobenzaprine TAB* 10 MG PO PRN (17:26)
[2018-04-02] MEDS: cefTRIAXone(*) 1 GM in NS 0.9% 50 ML* 50 ML IVPB SCH (19:27)
[2018-04-02] MEDS: hydrALAZINE IV* 20 MG/ML VIAL IV SLOW PU PRN (20:10)
[2018-04-02] MEDS: Carvedilol TAB* 25 MG PO SCH (20:32)
[2018-04-02] MEDS: Famotidine TAB* 20 MG PO SCH (20:32)
[2018-04-02] MEDS: Lacosamide TAB* 100 MG TAB PO SCH (20:33)
[2018-04-02] MEDS: Heparin VIAL(*) 5000 UNITS/ML VIAL (FIVE THOUSAND) SUBCUT SCH (20:49)
[2018-04-02] MEDS: MinoXIDil TAB* 2.5 MG TAB PO SCH ×2 (20:49→21:38)
[2018-04-02] MEDS: Docusate CAP* 100 MG PO SCH (20:50)
[2018-04-02] MEDS ORDERED: LORazepam INJ* 2 MG/ML 1 ML VIAL IV PUSH STA (23:48)
[2018-04-02] MEDS ORDERED: hydrALAZINE IV* 20 MG/ML VIAL IV SLOW PU STA (23:50)
--- NOTE | 2018-04-03 00:36 | HP ---
HISTORY AND PHYSICAL: DATE OF ADMISSION: 04/02/18 ADMITTING PROVIDER: Petros House MD PRIMARY CARE PROVIDER: Dr. Lucero Wolf. CHIEF COMPLAINT: Shortness of breath, orthopnea, white frothy cough, dyspnea on exertion. HISTORY OF PRESENT ILLNESS: Zayda Garcia is a 22-year-old female with past medical history of end-stage renal disease secondary to Henoch-Schonlein purpura, status post failed renal transplant, on HD on Tuesday, Tuesday, Tuesday , and she had her last session 2 days prior to admission; hypertension with multiple hypertensive emergency episodes; recent prolonged hospitalization at [facility] between 02/10/18 to 02/24/18 for which she had pericardial effusion, status post 2 needle pericardiocentesis followed by a pericardial window; recent admission to [facility] 03/15/18 through 03/21/18 for suspected pneumonia and a recent admission to [facility] on 03/26/18 to 03/28/18 for again suspected pneumonia and fluid overload for which she finished a 3-day course of Levaquin 2 days prior to admission; GERD; seizure disorder in the setting of suspected intraparenchymal hemorrhages and/or hemorrhagic strokes at [facility]; history of induced pancreatitis. She has felt well since her discharge on 03/28/18, got hemodialysis on 03/29/18, with 1500 out and 03/31/18 with 1000 out, was reportedly at her dry weight between 58 and 59 kg each time. The midnight prior to admission, she woke up very short of breath, orthopneic. Had to readjust her pillows (she usually props up 3 to 4 pillows at night) was able to get back to sleep, though felt hot. Had removed her blankets. Upon waking, she was very dyspneic walking to the restroom and progressively got worse. She was able to take all of her medications at 8:30, but vomited around noon and noticed some of her breakfast cereal that she had at 7 a.m. did come up with that. She presented to [facility] with complaints of dyspnea on exertion, shortness of breath, and white frothy cough. Here she was found to have blood pressure 216/147, was given 20 of IV labetalol. Her chest x-ray showing asymmetric pulmonary edema and right perihilar alveolar consolidation; however, inflammatory infiltrate is not excluded. No significant change from 03/27/18. There was a small right pleural effusion without significant change. She had a leukocytosis of 13.5, CRP of 15, and BNP of greater than detectable above 5000, procalcitonin of 0.3. She was referred to hospitalist service for admission. She says that she did have a fever of 104 during the [facility]'s admission. Current temperature here was 98.8. She was tachycardic at 117 to 142, saturating 95% to 98% on room air. I have talked to Dr. Kp Kaur and we are arranging for nonemergent dialysis in the morning. Of note, she is now establishing in the future with Dr. Beckham of [place] and changing to a Tuesday, , Tuesday schedule. Dr. Kaur's office has said that they have been keeping open her Tuesday chair available if necessary in case she could not go from Tuesday to Tuesday without dialysis. Of note, she was given 250 normal saline bolus in the ED. Of note, her sputum culture from last hospitalization grew normal trixie , had negative blood cultures. She had an echo last admission, this was , which demonstrated EF of 55% to 60%. There was septal flattening of the interventricular septum consistent with right ventricular volume or pressure overload. Assessment of the diastolic function was non-diastolic. There was a small pericardial effusion. [id number] tricuspid regurgitation. Compared to 11/14/17, the pericardial effusion is much smaller now. Medication changes on last discharge including a return to minoxidil and increase to Coreg from 25 to 37.5. The patient took an extra 100 labetalol this morning because she "felt" like her blood pressure was elevated. She usually only takes this before dialysis sessions and she was also getting back into the schedule given that her dialysis will start again in 2 days on Tuesday. She admits that in the setting of staying with her grandmother recently, who has been refusing to cheese cook, she has been eating almost exclusively at fast food restaurants such as [employer] or [employer] in the last few days and this likely is exacerbating her volume overload status given a likely high-salt diet. MEDICATIONS: Current medications include: 1. Phenergan 25 mg p.o. q.6 hours p.r.n. 2. Protonix 40 mg p.o. daily. 3. Vimpat 100 mg p.o. b.i.d. 4. Acetaminophen 650 mg p.o. four times a day p.r.n. 5. Cyclobenzaprine HCl 25 mg p.o. q.p.m. p.r.n. 6. Cholecalciferol 5000 units p.o. weekly (the patient was unsure of the dose of this or frequency). 7. Pepcid 20 mg p.o. q.p.m. 8. Docusate 100 mg p.o. b.i.d. 9. Coreg 37.5 mg p.o. b.i.d. 10. Amlodipine 10 mg p.o. daily. 11. Minoxidil 5 mg p.o. t.i.d. 12. Clonidine 0.2 mg patch changed every Tuesday. 13. Dulcolax suppository p.r. daily p.r.n. (unconfirmed). 14. Losartan 100 mg p.o. daily. 15. Labetalol 100 mg every other day on the mornings of dialysis. ALLERGIES: BEE VENOM (rash), FENTANYL (GI upset), LISINOPRIL (coughing), NIFEDIPINE (rash), BETADINE (hives). FAMILY HISTORY: Mother with IBS. Father alive, age 45, estranged. SOCIAL HISTORY: The patient denies smoking or drinking or other drug use. Lives currently with her mom, but is staying with her grandmother at the moment , she is her health proxy, name is Lyn Garcia. She is a full code. REVIEW OF SYSTEMS: Review of 14-point review of systems negative except as per HPI. PHYSICAL EXAMINATION GENERAL APPEARANCE: No acute distress. Currently eating dinner. VITAL SIGNS: On admission, blood pressure 216/147, currently 203/137; temperature 98.8; pulse rate initially 117, currently 106, peaked at 142; satting between 94% and 100% on room air; respiratory rate 16. HEENT: Normocephalic and atraumatic. Pupils are equally round and reactive to light. Extraocular motions intact. No scleral icterus. Moist mucous membranes. NECK: Supple. No cervical lymphadenopathy. No neck stiffness. LUNGS: Reduced at bilateral bases. No wheezing, rales, or rhonchi. CARDIOVASCULAR: Tachycardic. No murmurs, rubs, or gallops. Abdomen: Soft, nontender, and nondistended. No rebound or guarding. EXTREMITIES: Warm and well perfused. 2+ pitting edema in bilateral lower extremities. NEURO: Cranial nerves II through XII intact. [id number] intact. [facility] Specialist strength in biceps, triceps, and deltoids all 4-/5; hip flexion on the left only , intact on the right. On the lower extremity, left hip flexion is 5-/5. SKIN: No lesions or rashes. DIAGNOSTIC STUDIES/LAB DATA: White count 13.5, hemoglobin 9.4, hematocrit 28, platelets 384. INR 1.08. Sodium 140, potassium 3.8, chloride 100, carbon dioxide 25, anion gap 15, creatinine of 6.08, glucose 99, lactic acid 0.9, calcium 9.9. Total bili 0.7, AST 22, ALT 11, alk phos 95. Troponin 0.04. CRP 15.5. BNP 4989. Procalcitonin 0.3. Chest x-ray, impression: 1. Asymmetric pulmonary edema right perihilar alveolar consolidation; however, inflammatory infiltrate is not excluded. Accounting for the differences in lung volumes compared with 03/27/18 exam, there is no significant change. 2. Small right pleural effusion without significant change. This is in comparison to 11/19/[address] and 03/27/18 chest x-ray. EKG demonstrated sinus tachycardia, rate 126. Normal axis. There is Q waves in V1 through V3. This is unchanged from 03/26/18 study. There is a biphasic T in V5. Her QTc is 445, WV is 157. ASSESSMENT AND PLAN: Zayda Garcia is a 22-year-old female with past medical history of Henoch-Schonlein purpura resulting in end-stage renal disease , frequent hypertensive emergency admissions, and recent intraparenchymal versus hemorrhagic strokes up at [facility] back on 02/10/18 to 02/24/18 resulting in seizures and also complicated by what sounds like a large pericardial effusion requiring a pericardial window and 2 admissions for volume overload and suspected pneumonia in recent weeks, who had been feeling improved and finished outpatient antibiotics 2 days prior and then got very dyspneic, orthopneic, and had a white frothy cough. Denies any known fevers, afebrile here. Does have a return of her leukocytosis. I suspect the majority of her symptoms are relating to volume overload in the setting of flash pulmonary edema in the setting of hypertensive urgency. The chest x-ray is read as most likely asymmetric pulmonary edema. She is tachycardic, although it is hard to tell this in the setting of potentially vomiting up her beta dima and calcium channel dima, was still having her clonidine patch on. Main goals of this admission will be to try to get some volume off with hemodialysis. I am concerned with whether or not her "dry weight" is current and may need to be downward adjusted given her clear signs of volume overload today. Her weight is recorded at 60.6 kg here in the ED. It is not clear if that was measured or reported. We will get daily weights. Dr. Kaur was contacted. Plan is for dialysis tomorrow morning. She is on room air, is nontoxic appearing currently , and there is no urgent need for hemodialysis at this time. 1. End-stage renal disease with signs of volume overload and hypertensive urgency. We will get dialysis tomorrow with Dr. Kaur, control her blood pressure. We are giving her another labetalol 40 mg IV now, giving her minoxidil 5 now, and early dose of her Coreg 37.5 mg now. Continue 37.5 mg Coreg b.i.d. Continue clonidine patch 0.2, losartan 100 in the morning, Norvasc 10 in the morning. I will labetalol 100 mg daily here and with the 40 IV now. Consideration for hydralazine if the patient is resistant to the above therapies. The patient may need to be transferred to the ICU for IV drip therapy. I am personally taking care of this patient in the outpatient setting and she often has blood pressures above 200 in my experience. 2. Systemic inflammatory response syndrome with tachycardia, leukocytosis, and recent possible pneumonias. I am not convinced that she currently is suffering from pneumonia. Procalcitonin is 0.3, negative sputum culture last admission. Denies any fevers or productive cough other than a white frothy volume overload like cough. I will empirically treat her with Levaquin for now but low threshold to taper this off. We will follow the blood cultures. Sputum culture will be added. She does not make any urine, so UA is not obtainable. 3. History of seizures and history of intracranial hemorrhage versus hemorrhagic strokes. We will continue her Vimpat 100 mg p.o. b.i.d. 4. Elevated troponin. I suspect this in the setting of demand ischemia, hypertensive urgency. She has anterior Q waves that are unchanged from prior, does have evidence of some right ventricular volume or pressure overload on last echo and a small pericardial effusion (improved) from prior. We will try to get volume off with hemodialysis as we can and again I think her "dry weight " may be too elevated and needs to be reassessed. 5. Code status. She is a full code. 6. DVT prophylaxis. She scores a high risk on the DVT Assessment Risk calculator. We will start heparin 5000 units t.i.d. 7. Diet. She will be put on a low-salt cardiac diet. [id number]/[facility] #: [id number] MANAN
[2018-04-03] MEDS: Labetalol IV* 5 MG/ML 20 ML VIAL IV PUSH PRN ×2 (01:20→08:03)
[2018-04-03] MEDS ORDERED: Zolpidem TAB* 5 MG ONE (02:19)
[2018-04-03] MEDS ORDERED: Zolpidem TAB* 5 MG PO ONE (02:30)
[2018-04-03] MEDS: Heparin VIAL(*) 5000 UNITS/ML VIAL (FIVE THOUSAND) SUBCUT SCH ×3 (05:15→19:58)
[2018-04-03] MEDS: hydrALAZINE IV* 20 MG/ML VIAL IV SLOW PU PRN (06:40)
[2018-04-03] MEDS: Lacosamide TAB* 100 MG TAB PO SCH ×2 (08:00→19:58)
[2018-04-03] MEDS: Carvedilol TAB* 25 MG PO SCH ×2 (08:00→19:57)
[2018-04-03] MEDS: Omeprazole CAP* 20 MG PO SCH (08:00)
[2018-04-03] MEDS: amLODIPine TAB* 5 MG PO SCH (08:00)
[2018-04-03] MEDS: MinoXIDil TAB* 2.5 MG TAB PO SCH ×4 (08:01→19:58)
[2018-04-03] MEDS: Docusate CAP* 100 MG PO SCH ×2 (08:06→19:57)
[2018-04-03] MEDS: Losartan TAB* 25 MG PO SCH (08:12)
[2018-04-03] MEDS ORDERED: Heparin DIALYSIS ONLY(*) 1,000 UNITS/ML VIAL DIALYSIS ONE ×2 (12:00→13:00)
[2018-04-03] MEDS ORDERED: Epoetin Alfa* 10,000 UNITS/ML VIAL IV ONE (12:00)
[2018-04-03] MEDS ORDERED: Acetaminophen TAB* 325 MG PO PRN (13:10)
[2018-04-03] MEDS ORDERED: HYDROmorphone INJ1* 1 MG/ML SYRINGE IV SLOW PU PRN (13:11)
--- NOTE | 2018-04-03 15:45 | PN ---
Subjective Date of Service: 04/03/18 Interval History: Pt seen and examined. Meds and labs reviewed. S/P dialysis w/1L UF today. CC: N/A ROS: Denied [place]/dizziness, F/C, N/V, CP, SOB, increased cough, sputum production , abd pain, diarrhea, constipation, dysuria, myalgias, arthralgias, throat pain , and new skin lesions. The rest of the 14 point ROS are unremarkable. PHYSICAL EXAM: GEN APPEARANCE: Awake, not in acute distress HEENT: NC/AT, PERRLA, moist oral mucosa, (-) throat erythema NECK: Soft, supple, (-) cervical LAD, (-)JVD HEART: S1S2 WNL, RRR, No MRG CHEST: CTA, BL, GAE, No W/R/R ABD: Soft, ND/NT, NABS 4x Q EXT: No C/C/E SKIN: Warm to touch PSYCH: No active psychosis, hallucinations, depression, SI/HI Objective Active Medications: Acetaminophen (Tylenol Tab*) 650 mg PO Q6H PRN PRN Reason: Pain/Fever Last Admin: 04/03/18 13:29 Dose: 650 mg Amlodipine Besylate (Norvasc Tab*) 10 mg PO DAILY [facility] Last Admin: 04/03/18 08:00 Dose: 10 mg Carvedilol (Coreg Tab*) 37.5 mg PO 0900,2100 [facility] Last Admin: 04/03/18 08:00 Dose: 37.5 mg Clonidine HCl ([id number] 0.2 Mg Patch*) 0.2 mg TRANSDERM WEEKLY [facility] Cyclobenzaprine HCl (Flexeril Tab*) 2.5 mg PO QPM PRN PRN Reason: SPASMS - MUSCLE Last Admin: 04/03/18 00:01 Dose: 2.5 mg Docusate Sodium (Colace Cap*) 100 mg PO BID [facility] Last Admin: 04/03/18 08:06 Dose: Not Given Famotidine (Pepcid Tab*) 20 mg PO QPM [facility] Last Admin: 04/02/18 20:32 Dose: 20 mg Heparin Sodium (Porcine) (Heparin Vial(*)) 5,000 units SUBCUT Q12H [facility] Last Admin: 04/03/18 09:30 Dose: Not Given Hydralazine HCl (Apresoline Iv*) 10 mg IV SLOW PU Q2H PRN PRN Reason: BLOOD PRESSURE Last Admin: 04/03/18 06:40 Dose: 10 mg Hydromorphone HCl (Dilaudid Inj1s*) 0.5 mg IV SLOW PU Q8H PRN PRN Reason: PAIN Ceftriaxone Sodium 1 gm/ (Sodium Chloride) 50 mls @ 200 mls/hr IVPB Q24H [facility] Last Admin: 04/02/18 19:27 Dose: 200 mls/hr Labetalol HCl (Trandate Iv*) 20 mg IV PUSH Q2H PRN PRN Reason: BLOOD PRESSURE Last Admin: 04/03/18 08:03 Dose: 20 mg Lacosamide (Vimpat Tab*) 100 mg PO BID [facility] Last Admin: 04/03/18 08:00 Dose: 100 mg Losartan Potassium (Cozaar Tab*) 100 mg PO DAILY [facility] Last Admin: 04/03/18 08:12 Dose: 100 mg Minoxidil (Loniten Tab*) 10 mg PO TID [facility] Last Admin: 04/03/18 13:30 Dose: 10 mg Omeprazole (Prilosec Cap*) 20 mg PO DAILY [facility] Last Admin: 04/03/18 08:00 Dose: 20 mg Promethazine HCl (Phenergan Tab*) 25 mg PO Q6H PRN PRN Reason: headache/nausea Last Admin: 04/02/18 23:17 Dose: 25 mg Vital Signs - 8 hr 04/03/18 04/03/18 04/03/18 07:46 07:52 08:00 Temperature 98.4 F Pulse Rate 126 Blood Pressure 195/140 (mmHg) O2 Sat by Pulse 99 99 Oximetry 04/03/18 10:25 Temperature Pulse Rate Blood Pressure 166/108 (mmHg) O2 Sat by Pulse Oximetry Oxygen Devices in Use Now: None Result Diagrams: 04/02/18 15:11 04/02/18 15:11 Microbiology and Other Data: Microbiology 04/02/18 15:27 Aerobic Blood Culture - Preliminary Blood Venous No Growth Day 1 04/02/18 15:26 Aerobic Blood Culture - Preliminary Blood Venous No Growth Day 1 Anaerobic Blood Culture - Preliminary No Growth Day 1 04/02/18 21:39 Nasal Screen MRSA (PCR) - Final Nasal Mrsa Not Detected 04/02/18 21:35 Influenza Types A,B Antigen - Final Nasal Specimen received for Influenza A/B Molecular testing Assess/Plan/Problems-Billing Assessment: - Patient Problems (1) Kidney disease with fluid retention Current Visit: Yes Status: Acute Code(s): N28.9 - DISORDER OF KIDNEY AND URETER, UNSPECIFIED SNOMED Code(s): 40947225 Comment: -S/P 1 L UF today -BP has improved and SOB resolved -Pt mentions she does not usually follow sodium restriction but follows renal diet as advisedencourage low sodium diet -Ordered low sodium diet -Unclear if pt is anuric that would preclude diuretics---will continue watchful waiting for now and every other day UF -Likely cause of SIRS, w/c has now resolved (2) Hypertensive urgency Current Visit: No Status: Acute Code(s): I16.0 - HYPERTENSIVE URGENCY SNOMED Code(s): 785497047 Comment: -Improved with UF and increase of Minoxidil as ordered -Continue watchful waiting (3) Seizure disorder Current Visit: No Status: Acute Code(s): G40.909 - EPILEPSY, UNSP, NOT INTRACTABLE, WITHOUT STATUS EPILEPTICUS SNOMED Code(s): 702062626 Comment: -Stable -Continue Vimpat (4) Elevated troponin Current Visit: Yes Status: Acute Code(s): R74.8 - ABNORMAL LEVELS OF OTHER SERUM ENZYMES SNOMED Code(s): 848573690 Comment: -Mild -Likely due to demand ischemia in the setting of CKD -Does not complain of CP nor SOB -Will obtain 2D echo (5) DVT prophylaxis Current Visit: No Status: Acute Code(s): ISN5979 - SNOMED Code(s): 979124687 Comment: -Heparin SQ changed to q12h given renal insufficiency Status and Disposition: -For possible D/C in AM
[2018-04-03] MEDS: Famotidine TAB* 20 MG PO SCH (18:05)
[2018-04-03] MEDS ORDERED: Calcium Carbonate CHEW TAB* 500 MG (TUMS) PO ONE (19:37)
[2018-04-03] MEDS ORDERED: Calcium Carbonate CHEW TAB* 500 MG (TUMS) ONE (19:41)
[2018-04-03] MEDS: cefTRIAXone(*) 1 GM in NS 0.9% 50 ML* 50 ML IVPB SCH (19:49)
[2018-04-04] MEDS ORDERED: cloNIDine 0.2 MG PATCH* 0.2 MG/24 HR 7 DAY PATCH TRANSDERM SCH (08:00)
[2018-04-04] MEDS: Losartan TAB* 25 MG PO SCH (09:29)
[2018-04-04] MEDS: amLODIPine TAB* 5 MG PO SCH (09:30)
[2018-04-04] MEDS: Carvedilol TAB* 25 MG PO SCH (09:31)
[2018-04-04] MEDS: Lacosamide TAB* 100 MG TAB PO SCH (09:32)
[2018-04-04] MEDS: Docusate CAP* 100 MG PO SCH (09:32)
[2018-04-04] MEDS: MinoXIDil TAB* 2.5 MG TAB PO SCH ×2 (09:33→13:38)
[2018-04-04] MEDS: Heparin VIAL(*) 5000 UNITS/ML VIAL (FIVE THOUSAND) SUBCUT SCH (09:33)
[2018-04-04] MEDS: Omeprazole CAP* 20 MG PO SCH (09:33)
[2018-04-04 11:23] VITALS: BP 112/72
--- NOTE | 2018-04-04 12:09 | ECHO ---
Patient: CRISTINA BAILEY [facility] Rec#: [id number] : 1995 Date: 04/04/2018 Age: 22y Height: 155 cm / 61.0 in Weight: 60.6 kg / 133.6 lbs Sex: F BSA: 1.59 Room#: [facility] Admit Date#: 04/02/2018 Type: Inpatient Referring: eDepak Lewis Reading: Bhupinder Salgado MD Calender Tender: Angie Jacobs RDCS CC: Lucero Wolf MD Transthoracic Echocardiogram Indication: Congestive heart failure BP: 132/68 HR: 112 Rhythm: Tachycardia Findings History: ESRD, renal transplant, HTN, pericardial effusion. Technical Comments: The study quality is good. Completed at 1125. Left Ventricle: The left ventricular chamber size is normal. Moderate concentric left ventricular hypertrophy is observed. Global left ventricular wall motion and contractility are within normal limits. There is normal left ventricular systolic function. The estimated ejection fraction is 55-60%. The assessment of diastolic function is non-diagnostic. Left Atrium: The left atrium is severely dilated. Right Ventricle: Moderator Band present. The right ventricular cavity size is normal. The right ventricular global systolic function is normal. Right Atrium: The right atrium is mild to moderately dilated. Aortic Valve: The aortic valve is trileaflet. There is no evidence of aortic valve thickening. There is mild aortic regurgitation. There is no evidence of aortic stenosis. Mitral Valve: The mitral valve leaflets do not appear thickened. There is a trace of mitral regurgitation. There is no evidence of mitral stenosis. Tricuspid Valve: The tricuspid valve leaflets are normal. There is moderate tricuspid regurgitation. The right ventricular systolic pressure is estimated at 46 mmHg. There is evidence of moderate pulmonary hypertension. There is no tricuspid stenosis. Pulmonic Valve: The pulmonic valve appears normal. There is trace to mild pulmonic regurgitation. There is no pulmonic stenosis. Pericardium: There is a small pericardial effusion.Small to moderate pericardial effussion There are no signs of significant hemodynamic compromise. There is a circumferential pericardial effusion.But mostly located lateral to RV Aorta: There is no dilatation of the ascending aorta. There is no dilatation of the aortic arch. The aortic root is normal in size. Pulmonary Artery: The main pulmonary artery appears normal. Venous: The inferior vena cava is dilated. There is a greater than 50% respiratory change in the inferior vena cava dimension. Conclusions Moderate concentric left ventricular hypertrophy is observed. Global left ventricular wall motion and contractility are within normal limits. The estimated ejection fraction is 55-60%. There is normal left ventricular systolic function. The right ventricular global systolic function is normal. There is no evidence of aortic stenosis. There is mild aortic regurgitation. There is a trace of mitral regurgitation. There is moderate tricuspid regurgitation. The right ventricular systolic pressure is estimated at 46 mmHg. There is evidence of moderate pulmonary hypertension. There is a small pericardial effusion.Small to moderate pericardial effussion There is a circumferential pericardial effusion.But mostly located lateral to RV There are no signs of significant hemodynamic compromise. Compared to study of 03/27/18, the LV and valve functions are the same. The size of the pericardial effusion is slightly bigger Measurements Name Value Normal Range RVIDd (AP) 2D 3.6 cm (0.9 - 2.6) RVDdMajor (2D) 3.6 cm (2.2 - 4.4) RAd ISD 4CH 5.5 cm (3.4 - 4.9) RA (A4C)W 4.6 cm (2.9 - 4.6) IVSd (2D) 1.5 cm (0.6 - 1) LVPWd (2D) 1.5 cm (0.6 - 1) LVIDd (2D) 4.8 cm (3.6 - 5.4) LVIDs (2D) 3.8 cm - LV FS (2D) 22 % (25 - 45) Aortic Annulus 1.8 cm (1.4 - 2.6) Ao root diameter (2D) 2.4 cm (2.1 - 3.5) Ascending Ao 2.6 cm (2.1 - 3.4) Aortic arch 2.4 cm (1.8 - 3.4) LA dimension (AP) 2D 4.6 cm (2.3 - 3.8) LAd ISD 4CH 6.3 cm (2.9 - 5.3) LA ISD 4CH W 5.1 cm (2.5 - 4.5) Name Value Normal Range LA ESV BP (A/L) index 76 ml/m2 - Name Value Normal Range MV E-wave Vmax 1 m/sec - MV deceleration time 121 msec - MV A-wave Vmax 1.3 m/sec - MV E:A ratio 0.8 ratio - LV septal e' Vmax 0.07 m/sec - LV lateral e' Vmax 0.04 m/sec - LV E:e' septal ratio 14.32 ratio - Name Value Normal Range AV Vmax 1.9 m/sec - AV VTI 28 cm - AV peak gradient 14 mmHg - AV mean gradient 8 mmHg - LVOT Vmax 1.5 m/sec - LVOT VTI 23 cm - LVOT peak gradient 9 mmHg - LVOT mean gradient 5 mmHg - EMELIA Vmax 1.2 m/sec - Name Value Normal Range TR Vmax 3.1 m/sec - TR peak gradient 38 mmHg - RAP 8 mmHg - RVSP 46 mmHg - IVC diameter 2.2 cm - Name Value Normal Range PV Vmax 1.3 m/sec - PV peak gradient 7 mmHg - TX end-diastolic Vmax 1.6 m/sec - PA end-diastolic [id number] mmHg -
--- NOTE | 2018-04-04 20:35 | DS ---
DISCHARGE SUMMARY: DATE OF ADMISSION: DATE OF DISCHARGE: 04/04/18 DISCHARGE DIAGNOSES: 1. Chronic kidney disease with fluid retention. 2. Hypertensive urgency, resolved. 3. History of seizure disorder. 4. Mildly elevated troponins, likely secondary to demand ischemia in the setting of chronic kidney disease. DISCHARGE MEDICATIONS: 1. Amlodipine 10 mg p.o. daily. 2. Carvedilol 37.5 mg p.o. b.i.d. 3. Clonidine patch 0.2 mg every week. DICTATION ENDS ABRUPTLY [id number]/[facility] #: [id number] [facility]
--- NOTE | 2018-04-04 21:01 | DS ---
CC: Dr. Petros House; Dr. John Arrieta; Dr. Kp Kaur; Dr. Lucero Wolf.* DISCHARGE SUMMARY: DATE OF ADMISSION: DATE OF DISCHARGE: 04/04/18 DISCHARGE DIAGNOSES: As follows: 1. Chronic kidney disease with fluid retention. 2. Hypertensive urgency. 3. Seizure disorder. 4. Mildly elevated troponin secondary to demand ischemia in the setting of chronic kidney disease. DISCHARGE MEDICATIONS: As follows: 1. Norvasc 10 mg p.o. daily. 2. Carvedilol 37.5 mg p.o. b.i.d. 3. Clonidine patch 0.2 mg patch topically weekly. 4. Cyclobenzaprine 2.5 mg p.o. q.p.m. 5. Colace 100 mg p.o. b.i.d. 6. Famotidine 20 mg p.o. q.p.m. 7. Lacosamide 100 mg p.o. b.i.d. 8. Losartan 100 mg p.o. daily. 9. Minoxidil 10 mg p.o. t.i.d. 10. Pantoprazole 40 mg p.o. daily. 11. Promethazine 20 mg p.o. q.6 p.r.n. 12. Tylenol 650 mg p.o. 4 times a day. 13. Dulcolax suppository 1 dose SD daily p.r.n. 14. Cholecalciferol 1 tab p.o. every weekly. 15. Labetalol 100 mg p.o. q.48 hours. HISTORY OF PRESENT ILLNESS/HOSPITAL COURSE: The patient is a 22-year-old lady with a history of ESRD due to Henoch-Schonlein purpura, status post failed renal transplant, on hemodialysis on Tuesday, Tuesday and Tuesday, who had her last session of hemodialysis 2 days prior to admission, when a few hours prior to admission at midnight, she woke up, very short of breath and was orthopneic and they had to readjust her pillows about 3 to 4 pillows were used at night to be able to go back to sleep. She was found to have fluid overload likely secondary to her dietary indiscretion where she mentions that although she maintains a renal diet most of the time, she does not count the sodium in the foods that she eat and only does so some times. She presented with SIRS secondary to above and also was found to have uncontrolled blood pressure and hypertensive urgency that was poorly responsive to medications. This has improved somewhat with increasing her minoxidil dose, but her uncontrolled hypertension further resolved and improved once she had obtained ultrafiltration during dialysis where they took off 1 L based on the patient's report. She was observed and monitored overnight given the recent medication changes as well as her recent ultrafiltration with dialysis and her blood pressure was found to be well controlled this morning and the patient feels well and would like go home. The patient was advised to follow up and recall her PCP within 3 days post discharge. She was advised to make sure to maintain a renal diet while on a low salt diet. If her symptoms resume or develop new ones or feel unwell for any reason, she was asked to call her PCP first. If her PCP cannot entertain her due to scheduling issues alone, she was advised to call [facility] if the issue is considered nonemergent. She was advised to call my office regarding any questions, concerns, or further clarifications regarding her discharge plans and prescriptions and she was advised to take her medications as prescribed. REVIEW OF SYSTEMS: The patient denied any recent headaches, dizziness, fevers, chills, nausea, vomiting, chest pain, shortness of breath, increased cough and/ or sputum production, abdominal pain, diarrhea, constipation, pain and/or increased frequency on urination, myalgias, arthralgias, throat pain, or new skin lesions. The rest of the 14-point review of systems are otherwise unremarkable. PHYSICAL EXAMINATION: Shows the most recent vital signs of records with blood pressure of 112/72, 16 per minute respiratory rate, saturating at 98% on room air, heart rate of 95 beats per minute, 98 degrees Fahrenheit. General Appearance: The patient is awake, alert, and oriented x3, not in acute distress. HEENT: Normocephalic, atraumatic. PERRLA. Extraocular muscles intact. Negative for icterus. Moist oral mucosa. Negative throat erythema. Neck: Soft, supple with no cervical lymphadenopathy. No JVD. Heart: S1, S2 within normal limits. Regular rate and rhythm. No murmurs, rubs, or gallops. Chest: Clear to auscultation bilaterally. Good air entry. No wheezes, rales, or rhonchi. Abdomen: Soft, nondistended, and nontender. Normoactive bowel sounds x4 quadrants. Extremities: No cyanosis, clubbing, or edema. Psychiatric: No active psychosis, depression, suicidal or homicidal ideations. Skin is warm to touch. TIME SPENT: The total time spent evaluating patient, reviewing pertinent data, and appropriate documentation is 65 minutes. [id number]/[facility] #: [id number] MTDD
== END 2018-04-04 15:35 | disposition home or self-care (01) ==
LOC: ED 13:39 → MED 17:13 → MEDTELE 18:12 → MED 20:09
PROVIDERS: ADMIT Internal Medicine; ATTEND Student in an Organized Health Care Education/Training Program
DX: I12.0 Hypertensive chronic kidney disease with stage 5 chronic kidney disease or end stage renal disease (principal); N18.6 End stage renal disease; Z99.2 Dependence on renal dialysis; Z94.0 Kidney transplant status; G40.909 Epilepsy, unspecified, not intractable, without status epilepticus; R60.9 Edema, unspecified; Z79.899 Other long term (current) drug therapy; K21.9 Gastro-esophageal reflux disease without esophagitis
CPT/HCPCS: 36415; 71045; 80053; 83605; 83880; 84145; 84484; 85025; 85610; 85730; 86140; 87040; 87641; 93005; 93306; 96365; 96366; 96372; 96375; 99284; A9270-GY; G0378; J0360; J0696; J0885; J1644; J2060; J2405

== ENCOUNTER 2019-05-26 10:38 | Emergency (ER) | payer MEDICARE, MEDICAID ==
--- OUTSIDE RECORDS SUMMARY | 2019-05-26 12:00 | XMS REPORT | Continuity of Care Document ---
:1995 External Reference #:[id number] Author Name Lucero Wolf M.D. 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 Onset: 12/08/2017 Acute rejection of renal transplant Onset: 07/03/2014 Acute respiratory failure Onset: 01/24/2018 Alcohol-induced pancreatitis Onset: 11/28/2016 Anemia Onset: 06/16/2017 Anemia of renal disease Onset: 11/28/2017 Ascites Onset: 07/12/2017 Ascites Onset: 06/20/2017 Chronic cough Onset: 02/18/2015 Clonidine adverse reaction Onset: 07/26/2017 Dehydration Onset: 07/18/2017 Dependence on hemodialysis due to end stage Onset: 08/30/2017 renal disease Dialysis finding Onset: 02/07/2017 Dyspnea Onset: 01/26/2018 End-stage renal disease Onset: 12/27/2017 Eosinophil count raised Onset: 05/13/2017 Essential hypertension Onset: 07/03/2018 Essential hypertension Onset: 06/22/2013 Gastro-esophageal reflux disease with Onset: 04/09/2015 esophagitis Gastroparesis syndrome Onset: 05/10/2017 Hematemesis Onset: 02/19/2015 History of renal transplant Onset: 06/19/2013 Hydronephrosis Onset: 07/12/2017 Hypercalcemia Onset: 04/28/2017 Hyperparathyroidism due to renal Onset: 09/08/2017 insufficiency Hypertensive disorder Onset: 07/29/2017 Hypokalemia Onset: 04/28/2017 Idiopathic acute pancreatitis Onset: 12/05/2016 IgA nephropathy Onset: 02/01/2014 Metabolic acidosis, IAG, reduced excretion of Onset: 04/28/2017 inorganic acids Normocytic anemia Onset: 11/28/2016 Oropharyngeal dysphagia Onset: 01/26/2018 Pancreatitis Onset: 09/10/2017 Patient encounter status Onset: 01/24/2018 Patient encounter status Onset: 10/29/2013 Pericardial effusion Onset: 05/10/2017 Pericarditis Onset: 02/13/2018 Perioral numbness Onset: 01/26/2018 Peritoneal dialysis-associated peritonitis Onset: 12/03/2016 Resting tremor Onset: 07/12/2013 Seizure Onset: 11/28/2016 Seizure Onset: 01/23/2017 Systemic inflammatory response syndrome Onset: 07/12/2017 Venous thrombosis Onset: 01/24/2018 Anemia Onset: 02/16/2015 Chronic renal failure Onset: 12/05/2016 Chronic renal insufficiency Onset: 12/16/2016 Cough Onset: 12/05/2016 End-stage renal disease Onset: 02/16/2015 Dependence on peritoneal dialysis due to end Onset: 02/08/2015 stage renal disease Fall Onset: 06/14/2014 Gastrointestinal hemorrhage Onset: 02/16/2015 Headache Onset: 12/05/2014 Hypovolemia Onset: 02/08/2015 Laceration - injury Onset: 06/14/2014 Left against medical advice Onset: 02/16/2015 Leukocytosis Onset: 12/05/2016 Nausea and vomiting Onset: 12/16/2016 Pancreatitis Onset: 12/05/2016 Uterine prolapse Onset: 09/19/2016 Abdominal mass Onset: 10/19/2018 Abdominal mass Onset: 07/20/2018 Acute pulmonary edema Onset: 03/15/2018 Acute respiratory failure Onset: 03/15/2018 Anemia Onset: 02/12/2015 Dialysis finding Onset: 04/10/2018 End stage renal failure on dialysis Onset: 10/23/2014 Generalized abdominal pain Onset: 08/03/2015 Henoch-Schonlein purpura Onset: 03/15/2018 Hyperparathyroidism due to renal Onset: 02/12/2015 insufficiency Hypertensive urgency Onset: 04/10/2018 Leukocytosis Onset: 12/16/2015 Pneumonia Onset: 03/15/2018 Posterior reversible encephalopathy syndrome Onset: 08/19/2016 Seizure Onset: 12/15/2015 Sepsis Onset: 04/10/2018 Sepsis Onset: 03/15/2018 Tachycardia Onset: 03/15/2018 Social History Type Date Description Comments Sex Unknown ETOH Use Denies alcohol use Tobacco Use Start: Unknown Patient has never smoked Recreational Drug Use Denies Drug Use Smoking Status Reviewed: 03/13/18 Patient has never smoked Allergies, Adverse Reactions, Alerts Active Allergies Reaction Severity Comments Date Fentanyl 12/08/2017 Honey Bee Venom Hives Moderate 11/06/2018 Nifedipine 12/08/2017 Iodinated Diagnostic Agents Nausea And Vomiting 11/06/2018 Lisinopril 12/08/2017 Povidone-Iodine Hives 11/06/2018 Medications Active Medications SIG Qnty Indications Ordering Provider Date Imitrex one tab by mouth 14tabs I10 Lucero Wolf, 12/06/2018 50mg Tablets as needed M.D. headache, may repeat x 1 if no relief in 2 hours. Claritin 1 by mouth every 30tabs J32.4 Lucero Wolf, 03/13/2018 10mg Tablets day M.D. Vimpat 1 1/2 tab by 8tabs Lucero Wolf, 02/24/2018 50mg Tablets mouth every day M.D. Minoxidil 2 tab by mouth 60tabs G43.009 Lucero Wolf, 12/27/2017 2.5mg Tablets twice a M.D. day-Nephrology Carvedilol 1 tab by mouth 90tabs I10 Unknown 25mg Tablets every day-Nephrology Ondansetron dissolve 1 tablet K31.84 Unknown 4mg Tablets On Tongue every 8 Dispers hours if needed for nausea R11.0 Famotidine 1 tab by mouth twice a 180tabs K21.0 Unknown 20mg Tablets day K30 Calcium Antacid 1 tab by mouth twice a day as K30 Unknown 500mg Chewtabs needed K21.0 K31.84 Pantoprazole Sodium take 1 tablet by mouth K21.[address] twice a day before meals K30 K31.84 Mapap 325mg take 2 tablets by mouth every Unknown Tablets 6 hours if needed for Up To 10 days Magnesium Oxide take 1 tablet by mouth daily Unknown 400mg Tablets Immunizations CPT Code Status Date Vaccine Lot # [id number] Given 02/05/2019 Flu Virus Vaccine, Quadrivalent, Slit Virus, Im [id number] Use U-HPV Given 08/18/2009 HPV,Unspecified U-HPV Given 04/21/2009 HPV,Unspecified U-Flu Given 04/21/2009 Influenza,Unspecified U-Menin Given 02/18/2009 Meningococcal,Unspecified U-HPV Given 02/18/2009 HPV,Unspecified U-Flu Given 02/18/2009 Influenza,Unspecified [id number] Given 02/15/2008 Td 7 Years And Older 29935 Given 05/20/2000 MMR U-DTaP Given 05/20/2000 DTaP,Unspecified U-Polio Given 05/20/2000 Polio,Unspecified [id number] Given 12/18/1996 MMR U-Polio Given 05/24/1996 Polio,Unspecified U-HepB Given 05/24/1996 Hepatitis B,Unspecified U-DTaP Given 05/24/1996 DTaP,Unspecified U-Polio Given 03/23/1996 Polio,Unspecified U-Polio Given 01/17/1996 Polio,Unspecified U-HepB Given 01/17/1996 Hepatitis B,Unspecified U-DTaP Given 01/17/1996 DTaP,Unspecified U-HepB Given 1995 Hepatitis B,Unspecified Vital Signs Date Vital Result Comment 03/27/2019 3:28pm BP Systolic 115 mmHg BP Diastolic 62 mmHg Height 61 inches 5'1" Weight 129.00 lb BMI (Body Mass Index) 24.4 kg/m2 Heart Rate 77 /min Respiratory Rate 16 /min 03/12/2019 2:48pm BP Systolic 122 mmHg BP Diastolic 62 mmHg Height 61 inches 5'1" Weight 132.00 lb BMI (Body Mass Index) 24.9 kg/m2 Heart Rate 83 /min Respiratory Rate 16 /min Results Test Acquired Date Facility Test Result H/L Range Note CBS W/Automated 11/04/2018 [facility] White Blood 5.1 K/uL Normal 3.1-10.7 1 Diff Count Red Blood Count 3.52 M/uL Low 3.90-5.40 Hemoglobin 11.3 gm/dL Low 11.6-15.8 Hematocrit 33.0 % Low 36.0-46.1 Mean Cell Volume 93.8 fl Normal 80.9-99.0 Mean Corpuscular HGB 32.1 pg Normal 25.9-32.7 Mean Corpuscular HGB Conc 34.2 g/dL Normal 30.8-34.3 Platelet Count 290 K/uL Normal 155-360 Red Cell Distri Width SD 47.0 fl Normal 36-47 Red Cell Distri Width %CV 13.9 % Normal 11.7-14.4 Mean Platelet Volume 9.4 fl Normal 8.9-12.4 Neut% 49.7 % Normal 40.4-72.8 Lymph % 29.0 % Normal 20.0-42.0 [place] % 9.1 % Normal 4.3-13.2 Eo% 9.9 % High 0.0-6.6 Bas% 2.1 % High 0.0-1.1 Immature Grans 0.2 % Normal 0.0-5.0 NRBC % 0.0 /100WBC < 10/ 100 WBC Neut# 2.55 K/uL Normal 1.8-7.0 Lymph # 1.49 K/uL Normal 1.0-4.0 [place] # 0.47 K/uL Normal 0.3-0.9 Eos # 0.51 K/uL High 0.0-0.5 Baso # 0.11 K/uL High 0.0-0.1 Immature Grans Absolute 0.01 K/uL NRBC # 0.00 K/uL Protime 11/04/2018 [facility] Protime 14.6 seconds High 12.0-14.4 Inr 1.1 Normal 0.9-1.1 2 Laboratory test 11/04/2018 [facility] Act Partial 34.9 seconds Normal 23.4- 35.0 3 finding Thrombo Time Comprehensive 11/04/2018 [facility] Glucose 91 mg/dL Normal 74-106 Metabolic Panel BUN 10 mg/dL Normal 7-18 Creatinine 3.6 mg/dL High 0.6-1.3 Glom Filtration Rate, Estimate 17 mL/min >60 If 20 mL/min >60 4 BUN/Creat 2.7 ratio Sodium 137 mmol/L Normal 136-145 Potassium 3.5 mmol/L Normal 3.5-5.1 Chloride 99 mmol/L Normal 98-107 Carbon Dioxide 30 mmol/L Normal 21-32 Anion Gap 8 mEq/L Normal 8-16 Calcium 9.3 mg/dL Normal 8.5-10.1 Total Protein 8.3 g/dL High 6.4-8.2 Albumin 4.0 g/dL Normal 3.4-5.0 Globulin 4.3 g/dL Normal 1.9-4.3 Alb/Glob 0.9 ratio Bilirubin,Total 0.3 mg/dL Normal 0.2-1.0 Sgot/Ast 9 U/L Low 15-37 5 SGPT/Alt 12 U/L Normal 12-78 Alkaline Phosphatase 111 U/L Normal 45-117 Laboratory test finding 11/04/2018 [facility] CK 49 U/L Normal 26-192 Troponin-I 0.022 ng/mL 6 1 L NUMBNESS, L HAND NUMBNESS, DIFFICULTY SPEAKING 2 THERAPEUTIC INR RANGE: 2.0 - 3.0 DVT, Pulmonary embolus, prophylaxis against venous thrombosis or systemic embolization in high risk patients. 2.5 - 3.5 Mechanical heart valves 3 Is patient on anticoagulants? Coumadin 4 Note: Persistent reduction for 3 months or more in an eGFR <60 mL/min/1.73 m2 defines CKD. Patients with eGFR values >/=60 mL/min/1.73 m2 may also have CKD if evidence of persistent proteinuria is present. The original MDRD equation for estimated GFR is not valid for patients less than 18 years of age. Additional information may be found at www.kdoqi.org. 5 Values below the stated reference ranges of AST and ALT can be seen in normal populations. Clinical correlation is suggested. 6 0.0 - 0.045 ng/mL: Normal 0.046 - 0.5 ng/mL: Suggestive 0.6 - 1.5 ng/mL: Consistent Procedures Date Code Description Status 03/12/2019 62276 Visual Screening Test Completed 03/12/2019 88800 Audiometry, Bekesy, Screening Completed 11/17/2018 81792 EKG Completed Medical Devices Description No Information Available Encounters Type Date Location Provider Dx Diagnosis Office Visit 03/27/2019 [facility] Lucero Wolf, I10 Essential ( primary) 4:00p M.D. 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 [...] of binocular vision I31.3 Pericardial effusion (noninflammatory) R19.03 Right lower quadrant abdominal swelling, mass and lump Assessments Date Code Description Provider 03/27/2019 I10 Essential (primary) hypertension Lucero Wolf M.D. 03/27/2019 E78.2 Mixed hyperlipidemia Lucero Wolf M.D. 03/27/2019 N18.6 End stage renal disease Lucero Wolf M.D. 03/27/2019 R60.0 Localized edema Lucero Wolf M.D. 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 arthritis of unspecified site 03/27/2019 G40.909 Epilepsy, unspecified, not intractable, Lucero Wolf M.D. without status epilepticus 03/27/2019 G43.009 Migraine without aura, not intractable, Lucero Wolf M.D. without status migrainosus 03/27/2019 K21.0 Gastro-esophageal reflux disease with Lucero Wolf M.D. esophagitis 03/27/2019 K30 Functional dyspepsia Lucero Wolf M.D. 03/27/2019 K31.84 Gastroparesis Lucero Wolf M.D. 03/27/2019 K59.00 Constipation, unspecified Lucero Wolf M.D. 03/27/2019 K64.9 Unspecified hemorrhoids Lucero Wolf M.D. 03/27/2019 R34 Anuria and oliguria Lucero Wolf M.D. 03/27/2019 K86.1 Other chronic pancreatitis Lucero Wolf M.D. 03/27/2019 Z99.2 Dependence on renal dialysis Lucero Wolf M.D. 03/27/2019 N91.1 Secondary amenorrhea Lucero Wolf M.D. 03/27/2019 L20.9 Atopic dermatitis, unspecified Lucero Wolf M.D. 03/27/2019 J30.9 Allergic rhinitis, unspecified Lucero Wolf M.D. 03/27/2019 M79.643 Pain in unspecified hand Lucero Wolf M.D. 03/27/2019 M25.569 Pain in unspecified knee Lucero Wolf M.D. 03/27/2019 M79.606 Pain in leg, unspecified Lucero Wolf M.D. 03/27/2019 F41.9 Anxiety disorder, unspecified Lucero Wolf M.D. 03/27/2019 F33.9 Major depressive disorder, recurrent, Luciano, Ahmad M., M.D. unspecified 03/27/2019 H53.30 Unspecified disorder of binocular vision Lucero Wolf M.D. 03/27/2019 I31.3 Pericardial effusion (noninflammatory) Lucero Wolf M.D. 03/27/2019 J02.0 Streptococcal pharyngitis Lucero Wolf M.D. 03/12/2019 I10 Essential (primary) hypertension Efrem Villarreal N.P. 03/12/2019 E78.2 Mixed hyperlipidemia Efrem Villarreal N.P. 03/12/2019 N18.6 End stage renal disease Efrem Villarreal N.P. 03/12/2019 R60.0 Localized edema Efrem Villarreal N.P. 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 without status epilepticus 03/12/2019 G43.009 Migraine without aura, not intractable, Efrem Villarreal N.P. without status migrainosus 03/12/2019 K21.0 Gastro-esophageal reflux disease with Efrem Villarreal N.PMarjan esophagitis 03/12/2019 K30 Functional dyspepsia Efrem Villarreal N.P. 03/12/2019 K31.84 Gastroparesis Efrem Villarreal N.P. 03/12/2019 K59.00 Constipation, unspecified Efrem Villarreal N.P. 03/12/2019 K64.9 Unspecified hemorrhoids Efrem Villarreal N.P. 03/12/2019 R34 Anuria and oliguria Efrem Villarreal N.P. 03/12/2019 K86.1 Other chronic pancreatitis Efrem Villarreal N.P. 03/12/2019 Z99.2 Dependence on renal dialysis Efrem Villarreal N.P. 03/12/2019 N91.1 Secondary amenorrhea Efrem Villarreal N.P. 03/12/2019 L20.9 Atopic dermatitis, unspecified Efrem Villarreal N.P. 03/12/2019 J30.9 Allergic rhinitis, unspecified Efrem Villarreal N.P. 03/12/2019 M79.643 Pain in unspecified hand Efrem Villarreal N.PMarjan 03/12/2019 M25.569 Pain in unspecified knee Efrem Villarreal N.PMarjan 03/12/2019 M79.606 Pain in leg, unspecified Efrem Villarreal N.PMarjan 03/12/2019 F41.9 Anxiety disorder, unspecified Efrem Villarreal N.PMarjan 03/12/2019 F33.9 Major depressive disorder, recurrent, Rony Evans.PMarjan unspecified 03/12/2019 H53.30 Unspecified disorder of binocular vision Efrem Villarreal N.PMarjan 03/12/2019 I31.3 Pericardial effusion (noninflammatory) Efrem Villarreal N.PMarjan 03/12/2019 R19.03 Right lower quadrant abdominal swelling, Rony Evans.Patricia mass and lump 03/12/2019 G43.109 Migraine with aura, not intractable, without Efrem Villarreal N.PMarjan status migrainosus 03/12/2019 R10.11 Right upper quadrant pain Rony Evans.PMarjan 03/12/2019 Z00.01 Encounter for general adult medical Efrem Villarreal N.P. 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 esophagitis 02/05/2019 K30 Functional dyspepsia Efrem Villarreal N.PMarjan 02/05/2019 K31.84 Gastroparesis Efrem Villarreal N.PMarjan 02/05/2019 K59.00 Constipation, unspecified Efrem Villarreal N.PMarjan 02/05/2019 K64.9 Unspecified hemorrhoids Rony Evans.PMarjan 02/05/2019 R34 Anuria and oliguria Efrem Villarreal N.P. 02/05/2019 K86.1 Other chronic pancreatitis Efrem Villarreal N.PMarjan 02/05/2019 Z99.2 Dependence on renal dialysis Efrem Villarreal N.P. 02/05/2019 N91.1 Secondary amenorrhea Efrem Villarreal N.PMarjan 02/05/2019 L20.9 Atopic dermatitis, unspecified Efrem Villarreal N.P. 02/05/2019 J30.9 Allergic rhinitis, unspecified Efrem Villarreal N.P. 02/05/2019 M79.643 Pain in unspecified hand Efrem Villarreal N.P. 02/05/2019 M25.569 Pain in unspecified knee Efrem Villarreal N.PMarjan 02/05/2019 M79.606 Pain in leg, unspecified Efrem Villarreal N.P. 02/05/2019 F41.9 Anxiety disorder, unspecified Efrem Villarreal N.P. 02/05/2019 F33.9 Major depressive disorder, recurrent, Efrem Villarreal N.P. unspecified 02/05/2019 H53.30 Unspecified disorder of binocular vision Efrem Villarreal N.PMarjan 02/05/2019 I31.3 Pericardial effusion (noninflammatory) Efrem Villarreal N.PMarjan 02/05/2019 R19.03 Right lower quadrant abdominal swelling, Efrem Villarreal N.PMarjan mass and lump 02/05/2019 G43.109 Migraine with aura, not intractable, without Efrem Villarreal N.PMarjan status migrainosus 02/05/2019 R10.11 Right upper quadrant pain Efrem Villarreal N.PMarjan 02/05/2019 Z23 Encounter for immunization Efrem Villarreal N.PMarjan 12/06/2018 I10 Essential (primary) hypertension Efrem Villarreal N.PMarjan 12/06/2018 E78.2 Mixed hyperlipidemia Efrem Villarreal N.PMarjan 12/06/2018 N18.6 End stage renal disease Efrem Villarreal N.PMarjan 12/06/2018 R60.0 Localized edema Efrem Villarreal N.PMarjan 12/06/2018 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 without status epile 12/06/2018 G43.009 Migraine without aura, not intractable, Efrem Villarreal, N.P. without status migra 12/06/2018 K21.0 Gastro-esophageal reflux disease with Efrem Villarreal N.PMarjan esophagitis 12/06/2018 K30 Functional dyspepsia Efrem Villarreal N.P. 12/06/2018 K31.84 Gastroparesis Efrem Villarreal N.P. 12/06/2018 K59.00 Constipation, unspecified Efrem Villarreal N.P. 12/06/2018 K64.9 Unspecified hemorrhoids Efrem Villarreal, N.P. 12/06/2018 R34 Anuria and oliguria Efrem Villarreal N.P. 12/06/2018 K86.1 Other chronic pancreatitis Efrem Villarreal N.PMarjan 12/06/2018 Z99.2 Dependence on renal dialysis Efrem Villarreal N.P. 12/06/2018 N91.1 Secondary amenorrhea Efrem Villarreal N.P. 12/06/2018 L20.9 Atopic dermatitis, unspecified Efrem Villarreal N.P. 12/06/2018 J30.9 Allergic rhinitis, unspecified Eferm Villarreal, N.P. 12/06/2018 M79.643 Pain in unspecified hand Efrem Villarreal N.P. 12/06/2018 M25.569 Pain in unspecified knee Efrem Villarreal N.P. 12/06/2018 M79.606 Pain in leg, unspecified Efrem Villarreal N.P. 12/06/2018 F41.9 Anxiety disorder, unspecified Efrem Villarreal N.P. 12/06/2018 F33.9 Major depressive disorder, recurrent, Efrem Villarreal N.P. unspecified 12/06/2018 H53.30 Unspecified disorder of binocular vision Efrem Villarreal N.P. 12/06/2018 I31.3 Pericardial effusion (noninflammatory) Efrem Villarreal N.P. 12/06/2018 R19.03 Right lower quadrant abdominal swelling, Efrem Villarreal N.Patricia mass and lump 12/06/2018 G43.109 Migraine with aura, not intractable, without Efrem Villarreal, N.PMarjan status migrainosus 12/06/2018 R10.11 Right upper quadrant pain Efrem Villarreal N.PMarjan 11/17/2018 I10 Essential (primary) hypertension Efrem Villarreal N.PMarjan 11/17/2018 E78.2 Mixed hyperlipidemia Efrem Villarreal N.P. 11/17/2018 N18.6 End stage renal disease Efrem Villarreal N.P. 11/17/2018 R60.0 Localized edema Efrem Villarreal N.P. 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 11/17/2018 K31.84 Gastroparesis Efrem Villarreal N.P. 11/17/2018 K59.00 Constipation, unspecified Efrem Villarreal N.P. 11/17/2018 K64.9 Unspecified hemorrhoids Efrem Villarreal N.PMarjan 11/17/2018 R34 Anuria and oliguria Efrem Villarreal N.P. 11/17/2018 K86.1 Other chronic pancreatitis Efrem Villarreal N.PMarjan 11/17/2018 Z99.2 Dependence on renal dialysis Efrem Villarreal N.P. 11/17/2018 N91.1 Secondary amenorrhea Efrem Villarreal N.P. 11/17/2018 L20.9 Atopic dermatitis, unspecified Efrem Villarreal N.P. 11/17/2018 J30.9 Allergic rhinitis, unspecified Efrem Villarreal N.P. 11/17/2018 M79.643 Pain in unspecified hand Efrem Villarreal N.P. 11/17/2018 M25.569 Pain in unspecified knee Efrem Villarreal N.P. 11/17/2018 M79.606 Pain in leg, unspecified Efrem Villarreal N.P. 11/17/2018 F41.9 Anxiety disorder, unspecified Efrem Villarreal N.P. 11/17/2018 F33.9 Major depressive disorder, recurrent, Efrem Villarreal N.P. unspecified 11/17/2018 H53.30 Unspecified disorder of binocular vision Efrem Villarreal N.PMarjan 11/17/2018 I31.3 Pericardial effusion (noninflammatory) Efrem Villarreal N.P. 11/17/2018 R19.03 Right lower quadrant abdominal swelling, Efrem Villarreal NMarjanPMarjan mass and lump 11/16/2018 I10 Essential (primary) hypertension Lcuero Wolf M.D. 11/16/2018 E78.2 Mixed hyperlipidemia Lucero Wolf M.D. 11/16/2018 N18.6 End stage renal disease Lucero Wolf M.D. 11/16/2018 R60.0 Localized edema Lucero Wolf M.D. 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 arthritis of unspecified 11/16/2018 G40.909 Epilepsy, unspecified, not intractable, Lucero Wolf M.D. without status epile 11/16/2018 G43.009 Migraine without aura, not intractable, Lucero Wolf M.D. without status migra 11/16/2018 K21.0 Gastro-esophageal reflux disease with Lucero Wolf M.D. esophagitis 11/16/2018 K30 Functional dyspepsia Lucero Wolf M.D. 11/16/2018 K31.84 Gastroparesis Lucero Wolf M.D. 11/16/2018 K59.00 Constipation, unspecified Lucero Wolf M.D. 11/16/2018 K64.9 Unspecified hemorrhoids Lucero Wolf M.D. 11/16/2018 R34 Anuria and oliguria Lucero Wolf M.D. 11/16/2018 K86.1 Other chronic pancreatitis Lucero Wolf M.D. 11/16/2018 Z99.2 Dependence on renal dialysis Lucero Wolf M.D. 11/16/2018 N91.1 Secondary amenorrhea Lucero Wolf M.D. 11/16/2018 L20.9 Atopic dermatitis, unspecified Lucero Wolf M.D. 11/16/2018 J30.9 Allergic rhinitis, unspecified Lucero Wolf M.D. 11/16/2018 M79.643 Pain in unspecified hand Lucero Wolf M.D. 11/16/2018 M25.569 Pain in unspecified knee Lucero Wolf M.D. 11/16/2018 M79.606 Pain in leg, unspecified Lucero Wolf M.D. 11/16/2018 F41.9 Anxiety disorder, unspecified Lucero Wolf M.D. 11/16/2018 F33.9 Major depressive disorder, recurrent, Lucero Wolf M.D. unspecified 11/16/2018 H53.30 Unspecified disorder of binocular vision Lucero Wolf M.D. 11/16/2018 I31.3 Pericardial effusion (noninflammatory) Lucero Wolf M.D. 11/02/2018 I10 Essential (primary) hypertension Lucero Wolf M.D. 11/02/2018 E78.2 Mixed hyperlipidemia Lucero Wolf M.D. 11/02/2018 N18.6 End stage renal disease Lucero Wolf M.D. 11/02/2018 R60.0 Localized edema Lucero Wolf M.D. 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 arthritis of unspecified 11/02/2018 G40.909 Epilepsy, unspecified, not intractable, Lucero Wolf M.D. without status epile 11/02/2018 G43.009 Migraine without aura, not intractableLuciano Ahmad M., M.D. without status migra 11/02/2018 K21.0 Gastro-esophageal reflux disease with Lucero Wolf M.D. esophagitis 11/02/2018 K30 Functional dyspepsia LucianoLucero blanchard M.D. 11/02/2018 K31.84 Gastroparesis Lucero Wolf M.D. 11/02/2018 K59.00 Constipation, unspecified Lucero Wolf M.D. 11/02/2018 K64.9 Unspecified hemorrhoids Lucero Wolf M.D. 11/02/2018 R34 Anuria and oliguria Lucero Wolf M.D. 11/02/2018 K86.1 Other chronic pancreatitis Lucero Wolf M.D. 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 11/02/2018 N91.1 Secondary amenorrhea Lucero Wolf M.D. 11/02/2018 L20.9 Atopic dermatitis, unspecified Lucero Wolf M.D. 11/02/2018 J30.9 Allergic rhinitis, unspecified Lucero Wolf M.D. 11/02/2018 M79.643 Pain in unspecified hand Lucero Wolf M.D. 11/02/2018 M25.569 Pain in unspecified knee Lucero Wolf M.D. 11/02/2018 M79.606 Pain in leg, unspecified Lucero Wolf M.D. 11/02/2018 F41.9 Anxiety disorder, unspecified Lucero Wolf M.D. 11/02/2018 F33.9 Major depressive disorder, recurrent, Lucero Wolf M.D. unspecified 11/02/2018 H53.30 Unspecified disorder of binocular vision Lucero Wolf M.D. 11/02/2018 I31.3 Pericardial effusion (noninflammatory) Lucero Wolf M.D. Plan of Treatment Future Appointment(s):06/13/2019 1:30 pm - Efrem Villarreal N.P. 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:EXERCISE/HEAT/MESSAGE [facility] AND XHOKNXTYCORH38.909 Epilepsy, unspecified, not intractable, without status epilepticusComments:F/U WITH NEUROLOGY PRNOBSERVE SAFETY NXSTOZK82.009 Migraine without aura, not intractable, without status migrainosusComments:TYLENOL OR MOTRIN PRNRELAXATION/AVOID QUEFUXZJHJ88.0 Gastro- esophageal reflux disease with esophagitisComments:AVOID CAFFEINE, ETOH AND SPICY FOODSTUMS OR MYLANTA PRN CALL WITH PROBLEMS OR IBGPULSXW39 Functional dyspepsiaComments:AVOID CAFFEINE, ETOH AND SPICY FOODSTUMS OR MYLANTA PRN CALL WITH PROBLEMS OR TQSIEBETI73.84 GastroparesisComments:CONTINUE MEDICATIONS F/U WITH WVMQRXSNPDYEXDBXLTJ23.00 Constipation, unspecifiedComments:MOM OR MIRALAX PRNHIGH FIBER DIETINCREASE PO CJGYQD74.9 Unspecified hemorrhoidsComments:AVOID CONSTIPATOIN INCREASE FIBER IN DIETLAXATIVE PRNLUBRICATE ANAL AREA WITH LOTION PRN FOR JTDGRIQK18 Anuria and oliguriaComments:OBSERVEHEMODIALYSIS PER MBDBHQUOSKG95.1 Other chronic pancreatitisComments:AVOID ETOH ABUSE F/U WITH GI PRNZ99.2 Dependence on renal dialysisComments:F/U WITH WIUHGVRNZBA10.1 Secondary amenorrheaComments:OBSERVEF/U WITH OB/GYNL20.9 Atopic dermatitis, unspecifiedComments:SKIN CARE INSTRUCTIONS LOTION OR BABY OIL 2-3 APPLICATION PER DAYUSE MOISTURIZING SOAPAVOID PROLONGED WATER EXPOSUREAVOID USING HOT WATER IN XEEEIVZ31.9 Allergic rhinitis, unspecifiedComments:INCREASE PO FLUID USE ANTIHISTAMINE PRN SECOND HAND SMOKING MFLXPISTWN73.643 Pain in unspecified handComments:EXERCISE/HEAT/MESSAGETYLENOL OR MOTRIN PRNAVOID HEAVY LIFTINGWT LOSS DUR KLLXQGYC90.569 Pain in unspecified kneeComments:EXERCISE/HEAT / MESSAGEAVOID HEAVY LIFTING WT LOSSTYLENOL OR MOTRIN PRN DUR IFWCBYVO48.606 Pain in leg, unspecifiedComments:TYLENOL OR MOTRIN PRN EXERCISE/HEAT/MESSAGE DUR JFKGOFJT45.9 Anxiety disorder, unspecifiedComments:COUNCELLING AND REASSURANCE RELAXATION TECHNIQUES DISCUSSEDCOUNSELED RE: STRESSORS IN LIFE AVOID ALLENERGY/ HIGH CAFFEINE CLCEHCU27.9 Major depressive disorder, recurrent, unspecifiedComments:COUNCELLING AND REASSURANCE RELAXATION TECHNIQUES DISCUSSED COUNSELED RE: STRESSORS IN LIFEH53.30 Unspecified disorder of binocular visionComments:USE GLASSES/CONTACTSF/U WITH IIPMOVQHMGKTGI18.3 Pericardial effusion (noninflammatory)Comments:RESOLVEDOBSERVE F/U WITH MFCNCEUXIHI42.0 Streptococcal pharyngitisComments:INCREASE PO FLUIDTYLENOL OR MOTRIN PRNREST Functional Status Description No Information Available Mental Status Description No Information Available Referrals Description No Information Available
--- OUTSIDE RECORDS SUMMARY | 2019-05-26 12:00 | XMS REPORT | Continuity of Care Document ---
:1995 External Reference #:[id number] Author Name Lucero Wolf M.D. Address [address] [place] [address] [place] [id number] Care Team Providers Name Role Phone Lucero Wolf MD - Family Medicine Care Team Information Medical Records Receptionist Problems Active Problems Provider Date Essential hypertension [...] Medications SIG Qnty Indications Ordering Provider Date Prednisone 1 tab by mouth 5tabs M25.561 Lucero Wolf, 05/21/2019 20mg Tablets every day M.D. Clonidine HCL 1 tab by mouth 30tabs I10 Lucero Wolf, 05/08/2019 0.1mg twice a day as M.D. Tablets needed-Nephrology Imitrex one tab by mouth 14tabs G43.009 Lucero Wolf, 12/06/2018 50mg Tablets as needed M.D. headache, may repeat x 1 if no relief in 2 hours. Claritin 1 by mouth every 30tabs J32.4 Lucero Wolf, 03/13/2018 10mg Tablets day M.D. Vimpat 1 1/2 tab by 8tabs Lucero Wolf, 02/24/2018 50mg Tablets mouth every day M.D. Carvedilol 1 tab by mouth 90tabs I10 Unknown 25mg Tablets every day-Nephrology Ondansetron dissolve 1 tablet K31.84 Unknown 4mg Tablets On Tongue every 8 Dispers hours if needed for nausea R11.0 Calcium Antacid 1 tab by mouth twice a day as K30 Unknown 500mg Chewtabs needed K21.0 K31.84 Pantoprazole Sodium take 1 tablet by mouth K21.[address] twice a day before meals K30 K31.84 Auryxia 1 tab by mouth three N18.6 Ceferino Beckham MD 1GM 210 mg(Fe) Tablets times a day before meals Immunizations CPT Code Status Date Vaccine Lot # [id number] Given 05/08/2019 MMR [id number] Given 02/05/2019 Flu Virus Vaccine, Quadrivalent, Slit Virus, Im [id number] Use U-HPV Given 08/18/2009 HPV,Unspecified U-HPV Given 04/21/2009 HPV,Unspecified U-Flu Given 04/21/2009 Influenza,Unspecified U-Menin Given 02/18/2009 Meningococcal,Unspecified U-HPV Given 02/18/2009 HPV,Unspecified U-Flu Given 02/18/2009 Influenza,Unspecified 42591 Given 02/15/2008 Td 7 Years And Older 38590 Given 05/20/2000 MMR U-DTaP Given 05/20/2000 DTaP,Unspecified U-Polio Given 05/20/2000 Polio,Unspecified 76252 Given 12/18/1996 MMR U-Polio Given 05/24/1996 Polio,Unspecified U-HepB Given 05/24/1996 Hepatitis B,Unspecified U-DTaP Given 05/24/1996 DTaP,Unspecified U-Polio Given 03/23/1996 Polio,Unspecified U-Polio Given 01/17/1996 Polio,Unspecified U-HepB Given 01/17/1996 Hepatitis B,Unspecified U-DTaP Given 01/17/1996 DTaP,Unspecified U-HepB Given 1995 Hepatitis B,Unspecified Vital Signs Date Vital Result Comment 05/21/2019 2:06pm BP Systolic 125 mmHg BP Diastolic 65 mmHg Height 61 inches 5'1" Weight 126.00 lb BMI (Body Mass Index) 23.8 kg/m2 Heart Rate 113 /min Respiratory Rate 16 /min 05/08/2019 1:42pm BP Systolic 125 mmHg BP Diastolic 70 mmHg Height 61 inches 5'1" Weight 126.00 lb BMI (Body Mass Index) 23.8 kg/m2 Heart Rate 125 /min Respiratory Rate 17 /min Results Test Acquired Date Facility Test Result H/L Range Note Xray 05/21/2019 [facility] K[facility], Complete, 4 Or <pending> More Views, RT Procedures Date Code Description Status 03/12/2019 36181 Visual Screening Test Completed 03/12/2019 99776 Audiometry, Bekesy, Screening Completed Medical Devices Description No Information Available Encounters Type Date Location Provider Dx Diagnosis Office Visit 05/08/2019 [facility] Lucero Wolf, I10 Essential ( primary) 2:00p M.DMarjan hypertension E78.2 Mixed hyperlipidemia N18.6 End stage [...] I31.3 Pericardial effusion (noninflammatory) J02.0 Streptococcal pharyngitis Z23 Encounter for immunization Z30.49 Encounter for surveillance of other contraceptives Office Visit 03/27/2019 4:00p [facility] Lucero Wolf I10 Essential ( primary) [...] J02.0 Streptococcal pharyngitis Office Visit 03/12/2019 3:00p [facility] Efrem Villarreal, I10 Essential (primary) N.P. [...] w abnormal findings Office Visit 02/05/2019 1:30p [facility] Efrem Villarreal, I10 Essential (primary) N.P. [...] Encounter for immunization Office Visit 12/06/2018 1:30p [facility] Efrem Villarreal, I10 Essential (primary) N.P. [...] status migrainosus R10.11 Right upper quadrant pain Assessments Date Code Description Provider 05/21/2019 I10 Essential (primary) hypertension Lucero Wolf M.D. 05/21/2019 E78.2 Mixed hyperlipidemia Lucero Wolf M.D. 05/21/2019 N18.6 End stage renal disease Lucero Wolf M.D. 05/21/2019 R60.0 Localized edema Lucero Wolf M.D. 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 without status epilepticus 05/21/2019 G43.009 Migraine without aura, not intractable, Lucero Wolf M.D. without status migrainosus 05/21/2019 K21.0 Gastro-esophageal reflux disease with Lucero Wolf M.D. esophagitis 05/21/2019 K30 Functional dyspepsia Lucero Wolf M.D. 05/21/2019 K31.84 Gastroparesis Lucero Wolf M.D. 05/21/2019 K59.00 Constipation, unspecified Lucero Wolf M.D. 05/21/2019 K64.9 Unspecified hemorrhoids Lucero Wolf M.D. 05/21/2019 R34 Anuria and oliguria Lucero oWlf M.D. 05/21/2019 K86.1 Other chronic pancreatitis Lucero Wolf M.D. 05/21/2019 Z99.2 Dependence on renal dialysis Lucero Wolf M.D. 05/21/2019 N91.1 Secondary amenorrhea Lucero Wolf M.D. 05/21/2019 L20.9 Atopic dermatitis, unspecified Lucero Wolf M.D. 05/21/2019 J30.9 Allergic rhinitis, unspecified Lucero Wolf M.D. 05/21/2019 M79.643 Pain in unspecified hand Lucero Wolf M.D. 05/21/2019 M25.569 Pain in unspecified knee Lucero Wolf M.D. 05/21/2019 M79.606 Pain in leg, unspecified Lucero Wolf M.D. 05/21/2019 F41.9 Anxiety disorder, unspecified Lucero Wolf M.D. 05/21/2019 F33.9 Major depressive disorder, recurrent, Lucero Wolf M.D. unspecified 05/21/2019 H53.30 Unspecified disorder of binocular vision Lucero Wolf M.D. 05/21/2019 I31.3 Pericardial effusion (noninflammatory) Lucero Wolf M.D. 05/21/2019 Z30.49 Encounter for surveillance of other Lucero Wolf M.D. contraceptives 05/21/2019 M25.561 Pain in right knee Lucero Wolf M.D. 05/08/2019 I10 Essential (primary) hypertension Lucero Wolf M.D. 05/08/2019 E78.2 Mixed hyperlipidemia Lucero Wolf M.D. 05/08/2019 N18.6 End stage renal disease Lucero Wolf M.D. 05/08/2019 R60.0 Localized edema Lucero Wolf M.D. 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 arthritis of unspecified site 05/08/2019 G40.909 Epilepsy, unspecified, not intractable, Lucero Wolf M.D. without status epilepticus 05/08/2019 G43.009 Migraine without aura, not intractable, Lucero Wolf M.D. without status migrainosus 05/08/2019 K21.0 Gastro-esophageal reflux disease with Lucero Wolf M.D. esophagitis 05/08/2019 K30 Functional dyspepsia Lucero Wolf M.D. 05/08/2019 K31.84 Gastroparesis Lucero Wolf M.D. 05/08/2019 K59.00 Constipation, unspecified Lucero Wolf M.D. 05/08/2019 K64.9 Unspecified hemorrhoids Lucero Wolf M.D. 05/08/2019 R34 Anuria and oliguria Lucero Wolf M.D. 05/08/2019 K86.1 Other chronic pancreatitis Lucero Wolf M.D. 05/08/2019 Z99.2 Dependence on renal dialysis Lucero Wolf M.D. 05/08/2019 N91.1 Secondary amenorrhea Lucero Wolf M.D. 05/08/2019 L20.9 Atopic dermatitis, unspecified Lucero Wolf M.D. 05/08/2019 J30.9 Allergic rhinitis, unspecified LucianoLucero blanchard M.D. 05/08/2019 M79.643 Pain in unspecified hand Lucero Wolf M.D. 05/08/2019 M25.569 Pain in unspecified knee Lucero Wolf M.D. 05/08/2019 M79.606 Pain in leg, unspecified Lucero Wolf M.D. 05/08/2019 F41.9 Anxiety disorder, unspecified Lucero Wolf M.D. 05/08/2019 F33.9 Major depressive disorder, recurrent, LucianoLucero allison M.D. unspecified 05/08/2019 H53.30 Unspecified disorder of binocular vision Lucero Wolf M.D. 05/08/2019 I31.3 Pericardial effusion (noninflammatory) Lucero Wolf M.D. 05/08/2019 J02.0 Streptococcal pharyngitis Lucero Wolf M.D. 05/08/2019 Z23 Encounter for immunization Lucero Wolf M.D. 05/08/2019 Z30.49 Encounter for surveillance of other LucianoLucero blanchard M.D. contraceptives 03/27/2019 I10 Essential (primary) hypertension Lucero Wolf [...] M.D. 03/27/2019 F33.9 Major depressive disorder, recurrent, Lucero Wolf M.D. unspecified 03/27/2019 H53.30 Unspecified disorder of binocular vision Lucero Wolf M.D. 03/27/2019 I31.3 Pericardial effusion (noninflammatory) Lucero Wolf M.D. 03/27/2019 J02.0 Streptococcal pharyngitis Lucero Wolf M.D. 03/12/2019 Z00.01 Encounter for general adult medical Lucero Wolf M.D. examination with abnormal findings 03/12/2019 I10 Essential (primary) hypertension Efrem Villarreal N.PMarjan 03/12/2019 E78.2 Mixed hyperlipidemia Efrem Villarreal N.PMarjan 03/12/2019 N18.6 End stage renal disease Efrem Villarreal N.PMarjan 03/12/2019 R60.0 Localized edema Rony Evans.PMarjan 03/12/2019 M05.40 Rheumatoid myopathy with rheumatoid Efrem Villarreal N.Patricia arthritis of unspecified site 03/12/2019 G40.909 Epilepsy, unspecified, not intractable, Efrem Villarreal N.PMarjan without status epilepticus 03/12/2019 G43.009 Migraine without aura, not intractable, Efrem Villarreal N.PMarjan without status migrainosus 03/12/2019 K21.0 Gastro-esophageal reflux disease with Efrem Villarreal N.PMarjan esophagitis 03/12/2019 K30 Functional dyspepsia Efrem Villarreal N.PMarjan 03/12/2019 K31.84 Gastroparesis Efrem Villarreal N.PMarjan 03/12/2019 K59.00 Constipation, unspecified Efrem Villarreal N.P. 03/12/2019 K64.9 Unspecified hemorrhoids Efrem Villarreal N.P. 03/12/2019 R34 Anuria and oliguria Efrem Villarreal N.PMarjan 03/12/2019 K86.1 Other chronic pancreatitis Efrem Villarreal N.PMarjan 03/12/2019 Z99.2 Dependence on renal dialysis Efrem Villarreal N.PMarjan 03/12/2019 N91.1 Secondary amenorrhea Efrem Villarreal N.PMarjan 03/12/2019 L20.9 Atopic dermatitis, unspecified Efrem Villarreal N.PMarjan 03/12/2019 J30.9 Allergic rhinitis, unspecified Efrem Villarreal N.P. 03/12/2019 M79.643 Pain in unspecified hand Efrem Villarreal N.PMarjan 03/12/2019 M25.569 Pain in unspecified knee Efrem Villarreal N.PMarjan 03/12/2019 M79.606 Pain in leg, unspecified Efrem Villarreal N.P. 03/12/2019 F41.9 Anxiety disorder, unspecified Efrem Villarreal N.PMarjan 03/12/2019 F33.9 Major depressive disorder, recurrent, Efrem Villarreal N.PMarjan unspecified 03/12/2019 H53.30 Unspecified disorder of binocular vision Efrem Villarreal N.PMarjan 03/12/2019 I31.3 Pericardial effusion (noninflammatory) Efrem Villarreal N.PMarjan 03/12/2019 R19.03 Right lower quadrant abdominal swelling, Efrem Villarreal N.PMarjan mass and lump 03/12/2019 G43.109 Migraine with aura, not intractable, without Efrem Villarreal N.Patricia status migrainosus 03/12/2019 R10.11 Right upper quadrant pain Efrem Villarreal N.PMarjan 03/12/2019 Z00.01 Encounter for general adult medical Efrem Villarreal N.P. examination with abnormal findings 02/05/2019 I10 Essential (primary) hypertension Efrem Villarreal N.PMarjan 02/05/2019 E78.2 Mixed hyperlipidemia Efrem Villarreal N.PMarjan 02/05/2019 N18.6 End stage renal disease Efrem Villarreal N.P. 02/05/2019 R60.0 Localized edema Efrem Villarreal N.P. 02/05/2019 M05.40 Rheumatoid myopathy with rheumatoid Efrem Villarreal N.PMarjan arthritis of unspecified site 02/05/2019 G40.909 Epilepsy, unspecified, not intractable, Efrem Villarreal N.P. without status epilepticus 02/05/2019 G43.009 Migraine without aura, not intractable, Efrem Villarreal N.PMarjan without status migrainosus 02/05/2019 K21.0 Gastro-esophageal reflux disease with Efrem Villarreal N.PMarjan esophagitis 02/05/2019 K30 Functional dyspepsia Efrem Villarreal N.P. 02/05/2019 K31.84 Gastroparesis Efrem Villarreal N.P. 02/05/2019 K59.00 Constipation, unspecified Efrem Villarreal N.P. 02/05/2019 K64.9 Unspecified hemorrhoids Efrem Villarreal N.PMarjan 02/05/2019 R34 Anuria and oliguria Efrem Villarreal N.PMarjan 02/05/2019 K86.1 Other chronic pancreatitis Efrem Villarreal N.PMarjan 02/05/2019 Z99.2 Dependence on renal dialysis Efrem Villarreal N.P. 02/05/2019 N91.1 Secondary amenorrhea Efrem Villarreal N.PMarjan 02/05/2019 L20.9 Atopic dermatitis, unspecified Efrem Villarreal N.P. 02/05/2019 J30.9 Allergic rhinitis, unspecified Efrem Villarreal N.P. 02/05/2019 M79.643 Pain in unspecified hand Efrem Villarreal N.P. 02/05/2019 M25.569 Pain in unspecified knee Efrem Villarreal N.P. 02/05/2019 M79.606 Pain in leg, unspecified Efrem Villarreal N.P. 02/05/2019 F41.9 Anxiety disorder, unspecified Efrem Villarreal N.P. 02/05/2019 F33.9 Major depressive disorder, recurrent, Efrem Villarreal N.P. unspecified 02/05/2019 H53.30 Unspecified disorder of binocular vision Efrem Villarreal N.P. 02/05/2019 I31.3 Pericardial effusion (noninflammatory) Efrem Villarreal N.PMarjan 02/05/2019 R19.03 Right lower quadrant abdominal swelling, Efrem Villarreal N.PMarjan mass and lump 02/05/2019 G43.109 Migraine with aura, not intractable, without Efrem Villarreal N.PMarjan status migrainosus 02/05/2019 R10.11 Right upper quadrant pain Efrem Villarreal N.PMarjan 02/05/2019 Z23 Encounter for immunization Efrem Villarreal N.P. 12/06/2018 I10 Essential (primary) hypertension Efrem Villarreal N.P. 12/06/2018 E78.2 Mixed hyperlipidemia Efrem Villarreal N.P. 12/06/2018 N18.6 End stage renal disease Efrem Villarreal N.P. 12/06/2018 R60.0 Localized edema Efrem Villarreal N.P. 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 12/06/2018 K31.84 Gastroparesis Efrem Villarreal N.P. 12/06/2018 K59.00 Constipation, unspecified Efrem Villarreal N.P. 12/06/2018 K64.9 Unspecified hemorrhoids Efrem Villarreal N.P. 12/06/2018 R34 Anuria and oliguria Efrem Villarreal N.PMarjan 12/06/2018 K86.1 Other chronic pancreatitis Efrem Villarreal N.PMarjan 12/06/2018 Z99.2 Dependence on renal dialysis Efrem Villarreal N.P. 12/06/2018 N91.1 Secondary amenorrhea Efrem Villarreal N.PMarjan 12/06/2018 L20.9 Atopic dermatitis, unspecified Efrem Villarreal N.P. 12/06/2018 J30.9 Allergic rhinitis, unspecified Efrem Villarreal N.P. 12/06/2018 M79.643 Pain in unspecified hand Efrem Villarreal N.P. 12/06/2018 M25.569 Pain in unspecified knee Efrem Villarreal N.P. 12/06/2018 M79.606 Pain in leg, unspecified Rony Evans.PMarjan 12/06/2018 F41.9 Anxiety disorder, unspecified Efrem Villarreal N.P. 12/06/2018 F33.9 Major depressive disorder, recurrent, Rony Evans.Major. unspecified 12/06/2018 H53.30 Unspecified disorder of binocular vision Rony Evans.Major. 12/06/2018 I31.3 Pericardial effusion (noninflammatory) Efrem Villarreal N.P. 12/06/2018 R19.03 Right lower quadrant abdominal swelling, Efrem Villarreal N.P. mass and lump 12/06/2018 G43.109 Migraine with aura, not intractable, without Efrem Villarreal N.P. status migrainosus 12/06/2018 R10.11 Right upper quadrant pain Efrem Villarreal N.P. Plan of Treatment Future Appointment(s):06/13/2019 1:30 pm - Efrem Vill[facility]real N.P. 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84 GastroparesisComments:CONTINUE MEDICATIONS F/U WITH QKGPGXKDPXZBEOKSYGZ93.00 Constipation, unspecifiedComments:MOM OR MIRALAX PRNHIGH FIBER DIETINCREASE PO BAMGEX00.9 Unspecified hemorrhoidsComments:AVOID CONSTIPATOIN INCREASE FIBER IN DIETLAXATIVE PRNLUBRICATE ANAL AREA WITH LOTION PRN FOR [id number] Anuria and oliguriaComments:OBSERVEHEMODIALYSIS PER GNTSNDGZMAD93.1 Other chronic pancreatitisComments:AVOID ETOH ABUSE F/U WITH GI PRNZ99.2 Dependence on renal dialysisComments:F/U WITH SEKCGTKUINR70.1 Secondary amenorrheaComments:OBSERVEF/U WITH OB/GYNL20.9 Atopic dermatitis, unspecifiedComments:SKIN CARE INSTRUCTIONS LOTION OR BABY OIL 2-3 APPLICATION PER DAYUSE MOISTURIZING SOAPAVOID PROLONGED WATER EXPOSUREAVOID USING HOT WATER IN UNOHYVV76.9 Allergic rhinitis, unspecifiedComments:INCREASE PO FLUID USE ANTIHISTAMINE PRN SECOND HAND SMOKING YOAMDJORLO31.643 Pain in unspecified handComments:EXERCISE/HEAT/MESSAGETYLENOL OR MOTRIN PRNAVOID HEAVY LIFTINGWT LOSS DUR FUCTUHII86.569 Pain in unspecified kneeComments:EXERCISE/HEAT / MESSAGEAVOID HEAVY LIFTING WT LOSSTYLENOL OR MOTRIN PRN DUR FAZMTVFD28.606 Pain in leg, unspecifiedComments:TYLENOL OR MOTRIN PRN EXERCISE/HEAT/MESSAGE DUR XGJGEROD51.9 Anxiety disorder, unspecifiedComments:COUNCELLING AND REASSURANCE RELAXATION TECHNIQUES DISCUSSEDCOUNSELED RE: STRESSORS IN LIFE AVOID ALLENERGY/ HIGH CAFFEINE ASFUAWU89.9 Major depressive disorder, recurrent, unspecifiedComments:COUNCELLING AND REASSURANCE RELAXATION TECHNIQUES DISCUSSED COUNSELED RE: STRESSORS IN LIFEH53.30 Unspecified disorder of binocular visionComments:USE GLASSES/CONTACTSF/U WITH HLNBJLFDYGBVOH91.3 Pericardial effusion (noninflammatory)Comments:RESOLVEDOBSERVE F/U WITH OIYDMNRBYCM71.49 Encounter for surveillance of other contraceptivesComments:F/U WITH [employer] FOR IUDM25.561 Pain in right kneeNew Medication:Prednisone 20 mg - 1 tab by mouth every dayComments:EXERCISE/HEAT /MESSAGEAVOID HEAVY LIFTING WT LOSSTYLENOL OR MOTRIN PRN Functional Status Description No Information Available Mental Status Description No Information Available Referrals Description No Information Available
--- OUTSIDE RECORDS SUMMARY | 2019-05-26 12:00 | XMS REPORT | Continuity of Care Document ---
:1995 External Reference #:[id number] Author Name SAROJ Elmore-Cde (transmitted by agent of provider Vilma Handley) Address [address] [place] [address], [place] [address] Care Team Providers Name Role Phone Petros House MD - Hospitalist Care Team Information Broadcast Systems Engineer [phone] Lucero Wolf MD - Family Medicine Care Team Information Broadcast Systems Engineer Problems Active Problems Provider Date Essential hypertension Petros House MD Onset: 11/09/2017 End-stage renal disease Petros House MD Onset: 11/09/2017 Anemia of chronic renal failure Petros House MD Onset: 11/09/2017 Hypertensive chronic kidney disease Petros House MD Onset: 11/13/2017 with stage 5 chronic kidney disease or end stage renal disease End stage renal failure on dialysis Petros House MD Onset: 11/13/2017 Hydronephrosis Petros House MD Onset: 11/13/2017 Transplant of kidney Petros House MD Onset: 11/13/2017 Disorder of pericardium Petros House MD Onset: 11/14/2017 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 Onset: 03/27/2018 Social History Type Date Description Comments Sex Unknown Tobacco Use Start: Unknown Never Smoked Cigarettes Smoking Status Reviewed: 05/25/19 Never Smoked Cigarettes ETOH Use Denies alcohol use Tobacco Use Start: Unknown Patient has never smoked Exercise Type/Frequency Does not exercise Allergies, Adverse Reactions, Alerts Active Allergies Reaction Severity Comments Date Lisinopril 11/09/2017 Nifedipine 11/09/2017 Fentanyl sensitivity/overdose due to re 11/09/2017 Betadine 05/25/2019 Medications Active Medications SIG Qnty Indications Ordering Date Provider Apri 1 by mouth every 28tabs Z01.419 Natalia Mannkins, 05/25/2019 0.15-30mg-mcg Tablets day INTELLECTUAL PROPERTY COUNSEL-Cde Coreg 1.5 by mouth Unknown 25 Tablets twice a day Ferric Citrate 210mg one by Unknown Capsules mouth three times a day Benzonatate take one or two Unknown 100mg Capsules capsules every 8 hours as needed for cough. Calcium Acetate (Phos 1 capsule by Unknown Binder) mouth three 667mg Capsules times daily after meals Cetirizine HCL 1 by mouth every Unknown 10mg day Chewtabs Cyclobenzaprine HCL take 1 tab by Unknown 10mg mouth 2-3 times Tablets a day as needed Vitamin D3 take 1 capsule Unknown 1000Unit by mouth once Capsules weekly Famotidine 1 by mouth twice Unknown 20mg Tablets a day Folic Acid take one Unknown 1mg Tablets capsule/tablet daily by mouth Pantoprazole Sodium 1 by mouth every Unknown 40mg day Tablets DR Vimpat take one tablet Unknown 100mg Tablets by mouth twice a day. mdd 2. code c Immunizations Description No Information Available Vital Signs Date Vital Result Comment 05/25/2019 1:15pm Height 61 inches 5'1" Weight 126.00 lb Heart Rate 100 /min BP Systolic 146 mmHg BP Diastolic 101 mmHg O2 % BldC Oximetry 98 % BMI (Body Mass Index) 23.8 kg/m2 Last Menstrual Period [id number] 11/09/2017 2:09pm Height 61 inches 5'1" Weight 139.12 lb [...] (Body Mass Index) 26.3 kg/m2 Results Test Acquired Date Facility Test Result H/L Range Note Laboratory test 05/25/2019 [facility] Cytology <pending> finding [address] [place] [address] [phone] Procedures Description No Information Available Medical Devices Description No Information Available Encounters Description No Information Available Assessments Date Code Description Provider 05/25/2019 Z01.419 Encounter for gynecological examination Klarissa Elmore (general) (routine) without abnormal findings Plan of Treatment 05/25/2019 - Mackenzie ElmoreeZ01.419 Encounter for gynecological examination (general) (routine) without abnormal findingsNew Medication:Apri 0.15-30 mg-mcg - 1 by mouth every dayComments:The pap smear guidelines have changed. In a low risk situation pap smears are only recommended every 3-5 years. We still recommend coming for a yearly exam even when a pap smear isn't done. You willreceive a phone call if you have abnormal results. Normal results will be sent to you in the mail or the portal. If you don't receive results in 3-4 weeks, call the office. I have prescribed the control pill. Please take it as we discussed and call if you would like to switch to continuous use (where you skip your periods) Functional Status Description No Information Available Mental Status Description No Information Available Referrals Description No Information Available
--- OUTSIDE RECORDS SUMMARY | 2019-05-26 12:00 | XMS REPORT | Continuity of Care Document ---
:1995 External Reference #:[id number] Author Name lCaire Gonzalez FNP (transmitted by agent of provider Daisy Olmedo) Address [address] [place] [id number] Care Team Providers Name Role Phone Lucero Wolf M.D. - Family Medicine Care Team Information Optical Glass Etcher Problems Active Problems Provider Date Palpitations Bruno Borrego M.D., [facility] Onset: 04/20/2018 Disorder of pericardium Bruno Borrego M.D., [facility] Onset: 04/20/2018 End-stage renal disease Bruno Borrego M.D., [facility] Onset: 04/20/2018 Prolapse of female genital organs Ludwig Roger M.D. Onset: 09/22/2016 Gynecologic examination Ludwig Roger M.D. Onset: 09/17/2016 Benign essential hypertension Ludwig Roger M.D. Onset: 09/29/2016 Social History Type Date Description Comments Sex Unknown Tobacco Use Start: Unknown Never Smoked Cigarettes ETOH Use Denies alcohol use Recreational Drug Use Denies Drug Use Tobacco Use Start: Unknown Patient denies history of smoking Smoking Status Reviewed: 03/27/19 Patient denies history of smoking Allergies, Adverse Reactions, Alerts Active Allergies Reaction Severity Comments Date Nifedipine Hives 04/20/2018 Fentanyl 04/20/2018 Lisinopril Cough 04/20/2018 Betadine Hives 04/20/2018 Bee Sting Hives 04/20/2018 Inactive Allergies NKDA 09/29/2016 Medications Active Medications SIG Qnty Indications Ordering Provider Date Doxycycline Hyclate 1 cap twice 10caps J22 Jimena Griffith, 03/27/2019 daily by mouth FOOD MANAGEMENT AIDE 100mg Capsules for 5 days Clonidine Apply to the 4units Bruno Borrego 04/20/2018 0.3mg/24HR skin once a week Bj Yoo, FACC Patches Weekly Auryxia 4 times a day Unknown 1GM 210 mg(Fe) Tablets Vitamin D 1 by mouth every Unknown 2000Unit day Capsules Carvedilol 1 by mouth every 180tabs Unknown 25mg Tablets morning Pantoprazole Sodium 1 by mouth every 90tabs Unknown day 40mg Tablets DR Caceres 1 by mouth three Unknown 4mg Tablets times a day as needed Immunizations Description No Information Available Vital Signs Date Vital Result Comment 03/27/2019 10:30am BP Systolic 146 mmHg BP Diastolic 92 mmHg Body Temperature 98.3 F Heart Rate 94 /min Respiratory Rate 18 /min Weight 126.50 lb O2 % BldC Oximetry 100 % Pain Level 0 11/23/2018 1:58pm BP Systolic Sitting Left Arm 124 mmHg BP Diastolic Sitting Left Arm 72 mmHg Heart Rate 70 /min Respiratory Rate 16 /min Height 61 inches 5'1" Weight 124.00 lb BMI (Body Mass Index) 23.4 kg/m2 BSA (Body Surface Area) 1.54 m2 [place] body weight in kilograms 48 kg O2 % BldC Oximetry 98 % Results Test Acquired Date Facility Test Result H/L Range Note Laboratory test 03/27/2019 [facility] neg Pos, Neg, finding A Strep Invalid Procedures Date Code Description Status 11/23/2018 05386 EKG-Tracing And Report Completed Medical Devices Description No Information Available Encounters Type Date Location Provider Dx Diagnosis Office Visit 03/27/2019 [facility] Lisa J02.9 Acute pharyngitis, 10:30a SAROJ Morris unspecified J22 Unspecified acute lower respiratory infection Office Visit 11/23/2018 Cardiology Selena Nicole Z01.810 Encounter for 2:00p Office RICHARD Tuttle, preprocedural FOOD MANAGEMENT AIDE cardiovascular examination I31.3 Pericardial effusion (noninflammatory) I10 Essential (primary) hypertension Assessments Date Code Description Provider 03/27/2019 J02.9 Acute pharyngitis, unspecified Claire Gonzalez, [facility] 03/27/2019 J22 Unspecified acute lower respiratory Claire Gonzalez , [facility] infection 11/23/2018 Z01.810 Encounter for preprocedural Selena Nicole, MSN, cardiovascular examination FOOD MANAGEMENT AIDE 11/23/2018 I31.3 Pericardial effusion Selena Nicole, RICHARD, (noninflammatory) FOOD MANAGEMENT AIDE 11/23/2018 I10 Essential (primary) hypertension Selena Nicole, MSN, FOOD MANAGEMENT AIDE Plan of Treatment 03/27/2019 - Claire Gonzalez, FNPJ02.9 Acute pharyngitis, unspecifiedComments:Strep test today was negative.Use doxycycline as directedWarm salt water gargles several times a dayRestDrink lots of [id number] Unspecified acute lower respiratory infectionNew Medication:Doxycycline Hyclate 100 mg - 1 cap twice daily by mouth for 5 daysComments:There was some congestion heard in your R lung that we will treat with an antibiotic today.Follow upwith your PCP if you do not improve or have new or worsening symptoms Functional Status Functional Condition Comment Date Status Glasses Active Independent with all ADL's Active Mental Status Description No Information Available Referrals Description No Information Available
--- OUTSIDE RECORDS SUMMARY | 2019-05-26 12:00 | XMS REPORT | Summary of Care ---
:1995 Author Organization [facility] Address [address] [place] [address] Care Team Providers Name Role Phone Lucero Wolf MD Primary Care Provider Reason for Visit Reason Comments Kidney Evaluation Encounter Details Date Type Department Care Team Description 03/28/2019 Office Visit [facility] Harinder Du MD Preoperative examination, unspecified (Primary Dx); [facility] at [address] [place] [address] Pre-transplant evaluation for kidney transplant; [facility] 2nd Floor [address] CKD (chronic kidney disease) stage V requiring chronic dialysis; [address], [place] Failed kidney transplant [address] [id number] [place], [place] [phone] [id number] [phone] Allergies Active Allergy Reactions Severity Noted Date Comments Bee Venom Hives Medium 11/28/2016 Povidone Iodine Hives 02/07/2018 Iodinated Diagnostic Agents Nausea And Vomiting 07/03/2018 Fentanyl Nausea And Vomiting Medium 02/18/2015 Lisinopril Other (See Comments) Medium 09/14/2016 Dry cough Nifedipine Hives, Rash Low 04/28/2017 documented as of this encounter (statuses as of 03/29/2019) Medications Medication Sig Dispensed Refills Start Date End Date Status metoclopramide (REGLAN) Take 5 mg by 0 Active 5 MG tablet mouth Twice Daily calcium carbonate Chew 1-2 tablets 0 Active (TUMS) 500 MG chewable by Mouth Three tablet times daily as needed for Heartburn carvedilol (COREG) 25 Take 1 tablet by 60 tablet 11 02/23/2018 Active MG tablet mouth Two Times Daily Additional information Patient taking differently: 25 mg Oral Daily Standard, Reported on 2018 10:51 AM amlodipine (NORVASC) 10 MG Take 1 tablet by mouth 30 tablet 0 02/24/2018 Active tablet daily minoxidil (LONITEN) 2.5 MG Take 2.5 mg by mouth 0 Active tablet Three times daily cloNIDine HCl 0.1 MG Oral Take 0.1 mg by mouth as 0 Active Tablet (CATAPRES) needed Pantoprazole Sodium 40 MG Oral Take 40 mg by mouth 0 Active Tablet Delayed Release daily (PROTONIX) Sevelamer Carbonate 800 MG Take 800 mg by mouth 0 Active Oral Tablet (RENVELA) Three times daily with meals Ferric Citrate 1 GM 210 MG(Fe) Take 210 mg by mouth 0 Active Oral Tablet Three times daily with meals documented as of this encounter (statuses as of 03/29/2019) Active Problems Patient Care Coordination Note Zayda had removal of her PD catheter performed today. She tolerated the procedure well. She is for her routine follow up with her dental ceramist assistant. The exit site dressing can be removed in [address] a band aid over the site until it has healed completely. Zayda can take oral analgesics for pain which should be relatively minor. Problem Noted Date Hypertension, essential 07/03/2018 Numbness of lip 01/26/2018 Shortness of breath 01/26/2018 Oropharyngeal dysphagia 01/26/2018 Internal jugular vein thrombosis, right 01/24/2018 End stage kidney disease 12/27/2017 Overview: Added automatically from request for surgery [id number] Pancreatitis 09/10/2017 ESRD on hemodialysis 08/30/2017 Uncontrolled hypertension 07/29/2017 Dehydration 07/18/2017 Other ascites 07/12/2017 Overview: Probably related to PD. SIRS (systemic inflammatory response syndrome) 07/12/2017 Overview: POA. Resolved. No Source for infection. Hydronephrosis 07/12/2017 Overview: R Transplant Kidney Anemia 06/16/2017 Eosinophilia 05/13/2017 Pericardial effusion 05/10/2017 Gastroparesis 05/10/2017 Hypercalcemia 04/28/2017 Hypokalemia 04/28/2017 Metabolic acidosis with increased anion gap and reduced excretion of 2017 inorganic acids Encounter for peritoneal dialysis 02/07/2017 Seizure 01/23/2017 Idiopathic acute pancreatitis without infection or necrosis 12/05/2016 Overview: CT abdomen: Pancreatitis and Lipase trending down. GI Consulted. Resolving. Will monitor. Peritonitis, dialysis-associated 12/03/2016 Alcohol-induced pancreatitis 11/28/2016 Overview: Will rule out the intra abdominal pathology. She has PD catheter in situ Seizures 11/28/2016 Overview: Probably due to PRES and Uncontrolled HTN. C/w Vimpat and will monitor EKG. Normocytic anemia 11/28/2016 Gastroesophageal reflux disease with esophagitis 04/09/2015 Hematemesis 02/19/2015 Chronic cough 02/18/2015 Acute rejection of renal transplant 07/03/2014 Nephropathy, IgA 02/01/2014 Overview: On PD. Encounter for long-term (current) use of other medications 10/29/2013 Resting tremor 07/12/2013 Overview: More intense since renal transplantation Essential hypertension 06/22/2013 History of renal transplantation 06/19/2013 Overview: L-NRD transplant from [facility]. No delayed graft function. CMV+ donor (CMV-, EBNA+ recipient) Anemia in ESRD (end-stage renal disease) Secondary hyperparathyroidism of renal origin Other ascites Adverse reaction to clonidine, initial encounter Acute respiratory failure with hypoxia Encounter for hemodialysis Pericarditis documented as of this encounter (statuses as of 03/29/2019) Resolved Problems Problem Noted Date Resolved Date Hypertensive intracerebral hemorrhage of right parietal lobe 01/24/201803/12 Syncope 09/08/2017 03/12/2018 Malignant hypertension 07/12/2017 03/12/2018 Overview: POA. Was on Nicardipine gtt. Resolved. Initiated on Home medications. Will monitor. PRES (posterior reversible encephalopathy syndrome) 07/08/2017 03/12/2018 Overview: Interval new patchy foci of abnormal signal in the left occipital and temporal cortex. Worsening of PRES. Hypertensive urgency 06/17/2017 03/12/2018 Pancreatitis 04/28/2017 07/29/2017 Hypertensive emergency 02/06/2017 03/12/2018 ESRD on peritoneal dialysis 11/28/2016 09/08/2017 Overview: Nephrology Consulted. Nausea and vomiting 11/27/2016 12/03/2016 Emesis 11/27/2016 12/03/2016 Post-op pain 06/22/2013 07/12/2013 Chronic kidney disease (CKD) 09/08/2017 Posterior reversible encephalopathy syndrome 03/12/2018 Stage 5 chronic kidney disease on chronic dialysis 09/08/2017 Encephalopathy acute 03/12/2018 documented as of this encounter (statuses as of 03/29/2019) Immunizations Name Administration Dates Next Due Influenza Split 02/05/2014 02/05/2015 documented as of this encounter Social History Tobacco Use Types Packs/Day Years Used Date Never Smoker Smokeless Tobacco: Never Used Alcohol Use Drinks/Week oz/Week Comments No Sex Assigned at Date Recorded Not on file Job Start Date Occupation Industry Not on file Not on file Not on file Travel History Travel Start Travel End No recent travel history available. documented as of this encounter Last Filed Vital Signs Vital Sign Reading Time Taken Comments Blood Pressure 162/100 03/28/2019 12:05 PM EST Pulse 73 03/28/2019 12:05 PM EST Temperature 36.8 03/28/2019 12:05 PM EST C (98.2 F) Respiratory Rate - - Oxygen Saturation 99% 03/28/2019 12:05 PM EST Inhaled Oxygen Concentration - - Weight 59.1 kg (130 lb 4.7 oz) 03/28/2019 12:05 PM EST Height - - Body Mass Index 24.63 11/23/2018 3:54 PM EDT documented in this encounter Progress Notes Jagjit Katz MD - 03/28/2019 11:00 AM EST PRE-TRANSPLANT EVALUATION Zayda Garcia is a 23 y.o. 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 Kp Kaur to evaluate medical suitability for renal transplantation. RENAL HISTORY: She developed HSP around the age of 4 years and was diagnosed with stage V chronic kidney disease at16 yrs of age in 2011 with the diagnosis of IgA Nephropathy. She continued on hemodialysis for 2 yrs before being switched to Peritoneal Dialysisfor another one and a half years. She received a living unrelated donor kidney transplant from her stepmother on 06/22/2013. 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 She resumed peritoneal dialysis around October, and continued with the same until late 2016 when she was switched back on hemodialysis due to repeated episodes of pancreatitis. Differential diagnosisfor her pancreatitis included either alcohol use or sec to a dianeal component - like Icodextrin. Autoimmune panel including SHANDRA, ANCA, C3/C4, APLA were all unremarkable. She was previously evaluated for transplant at this center but was considered to be an unsuitable candidate due to psychosocial issues and poor medication compliance. INTERIM HISTORY: The patient reports better compliance with her medications and regular dialysis. She receives dialysis for 4 hours on TTS schedule at [facility] in [place]. She states that she has never misseda session in the last six months. She has a reported history of blood transfusions in the past at various times. Recent hospital admissions are significant for: Multiple admissions between 12/01/2017 - 12/12/2017 with Hypertensive emergency and seizures. 01/11/2018 - 02/23/2018 - Posterior reversible encephalopathy syndrome with seizure with finding of intracranial hemorrhage in the right parietal and left parietal and frontal lobes. Repeat CT scan onemonth later showed no evidence of hemorrhage. She was also diagnosed with pericardial effusion requiring pericardiocentesis, and she received multiple blood transfusions. Prior to this admission she had been dialyzing through a tunneled catheter and had been on warfarin for venous thrombosis associated with the catheter. It is unclear as to whether dialysis adequacy was acceptable or not. PAST MEDICAL HISTORY: Past Medical History: Diagnosis Date Blood transfusion without reported diagnosis Depression Encounter for peritoneal dialysis for end-stage renal disease 02/07/2017 ESRD (end stage renal disease) Glomerulonephritis, IgA History of biopsy HSP (Henoch Schonlein purpura) Hyperparathyroidism Hypertension Pancreatitis PONV (postoperative nausea and vomiting) Renal disorder Seizures 07/30/2013 mom states pt had one very long seizure due to very high b/p from being stessed out , never had another one. treated with labetolol , no seizure meds , ever . In addition she has frequent migraines. PAST SURGICAL HISTORY: Past Surgical History: Procedure Laterality Date KIDNEY TRANSPLANT OMENTECTOMY, LAPAROSCOPIC PLACEMENT OF PD CATHETER 02/28/12 TAA PD catheter removal 08/07/2013 PERITONEAL CATHETER INSERTION 02/03 CA CYSTOSCOPY,REMV CALCULUS,SIMPLE Right 08/07/2013 Procedure: CYSTOURETHROSCOPY, W/REMOVAL, FB/CALCULUS/URETERAL STENT; SIMPLE; Surgeon: Devonte Cohen MD; Location: [address]; Service: Urology; Laterality: Right; CA EGD TRANSORAL BIOPSY SINGLE/MULTIPLE N/A 08/02/2017 Procedure: UPPER GI ENDOSCOPY W/BX, SINGLE/MULTIPLE; Surgeon: Hernesto Toribio MD; Location: OR ENDO; Service: Endoscopy; Laterality: N/A; CA ESOPHAGOGASTRODUODENOSCOPY TRANSORAL DIAGNOSTIC N/A 02/19/2015 Procedure: UPPER GI ENDOSCOPY; DX, W/WO SPECIMEN COLLECTION, BRUSHING/WASHING ( SEP PROC); Surgeon:Marco De La Paz MD; Location: OR ENDO; Service: Endoscopy; Laterality: N/A; CA ESOPHAGOGASTRODUODENOSCOPY TRANSORAL DIAGNOSTIC N/A 08/02/2017 Procedure: UPPER GI ENDOSCOPY; DX, W/WO SPECIMEN COLLECTION, BRUSHING/WASHING ( SEP PROC); Surgeon:Hernesto Toribio MD; Location: OR ENDO; Service: Endoscopy; Laterality: N/A; CA INSJ TUNNELED CVC W/O SUBQ PORT/OFFSET PLATE MAKER AGE 5 YR/> N/A 08/30/2017 Procedure: INSERTION, TUNNELED CENTRALLY INSERTED VENOUS CATHETER, W/O SUBQ PORT/PUMP >5 YEARS -PERMACATH; Surgeon: Prince Lemons MD; Location: OR [facility]; Service: General; Laterality: N/A; CA PERICARDIOCENTESIS INITIAL N/A 01/13/2018 Procedure: DRAINAGE OF HEART SAC; Surgeon: Tia Calle MD; Location: OR [facility]; Service: Cardiology; Laterality: N/A; CA REMOVAL TUNNELED INTRAPERITONEAL CATHETER N/A 08/07/2013 Procedure: PERITONEAL DIALYSYS CATHETER REMOVAL ; Surgeon: Jose E Cross MD; Location: OR [address] [place] [address]; Service: General; Laterality: N/A; CA REMOVAL TUNNELED INTRAPERITONEAL CATHETER N/A 09/12/2017 Procedure: REMOVAL, PERMANENT INTRAPERITONEAL CANNULA/CATHETER; Surgeon: Elisabeth Perkins MD; Location:OR [facility]; Service: General; Laterality: N/A; CA SIGMOIDOSCOPY,BIOPSY N/A 08/02/2017 Procedure: SIGMOIDOSCOPY, FLEXIBLE W/BX, SINGLE/MULTIPLE; Surgeon: Hernesto Toribio MD; Location: OR ENDO; Service: Endoscopy; Laterality: N/A; RENAL BIOPSY 01/11/12 Advanced Glomerulosclerosis vascular cath ALLERGIES: Allergies Allergen Reactions Bee Venom Hives Fentanyl Nausea And Vomiting Lisinopril Other (See Comments) Dry cough Betadine [Povidone Iodine] Hives Contrast Dye [Iodinated Diagnostic Agents] Nausea And Vomiting Nifedipine Hives and Rash MEDICATIONS: amlodipine (NORVASC) 10 MG tablet, 10 mg, Oral, Daily calcium carbonate (TUMS) 500 MG, 1-2 tablet, Oral, TID PRN carvedilol (COREG) 25 MG tablet, 25 mg, Oral daily cloNIDine HCl 0.1 MG Oral Tablet (CATAPRES), 0.1 mg, Oral, PRN Ferric Citrate 1 GM 210 MG(Fe) Oral Tablet, 210 mg, with Meals metoclopramide (REGLAN) 5 MG tablet, 5 mg, Oral, BID minoxidil (LONITEN) 2.5 MG tablet, 2.5 mg, Oral, TID Pantoprazole Sodium 40 mg, Oral, Daily Sevelamer Carbonate 800 MG (RENVELA), 800 mg, with Meals lacosamide once daily FAMILY HISTORY: No family history of Chronic Kidney Disease. Mother - No chronic issues documented. Father - Unknown medical issues. Siblings - She has a 17 yr old brother and 14 yr old sister with no chronic medical issues. SOCIAL HISTORY: Social History Socioeconomic History Marital status: Single Spouse name: Not on file Number of children: Not on file Years of education: Not on file Highest education level: Not on file Occupational History Employer: [employer] Social Needs Financial resource strain: Not on file Food insecurity: Worry: Not on file Inability: Not on file Transportation needs: Medical: Not on file Non-medical: Not on file Tobacco Use Smoking status: Never Smoker Smokeless tobacco: Never Used Substance and Sexual Activity Alcohol use: No Drug use: No Sexual activity: Never control/protection: Abstinence, None Lifestyle Physical activity: Days per week: Not on file Minutes per session: Not on file Stress: Not on file Relationships Social connections: Talks on phone: Not on file Gets together: Not on file Attends judaism service: Not on file Active member of club or organization: Not on file Attends meetings of clubs or organizations: Not on file Relationship status: Not on file Intimate partner violence: Fear of current or ex partner: Not on file Emotionally abused: Not on file Physically abused: Not on file Forced sexual activity: Not on file Other Topics Concern Not on file Social History Narrative Lives with mother; father and step-mother involved REVIEW OF SYSTEMS: CONSTITUTIONAL: No chronic fevers, chills or sweats. She mentioned that she has gained a little weight over the last few months. Appetite and energy are stable. She is irregular about her exercise schedule. She mentioned that if she climbed more that 2 flights of stairs too rapidly, she will get light headed. EYES: Normal vision. ENT: No ear, sinus, or dental problems. No thyroid disease PULMONARY: No chronic cough, wheezing, shortness of breath, sputum production, pneumonia, asthma or bronchitis. CARDIOVASCULAR: No history of myocardial infarction, chest pain, palpitations, paroxysmal nocturnal dyspnea or orthopnea, edema, or claudication. She has had previous history of pericardial effusion [id number]. GASTROINTESTINAL: No chronic nausea, vomiting, diarrhea, constipation, heartburn , indigestion, hematemesis, melena or hematochezia. No hepatitis, pancreatitis, cholelithiasis or colitis. GENITOURINARY: No urinary tract infection, gross hematuria, nephrolithiasis, urinary urgency, frequency or dysuria. MUSCULOSKELETAL: No myalgias, arthralgias, arthritis, or gout. SKIN: No rash, itching or cancer. NEUROLOGIC: No history of stroke, seizure, loss of consciousness, dizziness or lightheadedness. No focal numbness or weakness. PHYSICAL EXAMINATION: GENERAL: A young female looking stated age, in no acute distress. Alert and oriented to person, place, and time. No complaint of pain. VITAL SIGNS: Visit Vitals BP (!) 162/100 (BP Location: Right arm, Patient Position: Sitting, Cuff size: Regular) Pulse 73 Temp 36.8 C (98.2 F) (Oral) Wt 59.1 kg (130 lb 4.7 oz) SpO2 99% BMI 24.63 kg/m EYES: Pupils equal, round, reactive to light. Intact extraocular movements. Sclerae anicteric. ENT: Oropharynx clear. No sinus tenderness to palpation. DENTAL: No abscess, gingivitis or fractured teeth NECK: No lymphadenopathy. No jugular venous distention. 2/2 carotid pulses without bruits. No thyromegaly or nodules. LUNGS: Clear to auscultation. HEART: Regular rhythm. S1, S2. No S3, S4, murmur, rub or gallop. ABDOMEN: Soft, nontender, nondistended. No mass, organomegaly, or bruit. Normal bowel sounds. EXTREMITIES: No peripheral edema. 2/2 femoral and dorsalis pedis pulses bilaterally. Left forearm AVfistula intact SKIN: No rash. NEUROLOGIC: Cranial nerves II-XI intact. Motor strength 5/5 throughout. Sensory intact to light touch. No dysmetria, ataxia, or tremor. ACCESS: Left Upper Extremity - AVF for dialsysis. Frailty Assessment Score - 03/06 LABORATORY DATA: No results found for this visit on 03/28/19 (from the past 72 hour(s)). Last set of labs from 08/29/2018 - BUN - 11 Cr - 3.9 Na - 134 K - 3.4 Cl - 100 Ca - 9.4 Phos - 2.7 Alb - 3.9 No results from H/H available. DIAGNOSTIC STUDIES: ECHO (02/18/2018) - Overall LVEF 55-60%. Trace Aortic Incompetence, PA pressures wnl. No evidence ofcardiac tamponade. CT Scans (both chest and head) from December to January 2018 - please check Epic reports. IMPRESSION AND RECOMMENDATION: Zayda Garcia is a 23 y.o. female with stage V chronic kidney disease due to IgA who is a medically acceptable candidate for renal transplant provided her compliance and psychosocial issues have been appropriately looked into and addressed. To complete evaluation, she needs: 1. EKG and chest X-ray 2. Echocardiogram 3. Pap smear within the last year 4. Laboratory blood draw for chronic infectious disease serologies. We spent 60 minutes face to face today with the patient, of which more than 50% time was spent counseling her on the process of evaluation for kidney transplant , criteria for suitability for transplant, types of transplant such as and living donor including expected outcomes for these, and the risks and benefits of undergoing kidney transplant including risks of infection and malignancy due to immunosuppressive therapy. She stated understanding of this discussion and had all of her questions answered. The importance of compliance was stressed upon her, as being a major factor limiting her progress into re-transplantation in the past. More information needs to be collected with regards to her dialysis compliance. Her case will be presented to the transplant selection committee to determine need for any further evaluation and suitability for listing for kidney transplantation. Thank you very much for allowing us to evaluate Miss Garcia for renal transplantation. Electronically signed by Jagjit HOPPER Fellow-Division of Nephrology, [facility] I saw and evaluated the patient. I discussed the patient with Dr. Katz and agree with his findings and plans as written and amended by myself, along with attending documentation in the patient record by myself as noted below: The patient does not appear to have any medical contraindication to transplant, but we will need to carefully assess her adherence to medical recommendations and therapy. She is quite hypertensive today following dialysis yesterday. Although previous cPRA was surprisingly low, she has had blood transfusion since the last assessment, and it is possible that she may again be highly sensitized againstHLA antigens. Harinder Du MD, PhD Attending Physician Transplant Nephrology [facility] Pager [phone] documented in this encounter Plan of Treatment Date Type Specialty Care Team Description 08/22/2019 Office Visit Neurology Jays[facility] Rosas MD [address] [facility] [address] [place], [place] [id number] 11/29/2019 Office Visit Rheumatology Audrey Pagan MD [address] [place] [address] [phone] 04/01/2020 Office Visit Transplant Name Type Priority Associated Diagnoses Date/Time CMV IgG Lab Routine Preoperative examination, 03/28/2019 2:10 PM unspecified EST EBV Panel Lab Routine Preoperative examination, 03/28/2019 2:10 PM unspecified EST Mumps antibody, IgG Lab Routine Preoperative examination, 03/28/2019 2:10 PM unspecified EST Quantiferon-TB Gold Lab Routine Preoperative examination, 03/28/2019 2:10 PM Plus unspecified EST Rubella antibody, IgG Lab Routine Preoperative examination, 03/28/2019 2: 10 PM unspecified EST Rubeola antibody IgG Lab Routine Preoperative examination, 03/28/2019 2: 10 PM unspecified EST Varicella zoster Lab Routine Preoperative examination, 03/28/2019 2:10 PM antibody, IgG unspecified EST Name Type Priority Associated Diagnoses Order Schedule CMV IgG Lab Routine Preoperative examination, 1 Occurrences starting unspecified 03/28/2019 until 09/27/2019 EBV Panel Lab Routine Preoperative examination, Expected: 03/28/2019, unspecified Expires: 05/29/2019 Mumps antibody, IgG Lab Routine Preoperative examination, 1 Occurrences starting unspecified 03/28/2019 until 09/27/2019 Rubella antibody, IgG Lab Routine Preoperative examination, 1 Occurrences starting unspecified 03/28/2019 until 09/27/2019 Rubeola antibody IgG Lab Routine Preoperative examination, 1 Occurrences starting unspecified 03/28/2019 until 09/27/2019 Varicella zoster Lab Routine Preoperative examination, 1 Occurrences starting antibody, IgG unspecified 03/28/2019 until 09/27/2019 Health Maintenance Due Date Last Done Comments MMR Vaccines (1 of 1 - 11/23/1996 Standard series) Pneumococcal Vaccine: 11/23/2001 Pediatrics (0 to 5 Years) and At-Risk Patients (6 to 64 Years) (1 of 3 - PCV13) DTaP,Tdap,and Td Vaccines 11/23/2002 (1 - Tdap) Varicella Vaccines (1 of 2 11/23/2008 - 13+ 2-dose series) HPV Vaccines (1 - Female 11/23/2010 3-dose series) Chlamydia Screening 2011 Hepatitis B Vaccines (1 of 11/23/2014 3 - Risk 3-dose series) Cervical Cancer Screening 3 11/23/2016 years Influenza Vaccine 01/23/2019 02/05/2014 Pneumococcal Vaccine: 65+ 11/23/2060 Years (1 of 2 - PCV13) HIV Screening Completed 03/28/2019, 05/06/2017, 09/18/2015, Additional history exists HIB Vaccines Aged Out No longer eligible based on patient's age to complete this topic Hepatitis A Vaccines Aged Out No longer eligible based on patient's age to complete this topic IPV Vaccines Aged Out No longer eligible based on patient's age to complete this topic documented as of this encounter Implants Implanted Type Area Reinstatement Clerk Device Shelf Model / Identifier Expiration Serial / Date Lot Dial- Schon 15cm Xl [facility].. - [id number] ANGIODYNAMICS 02/03/2019 [id number] / Implanted: Qty: 1 on 07/04/2014 by Matt Calvin MD at [facility] INTERVENTIONAL RADIOLOGY / [id number] Picc- 5fr 2l [facility]. - [id number] Right: Neck [employer] 03/24/2018 [id number] / Implanted: Qty: 1 on 02/25/2017 by Matt Calvin MD at [facility] / [id number] Picc- 5fr 2l [employer]. - [id number] Right: Neck [employer] 03/24/2018 [id number] / Implanted: Qty: 1 on 05/05/2017 by Matt Calvin MD at [facility] INPATIENT [id number] / Dial-Decathlon Df 16fr X 19ttc - [id number] Right: [employer] 2018 [id number] / Implanted: Qty: 1 on 08/30/2017 by Prince Lemons MD at [facility] Subclavian / [id number] Picc- 5fr 2l [employer]. - [id number] Left: Chest [employer] 09/22/2020 [id number] / Implanted: Qty: 1 on 01/26/2018 by Juanjo Palafox MD at [facility] INPATIENT Wall / Explanted: 02/07/2018 by Juanjo Palafox MD (Quantity not on file) [id number] documented as of this encounter Results Uric acid (03/28/2019 2:10 PM EST) Uric Acid 4.1 2.4 - 5.7 mg/dl [facility] Pathology Specimen Plasma Performing Organization Address [facility] Phone Number [facility] CLINICAL PATHOLOGY [address] [place] [address] [phone] [facility] [address] [place] [address] Pathology PTH, intact (03/28/2019 2:10 PM EST) PTH Intact 152 (H) 15 - 65 pg/mL [facility] Pathology Specimen Plasma Performing Organization Address City/[facility] Phone Number [facility] CLINICAL PATHOLOGY [address] [place] [address] [facility] [address] [place] [address] Pathology Phosphorus Level (03/28/2019 2:10 PM EST) Phosphorus 5.1 (H) 2.5 - 4.5 mg/dL [facility] Pathology Specimen Plasma Performing Organization Address [facility] Phone Number [facility] CLINICAL PATHOLOGY [address], [place] [phone] [facility] [address] [place] [address] Pathology Partial Thromboplastin Time (PTT) (03/28/2019 2:10 PM EST) PTT Patient (PAT) 33.0 24.0 - 34.0 s [facility] Pathology Specimen Plasma Performing Organization Address [facility] Phone Number [facility] CLINICAL PATHOLOGY [address] [place] [address] [phone] [facility] [address] [place] [phone] Pathology Magnesium Level (03/28/2019 2:10 PM EST) Magnesium 2.7 (H) 1.6 - 2.6 mg/dL [facility] Pathology Specimen Plasma Performing Organization Address [facility] Phone Number [facility] CLINICAL PATHOLOGY [address] [place] [address] [facility] [address] [place] [phone] Pathology Lipid panel (03/28/2019 2:10 PM EST) Cholesterol 168 <200 mg/dL [facility] Pathology Triglyceride 103 <150 mg/dL [facility] Pathology HDL Cholesterol 49 (L) >50 mg/dL [facility] Pathology LDL Cholesterol 98 <100 mg/dL [facility] Pathology VLDL Cholesterol 21 16 - 42 mg/dl [facility] Pathology Non HDL Cholesterol 119 <130 mg/dL [facility] Pathology Specimen Plasma Performing Organization Address [facility] Phone Number [facility] CLINICAL PATHOLOGY [address] [place] [address] [phone] [facility] [address] [place] [phone] Pathology Hepatic Function Panel (03/28/2019 2:10 PM EST) Albumin 4.8 3.5 - 5.2 g/dL [facility] Pathology Bilirubin, Total 0.4 <1.2 mg/dL [facility] Pathology Bilirubin, Direct <0.2 <0.3 mg/dL [facility] Pathology Alkaline Phosphatase 107 (H) 35 - 104 U/L [facility] Pathology AST/SGO 5 <32 U/L [facility] Pathology ALT/SGP <5 <33 U/L [facility] Pathology Total Protein 7.3 6.4 - 8.3 g/dL [facility] Pathology Specimen Plasma Performing Organization Address [facility] Phone Number [facility] CLINICAL PATHOLOGY [address] [place] [address] [facility] [address] [place] [address] Pathology G6Pd, Qualitative (03/28/2019 2:10 PM EST) G6PD,Qualitative Normal Normal [facility] Pathology Specimen Plasma Performing Organization Address [facility] Phone Number [facility] PATHOLOGY [address] [place] [address] [facility] [address] [place] [address] Pathology Syphilis IgG/IgM Screen w/Reflex to RPR (03/28/2019 2:10 PM EST) Syphilis IgG/IgM Non Reactive Non Reactive [facility] Pathology Specimen Serum Performing Organization Address [facility] Phone Number [facility] CLINICAL PATHOLOGY [address] [place] [address] [facility] [address] [place] [address] Pathology HLA Antibody ID Screen (03/28/2019 2:10 PM EST) HLA ANTIBODY ID See Special [facility] SCREEN Report CLINICAL PATHOLOGY Specimen Serum Performing Organization Address [facility] Phone Number [facility] CLINICAL PATHOLOGY [address] [place] [address] [phone] HIV Ag Ab Combo Screen (03/28/2019 2:10 PM EST) HIV Ag Ab Combo Non Reactive Non Reactive [facility] Comment: [facility] Negative for HIV-1 p24 antigen Pathology and HIV-1/HIV-2 antibodies. No laboratory evidence of HIV infection. Specimen Serum Performing Organization Address [facility] Phone Number [facility] CLINICAL PATHOLOGY [address] [place] [address] [phone] [facility] [address] [place] [address] Pathology Hepatitis C antibody (03/28/2019 2:10 PM EST) Pathologist [facility] Hepatitis C Ab Non ReactiveComment: Non Reactive [facility] No serological Univ [facility] evidence of active Pathology infection. If recent exposure is suspected, test for HCV RNA. Specimen Serum Performing Organization Address [facility] Phone Number [facility] PATHOLOGY [address] [place] [address] [facility] [address] [place] [address] Pathology Hepatitis B surface antigen (03/28/2019 2:10 PM EST) Pathologist [facility] Hepatitis B Non Non Reactive [facility] Surface Ag ReactiveComment: No Univ Clin active or previous Pathology infection. Susceptible to infection. Specimen Serum Performing Organization Address [facility] Phone Number [facility] PATHOLOGY [address] [place] [address] [facility] [address] [place] [address] Pathology Hepatitis B surface antibody (03/28/2019 2:10 PM EST) Pathologist [facility] Hepatitis B 15.6 >11.4 [facility] Surface Ab Comment: m[IU]/mL Univ Clin Reactive Pathology Immunity due to hepatitis B immunization or natural infection. Specimen Serum Performing Organization Address [facility] Phone Number [facility] CLINICAL PATHOLOGY [address] [place] [address] [facility] [address] [place] [address] Pathology Cardiolipin antibody, IgG (03/28/2019 2:10 PM EST) [facility] Cardiolipin IgG Ab 8.7Comment: Negative <20.0 U/mL [facility] results do not rule out Univ Clin Antiphospholipid Pathology syndrome. Additional APL testing should be considered. Specimen Serum Performing Organization Address [facility] Phone Number [facility] PATHOLOGY [address] [place] [address] [phone] [facility] [address] [place] [address] Pathology documented in this encounter Visit Diagnoses Diagnosis Preoperative examination, unspecified - Primary Pre-transplant evaluation for kidney transplant Other specified pre-operative examination CKD (chronic kidney disease) stage V requiring chronic dialysis End stage renal disease Failed kidney transplant Complications of transplanted kidney documented in this encounter
--- OUTSIDE RECORDS SUMMARY | 2019-05-26 12:00 | XMS REPORT | Continuity of Care Document ---
:1995 External Reference #:[id number] Author Name Lucero Wolf M.D. 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 Active Problems Provider Date Essential hypertension [...] Medications SIG Qnty Indications Ordering Provider Date Clonidine HCL 1 tab by mouth 30tabs [...] CPT Code Status Date Vaccine Lot # [id number] Given 05/08/2019 MMR [id number] 00085 Given 02/05/2019 Flu Virus Vaccine, Quadrivalent, Slit Virus, Im [id number] Use U-HPV Given 08/18/2009 HPV,Unspecified U-HPV Given 04/21/2009 HPV,Unspecified U-Flu Given 04/21/2009 Influenza,Unspecified U-Menin Given 02/18/2009 Meningococcal,Unspecified U-HPV Given 02/18/2009 HPV,Unspecified U-Flu Given 02/18/2009 Influenza,Unspecified [id number] Given 02/15/2008 Td 7 Years And Older 44762 Given 05/20/2000 MMR U-DTaP Given 05/20/2000 DTaP,Unspecified U-Polio Given 05/20/2000 Polio,Unspecified 90552 Given 12/18/1996 MMR U-Polio Given 05/24/1996 Polio,Unspecified U-HepB Given 05/24/1996 Hepatitis B,Unspecified U-DTaP Given 05/24/1996 DTaP,Unspecified U-Polio Given 03/23/1996 Polio,Unspecified U-Polio Given 01/17/1996 Polio,Unspecified U-HepB Given 01/17/1996 Hepatitis B,Unspecified U-DTaP Given 01/17/1996 DTaP,Unspecified U-HepB Given 1995 Hepatitis B,Unspecified Vital Signs Date Vital Result Comment 05/08/2019 1:42pm BP Systolic 125 mmHg BP Diastolic 70 mmHg Height 61 inches 5'1" Weight 126.00 lb BMI (Body Mass Index) 23.8 kg/m2 Heart Rate 125 /min Respiratory Rate 17 /min 03/27/2019 3:28pm BP Systolic 115 mmHg BP Diastolic 62 mmHg Height 61 inches 5'1" Weight 129.00 lb BMI (Body Mass Index) 24.4 kg/m2 Heart Rate 77 /min Respiratory Rate 16 /min Results Description No Information Available Procedures Date Code Description Status 03/12/2019 92794 Visual Screening Test Completed 03/12/2019 32544 Audiometry, Bekesy, Screening Completed 11/17/2018 07816 EKG Completed Medical Devices Description No Information Available Encounters Type Date Location Provider Dx Diagnosis Office Visit 05/08/2019 [place] [facility] Lucero Wolf, I10 Essential ( primary) 2:00p M.D. hypertension E78.2 Mixed hyperlipidemia N18.6 End [...] of other contraceptives Office Visit 03/27/2019 4:00p [place] [facility] Lucero Wolf I10 Jessica ( primary) Bj [...] J02.0 Streptococcal pharyngitis Office Visit 03/12/2019 3:00p [place] [facility] Efrem Villarreal, I10 Essential (primary) N.P. [...] w abnormal findings Office Visit 02/05/2019 1:30p [place] [facility] Efrem Villarreal, I10 Essential (primary) N.P. [...] Encounter for immunization Office Visit 12/06/2018 1:30p [place] [facility] Efrem Villarreal, I10 Essential (primary) N.P. 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 G40.909 Epilepsy, unsp, not intractable, [...] upper quadrant pain Office Visit 11/17/2018 10:45a [place] [facility] Efrem Villarreal, I10 Essential (primary) N.P. [...] and lump Assessments Date Code Description Provider 05/08/2019 I10 Essential (primary) hypertension Lucero Wolf [...] Wolf M.D. 05/08/2019 J30.9 Allergic rhinitis, unspecified Lucero Wolf M.D. 05/08/2019 M79.643 Pain in unspecified hand Lucero Wolf M.D. 05/08/2019 M25.569 Pain in unspecified knee Lucero Wolf M.D. 05/08/2019 M79.606 Pain in leg, unspecified Lucero Wolf M.D. 05/08/2019 F41.9 Anxiety disorder, unspecified Lucero Wolf M.D. 05/08/2019 F33.9 Major depressive disorder, recurrent, Lucero Wolf M.D. unspecified 05/08/2019 H53.30 Unspecified disorder of binocular vision Lucero Wolf M.D. 05/08/2019 I31.3 Pericardial effusion (noninflammatory) Lucero Wolf M.D. 05/08/2019 J02.0 Streptococcal pharyngitis Lucero Wolf M.D. 05/08/2019 Z23 Encounter for immunization Lucero Wolf M.D. 05/08/2019 Z30.49 Encounter for surveillance of other Lucero Wolf M.D. 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 03/12/2019 M25.569 Pain in unspecified knee Efrem Villarreal N.P. 03/12/2019 M79.606 Pain in leg, unspecified Efrem Villarreal N.P. 03/12/2019 F41.9 Anxiety disorder, unspecified Efrem Villarreal N.PMarjan 03/12/2019 F33.9 Major depressive disorder, recurrent, Efrem Villarreal N.P. unspecified 03/12/2019 H53.30 Unspecified disorder of binocular vision Efrem Villarreal N.PMarjan 03/12/2019 I31.3 Pericardial effusion (noninflammatory) Efrem Villarreal N.PMarjan 03/12/2019 R19.03 Right lower quadrant abdominal swelling, Rony Evans.Patricia mass and lump 03/12/2019 G43.109 Migraine with aura, not intractable, without Efrem Villarreal N.PMarjan status migrainosus 03/12/2019 R10.11 Right upper quadrant pain Efrem Villarreal N.PMarjan 03/12/2019 Z00.01 Encounter for general adult medical Rony Evans.Patricia examination with abnormal findings 02/05/2019 I10 Essential (primary) hypertension Efrem Villarreal N.PMarjan 02/05/2019 E78.2 Mixed hyperlipidemia Efrem Villarreal N.PMarjan 02/05/2019 N18.6 End stage renal disease Efrem Villarreal N.PMarjan 02/05/2019 R60.0 Localized edema Efrem Villarreal N.PMarjan 02/05/2019 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 arthritis of unspecified site 02/05/2019 G40.909 Epilepsy, unspecified, not intractable, Efrem Villarreal, N.PMarjan without status epilepticus 02/05/2019 G43.009 Migraine without aura, not intractable, Efrem Villarreal N.P. without status migrainosus 02/05/2019 K21.0 Gastro-esophageal reflux disease with Efrem Villarreal N.PMarjan esophagitis 02/05/2019 K30 Functional dyspepsia Efrem Villarreal N.P. 02/05/2019 K31.84 Gastroparesis Efrem Villarreal N.PMarjan 02/05/2019 K59.00 Constipation, unspecified Efrem Villarreal N.P. 02/05/2019 K64.9 Unspecified hemorrhoids Efrem Villarreal N.P. 02/05/2019 R34 Anuria and oliguria Efrem Villarreal N.P. 02/05/2019 K86.1 Other chronic pancreatitis Efrem Villarreal N.P. 02/05/2019 Z99.2 Dependence on renal dialysis Efrem [...] 02/05/2019 I31.3 Pericardial effusion (noninflammatory) Efrem Villarreal N.P. 02/05/2019 R19.03 Right lower quadrant abdominal swelling, Efrem Villarreal N.PMarjan mass and lump 02/05/2019 G43.109 Migraine with aura, not intractable, without Efrem Villarreal N.PMarjan status migrainosus 02/05/2019 R10.11 Right upper quadrant pain Efrem Villarreal N.P. 02/05/2019 Z23 Encounter for immunization Efrem Villarreal N.P. 12/06/2018 I10 Essential (primary) hypertension Efrem Villarreal N.P. 12/06/2018 E78.2 Mixed hyperlipidemia Efrem Villarreal N.P. 12/06/2018 N18.6 End stage renal disease Efrem Villarreal N.P. 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 arthritis of unspecified 12/06/2018 G40.909 Epilepsy, unspecified, not intractable, Efrem Villarreal N.P. without status epile 12/06/2018 G43.009 Migraine without aura, not intractable, Efrem Villarreal N.P. without status migra 12/06/2018 K21.0 Gastro-esophageal reflux disease with Efrem Villarreal N.PMarjan esophagitis 12/06/2018 K30 Functional dyspepsia Efrem Villarreal N.P. 12/06/2018 K31.84 Gastroparesis Efrem Villarreal N.P. 12/06/2018 K59.00 Constipation, unspecified Efrem Villarreal N.P. 12/06/2018 K64.9 Unspecified hemorrhoids Efrem Villarreal N.P. 12/06/2018 R34 Anuria and oliguria Efrem Villarreal N.P. 12/06/2018 K86.1 Other chronic pancreatitis Efrem Villarreal N.P. 12/06/2018 Z99.2 Dependence on renal dialysis Efrem [...] disorder of binocular vision Efrem Villarreal N.PMarjan 12/06/2018 I31.3 Pericardial effusion (noninflammatory) Efrem Villarreal N.P. 12/06/2018 R19.03 Right lower quadrant abdominal swelling, Efrem Villarreal N.PMarjan mass and lump 12/06/2018 G43.109 Migraine with aura, not intractable, without Efrem Villarreal N.PMarjan status migrainosus 12/06/2018 R10.11 Right upper quadrant pain Efrem Villarreal N.P. 11/17/2018 I10 Essential (primary) hypertension Efrem Villarreal N.PMarjan 11/17/2018 E78.2 Mixed hyperlipidemia Efrem Villarreal N.PMarjan 11/17/2018 N18.6 End stage renal disease Efrem Villarreal N.P. 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 Efrem Villarreal N.PMarjan arthritis of unspecified 11/17/2018 G40.909 Epilepsy, unspecified, not intractable, Efrem Villarreal N.PMarjan without status epile 11/17/2018 G43.009 Migraine without aura, not intractable, Efrem Villarreal N.PMarjan without status migra 11/17/2018 K21.0 Gastro-esophageal reflux disease with Efrem Villarreal N.PMarjan esophagitis 11/17/2018 K30 Functional dyspepsia Efrem Villarreal N.PMarjan 11/17/2018 K31.84 Gastroparesis Efrem Villarreal N.PMarjan 11/17/2018 K59.00 Constipation, unspecified Efrem Villarreal N.PMarjan 11/17/2018 K64.9 Unspecified hemorrhoids Efrem Villarreal N.PMarjan 11/17/2018 R34 Anuria and oliguria Efrem Villarreal N.PMarjan 11/17/2018 K86.1 Other chronic pancreatitis Efrem Villarreal N.PMarjan 11/17/2018 Z99.2 Dependence on renal dialysis Efrem Villarreal N.P. 11/17/2018 N91.1 Secondary amenorrhea Efrem Villarreal N.PMarjan 11/17/2018 L20.9 Atopic dermatitis, unspecified Efrem Villarreal N.PMarjan 11/17/2018 J30.9 Allergic rhinitis, unspecified Efrem Villarreal [...] 11/17/2018 I31.3 Pericardial effusion (noninflammatory) Efrem Villarreal N.PMarjan 11/17/2018 R19.03 Right lower quadrant abdominal swelling, Efrem Villarreal N.PMarjan mass and lump 11/16/2018 I10 Essential (primary) hypertension Lucero Wolf M.D. 11/16/2018 E78.2 Mixed hyperlipidemia Lucero Wolf M.D. 11/16/2018 N18.6 End stage renal disease Lucero Wolf M.D. 11/16/2018 R60.0 Localized edema Lucero Wolf M.D. 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 arthritis of unspecified 11/16/2018 G40.909 Epilepsy, unspecified, not intractable, Lucero Wolf M.D. without status epile 11/16/2018 G43.009 Migraine without aura, not intractableLuciano Ahmad M., M.D. without status migra 11/16/2018 K21.0 Gastro-esophageal [...] 1:30 pm - Efrem [facility] N[facility]P. at [facility]05/08/2019 - Lucero Wolf M.D.I10 Essential (primary) hypertensionNew Medication:Clonidine HCL 0.1 mg - 1 tab by mouth twice a day as needed- NephrologyComments:CHECK BP TIW ( PRN)DIET AND FLUID COUNSELING LOW SODIUM DIETWT LOSSF/U LABE78.2 Mixed hyperlipidemiaComments:DIET REVIEWED CONTINUE DIETWT LOSSF/U LAB FBWN18.6 End stage renal diseaseComments:F/U WITH NEPHROLOGYHEMODIALYSISF/U WITH TRANSPLANT TEAMR60.0 Localized edemaComments: ELEVATE LE PRNELASTIC STOCKING / EDUARDO WRAP PRNF/U LAB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pecified siteComments:EXERCISE/HEAT/MESSAGE F/U WITH REMATOLOGY COUNCELLING AND IAEQQNEPTALR16.909 Epilepsy, unspecified, not intractable, without status epilepticusComments:F/U WITH NEUROLOGY PRNOBSERVE SAFETY CJVJFRZ44.009 Migraine without aura, not intractable, without status migrainosusComments:TYLENOL OR MOTRIN PRNRELAXATION/AVOID OKKBKKWRNV16.0 Gastro- esophageal reflux disease with esophagitisComments:AVOID CAFFEINE, ETOH AND SPICY FOODSTUMS OR MYLANTA PRN CALL WITH PROBLEMS OR [id number] Functional dyspepsiaComments:AVOID CAFFEINE, ETOH AND SPICY FOODSTUMS OR MYLANTA PRN CALL WITH PROBLEMS OR LDMGNMTXW41.84 GastroparesisComments:CONTINUE MEDICATIONS F/U WITH GINUBMSMDYYIZKSGWSB94.00 Constipation, unspecifiedComments:MOM OR MIRALAX PRNHIGH FIBER DIETINCREASE PO WPAJHE57.9 Unspecified hemorrhoidsComments:AVOID CONSTIPATOIN INCREASE FIBER IN DIETLAXATIVE PRNLUBRICATE ANAL AREA WITH LOTION PRN FOR [id number] Anuria and oliguriaComments:OBSERVEHEMODIALYSIS PER ICCSMMELIEZ21.1 Other chronic pancreatitisComments:AVOID ETOH ABUSE F/U WITH GI PRNZ99.2 Dependence on renal dialysisComments:F/U WITH JBTXAVEBWLJ96.1 Secondary amenorrheaComments:OBSERVEF/U WITH OB/GYNL20.9 Atopic dermatitis, unspecifiedComments:SKIN CARE INSTRUCTIONS LOTION OR BABY OIL 2-3 APPLICATION PER DAYUSE MOISTURIZING SOAPAVOID PROLONGED WATER EXPOSUREAVOID USING HOT WATER IN JFSYYFL20.9 Allergic rhinitis, unspecifiedComments:INCREASE PO FLUID USE ANTIHISTAMINE PRN SECOND HAND SMOKING JQZTFYOYGO34.643 Pain in unspecified handComments:EXERCISE/HEAT/MESSAGETYLENOL OR MOTRIN PRNAVOID HEAVY LIFTINGWT LOSS DUR QCQQOUUB23.569 Pain in unspecified kneeComments:EXERCISE/HEAT / MESSAGEAVOID HEAVY LIFTING WT LOSSTYLENOL OR MOTRIN PRN DUR HMSWCAEV40.606 Pain in leg, unspecifiedComments:TYLENOL OR MOTRIN PRN EXERCISE/HEAT/MESSAGE DUR LCUEHILX12.9 Anxiety disorder, unspecifiedComments:COUNCELLING AND REASSURANCE RELAXATION TECHNIQUES DISCUSSEDCOUNSELED RE: STRESSORS IN LIFE AVOID ALLENERGY/ HIGH CAFFEINE BWANDGN30.9 Major depressive disorder, recurrent, unspecifiedComments:COUNCELLING AND REASSURANCE RELAXATION TECHNIQUES DISCUSSED COUNSELED RE: STRESSORS IN LIFEH53.30 Unspecified disorder of binocular visionComments:USE GLASSES/CONTACTSF/U WITH YADWWKPGUWHUGW01.3 Pericardial effusion (noninflammatory)Comments:RESOLVEDOBSERVE F/U WITH UGYBEWPLTZL88.0 Streptococcal pharyngitisComments:[id number] Encounter for immunizationComments :IMMUNIZATION GIVEN ( SEE LIST )BENEFITS ,RISK AND SIDE EFFECTS DISSCUSED HANDOUT BENHUP14.49 Encounter for surveillance of other contraceptivesComments:F /U WITH [employer]ETING OFFICER FOR IUD Functional Status Description No Information Available Mental Status Description No Information Available Referrals Description No Information Available
== END 2019-05-26 10:57 | disposition left against medical advice (07) ==
LOC: UCCORT 10:38
DX: Z53.21 Procedure and treatment not carried out due to patient leaving prior to being seen by health care provider (principal)